=== PATIENT | female | born 1950 | race Caucasian/White ===

== ENCOUNTER 2020-08-20 08:50 | Outpatient (REF) | payer MEDICARE, OTHER, SELFPAY ==
[2020-08-20 10:33] LABS: Anion Gap 14 (12-20); Blood Urea Nitrogen 18 mg/dL (9-16); Calcium 9.2 mg/dL (8.4-10.2); Carbon Dioxide 31 mmol/L (22-29); Chloride 100 mmol/L (96-108); Estimated Glomerular Filt Rate > 60; Potassium 3.6 mmol/l (3.3-5.1); Sodium 141 mmol/L (135-145)
[2020-08-20 10:51] LABS: Glucose Urine UA NEG (NEG); Leukocyte Esterase Urine TRACE (NEG); Nitrite Urine NEG (NEG); PH 7.5 (5.0-8.0); Urine Blood NEG (NEG); Urine Ketones NEG (NEG); Urine Protein NEG (NEG-TRACE)
[2020-08-20 10:59] LABS: Appearance Urine CLEAR; Color Urine YELLOW
[2020-08-20 11:14] LABS: Bacteria Urine TRACE /LPF; RBC Urine 0-2 /HPF (0); Squamous Epithelial Cell Urine 1+ /LPF
== END 2020-08-20 08:51 | disposition home or self-care (01) ==
LOC: HO.LAB 08:50
PROVIDERS: PCP Internal Medicine; Visit Provider Internal Medicine Hypertension Specialist
DX: N20.0 Calculus of kidney (principal); I10 Essential (primary) hypertension; E87.6 Hypokalemia
CPT/HCPCS: 80051; 81001; 81003; 82310; 82565; 84520

== ENCOUNTER 2020-10-21 09:17 | Outpatient (REF) | payer MEDICARE, OTHER, SELFPAY | END 2020-10-21 09:18 | disposition home or self-care (01) | LOC: HO.LAB 09:17 | PROVIDERS: Visit Provider Internal Medicine | DX: Z20.822 Contact with and (suspected) exposure to COVID-19 (principal) | CPT/HCPCS: 36415; C9803; U0003; U0005 ==

== ENCOUNTER 2020-12-30 07:38 | Outpatient (REF) | payer MEDICARE, OTHER, SELFPAY ==
--- NOTE | ~2020-12-30 | US_ITS ---
EXAMINATION: US RETROPERITONEAL LIMITED (RENAL ONLY) CLINICAL INFORMATION: Stones. COMPARISON: Renal ultrasound 01/07/2020 and 01/07/2019. CT abdomen and pelvis 02/05/2012. TECHNIQUE: Real-time imaging of the kidneys. FINDINGS: RIGHT KIDNEY: 10.1 x 4.1 x 5.2 cm (SAG x AP x TRV). The kidney is normal in size, contour, and echogenicity. Renal cortical thickness is normal. No calculi or focal parenchymal lesions. No hydronephrosis. LEFT KIDNEY: 10.1 x 4.7 x 5.1 cm (SAG x AP x TRV). The kidney is normal in size, contour, and echogenicity. Renal cortical thickness is normal. No focal parenchymal lesions or hydronephrosis. There is an echogenic stone lower pole measuring 0.29 x 0.23 x 0.20 cm. US/US renal BI IMPRESSION: Small nonobstructive echogenic stone lower pole left kidney measuring 0.29 x 0.23 x 0.20 cm. The right kidney is unremarkable.
[2020-12-30 10:15] LABS: Anion Gap 12 (12-20); Blood Urea Nitrogen 24 mg/dL (9-16); Calcium 9.1 mg/dL (8.4-10.2); Carbon Dioxide 30 mmol/L (22-29); Chloride 103 mmol/L (96-108); Estimated Glomerular Filt Rate > 60; Potassium 3.7 mmol/L (3.3-5.1); Sodium 141 mmol/L (135-145)
== END 2020-12-30 07:39 | disposition home or self-care (01) ==
LOC: HO.US 07:38
PROVIDERS: Absent Provider Internal Medicine Hypertension Specialist; PCP Internal Medicine; Visit Provider Urology
DX: N20.0 Calculus of kidney (principal); I10 Essential (primary) hypertension; E87.6 Hypokalemia
CPT/HCPCS: 36415; 76775; 80051; 82310; 82565; 84520

== ENCOUNTER → 2021-01-14 09:02 | Outpatient (BNVA) | payer MEDICARE, OTHER, SELFPAY | PROVIDERS: PCP Internal Medicine; Visit Provider Urology | CPT/HCPCS: Q3014 ==

== ENCOUNTER 2021-03-23 10:06 | Outpatient (REF) | payer MEDICARE, OTHER, SELFPAY ==
--- NOTE | ~2021-03-23 | MM_ITS ---
EXAMINATION: BONE DENSITOMETRY CLINICAL INDICATION: Asymptomatic menopausal state. COMPARISON: None (current study represents initial baseline exam). TECHNIQUE: Using a [employer] DXA System (software version: 13.1) manufactured by [employer], dual-energy x-ray absorptiometry was performed of the lumbar spine and left hip. The images are of good technical quality. Summary results are attached. FINDINGS: AP SPINE L1-L4: BMD 0.895 g/cm2, Z-score -1.2, T-score -2.4, osteopenia. LEFT FEMUR, NECK: BMD 0.723 g/cm2, Z-score -0.9, T-score -2.3, osteopenia. LEFT FEMUR, TOTAL: BMD 0.813 g/cm2, Z-score -0.4, T-score -1.5, osteopenia. IDENTIFIED RISK FACTORS: Osteoporosis, renal, height loss. Early menopause, secondary osteoporosis, thiazide, hysterectomy, bilateral oophorectomy. HISTORY OF FRACTURE: Foot. MEDICATIONS: Calcium supplements or multivitamin, vitamin D. MM/XR DEXA axial skeleton IMPRESSION: 1. DIAGNOSIS: Osteopenia based on the lowest T-score value of -2.4 in the lumbar spine applying World Health Organization criteria. 2. 10-YEAR FRACTURE RISK PREDICTION, FRAX: Major osteoporotic fracture (clinical spine, forearm, hip or shoulder) 12.8%. Hip fracture 2.9%. 3. Treatment Recommendations: NOF guidelines recommend consideration for treatment in postmenopausal women and men age 50 and older presenting with the following: -A hip or vertebral (clinical or morphometric) fracture. -T-score less than or equal to -2.5 at the femoral neck or spine after appropriate evaluation to exclude secondary causes. -Low bone mass at the hip or spine and a 10-year fracture probability by FRAX of greater than or equal to 3% for hip fracture or greater than or equal to 20% for major osteoporotic fracture based on the [place] adapted WHO algorithm. 4. Other Recommendations: All treatment decisions require clinical judgment and consideration of individual patient factors, including patient preferences, comorbidities, previous drug use, risk factors not captured in the FRAX model (e.g. frailty, falls, vitamin D deficiency, increased bone turnover, interval significant decline in bone density) and possible under or overestimation of fracture risk by FRAX. Additional medical evaluation for secondary cause of low bone mineral density may be appropriate. FUTURE SCAN RECOMMENDATION: People with diagnosed cases of osteoporosis or at high risk for fracture should have regular bone mineral density tests. For patients eligible for Medicare, routine testing is allowed once every 2 years. The testing frequency can be increased to one year for patients who have rapidly progressing disease, those who are receiving or discontinuing medical therapy to restore bone mass, or have additional risk factors.
== END 2021-03-23 10:07 | disposition home or self-care (01) ==
LOC: HO.MAMMO 10:06
PROVIDERS: PCP Internal Medicine; Visit Provider Nurse Practitioner Family
DX: Z13.820 Encounter for screening for osteoporosis (principal); M85.80 Other specified disorders of bone density and structure, unspecified site; Z78.0 Asymptomatic menopausal state; Z79.899 Other long term (current) drug therapy; Z90.722 Acquired absence of ovaries, bilateral; Z98.890 Other specified postprocedural states
CPT/HCPCS: 77080

== ENCOUNTER 2021-05-17 08:58 | Outpatient (REF) | payer MEDICARE, OTHER, SELFPAY ==
[2021-05-17 09:50] LABS: MANUAL DIFF FLAG NO
[2021-05-17 09:52] LABS: Basophils Percent Auto 0.7 % (0-2); Eosinophils Absolute Auto 0.1 X10*3/uL (0.0-0.4); Eosinophils Percent Auto 2.3 % (0-4); Hemoglobin 12.8 g/dl (12.0-16.0); Imm Gran Abs Auto 0.05 X10*3/uL (0.00-0.03); Imm Gran Pct Auto 0.9 % (0.0-0.4); Lymphocytes Absolute Auto 1.8 X10*3/uL (1.2-4.9); Lymphocytes Percent Auto 30.9 % (20-40); Mean Corpuscular HGB Conc 32.8 g/dl (31.0-35.0); Mean Corpuscular Hemoglobin 30.8 pg (27.0-33.0); Mean Corpuscular Volume 93.8 fL (80-98); Mean Platelet Volume 9.1 fL (9.4-12.3); Monocytes Absolute Auto 0.5 X10*3/uL (0.1-1.2); Monocytes Percent Auto 8.3 % (2-11); Neutrophils Absolute Auto 3.2 X10*3/uL (2.0-8.3); Neutrophils Percent Auto 56.9 % (45-73); Platelet Count 253 X10*3/uL (160-400); Red Blood Count 4.16 X10*6/uL (4.20-5.50); Red Cell Distribution Width 13.2 % (11.0-16.0); White Blood Count 5.7 X10*3/uL (4.8-10.8)
[2021-05-17 10:27] LABS: Alanine Aminotransferase 24 U/L (0-31); Albumin Level 4.4 g/dL (3.5-5.0); Alkaline Phosphatase 73 U/L (39-117); Anion Gap 12 (12-20); Aspartate Amino Transferase 26 U/L (5-31); Bilirubin Total 0.7 mg/dL (0.0-1.0); Blood Urea Nitrogen 19 mg/dL (9-16); Calcium 9.2 mg/dL (8.4-10.2); Carbon Dioxide 28 mmol/L (22-29); Chloride 101 mmol/L (96-108); Cholesterol 200 mg/dL; Estimated Glomerular Filt Rate > 60; Glucose Fasting 103 mg/dL (60-99); HDL Cholesterol 55 mg/dL; LDL Cholesterol Calculated 131 mg/dl; Potassium 3.4 mmol/L (3.3-5.1); Sodium 138 mmol/L (135-145); Total Protein 6.9 g/dL (6.5-8.0); Triglycerides 73 mg/dL
[2021-05-17 10:51] LABS: TSH reflex Free T4 2.09 uIU/mL (0.32-4.0); Vitamin D 25-OH Total 22.8 ng/mL (>30)
== END 2021-05-17 08:59 | disposition home or self-care (01) ==
LOC: HO.LAB 08:58
PROVIDERS: Absent Provider Internal Medicine; PCP Internal Medicine; Visit Provider Nurse Practitioner Family
DX: Z13.220 Encounter for screening for lipoid disorders (principal); Z13.1 Encounter for screening for diabetes mellitus; R53.83 Other fatigue
CPT/HCPCS: 36415; 80053; 80061; 82306; 84443; 85025

== ENCOUNTER 2021-12-26 08:15 | Outpatient (REF) | payer MEDICARE, OTHER, SELFPAY ==
--- NOTE | ~2021-12-26 | US_ITS ---
EXAMINATION: US RETROPERITONEAL LIMITED (RENAL ONLY) CLINICAL INFORMATION: Calculus of kidney. COMPARISON: US retroperitoneal limited (renal only) 12/30/2020 and 01/07/2020. CT abdomen and pelvis 02/05/2012. TECHNIQUE: Real-time imaging of the kidneys. FINDINGS: RIGHT KIDNEY: 10.4 x 3.9 x 4.3 cm (SAG x AP x TRV). The kidney is normal in size, contour, and echogenicity. Renal cortical thickness is normal. No calculi or focal parenchymal lesions. No hydronephrosis. LEFT KIDNEY: 10.4 x 4.2 x 4.5 cm (SAG x AP x TRV). The kidney is normal in size, contour, and echogenicity. Renal cortical thickness is normal. There is a 3 mm echogenic density with twinkle artifact in the lower pole questionable for a stone. No focal parenchymal lesions or hydronephrosis. US/US renal BI IMPRESSION: Question small left renal stone. Normal right kidney.
== END 2021-12-26 08:16 | disposition home or self-care (01) ==
LOC: HO.US 08:15
PROVIDERS: PCP Internal Medicine; Visit Provider Urology
DX: N20.0 Calculus of kidney (principal)
CPT/HCPCS: 76775

== ENCOUNTER 2022-01-02 09:33 | Outpatient (REF) | payer MEDICARE, OTHER, SELFPAY ==
[2022-01-02 10:41] LABS: Alanine Aminotransferase 26 U/L (0-31); Albumin Level 4.3 g/dL (3.5-5.0); Alkaline Phosphatase 74 U/L (39-117); Anion Gap 12 (12-20); Aspartate Amino Transferase 26 U/L (5-31); Bilirubin Total 0.6 mg/dL (0.0-1.0); Blood Urea Nitrogen 17 mg/dL (9-16); Calcium 9.8 mg/dL (8.4-10.2); Carbon Dioxide 30 mmol/L (22-29); Chloride 102 mmol/L (96-108); Estimated Glomerular Filt Rate > 60; Glucose Random 114 mg/dL (60-115); Potassium 3.4 mmol/L (3.3-5.1); Sodium 141 mmol/L (135-145)
== END 2022-01-02 09:34 | disposition home or self-care (01) ==
LOC: HO.LAB 09:33
PROVIDERS: PCP Internal Medicine; Visit Provider Internal Medicine Hypertension Specialist
DX: N20.0 Calculus of kidney (principal)
CPT/HCPCS: 36415; 80053

== ENCOUNTER → 2022-01-17 14:11 | Outpatient (BNVA) | payer MEDICARE, OTHER, SELFPAY | PROVIDERS: PCP Internal Medicine | DX: N20.0 Calculus of kidney (principal) | CPT/HCPCS: 99212 ==

== ENCOUNTER 2022-07-07 10:29 | Outpatient (REF) | payer MEDICARE, OTHER, SELFPAY ==
[2022-07-07 10:53] LABS: MANUAL DIFF FLAG NO
[2022-07-07 11:43] LABS: Basophils Percent Auto 0.7 % (0-2); Eosinophils Absolute Auto 0.1 X10*3/uL (0.0-0.4); Eosinophils Percent Auto 1.1 % (0-4); Hematocrit 41.3 % (37.0-47.0); Hemoglobin 13.6 g/dl (12.0-16.0); Imm Gran Abs Auto 0.02 X10*3/uL (0.00-0.03); Imm Gran Pct Auto 0.3 % (0.0-0.4); Lymphocytes Absolute Auto 1.7 X10*3/uL (1.2-4.9); Lymphocytes Percent Auto 27.9 % (20-40); Mean Corpuscular HGB Conc 32.9 g/dl (31.0-35.0); Mean Corpuscular Hemoglobin 30.6 pg (27.0-33.0); Mean Platelet Volume 9.4 fL (9.4-12.3); Monocytes Absolute Auto 0.4 X10*3/uL (0.1-1.2); Monocytes Percent Auto 7.2 % (2-11); Neutrophils Absolute Auto 3.9 x10*3/uL (2.0-8.3); Neutrophils Percent Auto 62.8 % (45-73); Platelet Count 294 X10*3/uL (160-400); Red Blood Count 4.44 X10*6/uL (4.20-5.50); Red Cell Distribution Width 13.3 % (11.0-16.0); White Blood Count 6.1 X10*3/uL (4.8-10.8)
[2022-07-07 12:38] LABS: Thyroid Stimulating Hormone 3.21 uIU/mL (0.32-4.0)
[2022-07-07 12:44] LABS: Alanine Aminotransferase 22 U/L (0-31); Albumin Level 4.4 g/dL (3.5-5.0); Alkaline Phosphatase 75 U/L (39-117); Anion Gap 16 (12-20); Aspartate Amino Transferase 25 U/L (5-31); Bilirubin Total 0.4 mg/dL (0.0-1.0); Blood Urea Nitrogen 21 mg/dL (9-16); Calcium 9.8 mg/dL (8.4-10.2); Carbon Dioxide 28 mmol/L (22-29); Chloride 101 mmol/L (96-108); Cholesterol 215 mg/dL; Estimated Glomerular Filt Rate > 60; Glucose Fasting 106 mg/dL (60-99); HDL Cholesterol 58 mg/dL; LDL Cholesterol Calculated 143 mg/dl; Potassium 3.6 mmol/L (3.3-5.1); Sodium 141 mmol/L (135-145); Total Protein 7.1 g/dL (6.5-8.0); Triglycerides 70 mg/dL
== END 2022-07-07 10:30 | disposition home or self-care (01) ==
LOC: HO.LAB 10:29
PROVIDERS: PCP Internal Medicine; Visit Provider Internal Medicine
DX: Z13.0 Encounter for screening for diseases of the blood and blood-forming organs and certain disorders involving the immune mechanism (principal); E78.5 Hyperlipidemia, unspecified; E03.9 Hypothyroidism, unspecified; I10 Essential (primary) hypertension
CPT/HCPCS: 36415; 80053; 80061; 84443; 85025

== ENCOUNTER 2022-10-07 10:04 | Outpatient (REF) | payer MEDICARE, OTHER, SELFPAY ==
[2022-10-07 11:52] LABS: Cholesterol 124 mg/dL; HDL Cholesterol 53 mg/dL; LDL Cholesterol Calculated 63 mg/dl; Triglycerides 44 mg/dL
== END 2022-10-07 10:05 | disposition home or self-care (01) ==
LOC: HO.LAB 10:04
PROVIDERS: PCP Internal Medicine; Visit Provider Internal Medicine
DX: E78.5 Hyperlipidemia, unspecified (principal)
CPT/HCPCS: 36415; 80061

== ENCOUNTER 2023-01-06 09:37 | Outpatient (REF) | payer MEDICARE, OTHER, SELFPAY ==
[2023-01-06 11:12] LABS: Cholesterol 145 mg/dL; HDL Cholesterol 49 mg/dL; LDL Cholesterol Calculated 85 mg/dl; Triglycerides 58 mg/dL
== END 2023-01-06 09:38 | disposition home or self-care (01) ==
LOC: HO.LAB 09:37
PROVIDERS: PCP Internal Medicine; Visit Provider Internal Medicine
DX: E78.5 Hyperlipidemia, unspecified (principal)
CPT/HCPCS: 36415; 80061

== ENCOUNTER 2023-01-09 09:20 | Outpatient (REF) | payer MEDICARE, OTHER, SELFPAY ==
--- NOTE | ~2023-01-09 | US_ITS ---
EXAMINATION: US RETROPERITONEAL LIMITED (RENAL ONLY) CLINICAL INFORMATION: Renal ultrasound 12/26/2021 and 12/30/2020. COMPARISON: None available. TECHNIQUE: Real-time imaging of the kidneys. FINDINGS: RIGHT KIDNEY: 10.5 x 4.1 x 4.8 cm (SAG x AP x TRV). The kidney is normal in size, contour, and echogenicity. Renal cortical thickness is normal. No focal parenchymal lesions or hydronephrosis. 2 mm nonobstructing stone. LEFT KIDNEY: 10.3 x 5.2 x 5.5 cm (SAG x AP x TRV). The kidney is normal in size, contour, and echogenicity. Renal cortical thickness is normal. No focal parenchymal lesions or hydronephrosis. 3 mm lower pole stone. US/US renal BI IMPRESSION: Bilateral nonobstructing nephrolithiasis. No hydronephrosis.
[2023-01-09 12:22] LABS: Anion Gap 14 (12-20); Blood Urea Nitrogen 15 mg/dL (9-16); Calcium 9.2 mg/dL (8.4-10.2); Carbon Dioxide 27 mmol/L (22-29); Chloride 106 mmol/L (96-108); Estimated Glomerular Filt Rate > 60; Potassium 3.4 mmol/L (3.3-5.1); Sodium 144 mmol/L (135-145)
[2023-01-09 12:31] LABS: Creatinine Urine 28.77 mg/dL; Total Protein Urine Random < 7 mg/dL (<12)
== END 2023-01-09 09:21 | disposition home or self-care (01) ==
LOC: HO.US 09:20
PROVIDERS: Absent Provider Internal Medicine Hypertension Specialist; PCP Internal Medicine; Visit Provider Nurse Practitioner Family
DX: N20.0 Calculus of kidney (principal)
CPT/HCPCS: 36415; 76775; 80051; 82310; 82565; 84156; 84520

== ENCOUNTER 2023-01-16 09:13 | Outpatient (REF) | payer MEDICARE, OTHER, SELFPAY | END 2023-01-16 09:14 | disposition home or self-care (01) | LOC: HO.LNP 09:13 | PROVIDERS: PCP Internal Medicine; Visit Provider Nurse Practitioner Family | DX: N20.0 Calculus of kidney (principal); N39.0 Urinary tract infection, site not specified; Z79.899 Other long term (current) drug therapy | CPT/HCPCS: 87086; 99212 ==

== ENCOUNTER → 2023-03-21 10:43 | Outpatient (REF) | payer MEDICARE, OTHER, SELFPAY | LOC: HO.CARD 10:43 | PROVIDERS: PCP Internal Medicine; Visit Provider Internal Medicine | DX: R00.2 Palpitations (principal); D64.9 Anemia, unspecified; E03.9 Hypothyroidism, unspecified | CPT/HCPCS: 36415; 84443; 85025; 93005 ==

== ENCOUNTER 2023-04-14 10:03 | Outpatient (REF) | payer MEDICARE, OTHER, SELFPAY ==
[2023-04-14 10:45] LABS: Anion Gap 17 (12-20); Blood Urea Nitrogen 15 mg/dL (9-16); Calcium 9.4 mg/dL (8.4-10.2); Carbon Dioxide 24 mmol/L (22-29); Chloride 103 mmol/L (96-108); Cholesterol 134 mg/dL; Estimated Glomerular Filt Rate > 60; Glucose Fasting 105 mg/dL (60-99); HDL Cholesterol 48 mg/dL; LDL Cholesterol Calculated 75 mg/dl; Potassium 2.9 mmol/L (3.3-5.1); Sodium 141 mmol/L (135-145); Triglycerides 59 mg/dL
== END 2023-04-14 10:04 | disposition home or self-care (01) ==
LOC: HO.LAB 10:03
PROVIDERS: Absent Provider Internal Medicine; PCP Internal Medicine; Visit Provider Nurse Practitioner Family
DX: Z13.1 Encounter for screening for diabetes mellitus (principal); E78.5 Hyperlipidemia, unspecified
CPT/HCPCS: 36415; 80048; 80061

== ENCOUNTER → 2023-04-16 07:36 | Outpatient (REF) | payer MEDICARE, OTHER, SELFPAY ==
--- NOTE | 2023-04-16 07:39 | CA_ITS ---
Transthoracic Echocardiogram Patient (Last, First, Middle): Aruna Leonard J Gender: Female Date of : 1950 Age: 72 Procedure Date: 04/16/2023 Procedure Type: Transthoracic Echocardiogram Location: OP Height: 160.02 cm Weight: 80.29 kg BSA: 1.84 m2 Heart Rate: 67 bpm BP: 142 / 80 mmHg Manager Of Global: SB Referring MD: Abad yBrd MD Symptoms: R00.2 - Palpitations Study Quality: Adequate ECG Rhythm: Sinus Conclusions: - The left ventricular systolic function is normal. The visually estimated ejection fraction is between 55-60%. - Aortic valve sclerosis but no significant stenosis. - There is mild mitral annular calcification. Findings Left Ventricle Normal left ventricular cavity size. The left ventricular systolic function is normal. The visually estimated ejection fraction is between 55-60%. There is no evidence of regional wall motion abnormalities. Evidence suggests grade I (mild) diastolic dysfunction. There is mild septal and mild basal asymmetric hypertrophy. LV peak systolic GLS -17.8%- borderline low. Right Ventricle Normal right ventricular cavity size and systolic function. Atria Both atria are normal in size. Aortic Valve There is mild calcification of the aortic valve. There is no aortic valve regurgitation. Likely trileaflet valve. No significant aortic stenosis. Mitral Valve There is mild mitral annular calcification. There is trace mitral valve regurgitation. There is no mitral valve stenosis. Pulmonic Valve The pulmonic valve is likely normal. Tricuspid Valve Normal tricuspid valve structure. There is trace tricuspid valve regurgitation. There is no evidence of pulmonary hypertension. Great Vessels The asc aorta is normal in size. Venous The inferior vena cava is normal in size and collapses greater than 50% with inspiration. Pericardium/Pleural There is no evidence of pericardial effusion. Prior Study Comparison No prior study available for comparison. Measurements 2D Linear Measurements IVSd: 0.77 0.6-0.9/0.6-1.0 cm LVIDd: 4.48 3.9-5.3/4.2-5.9 cm LVIDd Index: 2.43 2.4-3.2/2.2-3.1 cm/m2 LVIDs: 2.52 2.0-3.6 cm LVPWd: 0.91 0.7-1.1 cm LA Diam: 4.30 2.7-3.8/3.0-4.0 cm LAIDs Index: 2.34 1.5-2.3 cm/m2 LV Mass: 148.87 67-162/88-224 g LV Mass Index: 80.91 43-95/49-115 g/m2 LVOT Diam: 2.00 3.0+(-)1.3 cm 2D Systolic Function EF 4C: 66.70 >55% EF 2C: 71.80 >55% Mitral Valve MV Pk E: 0.57 MV PK A: 1.00 MV Decel Time: 245.00 E/A: 0.60 E'Lateral: 6.42 E'Medial: 4.03 E/E' Med: 14.20 E/E' Lat: 8.90 PHT: 72.00 MVA PHT: 3.06 Decel [place]: 2.35 Aortic Valve AoV Pk Jeffery: 1.67 AoV Mn Jeffery: 1.14 AoV VTI: 0.37 AoV Pk Grad: 11.00 Aov Mn Grad: 6.00 RAIMUNDO Cont.VTI: 1.78 LVOT LVOT Pk Jeffery: 0.98 LVOT Mn Jeffery: 0.67 LVOT VTI: 0.21 LVOT Pk Grad: 4.00 LVOT Mn Grad: 2.00 LVOT Diam: 2.00 LVOT Area: 3.14 Diastolic Function MV Pk E: 0.57 MV Pk A: 1.00 E/A: 0.60 E'Medial: 4.03 E/E' Med: 14.20 E' Laterial: 6.42 E/E' Lat: 8.90 Right Ventricle TAPSE (mm): 20.00 TVS' Jeffery: 11.20 Tricuspid Valve RA Press: 3.00 Great Vessels Aorta Sinus of Valsalva: 2.90 2.0-3.5 cm Ao Asc: 3.30 2.1-3.4 cm Pulmonary Valve PV Pk Jeffery: 0.89 Peak PV Grad: 3.00 Updated in Other Vendor System with Status of Final Galileo Buckley MD electronically signed on 04/16/2023 10:26:53 AM with status of Final
== END ==
LOC: HO.CARD 07:36
PROVIDERS: PCP Internal Medicine; Visit Provider Internal Medicine
DX: R00.2 Palpitations (principal)
CPT/HCPCS: 93306; 93356

== ENCOUNTER → 2023-04-16 07:39 | Outpatient (BNV) | payer MEDICARE, OTHER, SELFPAY | PROVIDERS: PCP Internal Medicine; Visit Provider Internal Medicine | DX: I34.81 Nonrheumatic mitral (valve) annulus calcification (principal) | CPT/HCPCS: 93306 ==

== ENCOUNTER 2023-04-20 09:47 | Outpatient (AMB) | payer MEDICARE, OTHER, SELFPAY ==
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
[2023-04-20 09:55] VITALS: BP 110/62; PULSE 79; O2SAT 97; BMI 30.6
== END 2023-04-20 10:16 | disposition home or self-care (01) ==
PROVIDERS: PCP Internal Medicine; Visit Provider Internal Medicine
DX: I10 Essential (primary) hypertension (principal)
CPT/HCPCS: 99213

== ENCOUNTER 2023-04-28 09:40 | Outpatient (REF) | payer MEDICARE, OTHER, SELFPAY ==
[2023-04-28 11:55] LABS: Anion Gap 12 (12-20); Blood Urea Nitrogen 16 mg/dL (9-16); Calcium 9.9 mg/dL (8.4-10.2); Carbon Dioxide 30 mmol/L (22-29); Chloride 104 mmol/L (96-108); Estimated Glomerular Filt Rate > 60; Glucose Random 112 mg/dL (60-115); Potassium 3.5 mmol/L (3.3-5.1); Sodium 142 mmol/L (135-145)
== END 2023-04-28 09:41 | disposition home or self-care (01) ==
LOC: HO.LAB 09:40
PROVIDERS: PCP Internal Medicine; Visit Provider Nurse Practitioner Family
DX: E87.6 Hypokalemia (principal)
CPT/HCPCS: 36415; 80048

== ENCOUNTER 2023-05-17 08:02 | Outpatient (AMB) | payer MEDICARE, OTHER, SELFPAY ==
[2023-05-17 08:22] VITALS: BP 120/74; PULSE 71
--- NOTE | 2023-05-17 08:22 | MHC.OFFVIS ---
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 Required: No Allergies citalopram [From CELEXA] Allergy (Severe, Verified 04/20/23 09:54) LOCKJAW, DIFFICULTY SWALLOWING lisinopril [LISINOPRIL] Allergy (Severe, Verified 04/20/23 09:54) COUGH scopolamine [SCOPOLAMINE] Allergy (Severe, Verified 04/20/23 09:54) AGITATION sulfamethoxazole [From BACTRIM] Allergy (Intermediate, Verified 04/20/23 09:54) HIVES sertraline [From Zoloft] Allergy (Mild, Verified 04/20/23 09:54) yawning hydroxyzine [Vistaril] Allergy (Unknown, Verified 04/20/23 09:54) agitation metronidazole [Flagyl] Allergy (Unknown, Verified 04/20/23 09:54) arm paralysis Sulfa (Sulfonamide Antibiotics) Allergy (Unknown, Verified 04/20/23 09:54) rash Medication List - Last Reconciled 05/17/23 by Ja Alcazar MD aspirin (Adult Low Dose Aspirin) 81 mg PO DAILY atorvastatin 20 mg PO DAILY chlorthalidone 25 mg PO DAILY ergocalciferol (vitamin D2) 1,250 mcg PO QWEEK estradiol 0.01%(0.1mg/gram) vaginal ibuprofen 800 mg PO Q8H PRN nitrofurantoin macrocrystal 100 mg PO BID PRN potassium chloride ER 20 mEq PO BID pyridoxine (vitamin B6) 100 mg PO DAILY 30 days verapamil ER 240 mg PO DAILY HPI HPI Comments History of Present Illness Details Thank you for referring rAuna in cardiology consultation today for symptoms of palpitations related to PVCs. 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 Patient since December was having symptoms of palpitations. They required frequent and bothersome. When she had very frequent palpitation she would get exertional shortness of breath as well as fatigue. However is after that in March she was diagnosed with hypokalemia. Potassium levels 2.9. It was at that time decided to switch her potassium supplement from potassium site rate to potassium chloride. Since then the potassium is improved to 3.5 and her PVC burden has improved. She is lot less symptomatic. She does not have any symptoms of recent exertional chest pain or worsening shortness of breath. Denies orthopnea, PND. No lightheadedness, syncope. No prolonged palpitations. She has developed some acid reflux symptoms related to increased potassium supplementation her diet as well as the potassium pills. She had echocardiogram recently showed normal LV systolic function with fibrocalcific aortic as well as mitral and calcification changes noted without any significant other valvular abnormalities. [facility] Medical History Fatigue Hypertension Mild depression Obesity Post-menopausal Screening for diabetes mellitus Screening for hyperlipidemia Surgical History History of colonoscopy History of hysterectomy History of surgery Family History Father Aneurysm Diabetes Mother Heart disease Maternal Grandmother Colon cancer Brother No problems noted. Sister No problems noted. Son Substance use disorder Son No problems noted. Daughter No problems noted. Daughter Mental health disorder Social History Housing: House Alcohol intake: current Alcohol intake frequency: holidays/special occasions only Patient Tobacco Use Status: Former Tobacco user Tobacco use type: Cigarette Cigarettes Per Day: 2 Years Smoked: 0 e-Cigarette/Vaping Use: Never Used Second Hand Smoke Exposure: No service: No Current occupational status: retired Current occupational exposures/hazards: No Cognitive needs: No Hearing needs: No Vision needs: Yes Review of Systems Const Denies chills, Denies daytime sleepiness, Denies fatigue, Denies fever(s), Denies frequent falls, Denies poor appetite, Denies snoring, Denies stops breathing during sleep, Denies weakness, Denies weight gain and Denies weight loss Eyes Denies loss of vision ENT Denies dizziness and Denies hearing loss Card Denies chest pain, Denies claudication, Denies leg edema, Denies lightheadedness, Denies palpitations, Denies dyspnea, Denies dyspnea on exertion and Denies orthopnea Resp Denies cough, Denies excessive phlegm production, Denies dyspnea, Denies dyspnea on exertion, Denies snoring and Denies wheezing GI Denies abdominal pain, Denies hematochezia, Denies change in bowel habits, Denies nausea and Denies vomiting Denies urinary frequency and Denies dysuria Musc Denies arthralgias, Denies muscle weakness, Denies numbness and Denies other (frequent falls) Skin/Breast Denies nail changes and Denies rash Neuro Denies Abnormal speech present, Denies dizziness, Denies frequent falls, Denies loss of vision, Denies memory loss, Denies numbness and Denies weakness Psych Denies depression and Denies memory loss Endo Denies fatigue and Denies palpitations Jamey/Lymph Reports easy bruising and Reports other (anemia) Aller/Immun Denies wheezing Physical Exam Vital Signs: Last Vital Signs Pulse 71 05/17/23 08:22 BP 120/74 05/17/23 08:22 BMI result Body Mass Index 30.0 Const General: cooperative, comfortable, no acute distress, alert, awake, Physically active and well groomed Nutritional Appearance: obese Orientation/consciousness: patient oriented x3 Limitations: no limitations HEENT Head: Yes normocephalic and Yes atraumatic Neck Neck: Yes trachea midline, Yes supple and Yes no JVD Resp Effort & Inspection: normal respiratory effort Auscultation: clear to auscultation bilaterally Cardio Jugular venous distension: no JVD Palpation: normal PMI Rate: regular rate Rhythm: regular rhythm Heart sounds: S1 normal heart sound present, S2 normal heart sound present, no click, no gallops and Murmur heart sound present systolic early Bruits: no carotid bruits GI Auscultation: normal bowel sounds Skin General skin exam: no rashes or lesions noted Neuro General: patient oriented x3 and no focal motor deficits Speech: No Abnormal speech present Extrem General: Yes no clubbing, cyanosis or edema Assessment & Plan Assessment & Plan (1) PVC (premature ventricular contraction): Code(s): I49.3 - Ventricular premature depolarization Plan: Recent onset symptoms of palpitation which are most likely related to her low potassium levels. Symptoms improved with replacement potassium. Her given her age and prior cerebrovascular events, obstructive coronary artery disease needs to be ruled out. Will suggest a regular treadmill stress test to further assess for myocardial ischemia that may change treatment. Will also suggest Holter monitor to assess the frequency of PVCs. For PVCs remain difficult control can consider switching her verapamil to beta-teofilo therapy which can also help with migraine headaches. Also advised to participate more aggressive potassium replacement with potassium rich foods. These were discussed. Follow-up basic metabolic profile in 4 weeks time. For potassium remains difficult control consider Nephrology evaluation for other potential diagnoses and/or consider switching chlorthalidone therapy. Hypertension is currently well optimized. 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 Target goal LDL less than 70 mg/dL. Encouraged to continue vitals and physical activity as tolerated. Follow up in the clinic in 6 weeks time, sooner p.r.n.. Thank you for allowing me to partake in her care Orders: Orders CA stress test Today I49.3 - Ventricular premature depolarization ECG 3 day holter monitor Today I49.3 - Ventricular premature depolarization Basic Metabolic Panel 4 Weeks I49.3 - Ventricular premature depolarization Medications: Changed From nitrofurantoin macrocrystal For UTI 100 mg PO BID 7 days 14 caps 0RF R32 - Unspecified urinary incontinence To nitrofurantoin macrocrystal For UTI 100 mg PO BID PRN R32 - Unspecified urinary incontinence Coding Level of Care Code New Pt Level 4 (29020) Diagnoses PVC (premature ventricular contraction) I49.3
== END 2023-05-17 09:00 | disposition home or self-care (01) ==
PROVIDERS: PCP Internal Medicine; Referring Provider Internal Medicine; Visit Provider Internal Medicine Cardiovascular Disease
DX: I49.3 Ventricular premature depolarization (principal)
CPT/HCPCS: 99204

== ENCOUNTER → 2023-05-17 08:02 | Outpatient (BNVA) | payer MEDICARE, OTHER, SELFPAY | PROVIDERS: PCP Internal Medicine; Referring Provider Internal Medicine; Visit Provider Internal Medicine Cardiovascular Disease | DX: I49.3 Ventricular premature depolarization (principal); Z79.82 Long term (current) use of aspirin | CPT/HCPCS: 99202 ==

== ENCOUNTER → 2023-05-29 09:19 | Outpatient (REF) | payer MEDICARE, OTHER, SELFPAY ==
--- NOTE | 2023-05-29 09:21 | CA_ITS ---
Acquisition Time: 2023-05-29 10:18:27 Total Exercise Time: 00:05:01 Test Indications: VENTRICULAR PREMATURE DEPOLARIZA Medications: Protocol: ARELY Max HR: 137 BPM 93% of Pred: 147 BPM Max BP: 194/096 mmHG Max Work Load: 7.0 METS Exercise stress test exercise 5 min 1 sec of Arely protocol 92% MPHR, with 3/10 chest tightness and moderate SOB, with frequent PVCs and ventricular bigeminy and cuplets, with resting HTN, normotensive response to exercise, without EKG changes. Chest pain to 0.5/[address] Alcazar aware and okay'd to go home.. Test reviewed with Dr. Marie. BP post nitro 138/74. Referred By: Ja Alcazar Overread By: MANUEL MARIE
== END ==
LOC: HO.CARD 09:19
PROVIDERS: PCP Internal Medicine; Visit Provider Internal Medicine Cardiovascular Disease
DX: I49.3 Ventricular premature depolarization (principal)
CPT/HCPCS: 93017

== ENCOUNTER → 2023-05-29 09:21 | Outpatient (BNV) | payer MEDICARE, OTHER, SELFPAY | PROVIDERS: PCP Internal Medicine; Visit Provider Internal Medicine | DX: R07.89 Other chest pain (principal); R06.02 Shortness of breath | CPT/HCPCS: 93016; 93018 ==

== ENCOUNTER → 2023-06-04 09:59 | Outpatient (REF) | payer MEDICARE, OTHER, SELFPAY ==
--- NOTE | 2023-06-04 10:01 | HM_ITS ---
Conclusion: 1. Patient was monitored for total period of 2 days and 23 hours 2. Baseline was normal sinus with average heart of 72 beats per minute 3. No significant pauses noted 4. Frequent isolated PVCs noted with total burden of 1.9% 5. Patient reported 17 events correlating with isolated PVCs MTDD
== END ==
LOC: HO.CARD 09:59
PROVIDERS: PCP Internal Medicine; Visit Provider Internal Medicine Cardiovascular Disease
DX: I49.3 Ventricular premature depolarization (principal)
CPT/HCPCS: 93242

== ENCOUNTER → 2023-06-04 10:01 | Outpatient (BNV) | payer MEDICARE, OTHER, SELFPAY | PROVIDERS: PCP Internal Medicine; Visit Provider Internal Medicine Cardiovascular Disease | DX: I49.3 Ventricular premature depolarization (principal) | CPT/HCPCS: 93244 ==

== ENCOUNTER 2023-06-18 08:59 | Outpatient (REF) | payer MEDICARE, OTHER, SELFPAY ==
[2023-06-18 10:21] LABS: Anion Gap 14 (12-20); Blood Urea Nitrogen 18 mg/dL (9-16); Calcium 9.4 mg/dL (8.4-10.2); Carbon Dioxide 28 mmol/L (22-29); Chloride 104 mmol/L (96-108); Estimated Glomerular Filt Rate > 60; Glucose Random 110 mg/dL (60-115); Potassium 3.5 mmol/L (3.3-5.1); Sodium 142 mmol/L (135-145)
== END 2023-06-18 09:00 | disposition home or self-care (01) ==
LOC: HO.LAB 08:59
PROVIDERS: PCP Internal Medicine; Visit Provider Internal Medicine Cardiovascular Disease
DX: I49.3 Ventricular premature depolarization (principal)
CPT/HCPCS: 36415; 80048

== ENCOUNTER → 2023-06-28 09:10 | Outpatient (REF) | payer MEDICARE, OTHER, SELFPAY ==
--- NOTE | ~2023-06-28 | NM_ITS ---
Lexiscan Myocardial perfusion study Indication: Chest pain, abnormal EKG Technique: The patient was brought in for a Lexiscan perfusion study on 06/28/2023 and was injected 0.4 mg of Lexiscan intravenously. Within a minute of this injection 25 mCi of sestamibi was given intravenously. Images were obtained using the SPECT gamma camera interlaced with the gating device. Images were obtained in supine position. Resting perfusion study was performed on 06/29/2023. Patient was administered 25 mCi of sestamibi intravenously at rest. Images were then obtained in supine position. Images were processed with the software and compared side to side in short axis, horizontal long axis and vertical long axis views. Total DLP 102mGy-cm. Findings: Raw acquisition reviewed. The stress perfusion study showed mildly reduced tracer uptake in the distal part of anterior wall. This is still seen in CT attenuation correction. The gated study shows normal LV systolic function with calculated LVEF of 74%. LV cavity is normal in size. The gated study shows normal wall thickening and contraction of segments. Resting study shows no significant perfusion abnormality. Gating at rest reveals normal wall motion with ejection fraction at 67%. The findings are consistent with mild reversible distal anterior defect. NM/NM cardiolite stress test Impression: 1. Myocardial perfusion imaging study shows mild reversible distal anterior defect but with normal contractility. Could be artifactual. Less likely to represent mild ischemia. 2. Gated LVEF is 74% during stress and 67% during rest. 3. Transient ischemic dilatation not present. EKG component of the test reported separately.
--- NOTE | 2023-06-28 09:13 | CA_ITS ---
Acquisition Time: 2023-06-28 09:34:49 Total Exercise Time: 00:02:00 Test Indications: CP Medications: ASA VERAPAMIL ATORVASTATIN CHLORTHALIDONE Protocol: LEXISCAN Max HR: 092 BPM 62% of Pred: 147 BPM Max BP: 150/078 mmHG Max Work Load: 1.0 METS Pharmacological stress test with lexiscan injection while sitting and kicking her legs, without anginal sympotoms, without arrhythmais, with normotensive resposne to injection, with nondiagnoistic EKGs. Nuclear images pending. Test reviewed with Dr. Cole. Referred By: Ivonne Gibson Overread By: Ivonne Gibson
== END ==
LOC: HO.CARD 09:10
PROVIDERS: Visit Provider Nurse Practitioner
DX: R00.2 Palpitations (principal); I49.3 Ventricular premature depolarization
CPT/HCPCS: 78452; 93017; A9500; J0280; J2785

== ENCOUNTER → 2023-06-28 09:13 | Outpatient (BNV) | payer MEDICARE, OTHER, SELFPAY | PROVIDERS: Visit Provider Nurse Practitioner | DX: R07.9 Chest pain, unspecified (principal); R94.31 Abnormal electrocardiogram [ECG] [EKG] | CPT/HCPCS: 78452; 93016; 93018 ==

== ENCOUNTER 2023-07-02 08:22 | Outpatient (AMB) | payer MEDICARE, OTHER, SELFPAY ==
--- NOTE | 2023-07-02 08:31 | A.OFFVIS_ITS ---
Intake Vital Signs 07/02/23 08:32 Height 5 ft 4 in Weight 180 lb 5.41 oz BMI 31.0 BP 130/74 Blood Pressure Location Lt brachial Position Sitting Pulse 64 Pulse Source Pulse Oximeter Intake Visit Reasons: follow up after testing Intake Note: f/u after testing pt having some palpitations and some s/b Allergies citalopram [From CELEXA] Allergy (Severe, Verified 07/02/23 08:35) LOCKJAW, DIFFICULTY SWALLOWING lisinopril [LISINOPRIL] Allergy (Severe, Verified 07/02/23 08:35) COUGH scopolamine [SCOPOLAMINE] Allergy (Severe, Verified 07/02/23 08:35) AGITATION sulfamethoxazole [From BACTRIM] Allergy (Intermediate, Verified 07/02/23 08:35) HIVES sertraline [From Zoloft] Allergy (Mild, Verified 07/02/23 08:35) yawning hydroxyzine [Vistaril] Allergy (Unknown, Verified 07/02/23 08:35) agitation metronidazole [Flagyl] Allergy (Unknown, Verified 07/02/23 08:35) arm paralysis Sulfa (Sulfonamide Antibiotics) Allergy (Unknown, Verified 07/02/23 08:35) rash Medication List - Last Reconciled 07/02/23 by VANESSA PrietoC aspirin (Adult Low Dose Aspirin) 81 mg PO DAILY atorvastatin 20 mg PO DAILY chlorthalidone 25 mg PO DAILY ergocalciferol (vitamin D2) 1,250 mcg PO QWEEK estradiol 0.01%(0.1mg/gram) vaginal ibuprofen 800 mg PO Q8H PRN metoprolol succinate ER 25 mg PO DAILY nitrofurantoin macrocrystal 100 mg PO BID PRN potassium chloride ER 20 mEq PO BID pyridoxine (vitamin B6) 100 mg PO DAILY 30 days verapamil ER 240 mg PO DAILY HPI follow up after testing HPI Details Aruna is a 73-year-old female with past medical history of mild obesity, hypertension, PVCs who recently had a Holter monitor and stress test to evaluate symptoms of palpitations and shortness of breath. She now presents for follow-up. Today she reports that her PVCs have improved some since the addition of metoprolol. She is still not satisfied with how she is feeling. She has episodes where she will have frequent PVCs and then they seem to settle down. She has been increasing her potassium food intake. She continues to take her potassium supplement. She has been on chlorthalidone for a long period of time for her hypertension. She also continues on verapamil. No dizziness, presyncope, syncope, falls. No chest discomfort at rest or with activity except. Following her exercise stress test she was noticing a vague pressure type sensation in her chest. She states she has had that on a rare occasion but does not get it consistently. No concerning shortness of breath though she did get short of breath at the time of the stress test. No PND, orthopnea or edema. She tolerates normal ADLs without difficulty. Taking meds as directed. [facility] Medical History Obesity Post-menopausal Screening for hyperlipidemia Screening for diabetes mellitus Fatigue Mild depression Hypertension Surgical History History of colonoscopy History of surgery History of hysterectomy Family History Father Aneurysm Diabetes Mother Heart disease Maternal Grandmother Colon cancer Brother No problems noted. Sister No problems noted. Son Substance use disorder Son No problems noted. Daughter No problems noted. Daughter Mental health disorder Social History Housing: House Alcohol intake: current Alcohol intake frequency: holidays/special occasions only Patient Tobacco Use Status: Former Tobacco user Tobacco use type: Cigarette Cigarettes Per Day: 2 Years Smoked: 0 e-Cigarette/Vaping Use: Never Used Second Hand Smoke Exposure: No service: No Current occupational status: retired Current occupational exposures/hazards: No Cognitive needs: No Hearing needs: No Vision needs: Yes Review of Systems Const All systems reviewed & are unremarkable except as noted in HPI and below ENT Denies dizziness Card Details: palpitations Denies chest pain, Denies chest pain at rest, Denies chest pain with activity, Denies rapid heart rate, Denies pedal edema, Denies edema, Denies leg edema, Denies lightheadedness, Denies palpitations, Denies dyspnea, Denies dyspnea on exertion and Denies orthopnea Resp Denies cough, Denies dyspnea and Denies dyspnea on exertion GI Denies hematochezia and Denies change in stool character Musc Denies abnormal gait, Denies limited range of motion, Denies muscle cramps, Denies muscle weakness, Denies numbness, Denies radiating pain into limb, Denies stiffness and Denies tingling Neuro Denies abnormal gait, Denies dizziness, Denies numbness and Denies tingling Endo Denies palpitations Physical Exam Vital Signs: Last Vital Signs Pulse 64 07/02/23 08:32 BP 130/74 07/02/23 08:32 BMI result Body Mass Index 31.0 Const General: cooperative, healthy appearing, comfortable and no acute distress Orientation/consciousness: patient oriented x3 Neck Neck: Yes normal visual inspection Resp Effort & Inspection: normal respiratory effort Auscultation: clear to auscultation bilaterally, no crackles, no rales, no rhonchi and no wheezes Cardio Jugular venous distension: no JVD Rate: regular rate Rhythm: regular rhythm Heart sounds: S1 normal heart sound present, S2 normal heart sound present, no murmurs and no rubs Neuro General: patient oriented x3 Extrem General: Yes normal to inspection Psych Appearance: grossly normal Mental Status: mental status grossly normal Speech and movement: Normal speech and movement present Assessment & Plan Assessment & Plan (1) PVC (premature ventricular contraction): Code(s): I49.3 - Ventricular premature depolarization Plan: History of PVCs. More recently having increasing amounts. In March she was noted to have hypokalemia with potassium 2.9. Her potassium supplement was increased and clinically her PVCs decreased. She was instructed to increase her food intake with high potassium foods which she has done. Her last potassium level done on 06/18/2023 was 3.5. Echocardiogram done 04/16/2023 showed EF 55- 60%, AV valve sclerosis, no stenosis. Holter monitor done on 06/04/2023 for 3 days shows sinus rhythm with average heart rate 72, frequent PVCs, 1.9% of the time, symptoms correlated with PVCs. Exercise stress test done 05/29/2023 with exercise 5 minutes and report of shortness of breath during exercise, once in recovery she felt a pressure type sensation in her chest, frequent PVCs noted during exercise and recovery, no EKG changes of ischemia. Following these tests she was started on metoprolol XL 25 mg daily. She then underwent a pharmacological stress test on 06/28/2023. Final report for that test is not available at the time of my visit. Today she reports that she has had some improvement in her PVCs since starting metoprolol however is not pleased yet with how she is feeling. She still notices frequent palpitations. At this time her resting heart rate is in the 60s. Unable to further titrate the metoprolol. She is still on verapamil. Will need to clarify med management with Dr. Alcazar, her primary service tech. Plan to call her with stress test results once available. Reviewed caffeine reduction, good hydration, activity as tolerated. Continue to increase potassium foods. She is on chlorthalidone for hypertension. Will review this with Dr. Alcazar. In the setting of hypokalemia she may benefit from alternate therapy for her hypertension. Cardiology office visit in 3 months, sooner if needed (2) Hypokalemia: Code(s): E87.6 - Hypokalemia (3) Intermittent palpitations: Code(s): R00.2 - Palpitations (4) Chest discomfort: Code(s): R07.89 - Other chest pain Plan: Episode of chest discomfort, pressure following the exercise for her exercise stress test. Pharmacological nuclear stress test completed as above, results still pending Coding Level of Care Code Est Pt Level 3 (28837) Diagnoses PVC (premature ventricular contraction) I49.3 Hypokalemia E87.6 Intermittent palpitations R00.2 Chest discomfort R07.89 Time Spent (min) 24
[2023-07-02 08:32] VITALS: BP 130/74; PULSE 64; BMI 31.0
== END 2023-07-02 09:09 | disposition home or self-care (01) ==
PROVIDERS: PCP Internal Medicine; Visit Provider Nurse Practitioner Family
DX: I49.3 Ventricular premature depolarization (principal); E87.6 Hypokalemia; R00.2 Palpitations; R07.89 Other chest pain
CPT/HCPCS: 99213

== ENCOUNTER → 2023-07-02 08:22 | Outpatient (BNVA) | payer MEDICARE, OTHER, SELFPAY | PROVIDERS: PCP Internal Medicine; Visit Provider Nurse Practitioner Family | DX: I49.3 Ventricular premature depolarization (principal); R00.2 Palpitations; R07.89 Other chest pain; E87.6 Hypokalemia; Z79.899 Other long term (current) drug therapy | CPT/HCPCS: 99212 ==

== ENCOUNTER 2023-07-31 10:03 | Outpatient (AMB) | payer MEDICARE, OTHER, SELFPAY ==
[2023-07-31 10:10] VITALS: BP 136/72; PULSE 76; O2SAT 98; BMI 30.3
--- NOTE | 2023-07-31 10:10 | MHC.PC.OV ---
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 Crimping Required: No Advanced Manager: Not Required per policy Accompanied by: Self / Same As Patient Allergies citalopram [From CELEXA] Allergy (Severe, Verified 07/31/23 10:10) LOCKJAW, DIFFICULTY SWALLOWING lisinopril [LISINOPRIL] Allergy (Severe, Verified 07/31/23 10:10) COUGH scopolamine [SCOPOLAMINE] Allergy (Severe, Verified 07/31/23 10:10) AGITATION sulfamethoxazole [From BACTRIM] Allergy (Intermediate, Verified 07/31/23 10:10) HIVES sertraline [From Zoloft] Allergy (Mild, Verified 07/31/23 10:10) yawning hydroxyzine [Vistaril] Allergy (Unknown, Verified 07/31/23 10:10) agitation metronidazole [Flagyl] Allergy (Unknown, Verified 07/31/23 10:10) arm paralysis Sulfa (Sulfonamide Antibiotics) Allergy (Unknown, Verified 07/31/23 10:10) rash Medication List - Last Reconciled 08/01/23 by Abad Byrd MD aspirin (Adult Low Dose Aspirin) 81 mg PO DAILY atorvastatin 20 mg PO DAILY chlorthalidone 25 mg PO DAILY ergocalciferol (vitamin D2) 1,250 mcg PO QWEEK estradiol 0.01%(0.1mg/gram) vaginal ibuprofen 800 mg PO Q8H PRN metoprolol succinate ER 50 mg PO DAILY 90 days nitrofurantoin macrocrystal 100 mg PO BID PRN potassium chloride ER 20 mEq PO BID pyridoxine (vitamin B6) 100 mg PO DAILY 30 days verapamil ER 240 mg PO DAILY Tobacco use date assessed: 04/20/23 Fall risk assessment: No Falls in past year Last assessed Fall Risk: 07/31/23 Dental Screening Dental Screen Date: 07/31/23 Did you have a dental visit in the last 12 months?: Yes Did you have a dental problem in the last 6 months where you did not have access to dental care?: No Was dental information given to patient?: Patient has dentist HPI 3 month f/u HPI Details HTN hyperlip and anxiety; stable and doing well PFSH Medical History Obesity Post-menopausal Screening for hyperlipidemia Screening for diabetes mellitus Fatigue Mild depression Hypertension Surgical History History of colonoscopy History of surgery History of hysterectomy Family History Father Aneurysm Diabetes Mother Heart disease Maternal Grandmother Colon cancer Brother No problems noted. Sister No problems noted. Son Substance use disorder Son No problems noted. Daughter No problems noted. Daughter Mental health disorder Social History Housing: House Alcohol intake: current Alcohol intake frequency: holidays/special occasions only Patient Tobacco Use Status: Former Tobacco user Tobacco use type: Cigarette Cigarettes Per Day: 2 Years Smoked: 0 e-Cigarette/Vaping Use: Never Used Second Hand Smoke Exposure: No service: No Current occupational status: retired Current occupational exposures/hazards: No Cognitive needs: No Hearing needs: No Vision needs: Yes Questionnaire PHQ-9 Over the last 2 weeks, how often have you been bothered by any of the following problems? 1. Little interest or pleasure in doing things: not at all 2. Feeling down, depressed, or hopeless: not at all 3. Trouble falling or staying asleep, or sleeping too much: not at all 4. Feeling tired or having little energy: not at all 5. Poor appetite or overeating: not at all 6. Feeling bad about yourself - or that you are a failure or have let yourself or your family down: not at all 7. Trouble concentrating on things, such as reading the newspaper or watching television: not at all 8. Moving or speaking so slowly that other people could have noticed. Or the opposite - being so fidgety or restless that you have been moving around a lot more than usual: not at all 9. Thoughts that you would be better off or of hurting yourself in some way: not at all Total score: 0 Depression Screening Interpretation: Negative Depression Screening Done: Yes 79528 - PHQ-9 Billing: Yes Source: Developed by Drs. Chuck Juares, Viv Youssef, Kody Blunt and colleagues, with an educational preston from [employer] Thrive Questionnaire Date Thrive assessed: 10/03/22 AUDIT C Alcohol Use Questionnaire (AUDIT-C) 1. How often do you have a drink containing alcohol?: 2-4 times a month 2. How many drinks containing alcohol do you have on a typical day when you are drinking?: 3 or 4 3. How often do you have six or more drinks on one occasion?: Never Total Score: 3 Score Reviewed/Action Taken: Yes JARROD-7 AMB Questionnaire JARROD-7 Date JARROD - 7 assessed: 03/13/23 Source: Developed by Drs. Chuck Juares, Viv Youssef, Kody Blunt and colleagues, with an educational preston from [employer] Review of Systems Const Denies chills, Denies headache(s) and Denies weight loss ENT Denies headache(s) Card Denies chest pain, Denies syncope, Denies irregular heart rhythm and Denies dyspnea Resp Denies chest congestion, Denies cough and Denies dyspnea GI Denies abdominal pain, Denies change in stool character, Denies nausea and Denies vomiting Musc Denies deformity and Denies joint swelling Neuro Denies syncope and Denies headache(s) Physical exam (Primary Care) Vital Signs: Last Vital Signs Pulse 76 07/31/23 10:10 BP 136/72 07/31/23 10:10 Pulse Ox 98 07/31/23 10:10 Oxygen Delivery Method Room Air 07/31/23 10:10 BMI result Body Mass Index 30.3 Tobacco/Smoking Status: Tobacco use Status Tobacco use date assessed 04/20/23 07/31/23 10:11 Patient Tobacco Use Status Former Tobacco user 07/31/23 10:11 Tobacco use type Cigarette 07/31/23 10:11 e-Cigarette/Vaping Use Never Used 07/31/23 10:11 PHQ-9: PHQ-9 Score PHQ-9: Total score 0 07/31/23 10:11 Depression Screening Interpretation: Negative Thrive Assessment: Date of Thrive Assessment Date Thrive assessed 10/03/22 07/31/23 10:11 Const General: cooperative, comfortable, no acute distress and alert Neck Neck: Yes no lymphadenopathy Thyroid: Thyroid normal Resp Effort & Inspection: normal respiratory effort Auscultation: clear to auscultation bilaterally Percussion: percussion normal Cardio Jugular venous distension: no JVD Palpation: normal PMI Rate: regular rate Rhythm: regular rhythm Heart sounds: S1 normal heart sound present and S2 normal heart sound present GI Inspection: Yes normal to inspection Palpation (GI): No hepatosplenomegaly present Skin General skin exam: no rashes or lesions noted Extrem General: Yes no clubbing, cyanosis or edema Assessment and Plan Assessment & Plan (1) Hyperlipidemia: Code(s): E78.5 - Hyperlipidemia, unspecified Plan: stable; same rx (2) Anxiety and depression: Code(s): F41.9 - Anxiety disorder, unspecified; F32.A - Depression, unspecified Plan: stable; same rx (3) Hypertension: Code(s): I10 - Essential (primary) hypertension Qualifiers: Hypertension type: unspecified Qualified Code(s): I10 - Essential (primary) hypertension Plan: stable; do labs Orders: Orders Lipid Panel Today E78.5 - Hyperlipidemia, unspecified Coding Level of Care Code Est Pt Level 4 (89587) Diagnoses Hyperlipidemia E78.5 Anxiety and depression F41.9; F32.A Hypertension, unspecified type I10 Hypertension type: unspecified
== END 2023-07-31 10:27 | disposition home or self-care (01) ==
PROVIDERS: PCP Internal Medicine; Visit Provider Internal Medicine
DX: E78.5 Hyperlipidemia, unspecified (principal); F41.9 Anxiety disorder, unspecified; F32.A Depression, unspecified; I10 Essential (primary) hypertension
CPT/HCPCS: 99214

== ENCOUNTER 2023-10-09 09:37 | Outpatient (REF) | payer MEDICARE, OTHER, SELFPAY ==
[2023-10-09 12:34] LABS: Anion Gap 11 (12-20); Blood Urea Nitrogen 19 mg/dL (9-16); Calcium 9.4 mg/dL (8.4-10.2); Carbon Dioxide 32 mmol/L (22-29); Chloride 104 mmol/L (96-108); Estimated Glomerular Filt Rate > 60; Glucose Random 106 mg/dL (60-115); Magnesium 1.9 mg/dL (1.6-2.6); Potassium 3.4 mmol/L (3.3-5.1); Sodium 144 mmol/L (135-145)
== END 2023-10-09 09:38 | disposition home or self-care (01) ==
LOC: HO.LAB 09:37
PROVIDERS: PCP Internal Medicine; Visit Provider Internal Medicine Cardiovascular Disease
DX: I49.3 Ventricular premature depolarization (principal); R07.89 Other chest pain; I10 Essential (primary) hypertension; Z79.899 Other long term (current) drug therapy
CPT/HCPCS: 36415; 80048; 83735; 99212

== ENCOUNTER 2023-10-09 09:37 | Outpatient (AMB) | payer MEDICARE, OTHER, SELFPAY ==
[2023-10-09 10:10] VITALS: BP 110/62; PULSE 60; BMI 30.6
--- NOTE | 2023-10-09 10:10 | A.OFFVIS_ITS ---
Intake Vital Signs 10/09/23 10:10 Height 5 ft 4 in Weight 178 lb 9.191 oz BMI 30.6 BP 110/62 Blood Pressure Location Lt brachial Position Sitting Pulse 60 Intake Visit Reasons: 3 mth f/up per DC Intake Note: 3 month follow-up per Payal feeling ok c/o leg weakness and hands cramping Stunner Animal Required: No Allergies citalopram [From CELEXA] Allergy (Severe, Verified 07/31/23 10:10) LOCKJAW, DIFFICULTY SWALLOWING lisinopril [LISINOPRIL] Allergy (Severe, Verified 07/31/23 10:10) COUGH scopolamine [SCOPOLAMINE] Allergy (Severe, Verified 07/31/23 10:10) AGITATION sulfamethoxazole [From BACTRIM] Allergy (Intermediate, Verified 07/31/23 10:10) HIVES sertraline [From Zoloft] Allergy (Mild, Verified 07/31/23 10:10) yawning hydroxyzine [Vistaril] Allergy (Unknown, Verified 07/31/23 10:10) agitation metronidazole [Flagyl] Allergy (Unknown, Verified 07/31/23 10:10) arm paralysis Sulfa (Sulfonamide Antibiotics) Allergy (Unknown, Verified 07/31/23 10:10) rash Medication List - Last Reconciled 10/09/23 by Ja Alcazar MD aspirin (Adult Low Dose Aspirin) 81 mg PO DAILY atorvastatin 20 mg PO DAILY chlorthalidone 25 mg PO DAILY ergocalciferol (vitamin D2) 1,250 mcg PO QWEEK estradiol 0.01%(0.1mg/gram) vaginal metoprolol succinate ER 50 mg PO DAILY 90 days multivitamin (Multiple Vitamins tablet) 1 tab PO DAILY nitrofurantoin macrocrystal 100 mg PO BID PRN potassium chloride ER 20 mEq PO BID pyridoxine (vitamin B6) 100 mg PO DAILY 30 days verapamil ER 240 mg PO DAILY HPI HPI Comments History of Present Illness Details Aruna comes for follow-up. Her symptoms of PVCs have improved significantly since being on metoprolol therapy adjusted to the therapy. She however had 1 episode while she was walking after a meal up hill got chest discomfort which resolved quickly. She does not get similar chest discomfort with a day-to-day activities. She complains of increased cramping in her legs as well as hands and thinks that she might have low potassium level again. She is taking all her medications. Blood pressure is well controlled. Denies any heart failure symptoms [facility] Medical History Obesity Post-menopausal Screening for hyperlipidemia Screening for diabetes mellitus Fatigue Mild depression Hypertension Surgical History History of colonoscopy History of surgery History of hysterectomy Family History Father Aneurysm Diabetes Mother Heart disease Maternal Grandmother Colon cancer Brother No problems noted. Sister No problems noted. Son Substance use disorder Son No problems noted. Daughter No problems noted. Daughter Mental health disorder Social History Housing: House Alcohol intake: current Alcohol intake frequency: holidays/special occasions only Patient Tobacco Use Status: Former Tobacco user Tobacco use type: Cigarette Cigarettes Per Day: 2 Years Smoked: 0 e-Cigarette/Vaping Use: Never Used Second Hand Smoke Exposure: No service: No Current occupational status: retired Current occupational exposures/hazards: No Cognitive needs: No Hearing needs: No Vision needs: Yes Review of Systems Const Denies chills, Denies daytime sleepiness, Denies fatigue, Denies fever(s), Denies frequent falls, Denies poor appetite, Denies snoring, Denies stops breathing during sleep, Denies weakness, Denies weight gain and Denies weight loss Eyes Denies loss of vision ENT Denies dizziness and Denies hearing loss Card Denies chest pain, Denies claudication, Denies leg edema, Denies lightheadedness, Denies palpitations, Denies dyspnea, Denies dyspnea on exertion and Denies orthopnea Resp Denies cough, Denies excessive phlegm production, Denies dyspnea, Denies dyspnea on exertion, Denies snoring and Denies wheezing GI Denies abdominal pain, Denies hematochezia, Denies change in bowel habits, Denies nausea and Denies vomiting Denies urinary frequency and Denies dysuria Musc Denies arthralgias, Denies muscle weakness, Denies numbness and Denies other (frequent falls) Skin/Breast Denies nail changes and Denies rash Neuro Denies Abnormal speech present, Denies dizziness, Denies frequent falls, Denies loss of vision, Denies memory loss, Denies numbness and Denies weakness Psych Denies depression and Denies memory loss Endo Denies fatigue and Denies palpitations Jamey/Lymph Reports easy bruising and Reports other (anemia) Aller/Immun Denies wheezing Physical Exam Vital Signs: Last Vital Signs Pulse 60 10/09/23 10:10 BP 110/62 10/09/23 10:10 BMI result Body Mass Index 30.6 Const General: cooperative, healthy appearing, comfortable and no acute distress Orientation/consciousness: patient oriented x3 Neck Neck: Yes normal visual inspection Resp Effort & Inspection: normal respiratory effort Auscultation: clear to auscultation bilaterally, no crackles, no rales, no rhonchi and no wheezes Cardio Jugular venous distension: no JVD Rate: regular rate Rhythm: regular rhythm Heart sounds: S1 normal heart sound present, S2 normal heart sound present, no murmurs and no rubs Neuro General: patient oriented x3 Speech: No Abnormal speech present Extrem General: Yes normal to inspection Psych Appearance: grossly normal Mental Status: mental status grossly normal Speech and movement: Normal speech and movement present Assessment & Plan Assessment & Plan (1) PVC (premature ventricular contraction): Code(s): I49.3 - Ventricular premature depolarization Plan: Patient highly symptomatic PVCs which is not doing well currently on metoprolol therapy. Continue the metoprolol therapy. Advised to call me with worsening symptoms. There is no apparent significant structural heart issues at this point in time. Avoidance of stimulants was discussed. Stress mitigation strategies were discussed. (2) Chest discomfort: Code(s): R07.89 - Other chest pain Plan: Patient had 1 episode of chest discomfort unusual setting after meal walking up hill. She is advised to call me if she continues to have worsening symptoms with exertion may require further testing with coronary CTA. Continue risk factor modification. Blood pressure is well optimized. Continue statin therapy with target goal LDL less than 70 mg/dL. (3) Hypertension: Code(s): I10 - Essential (primary) hypertension Qualifiers: Hypertension type: unspecified Qualified Code(s): I10 - Essential (primary) hypertension Plan: Hypertension which is currently well optimized continue current therapy unless she has persistent hypokalemia and/or hypomagnesemia at which point in time her chlorthalidone might need to be switched over to another agent such as spironolactone. This was discussed with her. Will follow-up lab work today. Follow up in the clinic in 1 year's time, sooner p.r.n.. Thank you for allowing me to partake in the care Orders: Orders Magnesium Today I49.3 - Ventricular premature depolarization Basic Metabolic Panel Today I49.3 - Ventricular premature depolarization Coding Level of Care Code Est Pt Level 4 (54563) Diagnoses PVC (premature ventricular contraction) I49.3 Chest discomfort R07.89 Hypertension, unspecified type I10 Hypertension type: unspecified
== END 2023-10-09 10:35 | disposition home or self-care (01) ==
PROVIDERS: PCP Internal Medicine; Visit Provider Internal Medicine Cardiovascular Disease
DX: I49.3 Ventricular premature depolarization (principal); R07.89 Other chest pain; I10 Essential (primary) hypertension
CPT/HCPCS: 99214

== ENCOUNTER 2023-10-27 09:26 | Outpatient (REF) | payer MEDICARE, OTHER, SELFPAY ==
[2023-10-27 11:10] LABS: Cholesterol 140 mg/dL (<200); HDL Cholesterol 55 mg/dL (>40); LDL Cholesterol Calculated 73 mg/dL (<100); Triglycerides 61 mg/dL (<150)
== END 2023-10-27 09:27 | disposition home or self-care (01) ==
LOC: HO.LAB 09:26
PROVIDERS: PCP Internal Medicine; Visit Provider Internal Medicine
DX: E78.5 Hyperlipidemia, unspecified (principal)
CPT/HCPCS: 36415; 80061

== ENCOUNTER 2023-11-05 10:52 | Outpatient (AMB) | payer MEDICARE, OTHER, SELFPAY ==
[2023-11-05 11:00] VITALS: BP 130/68; PULSE 60; O2SAT 97; BMI 30.9
--- NOTE | 2023-11-05 11:00 | MHC.PC.OV ---
Vital Signs 11/05/23 11:00 Height 5 ft 4 in Weight 180 lb BMI 30.9 BP 130/68 Blood Pressure Location Lt brachial Position Sitting Pulse 60 Pulse Source Pulse Oximeter Pulse Oximetry (%) 97 Oxygen Delivery Method Room Air Intake Visit Reasons: Follow up [place] Required: No Telephonic Nurse Case Manager: Not Required per policy Accompanied by: Self / Same As Patient Allergies citalopram [From CELEXA] Allergy (Severe, Verified 11/05/23 11:00) LOCKJAW, DIFFICULTY SWALLOWING lisinopril [LISINOPRIL] Allergy (Severe, Verified 11/05/23 11:00) COUGH scopolamine [SCOPOLAMINE] Allergy (Severe, Verified 11/05/23 11:00) AGITATION sulfamethoxazole [From BACTRIM] Allergy (Intermediate, Verified 11/05/23 11:00) HIVES sertraline [From Zoloft] Allergy (Mild, Verified 11/05/23 11:00) yawning hydroxyzine [Vistaril] Allergy (Unknown, Verified 11/05/23 11:00) agitation metronidazole [Flagyl] Allergy (Unknown, Verified 11/05/23 11:00) arm paralysis Sulfa (Sulfonamide Antibiotics) Allergy (Unknown, Verified 11/05/23 11:00) rash Medication List - Last Reconciled 11/05/23 by Abad Byrd MD aspirin (Adult Low Dose Aspirin) 81 mg PO DAILY atorvastatin 20 mg PO DAILY chlorthalidone 25 mg PO DAILY ergocalciferol (vitamin D2) 1,250 mcg PO QWEEK estradiol 0.01%(0.1mg/gram) vaginal metoprolol succinate ER 50 mg PO DAILY 90 days multivitamin (Multiple Vitamins tablet) 1 tab PO DAILY nitrofurantoin macrocrystal 100 mg PO BID PRN potassium chloride ER 20 mEq PO BID pyridoxine (vitamin B6) 100 mg PO DAILY 30 days verapamil ER 240 mg PO DAILY Tobacco use date assessed: 11/05/23 Fall risk assessment: No Falls in past year Last assessed Fall Risk: 11/05/23 Dental Screening Dental Screen Date: 11/05/23 Did you have a dental visit in the last 12 months?: Yes Did you have a dental problem in the last 6 months where you did not have access to dental care?: No Was dental information given to patient?: Patient has dentist HPI Follow up HPI Details HTN on Rx; doig well; compliant PFSH Medical History Obesity Post-menopausal Screening for hyperlipidemia Screening for diabetes mellitus Fatigue Mild depression Hypertension Surgical History History of colonoscopy History of surgery History of hysterectomy Family History Father Aneurysm Diabetes Mother Heart disease Maternal Grandmother Colon cancer Brother No problems noted. Sister No problems noted. Son Substance use disorder Son No problems noted. Daughter No problems noted. Daughter Mental health disorder Social History Housing: House Alcohol intake: current Alcohol intake frequency: holidays/special occasions only Patient Tobacco Use Status: Former Tobacco user Tobacco use type: Cigarette Cigarettes Per Day: 2 Years Smoked: 0 e-Cigarette/Vaping Use: Never Used Second Hand Smoke Exposure: No service: No Current occupational status: retired Current occupational exposures/hazards: No Cognitive needs: No Hearing needs: No Vision needs: Yes Questionnaire PHQ-9 Over the last 2 weeks, how often have you been bothered by any of the following problems? 1. Little interest or pleasure in doing things: not at all 2. Feeling down, depressed, or hopeless: not at all 3. Trouble falling or staying asleep, or sleeping too much: not at all 4. Feeling tired or having little energy: not at all 5. Poor appetite or overeating: not at all 6. Feeling bad about yourself - or that you are a failure or have let yourself or your family down: not at all 7. Trouble concentrating on things, such as reading the newspaper or watching television: not at all 8. Moving or speaking so slowly that other people could have noticed. Or the opposite - being so fidgety or restless that you have been moving around a lot more than usual: not at all 9. Thoughts that you would be better off or of hurting yourself in some way: not at all Total score: 0 Depression Screening Interpretation: Negative Depression Screening Done: Yes 93437 - PHQ-9 Billing: Yes Source: Developed by Drs. Chuck LViv Martin Kurt Kroenke and colleagues, with an educational preston from [employer]. Thrive Questionnaire Date Thrive assessed: 11/05/23 I am a: Patient What is your living situation today?: I have a steady place to live Within the past 12 months, did the food you bought not last and you didn't have the money to get more?: Never true Within the past 12 months, did you worry whether your food would run out before you got money to buy more?: Never true Do you have trouble paying for medicines?: No Do you have trouble getting transportation to medical appointments?: No Do you have trouble paying your heating and electricity bill?: No Do you have trouble taking care of your child, family member or friend?: No Do you have trouble with day-to-day activities such as bathing, preparing meals, shopping, managing finances, etc.?: No Are you currently unemployed and looking for a job?: No Are you interested in more education?: No Please select the resources that you would like help with: None THRIVE Score: 0 AUDIT C Alcohol Use Questionnaire (AUDIT-C) 1. How often do you have a drink containing alcohol?: 2-4 times a month 2. How many drinks containing alcohol do you have on a typical day when you are drinking?: 3 or 4 3. How often do you have six or more drinks on one occasion?: Never Total Score: 3 Score Reviewed/Action Taken: Yes JARROD-7 AMB Questionnaire JARROD-7 Date JARROD - 7 assessed: 11/05/23 Feeling nervous, anxious, or on edge: 0 = Not at all Not being able to stop or control worryin = Not at all Worrying too much about different things: 0 = Not at all Trouble relaxin = Not at all Being so restless that it is hard to sit still: 0 = Not at all Becoming easily annoyed or irritable: 0 = Not at all Feeling afraid as if something awful might happen: 0 = Not at all Total JARROD-7 score (0-4 normal; 5-9 mild; 10-14 moderate; 15-21 severe): 0 Source: Developed by Viv Aviles Kurt Kroenke and colleagues, with an educational preston from [employer]. JARROD-7 Assessment Billing JARROD-7 Assessment Tool: JARROD-7 Assessment 14432 Review of Systems Const Denies chills, Denies headache(s) and Denies weight loss ENT Denies headache(s) Card Denies chest pain, Denies syncope, Denies irregular heart rhythm and Denies dyspnea Resp Denies chest congestion, Denies cough and Denies dyspnea GI Denies abdominal pain, Denies change in stool character, Denies nausea and Denies vomiting Musc Denies deformity and Denies joint swelling Neuro Denies syncope and Denies headache(s) Physical exam (Primary Care) Vital Signs: Last Vital Signs Pulse 60 11/05/23 11:00 BP 130/68 11/05/23 11:00 Pulse Ox 97 11/05/23 11:00 Oxygen Delivery Method Room Air 11/05/23 11:00 BMI result Body Mass Index 30.9 Tobacco/Smoking Status: Tobacco use Status Tobacco use date assessed 11/05/23 11/05/23 11:02 Patient Tobacco Use Status Former Tobacco user 11/05/23 11:02 Tobacco use type Cigarette 11/05/23 11:02 e-Cigarette/Vaping Use Never Used 11/05/23 11:02 PHQ-9: PHQ-9 Score PHQ-9: Total score 0 11/05/23 11:12 Depression Screening Interpretation: Negative Thrive Assessment: Date of Thrive Assessment Date Thrive assessed 11/05/23 11/05/23 11:02 Const General: cooperative, comfortable, no acute distress and alert Neck Neck: Yes no lymphadenopathy Thyroid: Thyroid normal Resp Effort & Inspection: normal respiratory effort Auscultation: clear to auscultation bilaterally Percussion: percussion normal Cardio Jugular venous distension: no JVD Palpation: normal PMI Rate: regular rate Rhythm: regular rhythm Heart sounds: S1 normal heart sound present and S2 normal heart sound present GI Inspection: Yes normal to inspection Palpation (GI): No hepatosplenomegaly present Skin General skin exam: no rashes or lesions noted Extrem General: Yes no clubbing, cyanosis or edema Assessment and Plan Assessment & Plan (1) Hypertension: Code(s): I10 - Essential (primary) hypertension Qualifiers: Hypertension type: unspecified Qualified Code(s): I10 - Essential (primary) hypertension Plan: stable; same rx Orders: Orders Lipid Panel Today E78.5 - Hyperlipidemia, unspecified Medications: Refilled pyridoxine (vitamin B6) 100 mg PO DAILY 90 tabs 3RF 30 days N20.0 - Calculus of kidney Coding Level of Care Code Est Pt Level 3 (84628) Diagnoses Hypertension, unspecified type I10 Hypertension type: unspecified Additional Codes JARROD-7 Assessment Billing - JARROD-7 Assessment Tool: JARROD-7 Assessment [id number] ([id number])
== END 2023-11-05 11:30 | disposition home or self-care (01) ==
PROVIDERS: PCP Internal Medicine; Visit Provider Internal Medicine
DX: I10 Essential (primary) hypertension (principal)
CPT/HCPCS: 99213

== ENCOUNTER 2023-11-16 10:43 | Outpatient (REF) | payer MEDICARE, OTHER, SELFPAY ==
--- NOTE | ~2023-11-16 | MM_ITS ---
EXAMINATION: BONE DENSITOMETRY CLINICAL INDICATION: Age-related osteoporosis without current pathological fracture. COMPARISON: Baseline BD dated 03/23/2021. TECHNIQUE: Using a Sp[employer]Go DXA System (software version: 13.1) manufactured by [employer], dual-energy x-ray absorptiometry was performed of the lumbar spine and left hip. The images are of good technical quality. Summary results are attached. FINDINGS: LEFT FEMUR, NECK: Current: BMD 0.758 g/cm2, Z-score -0.5, T-score -2.0, osteopenia. Baseline: BMD 0.723 g/cm2. LEFT FEMUR, TOTAL: Current: BMD 0.771 g/cm2, Z-score -0.6, T-score -1.9, osteopenia, 5.2% decrease from baseline (<5% change is not significant). Baseline: BMD 0.813 g/cm2. AP SPINE L1-L4: Current: BMD 0.883 g/cm2, Z-score -1.3, T-score -2.5, osteoporosis, 1.3% decrease from baseline (<5% change is not significant). Baseline: BMD 0.895 g/cm2. IDENTIFIED RISK FACTORS: Early menopause, secondary osteoporosis, hysterectomy, bilateral oophorectomy, height loss, osteoporosis, kidney disease, thiazide. HISTORY OF FRACTURE: None listed. MEDICATIONS: Calcium supplements or multivitamin, vitamin D. MM/XR DEXA axial skeleton IMPRESSION: 1. DIAGNOSIS: Osteoporosis based on the lowest T-score value of -2.5 in the lumbar spine applying World Health Organization criteria. 2. 10-YEAR FRACTURE RISK PREDICTION, FRAX: According to the guidelines, FRAX calculation should only be performed on patients in the osteopenia bone density category. Therefore, FRAX was not performed on this patient. 3. Treatment Recommendations: NOF guidelines recommend consideration for treatment in postmenopausal women and men age 50 and older presenting with the following: -A hip or vertebral (clinical or morphometric) fracture. -T-score less than or equal to -2.5 at the femoral neck or spine after appropriate evaluation to exclude secondary causes. -Low bone mass at the hip or spine and a 10-year fracture probability by FRAX of greater than or equal to 3% for hip fracture or greater than or equal to 20% for major osteoporotic fracture based on the [place] adapted WHO algorithm. 4. Other Recommendations: All treatment decisions require clinical judgment and consideration of individual patient factors, including patient preferences, comorbidities, previous drug use, risk factors not captured in the FRAX model (e.g. frailty, falls, vitamin D deficiency, increased bone turnover, interval significant decline in bone density) and possible under or overestimation of fracture risk by FRAX. Additional medical evaluation for secondary cause of low bone mineral density may be appropriate. FUTURE SCAN RECOMMENDATION: People with diagnosed cases of osteoporosis or at high risk for fracture should have regular bone mineral density tests. For patients eligible for Medicare, routine testing is allowed once every 2 years. The testing frequency can be increased to one year for patients who have rapidly progressing disease, those who are receiving or discontinuing medical therapy to restore bone mass, or have additional risk factors.
== END 2023-11-16 10:44 | disposition home or self-care (01) ==
LOC: HO.MAMMO 10:43
PROVIDERS: PCP Internal Medicine; Visit Provider Internal Medicine
DX: Z13.820 Encounter for screening for osteoporosis (principal); M81.0 Age-related osteoporosis without current pathological fracture; Z78.0 Asymptomatic menopausal state
CPT/HCPCS: 77080

== ENCOUNTER 2024-01-07 08:59 | Outpatient (REF) | payer MEDICARE, OTHER, SELFPAY ==
--- NOTE | ~2024-01-07 | US_ITS ---
EXAMINATION: US RETROPERITONEAL LIMITED (RENAL ONLY) CLINICAL INFORMATION: Calculus of kidney. COMPARISON: Renal ultrasound 01/09/2023 and 12/26/2021. CT abdomen and pelvis 02/05/2012. TECHNIQUE: Real-time imaging of the kidneys. FINDINGS: RIGHT KIDNEY: 10.4 x 4.0 x 5.3 cm (SAG x AP x TRV). The kidney is normal in size, contour, and echogenicity. Renal cortical thickness is normal. No calculi or focal parenchymal lesions. No hydronephrosis. There is scattered echogenic foci which do not meet formal ultrasound criteria for calculi. LEFT KIDNEY: 10.4 x 5.0 x 5.1 cm (SAG x AP x TRV). The kidney is normal in size, contour, and echogenicity. Renal cortical thickness is normal. No calculi or focal parenchymal lesions. No hydronephrosis. There is scattered echogenic foci which do not meet formal ultrasound criteria for calculi. US/US renal BI IMPRESSION: Unremarkable examination.
[2024-01-07 10:02] LABS: Anion Gap 9 (12-20); Blood Urea Nitrogen 20 mg/dL (9-16); Calcium 9.6 mg/dL (8.4-10.2); Carbon Dioxide 32 mmol/L (22-29); Chloride 105 mmol/L (96-108); Cholesterol 139 mg/dL (<200); Estimated Glomerular Filt Rate > 60; Glucose Random 114 mg/dL (60-115); HDL Cholesterol 49 mg/dL (>40); LDL Cholesterol Calculated 71 mg/dL (<100); Potassium 3.2 mmol/L (3.3-5.1); Sodium 143 mmol/L (135-145); Triglycerides 95 mg/dL (<150)
== END 2024-01-07 09:00 | disposition home or self-care (01) ==
LOC: HO.US 08:59
PROVIDERS: Absent Provider Internal Medicine Hypertension Specialist; PCP Internal Medicine; Visit Provider Nurse Practitioner Family
DX: N20.0 Calculus of kidney (principal); E78.5 Hyperlipidemia, unspecified
CPT/HCPCS: 36415; 76775; 80048; 80061

== ENCOUNTER → 2024-01-18 09:06 | Outpatient (BNVA) | payer MEDICARE, OTHER, SELFPAY | PROVIDERS: Visit Provider Nurse Practitioner Family | DX: N20.0 Calculus of kidney (principal) | CPT/HCPCS: 81003; 99212 ==

== ENCOUNTER 2024-01-21 11:17 | Outpatient (AMB) | payer MEDICARE, OTHER, SELFPAY ==
[2024-01-21 11:20] VITALS: BP 130/70; PULSE 67; O2SAT 96; BMI 30.9
--- NOTE | 2024-01-21 11:20 | HO.NEPHOV_ITS ---
Vital Signs 01/21/24 11:20 Height 5 ft 4 in Weight 180 lb BMI 30.9 BP 130/70 Blood Pressure Location Lt brachial Position Sitting Pulse 67 Pulse Source Pulse Oximeter Pulse Oximetry (%) 96 Oxygen Delivery Method Room Air Intake Visit Reasons: May follow up/ Confirmed Graphics Editor Required: No Accompanied by: Self / Same As Patient Allergies citalopram [From CELEXA] Allergy (Severe, Verified 01/21/24 11:22) LOCKJAW, DIFFICULTY SWALLOWING lisinopril [LISINOPRIL] Allergy (Severe, Verified 01/21/24 11:22) COUGH scopolamine [SCOPOLAMINE] Allergy (Severe, Verified 01/21/24 11:22) AGITATION sulfamethoxazole [From BACTRIM] Allergy (Intermediate, Verified 01/21/24 11:22) HIVES sertraline [From Zoloft] Allergy (Mild, Verified 01/21/24 11:22) yawning hydroxyzine [Vistaril] Allergy (Unknown, Verified 01/21/24 11:22) agitation metronidazole [Flagyl] Allergy (Unknown, Verified 01/21/24 11:22) arm paralysis Sulfa (Sulfonamide Antibiotics) Allergy (Unknown, Verified 01/21/24 11:22) rash HPI Comments Details: 73 yr old woman with a history of nephrolithiasis and hypertension. She tells me that the recent ultrasound did not reveal any stones. In the past he was on Topamax which was thought to be the culprit for multiple stones. She is off the Topamax at this time. Overall she has been doing reasonably well. No specific complaints. She has persistent hypokalemia. She is on potassium supplementation twice a day but she is finding it difficult to take the evening dose due to heartburn. She is on chlorthalidone 25 mg a day. She was on hydrochlorothiazide for the control of hypertension which was later switched to chlorthalidone. She is also on metoprolol and verapamil for the control blood pressure and for occasional PVC she has had. No history of CHF. [facility] Medical History Obesity Post-menopausal Screening for hyperlipidemia Screening for diabetes mellitus Fatigue Mild depression Hypertension Surgical History History of colonoscopy History of surgery History of hysterectomy Family History Father Aneurysm Diabetes Mother Heart disease Maternal Grandmother Colon cancer Brother No problems noted. Sister No problems noted. Son Substance use disorder Son No problems noted. Daughter No problems noted. Daughter Mental health disorder Social History Housing: House Alcohol intake: current Alcohol intake frequency: holidays/special occasions only Patient Tobacco Use Status: Former Tobacco user Tobacco use type: Cigarette Cigarettes Per Day: 2 Years Smoked: 0 e-Cigarette/Vaping Use: Never Used Second Hand Smoke Exposure: No service: No Current occupational status: retired Current occupational exposures/hazards: No Cognitive needs: No Hearing needs: No Vision needs: Yes Physical Exam Vital Signs: Last Vital Signs Pulse 67 01/21/24 11:20 BP 130/70 01/21/24 11:20 Pulse Ox 96 01/21/24 11:20 Oxygen Delivery Method Room Air 01/21/24 11:20 BMI result Body Mass Index 30.9 Const General: comfortable Nutritional Appearance: well nourished Orientation/consciousness: patient oriented x3 HEENT Head: No normal to inspection Mouth: moist mucous membranes Neck Neck: Yes supple and Yes no JVD Resp Auscultation: clear to auscultation bilaterally, no rales and rub present Cardio Jugular venous distension: no JVD Palpation: no palpable S3 and no palpable S4 Heart sounds: no rubs GI Palpation (GI): Soft to palpation and nontender Percussion: No Fluid wave present General: Yes no CVA tenderness Back/Spine/Pelvis Back: no CVA tenderness Skin General skin exam: no rashes or lesions noted Neuro General: patient oriented x3 Extrem General: Yes no pedal edema and No clubbing Results Reviewed Nephrology Results: Sodium 143 mmol/L (135-145) 01/07/24 Potassium 3.2 mmol/L (3.3-5.1) L 01/07/24 Chloride 105 mmol/L (96-108) 01/07/24 Carbon Dioxide 32 mmol/L (22-29) H 01/07/24 BUN 20 mg/dL (9-16) H 01/07/24 Creatinine 0.80 mg/dL (0.5-1.4) 01/07/24 Calcium 9.6 mg/dL (8.4-10.2) 01/07/24 Renal US 01/07/24 Assessment & Plan Assessment & Plan (1) Hypertension: Code(s): I10 - Essential (primary) hypertension Category: Medical Qualifiers: Hypertension type: unspecified Qualified Code(s): I10 - Essential (primary) hypertension (2) Hypokalemia: Code(s): E87.6 - Hypokalemia Category: Medical (3) Nephrolithiasis: Code(s): N20.0 - Calculus of kidney Category: Medical Plan 73-year-old woman with a history of nephrolithiasis and hypertension. Blood present she has no issues with her renal stones. Most recent imaging did not reveal any stones. Encouraged her to stay on low-sodium diet Increase fluid intake to maintain urine output of 2 L. Hypertension Blood pressure is well controlled. Persistent hypokalemia with metabolic alkalosis. This may be due to the use of diuretics. However the differential would include hyperaldosteronism. I will discontinue chlorthalidone and the potassium supplementation. Encouraged her to keep monitoring blood pressure at home for the next few weeks. I will recheck the serum potassium in 2 weeks. If she has hypokalemia with alkalosis after stopping the diuretic than she needs further workup. Orders: Orders Basic Metabolic Panel 2 Weeks I10 - Essential (primary) hypertension Coding Level of Care Code Est Pt Level 4 (35521) Diagnoses Hypertension, unspecified type I10 Hypertension type: unspecified Hypokalemia E87.6 Nephrolithiasis N20.0
== END 2024-01-21 11:49 | disposition home or self-care (01) ==
PROVIDERS: PCP Internal Medicine; Visit Provider Internal Medicine Hypertension Specialist
DX: I10 Essential (primary) hypertension (principal); E87.6 Hypokalemia; N20.0 Calculus of kidney
CPT/HCPCS: 99214

== ENCOUNTER → 2024-01-21 11:17 | Outpatient (BNVA) | payer MEDICARE, OTHER, SELFPAY | PROVIDERS: PCP Internal Medicine; Visit Provider Internal Medicine Hypertension Specialist | DX: I10 Essential (primary) hypertension (principal); E87.6 Hypokalemia; N20.0 Calculus of kidney | CPT/HCPCS: 99212 ==

== ENCOUNTER 2024-02-02 09:54 | Outpatient (REF) | payer MEDICARE, OTHER, SELFPAY ==
[2024-02-02 10:02] LABS: MANUAL DIFF FLAG NO
[2024-02-02 10:24] LABS: Basophils Percent Auto 0.6 % (0-2); Eosinophils Absolute Auto 0.1 X10*3/uL (0.0-0.4); Eosinophils Percent Auto 1.8 % (0-4); Hematocrit 40.7 % (37.0-47.0); Hemoglobin 13.4 g/dl (12.0-16.0); Imm Gran Abs Auto 0.03 X10*3/uL (0.00-0.03); Imm Gran Pct Auto 0.4 % (0.0-0.4); Lymphocytes Absolute Auto 1.9 X10*3/uL (1.2-4.9); Lymphocytes Percent Auto 28.3 % (20-40); Mean Corpuscular HGB Conc 32.9 g/dl (31.0-35.0); Mean Corpuscular Hemoglobin 32.1 pg (27.0-33.0); Mean Corpuscular Volume 97.6 fL (80.0-98.0); Mean Platelet Volume 9.3 fL (9.4-12.3); Monocytes Absolute Auto 0.5 X10*3/uL (0.1-1.2); Monocytes Percent Auto 6.6 % (2-11); Neutrophils Absolute Auto 4.3 x10*3/uL (2.0-8.3); Neutrophils Percent Auto 62.3 % (45-73); Platelet Count 247 X10*3/uL (160-400); Red Blood Count 4.17 X10*6/uL (4.20-5.50); Red Cell Distribution Width 13.3 % (11.0-16.0); White Blood Count 6.8 X10*3/uL (4.8-10.8)
[2024-02-02 11:11] LABS: Alanine Aminotransferase 26 U/L (0-31); Albumin Level 4.2 g/dL (3.5-5.0); Alkaline Phosphatase 91 U/L (39-117); Anion Gap 17 (12-20); Aspartate Amino Transferase 25 U/L (5-31); Bilirubin Total 0.5 mg/dL (0.0-1.0); Blood Urea Nitrogen 15 mg/dL (9-16); Calcium 9.4 mg/dL (8.4-10.2); Carbon Dioxide 25 mmol/L (22-29); Chloride 107 mmol/L (96-108); Cholesterol 123 mg/dL (<200); Estimated Glomerular Filt Rate > 60; Glucose Fasting 100 mg/dL (60-99); Glucose Random 100 mg/dL (60-115); HDL Cholesterol 48 mg/dL (>40); LDL Cholesterol Calculated 65 mg/dL (<100); Potassium 4.1 mmol/L (3.3-5.1); Sodium 145 mmol/L (135-145); Total Protein 7.3 g/dL (6.5-8.0); Triglycerides 54 mg/dL (<150)
[2024-02-02 11:31] LABS: Thyroid Stimulating Hormone 2.43 uIU/mL (0.32-4.0)
== END 2024-02-02 09:55 | disposition home or self-care (01) ==
LOC: HO.LAB 09:54
PROVIDERS: Absent Provider Psychiatry & Neurology Neurology; PCP Internal Medicine; Visit Provider Internal Medicine
DX: Z13.9 Encounter for screening, unspecified (principal); Z13.29 Encounter for screening for other suspected endocrine disorder; Z13.220 Encounter for screening for lipoid disorders; Z13.0 Encounter for screening for diseases of the blood and blood-forming organs and certain disorders involving the immune mechanism; I10 Essential (primary) hypertension
CPT/HCPCS: 36415; 80048; 80053; 80061; 84443; 85025

== ENCOUNTER 2024-02-08 10:29 | Outpatient (AMB) | payer MEDICARE, OTHER, SELFPAY ==
[2024-02-08 10:31] VITALS: BP 150/90; PULSE 78; O2SAT 98; BMI 30.9
--- NOTE | 2024-02-08 10:31 | A.OFFPC_ITS ---
Vital Signs 02/08/24 10:31 Height 5 ft 4 in Weight 180 lb BMI 30.9 BP 150/90 H Blood Pressure Location Lt brachial Position Sitting Pulse 78 Pulse Source Pulse Oximeter Pulse Oximetry (%) 98 Oxygen Delivery Method Room Air Intake Visit Reasons: 3mo F/U Splitter Operator Required: No Assistant Federal Public Defender: Not Required per policy Accompanied by: Self / Same As Patient Allergies citalopram [From CELEXA] Allergy (Severe, Verified 02/08/24 10:32) LOCKJAW, DIFFICULTY SWALLOWING lisinopril [LISINOPRIL] Allergy (Severe, Verified 02/08/24 10:32) COUGH scopolamine [SCOPOLAMINE] Allergy (Severe, Verified 02/08/24 10:32) AGITATION sulfamethoxazole [From BACTRIM] Allergy (Intermediate, Verified 02/08/24 10:32) HIVES sertraline [From Zoloft] Allergy (Mild, Verified 02/08/24 10:32) yawning hydroxyzine [Vistaril] Allergy (Unknown, Verified 02/08/24 10:32) agitation metronidazole [Flagyl] Allergy (Unknown, Verified 02/08/24 10:32) arm paralysis Sulfa (Sulfonamide Antibiotics) Allergy (Unknown, Verified 02/08/24 10:32) rash Tobacco use date assessed: 11/05/23 Fall risk assessment: No Falls in past year Last assessed Fall Risk: 02/08/24 Dental Screening Dental Screen Date: 11/05/23 HPI 3mo F/U HPI Details HTN; seeing nephrol for jose HTN; they stopped her rx but bp has increased; has appt next week [facility] Medical History Obesity Post-menopausal Screening for hyperlipidemia Screening for diabetes mellitus Fatigue Mild depression Hypertension Surgical History History of colonoscopy History of surgery History of hysterectomy Family History Father Aneurysm Diabetes Mother Heart disease Maternal Grandmother Colon cancer Brother No problems noted. Sister No problems noted. Son Substance use disorder Son No problems noted. Daughter No problems noted. Daughter Mental health disorder Social History (Reviewed 01/21/24 @ 11:22 by Lashae Marcos Housing: House Alcohol intake: current Alcohol intake frequency: holidays/special occasions only Patient Tobacco Use Status: Former Tobacco user Tobacco use type: Cigarette Cigarettes Per Day: 2 Years Smoked: 0 e-Cigarette/Vaping Use: Never Used Second Hand Smoke Exposure: No service: No Current occupational status: retired Current occupational exposures/hazards: No Cognitive needs: No Hearing needs: No Vision needs: Yes Questionnaire Thrive Questionnaire Date Thrive assessed: 11/05/23 JARROD-7 AMB Questionnaire JARROD-7 Date JARROD - 7 assessed: 11/05/23 Source: Developed by Drs. Chuck Juares, Viv Youssef, Kody Blunt and colleagues, with an educational preston from [employer]. Review of Systems Const Denies chills, Denies headache(s) and Denies weight loss ENT Denies headache(s) Card Denies chest pain, Denies syncope, Denies irregular heart rhythm and Denies dyspnea Resp Denies chest congestion, Denies cough and Denies dyspnea GI Denies abdominal pain, Denies change in stool character, Denies nausea and Denies vomiting Musc Denies deformity and Denies joint swelling Neuro Denies syncope and Denies headache(s) Physical exam (Primary Care) Vital Signs: Last Vital Signs Pulse 78 02/08/24 10:31 BP 150/90 H 02/08/24 10:31 Pulse Ox 98 02/08/24 10:31 Oxygen Delivery Method Room Air 02/08/24 10:31 BMI result Body Mass Index 30.9 Tobacco/Smoking Status: Tobacco use Status Tobacco use date assessed 11/05/23 02/08/24 10:32 Patient Tobacco Use Status Former Tobacco user 02/08/24 10:32 Tobacco use type Cigarette 02/08/24 10:32 e-Cigarette/Vaping Use Never Used 02/08/24 10:32 Thrive Assessment: Date of Thrive Assessment Date Thrive assessed 11/05/23 02/08/24 10:32 Const General: cooperative, comfortable, no acute distress and alert Neck Neck: Yes no lymphadenopathy Thyroid: Thyroid normal Resp Effort & Inspection: normal respiratory effort Auscultation: clear to auscultation bilaterally Percussion: percussion normal Cardio Jugular venous distension: no JVD Palpation: normal PMI Rate: regular rate Rhythm: regular rhythm Heart sounds: S1 normal heart sound present and S2 normal heart sound present GI Inspection: Yes normal to inspection Palpation (GI): No hepatosplenomegaly present Skin General skin exam: no rashes or lesions noted Extrem General: Yes no clubbing, cyanosis or edema Assessment and Plan Assessment & Plan (1) Hypertension: Code(s): I10 - Essential (primary) hypertension Qualifiers: Hypertension type: unspecified Qualified Code(s): I10 - Essential (primary) hypertension Plan: per nephrology Medications: New clotrimazole-betamethasone 1-0.05 % 1 appl topical BID 2 weeks 45 grams 2RF Coding Level of Care Code Est Pt Level 3 (37624) Diagnoses Hypertension, unspecified type I10 Hypertension type: unspecified
== END 2024-02-08 10:53 | disposition home or self-care (01) ==
PROVIDERS: PCP Internal Medicine; Visit Provider Internal Medicine
DX: I10 Essential (primary) hypertension (principal)
CPT/HCPCS: 99213

== ENCOUNTER 2024-02-12 11:11 | Outpatient (AMB) | payer MEDICARE, OTHER, SELFPAY ==
[2024-02-12 11:20] VITALS: BP 142/76; PULSE 69; O2SAT 96; BMI 31.2
--- NOTE | 2024-02-12 11:20 | HO.NEPHOV ---
Vital Signs 02/12/24 11:20 02/12/24 11:33 Height 5 ft 4 in Weight 182 lb BMI 31.2 BP 142/76 H 140/60 H Blood Pressure Location Lt brachial Lt brachial Position Sitting Sitting Pulse 69 Pulse Source Pulse Oximeter Pulse Oximetry (%) 96 Oxygen Delivery Method Room Air Intake Visit Reasons: Hypertension/ 3 weeks fu/ Confirmed Bingo Clerk Required: No Accompanied by: Self / Same As Patient Allergies citalopram [From CELEXA] Allergy (Severe, Verified 02/12/24 11:22) LOCKJAW, DIFFICULTY SWALLOWING lisinopril [LISINOPRIL] Allergy (Severe, Verified 02/12/24 11:22) COUGH scopolamine [SCOPOLAMINE] Allergy (Severe, Verified 02/12/24 11:22) AGITATION sulfamethoxazole [From BACTRIM] Allergy (Intermediate, Verified 02/12/24 11:22) HIVES sertraline [From Zoloft] Allergy (Mild, Verified 02/12/24 11:22) yawning hydroxyzine [Vistaril] Allergy (Unknown, Verified 02/12/24 11:22) agitation metronidazole [Flagyl] Allergy (Unknown, Verified 02/12/24 11:22) arm paralysis Sulfa (Sulfonamide Antibiotics) Allergy (Unknown, Verified 02/12/24 11:22) rash HPI Comments Details: 73 yr old woman with a history of nephrolithiasis and hypertension. She tells me that the recent ultrasound did not reveal any stones. In the past he was on Topamax which was thought to be the culprit for multiple stones. She is off the Topamax at this time. Overall she has been doing reasonably well. No specific complaints. She has persistent hypokalemia. She is on potassium supplementation twice a day but she is finding it difficult to take the evening dose due to heartburn. She is on chlorthalidone 25 mg a day. She was on hydrochlorothiazide for the control of hypertension which was later switched to chlorthalidone. She is also on metoprolol and verapamil for the control blood pressure and for occasional PVC she has had. No history of CHF. 02/12/24 Off Chlorthalidone and KCL Doing well Home BP readings are acceptable There were few Systolic readings in the 140s and 150 Recent reading was 116/70 [facility] Medical History Obesity Post-menopausal Screening for hyperlipidemia Screening for diabetes mellitus Fatigue Mild depression Hypertension Surgical History History of colonoscopy History of surgery History of hysterectomy Family History Father Aneurysm Diabetes Mother Heart disease Maternal Grandmother Colon cancer Brother No problems noted. Sister No problems noted. Son Substance use disorder Son No problems noted. Daughter No problems noted. Daughter Mental health disorder Social History Housing: House Alcohol intake: current Alcohol intake frequency: holidays/special occasions only Patient Tobacco Use Status: Former Tobacco user Tobacco use type: Cigarette Cigarettes Per Day: 2 Years Smoked: 0 e-Cigarette/Vaping Use: Never Used Second Hand Smoke Exposure: No service: No Current occupational status: retired Current occupational exposures/hazards: No Cognitive needs: No Hearing needs: No Vision needs: Yes Physical Exam Vital Signs: Last Vital Signs Pulse 69 02/12/24 11:20 Pulse Ox 96 02/12/24 11:20 Oxygen Delivery Method Room Air 02/12/24 11:20 BMI result Body Mass Index 31.2 Results Reviewed Nephrology Results: Hgb 13.4 g/dl (12.0-16.0) 02/02/24 WBC 6.8 X10*3/uL (4.8-10.8) 02/02/24 Plt Count 247 X10*3/uL (160-400) 02/02/24 Sodium 145 mmol/L (135-145) 02/02/24 Potassium 4.1 mmol/L (3.3-5.1) 02/02/24 Chloride 107 mmol/L (96-108) 02/02/24 Carbon Dioxide 25 mmol/L (22-29) 02/02/24 BUN 15 mg/dL (9-16) 02/02/24 Creatinine 0.87 mg/dL (0.5-1.4) 02/02/24 Calcium 9.4 mg/dL (8.4-10.2) 02/02/24 Renal US 01/07/24 Assessment & Plan Assessment & Plan (1) Hypertension: Code(s): I10 - Essential (primary) hypertension Category: Medical Qualifiers: Hypertension type: unspecified Qualified Code(s): I10 - Essential (primary) hypertension (2) Hypokalemia: Code(s): E87.6 - Hypokalemia Category: Medical (3) Nephrolithiasis: Code(s): N20.0 - Calculus of kidney Category: Medical Plan 73-year-old woman with a history of nephrolithiasis and hypertension. Hypertension Blood pressure is well controlled. Keep Verapamil/Metoprolol at current dose HR is 66/mt h/o hypokalemia with metabolic alkalosis. This was due to the use of diuretics. However the differential would include hyperaldosteronism. After discontinuing chlorthalidone and the potassium supplementation, K is normal Alkalosis has resolved Encouraged her to keep monitoring blood pressure at home for the next few weeks. I will recheck the serum potassium again in 2 weeks. If she develops hypokalemia with alkalosis without diuretics than she needs further workup. No issues with her renal stones at present. Most recent imaging did not reveal any stones. Encouraged her to stay on low-sodium diet Increase fluid intake to maintain urine output of 2 L. Orders: Orders Basic Metabolic Panel 2 Weeks E87.6 - Hypokalemia Coding Level of Care Code Est Pt Level 4 (24569) Diagnoses Hypertension, unspecified type I10 Hypertension type: unspecified Hypokalemia E87.6 Nephrolithiasis N20.0
[2024-02-12 11:33] VITALS: BP 140/60
== END 2024-02-12 11:37 | disposition home or self-care (01) ==
PROVIDERS: PCP Internal Medicine; Visit Provider Internal Medicine Hypertension Specialist
DX: I10 Essential (primary) hypertension (principal); E87.6 Hypokalemia; N20.0 Calculus of kidney
CPT/HCPCS: 99214

== ENCOUNTER → 2024-02-12 11:11 | Outpatient (BNVA) | payer MEDICARE, OTHER, SELFPAY | PROVIDERS: PCP Internal Medicine; Visit Provider Internal Medicine Hypertension Specialist | DX: I10 Essential (primary) hypertension (principal); N20.0 Calculus of kidney; E87.6 Hypokalemia | CPT/HCPCS: 99212 ==

== ENCOUNTER 2024-03-03 08:24 | Outpatient (REF) | payer MEDICARE, OTHER, SELFPAY ==
[2024-03-03 09:06] LABS: Anion Gap 11 (12-20); Blood Urea Nitrogen 19 mg/dL (9-16); Calcium 9.7 mg/dL (8.4-10.2); Carbon Dioxide 28 mmol/L (22-29); Chloride 108 mmol/L (96-108); Estimated Glomerular Filt Rate > 60; Glucose Random 101 mg/dL (60-115); Potassium 4.3 mmol/L (3.3-5.1); Sodium 143 mmol/L (135-145)
== END 2024-03-03 08:25 | disposition home or self-care (01) ==
LOC: HO.LAB 08:24
PROVIDERS: PCP Internal Medicine; Visit Provider Internal Medicine Hypertension Specialist
DX: E87.6 Hypokalemia (principal)
CPT/HCPCS: 36415; 80048

== ENCOUNTER 2024-03-11 10:03 | Outpatient (AMB) | payer MEDICARE, OTHER, SELFPAY ==
[2024-03-11 10:05] VITALS: BP 152/80; PULSE 62; O2SAT 95; BMI 30.9
--- NOTE | 2024-03-11 10:05 | HO.NEPHOV_ITS ---
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 Accompanied by: Self / Same As Patient Allergies citalopram [From CELEXA] Allergy (Severe, Verified 03/11/24 10:06) LOCKJAW, DIFFICULTY SWALLOWING lisinopril [LISINOPRIL] Allergy (Severe, Verified 03/11/24 10:06) COUGH scopolamine [SCOPOLAMINE] Allergy (Severe, Verified 03/11/24 10:06) AGITATION sulfamethoxazole [From BACTRIM] Allergy (Intermediate, Verified 03/11/24 10:06) HIVES sertraline [From Zoloft] Allergy (Mild, Verified 03/11/24 10:06) yawning hydroxyzine [Vistaril] Allergy (Unknown, Verified 03/11/24 10:06) agitation metronidazole [Flagyl] Allergy (Unknown, Verified 03/11/24 10:06) arm paralysis Sulfa (Sulfonamide Antibiotics) Allergy (Unknown, Verified 03/11/24 10:06) rash Medication List - Last Reconciled 03/11/24 by Ryan Reid MD aspirin (Adult Low Dose Aspirin) 81 mg PO DAILY atorvastatin 20 mg PO DAILY clotrimazole-betamethasone 1-0.05 % 1 appl topical BID 2 weeks ergocalciferol (vitamin D2) 1,250 mcg PO QWEEK estradiol 0.01%(0.1mg/gram) 2x weekly gabapentin 100 mg PO BEDTIME PRN metoprolol succinate ER 50 mg PO DAILY 90 days nitrofurantoin macrocrystal 100 mg PO BID PRN pyridoxine (vitamin B6) 100 mg PO DAILY verapamil ER 240 mg PO DAILY vitamins A,C,W-htam-mdygip 2,148 mcg-113 mg-45 mg-17.4mg (PreserVision AREDS) 1 tab PO BID HPI Comments Details: 73 yr old woman with a history of nephrolithiasis and hypertension. She tells me that the recent ultrasound did not reveal any stones. In the past he was on Topamax which was thought to be the culprit for multiple stones. She is off the Topamax at this time. Overall she has been doing reasonably well. No specific complaints. She has persistent hypokalemia. She is on potassium supplementation twice a day but she is finding it difficult to take the evening dose due to heartburn. She is on chlorthalidone 25 mg a day. She was on hydrochlorothiazide for the control of hypertension which was later switched to chlorthalidone. She is also on metoprolol and verapamil for the control blood pressure and for occasional PVC she has had. No history of CHF. 02/12/24 Off Chlorthalidone and KCL Doing well Home BP readings are acceptable There were few Systolic readings in the 140s and 150 Recent reading was 116/70 03/11/2024. Home blood pressure readings are excellent. No new issues today. [facility] Medical History Obesity Post-menopausal Screening for hyperlipidemia Screening for diabetes mellitus Fatigue Mild depression Hypertension Surgical History History of colonoscopy History of surgery History of hysterectomy Family History Father Aneurysm Diabetes Mother Heart disease Maternal Grandmother Colon cancer Brother No problems noted. Sister No problems noted. Son Substance use disorder Son No problems noted. Daughter No problems noted. Daughter Mental health disorder Social History Housing: House Alcohol intake: current Alcohol intake frequency: holidays/special occasions only Patient Tobacco Use Status: Former Tobacco user Tobacco use type: Cigarette Cigarettes Per Day: 2 Years Smoked: 0 e-Cigarette/Vaping Use: Never Used Second Hand Smoke Exposure: No service: No Current occupational status: retired Current occupational exposures/hazards: No Cognitive needs: No Hearing needs: No Vision needs: Yes Physical Exam Vital Signs: Last Vital Signs Pulse 62 03/11/24 10:05 BP 152/80 H 03/11/24 10:05 Pulse Ox 95 03/11/24 10:05 Oxygen Delivery Method Room Air 03/11/24 10:05 BMI result Body Mass Index 30.9 Const General: comfortable; No acute distress Orientation/consciousness: patient oriented x3 Eyes General: appearance normal, both eyes and all related structures Visual Diane: normal visual diane by confrontation Neck Neck: Yes supple and Yes no JVD Resp Effort & Inspection: normal respiratory effort and respiratory effort not decreased Auscultation: rhonchi Cardio Palpation: no palpable S3 and no palpable S4 Heart sounds: no rubs GI Inspection: Yes normal to inspection Palpation (GI): Soft to palpation Percussion: Yes normal to percussion Auscultation: normal bowel sounds General: Yes no CVA tenderness Back/Spine/Pelvis Back: no CVA tenderness Skin General skin exam: no petechiae and no purpura Neuro General: patient oriented x3 and no focal motor deficits Extrem General: No clubbing and No edema Results Reviewed Nephrology Results: Hgb 13.4 g/dl (12.0-16.0) 02/02/24 WBC 6.8 X10*3/uL (4.8-10.8) 02/02/24 Plt Count 247 X10*3/uL (160-400) 02/02/24 Sodium 143 mmol/L (135-145) 03/03/24 Potassium 4.3 mmol/L (3.3-5.1) 03/03/24 Chloride 108 mmol/L (96-108) 03/03/24 Carbon Dioxide 28 mmol/L (22-29) 03/03/24 BUN 19 mg/dL (9-16) H 03/03/24 Creatinine 0.85 mg/dL (0.5-1.4) 03/03/24 Calcium 9.7 mg/dL (8.4-10.2) 03/03/24 Renal US 01/07/24 Assessment & Plan Assessment & Plan (1) Hypertension: Code(s): I10 - Essential (primary) hypertension Category: Medical Qualifiers: Hypertension type: unspecified Qualified Code(s): I10 - Essential (prim jose) hypertension (2) Hypokalemia: Code(s): E87.6 - Hypokalemia Category: Medical (3) Nephrolithiasis: Code(s): N20.0 - Calculus of kidney Category: Medical Plan 73-year-old woman with a history of nephrolithiasis and hypertension. Hypertension Blood pressure is well controlled. Keep Verapamil/Metoprolol at current dose HR is 66/mt h/o hypokalemia with metabolic alkalosis. This was due to the use of diuretics. However the differential would include hyperaldosteronism. After discontinuing chlorthalidone and the potassium supplementation, K is normal Alkalosis has resolved Encouraged her to keep monitoring blood pressure at home I will recheck the serum potassium prior to next visit along with serum aldosterone and plasma renin activity. No further workup is needed. No issues with her renal stones at present. Most recent imaging did not reveal any stones. Encouraged her to stay on low-sodium diet Increase fluid intake to maintain urine output of 2 L. Orders: Orders Basic Metabolic Panel 4 Months E87.6 - Hypokalemia, I10 - Essential (primary) hypertension Aldosterone 4 Months E87.6 - Hypokalemia, I10 - Essential (primary) hypertension Renin 4 Months E87.6 - Hypokalemia, I10 - Essential (primary) hypertension Coding Level of Care Code Est Pt Level 4 (54992) Diagnoses Hypertension, unspecified type I10 Hypertension type: unspecified Hypokalemia E87.6 Nephrolithiasis N20.0
== END 2024-03-11 10:28 | disposition home or self-care (01) ==
PROVIDERS: PCP Internal Medicine; Visit Provider Internal Medicine Hypertension Specialist
DX: I10 Essential (primary) hypertension (principal); E87.6 Hypokalemia; N20.0 Calculus of kidney
CPT/HCPCS: 99214

== ENCOUNTER → 2024-03-11 10:03 | Outpatient (BNVA) | payer MEDICARE, OTHER, SELFPAY | PROVIDERS: PCP Internal Medicine; Visit Provider Internal Medicine Hypertension Specialist | DX: N20.0 Calculus of kidney (principal); I10 Essential (primary) hypertension; E87.6 Hypokalemia | CPT/HCPCS: 99212 ==

== ENCOUNTER 2024-05-22 11:07 | Outpatient (AMB) | payer MEDICARE, OTHER, SELFPAY ==
[2024-05-22 11:09] VITALS: BP 152/82; PULSE 63; O2SAT 94; BMI 31.2
--- NOTE | 2024-05-22 11:09 | A.OFFPC_ITS ---
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 Accompanied by: Self / Same As Patient Allergies citalopram [From CELEXA] Allergy (Severe, Verified 05/22/24 11:11) LOCKJAW, DIFFICULTY SWALLOWING lisinopril [LISINOPRIL] Allergy (Severe, Verified 05/22/24 11:11) COUGH scopolamine [SCOPOLAMINE] Allergy (Severe, Verified 05/22/24 11:11) AGITATION sulfamethoxazole [From BACTRIM] Allergy (Intermediate, Verified 05/22/24 11:11) HIVES sertraline [From Zoloft] Allergy (Mild, Verified 05/22/24 11:11) yawning hydroxyzine [Vistaril] Allergy (Unknown, Verified 05/22/24 11:11) agitation metronidazole [Flagyl] Allergy (Unknown, Verified 05/22/24 11:11) arm paralysis Sulfa (Sulfonamide Antibiotics) Allergy (Unknown, Verified 05/22/24 11:11) rash Medication List - Last Reconciled 05/22/24 by Abad Byrd MD aspirin (Adult Low Dose Aspirin) 81 mg PO DAILY atorvastatin 20 mg PO DAILY clotrimazole-betamethasone 1-0.05 % 1 appl topical BID 2 weeks ergocalciferol (vitamin D2) 1,250 mcg PO QWEEK estradiol 0.01%(0.1mg/gram) 2x weekly gabapentin 100 mg PO BEDTIME PRN metoprolol succinate ER 50 mg PO DAILY 90 days nitrofurantoin macrocrystal 100 mg PO BID PRN pyridoxine (vitamin B6) 100 mg PO DAILY verapamil ER 240 mg PO DAILY vitamins A,C,H-mfet-ustsqo 2,148 mcg-113 mg-45 mg-17.4mg (PreserVision AREDS) 1 tab PO BID Tobacco use date assessed: 11/05/23 Fall risk assessment: No Falls in past year Last assessed Fall Risk: 05/22/24 Dental Screening Dental Screen Date: 11/05/23 HPI 3mth f/u HPI Details hypertension on rx; compliant; BP 130 at home PFSH Medical History Obesity Post-menopausal Screening for hyperlipidemia Screening for diabetes mellitus Fatigue Mild depression Hypertension Surgical History History of colonoscopy History of surgery History of hysterectomy Family History Father Aneurysm Diabetes Mother Heart disease Maternal Grandmother Colon cancer Brother No problems noted. Sister No problems noted. Son Substance use disorder Son No problems noted. Daughter No problems noted. Daughter Mental health disorder Social History Housing: House Alcohol intake: current Alcohol intake frequency: holidays/special occasions only Patient Tobacco Use Status: Former Tobacco user Tobacco use type: Cigarette Cigarettes Per Day: 2 Years Smoked: 0 e-Cigarette/Vaping Use: Never Used Second Hand Smoke Exposure: No service: No Current occupational status: retired Current occupational exposures/hazards: No Cognitive needs: No Hearing needs: No Vision needs: Yes Questionnaire PHQ-9 Over the last 2 weeks, how often have you been bothered by any of the following problems? 1. Little interest or pleasure in doing things: not at all 2. Feeling down, depressed, or hopeless: not at all 3. Trouble falling or staying asleep, or sleeping too much: not at all 4. Feeling tired or having little energy: not at all 5. Poor appetite or overeating: not at all 6. Feeling bad about yourself - or that you are a failure or have let yourself or your family down: not at all 7. Trouble concentrating on things, such as reading the newspaper or watching television: not at all 8. Moving or speaking so slowly that other people could have noticed. Or the opposite - being so fidgety or restless that you have been moving around a lot more than usual: not at all 9. Thoughts that you would be better off or of hurting yourself in some way: not at all Total score: 0 Depression Screening Interpretation: Negative Depression Screening Done: Yes 34726 - PHQ-9 Billing: Yes Source: Developed by Drs. Chuck LViv Martin Kurt Kroenke and colleagues, with an educational preston from [employer]. Thrive Questionnaire Date Thrive assessed: 11/05/23 AUDIT C Alcohol Use Questionnaire (AUDIT-C) 1. How often do you have a drink containing alcohol?: 2-4 times a month 2. How many drinks containing alcohol do you have on a typical day when you are drinking?: 3 or 4 3. How often do you have six or more drinks on one occasion?: Never Total Score: 3 Score Reviewed/Action Taken: Yes JARROD-7 AMB Questionnaire JARROD-7 Date JARROD - 7 assessed: 11/05/23 Source: Developed by Viv Aviles Kurt Kroenke and colleagues, with an educational preston from [employer]. Review of Systems Const Denies chills, Denies headache(s) and Denies weight loss ENT Denies headache(s) Card Denies chest pain, Denies syncope, Denies irregular heart rhythm and Denies dyspnea Resp Denies chest congestion, Denies cough and Denies dyspnea GI Denies abdominal pain, Denies change in stool character, Denies nausea and Denies vomiting Musc Denies deformity and Denies joint swelling Neuro Denies syncope and Denies headache(s) Physical exam (Primary Care) Vital Signs: Last Vital Signs Pulse 63 05/22/24 11:09 BP 152/82 H 05/22/24 11:09 Pulse Ox 94 05/22/24 11:09 Oxygen Delivery Method Room Air 05/22/24 11:09 BMI result Body Mass Index 31.2 Tobacco/Smoking Status: Tobacco use Status Tobacco use date assessed 11/05/23 05/22/24 11:14 Patient Tobacco Use Status Former Tobacco user 05/22/24 11:14 Tobacco use type Cigarette 05/22/24 11:14 e-Cigarette/Vaping Use Never Used 05/22/24 11:14 PHQ-9: PHQ-9 Score PHQ-9: Total score 0 05/22/24 11:14 Depression Screening Interpretation: Negative Thrive Assessment: Date of Thrive Assessment Date Thrive assessed 11/05/23 05/22/24 11:14 Const General: cooperative, comfortable, no acute distress and alert Neck Neck: Yes no lymphadenopathy Thyroid: Thyroid normal Resp Effort & Inspection: normal respiratory effort Auscultation: clear to auscultation bilaterally Percussion: percussion normal Cardio Jugular venous distension: no JVD Palpation: normal PMI Rate: regular rate Rhythm: regular rhythm Heart sounds: S1 normal heart sound present and S2 normal heart sound present GI Inspection: Yes normal to inspection Palpation (GI): No hepatosplenomegaly present Skin General skin exam: no rashes or lesions noted Extrem General: Yes no clubbing, cyanosis or edema Assessment and Plan Assessment & Plan (1) Hypertension: Code(s): I10 - Essential (primary) hypertension Qualifiers: Hypertension type: unspecified Qualified Code(s): I10 - Essential (primary) hypertension Plan: stable; same rx Orders: Orders Lipid Panel Today Z13.220 - Encounter for screening for lipoid disorders Complete Blood Count Auto Diff Today Z13.0 - Encounter for screening for diseases of the blood and blood-forming organs and certain disorders involving the immune mechanism Comprehensive [place]. Panel Fast Today Z13.9 - Encounter for screening, unspecified Coding Level of Care Code Est Pt Level 3 (66594) Diagnoses Hypertension, unspecified type I10 Hypertension type: unspecified
== END 2024-05-22 11:54 | disposition home or self-care (01) ==
PROVIDERS: PCP Internal Medicine; Visit Provider Internal Medicine
DX: I10 Essential (primary) hypertension (principal)
CPT/HCPCS: 99213

== ENCOUNTER 2024-06-28 09:12 | Outpatient (REF) | payer MEDICARE, OTHER, SELFPAY ==
[2024-06-28 09:26] LABS: MANUAL DIFF FLAG NO
[2024-06-28 10:16] LABS: Basophils Percent Auto 0.7 % (0-2); Eosinophils Absolute Auto 0.1 X10*3/uL (0.0-0.4); Eosinophils Percent Auto 2.3 % (0-4); Hematocrit 39.2 % (37.0-47.0); Hemoglobin 13.2 g/dl (12.0-16.0); Imm Gran Abs Auto 0.02 X10*3/uL (0.00-0.03); Imm Gran Pct Auto 0.4 % (0.0-0.4); Lymphocytes Absolute Auto 1.6 X10*3/uL (1.2-4.9); Lymphocytes Percent Auto 29.3 % (20-40); Mean Corpuscular HGB Conc 33.7 g/dl (31.0-35.0); Mean Corpuscular Hemoglobin 31.7 pg (27.0-33.0); Mean Platelet Volume 9.7 fL (9.4-12.3); Monocytes Absolute Auto 0.4 X10*3/uL (0.1-1.2); Monocytes Percent Auto 7.3 % (2-11); Neutrophils Absolute Auto 3.4 x10*3/uL (2.0-8.3); Platelet Count 246 X10*3/uL (160-400); Red Blood Count 4.17 X10*6/uL (4.20-5.50); Red Cell Distribution Width 13.3 % (11.0-16.0); White Blood Count 5.6 X10*3/uL (4.8-10.8)
[2024-06-28 10:47] LABS: Alanine Aminotransferase 28 U/L (0-31); Albumin Level 4.2 g/dL (3.5-5.0); Alkaline Phosphatase 101 U/L (39-117); Anion Gap 11 (12-20); Aspartate Amino Transferase 28 U/L (5-31); Bilirubin Total 0.5 mg/dL (0.0-1.0); Blood Urea Nitrogen 16 mg/dL (9-16); Calcium 9.7 mg/dL (8.4-10.2); Carbon Dioxide 26 mmol/L (22-29); Chloride 109 mmol/L (96-108); Cholesterol 136 mg/dL (<200); Estimated Glomerular Filt Rate > 60; Glucose Fasting 109 mg/dL (60-99); Glucose Random 108 mg/dL (60-115); HDL Cholesterol 45 mg/dL (>40); LDL Cholesterol Calculated 75 mg/dL (<100); Potassium 3.8 mmol/L (3.3-5.1); Sodium 142 mmol/L (135-145); Total Protein 6.8 g/dL (6.5-8.0); Triglycerides 82 mg/dL (<150)
== END 2024-06-28 09:13 | disposition home or self-care (01) ==
LOC: HO.LAB 09:12
PROVIDERS: PCP Internal Medicine; Referring Provider Internal Medicine; Visit Provider Internal Medicine Hypertension Specialist
DX: E87.6 Hypokalemia (principal); I10 Essential (primary) hypertension; Z13.0 Encounter for screening for diseases of the blood and blood-forming organs and certain disorders involving the immune mechanism; Z13.9 Encounter for screening, unspecified; Z13.220 Encounter for screening for lipoid disorders
CPT/HCPCS: 36415; 80048; 80053; 80061; 82088; 84244; 85025

== ENCOUNTER 2024-07-10 10:08 | Outpatient (AMB) | payer MEDICARE, OTHER, SELFPAY ==
[2024-07-10 10:33] VITALS: BP 202/90; PULSE 65; O2SAT 96; BMI 31.6
--- NOTE | 2024-07-10 10:33 | HO.NEPHOV_ITS ---
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 Accompanied by: Self / Same As Patient Allergies citalopram [From CELEXA] Allergy (Severe, Verified 07/10/24 10:35) LOCKJAW, DIFFICULTY SWALLOWING lisinopril [LISINOPRIL] Allergy (Severe, Verified 07/10/24 10:35) COUGH scopolamine [SCOPOLAMINE] Allergy (Severe, Verified 07/10/24 10:35) AGITATION sulfamethoxazole [From BACTRIM] Allergy (Intermediate, Verified 07/10/24 10:35) HIVES sertraline [From Zoloft] Allergy (Mild, Verified 07/10/24 10:35) yawning hydroxyzine [Vistaril] Allergy (Unknown, Verified 07/10/24 10:35) agitation metronidazole [Flagyl] Allergy (Unknown, Verified 07/10/24 10:35) arm paralysis Sulfa (Sulfonamide Antibiotics) Allergy (Unknown, Verified 07/10/24 10:35) rash Medication List - Last Reconciled 07/10/24 by Ryan Reid MD aspirin (Adult Low Dose Aspirin) 81 mg PO DAILY atorvastatin 20 mg PO DAILY clotrimazole-betamethasone 1-0.05 % 1 appl topical BID 2 weeks ergocalciferol (vitamin D2) 1,250 mcg PO QWEEK estradiol 0.01%(0.1mg/gram) 2x weekly gabapentin 100 mg PO BEDTIME PRN metoprolol succinate ER 50 mg PO DAILY 90 days nitrofurantoin macrocrystal 100 mg PO BID PRN pyridoxine (vitamin B6) 100 mg PO DAILY verapamil ER 240 mg PO DAILY vitamins A,C,S-xdua-thmeug 2,148 mcg-113 mg-45 mg-17.4mg (PreserVision AREDS) 1 tab PO BID HPI Comments Details: 73 yr old woman with a history of nephrolithiasis and hypertension. She tells me that the recent ultrasound did not reveal any stones. In the past he was on Topamax which was thought to be the culprit for multiple stones. She is off the Topamax at this time. Overall she has been doing reasonably well. No specific complaints. She has persistent hypokalemia. She is on potassium supplementation twice a day but she is finding it difficult to take the evening dose due to heartburn. She is on chlorthalidone 25 mg a day. She was on hydrochlorothiazide for the control of hypertension which was later switched to chlorthalidone. She is also on metoprolol and verapamil for the control blood pressure and for occasional PVC she has had. No history of CHF. 02/12/24 Off Chlorthalidone and KCL Doing well Home BP readings are acceptable There were few Systolic readings in the 140s and 150 Recent reading was 116/70 03/11/2024. Home blood pressure readings are excellent. No new issues today. 07/10/2024. SHE HAS BEEN DOING WELL UNTIL RECENTLY. RECENTLY BLOOD PRESSURE HAS BEEN ELEVATED. [facility] Medical History Obesity Post-menopausal Screening for hyperlipidemia Screening for diabetes mellitus Fatigue Mild depression Hypertension Surgical History History of colonoscopy History of surgery History of hysterectomy Family History Father Aneurysm Diabetes Mother Heart disease Maternal Grandmother Colon cancer Brother No problems noted. Sister No problems noted. Son Substance use disorder Son No problems noted. Daughter No problems noted. Daughter Mental health disorder Social History Housing: House Alcohol intake: current Alcohol intake frequency: holidays/special occasions only Patient Tobacco Use Status: Former Tobacco user Tobacco use type: Cigarette Cigarettes Per Day: 2 Years Smoked: 0 e-Cigarette/Vaping Use: Never Used Second Hand Smoke Exposure: No service: No Current occupational status: retired Current occupational exposures/hazards: No Cognitive needs: No Hearing needs: No Vision needs: Yes Physical Exam Vital Signs: Last Vital Signs Pulse 65 07/10/24 10:33 BP 202/90 H 07/10/24 10:33 Pulse Ox 96 07/10/24 10:33 Oxygen Delivery Method Room Air 07/10/24 10:33 BMI result Body Mass Index 31.6 Const General: comfortable; No acute distress Orientation/consciousness: patient oriented x3 Eyes General: appearance normal, both eyes and all related structures Visual Diane: normal visual diane by confrontation Neck Neck: Yes supple and Yes no JVD Resp Effort & Inspection: normal respiratory effort and respiratory effort not decreased Auscultation: rhonchi Cardio Palpation: no palpable S3 and no palpable S4 Heart sounds: no rubs GI Inspection: Yes normal to inspection Palpation (GI): Soft to palpation Percussion: Yes normal to percussion Auscultation: normal bowel sounds General: Yes no CVA tenderness Back/Spine/Pelvis Back: no CVA tenderness Skin General skin exam: no petechiae and no purpura Neuro General: patient oriented x3 and no focal motor deficits Extrem General: No clubbing and No edema Results Reviewed Nephrology Results: Hgb 13.2 g/dl (12.0-16.0) 06/28/24 WBC 5.6 X10*3/uL (4.8-10.8) 06/28/24 Plt Count 246 X10*3/uL (160-400) 06/28/24 Sodium 142 mmol/L (135-145) 06/28/24 Potassium 3.8 mmol/L (3.3-5.1) 06/28/24 Chloride 109 mmol/L (96-108) H 06/28/24 Carbon Dioxide 26 mmol/L (22-29) 06/28/24 BUN 16 mg/dL (9-16) 06/28/24 Creatinine 0.82 mg/dL (0.5-1.4) 06/28/24 Calcium 9.7 mg/dL (8.4-10.2) 06/28/24 Assessment & Plan Assessment & Plan (1) Hypertension: Code(s): I10 - Essential (primary) hypertension Category: Medical Qualifiers: Hypertension type: unspecified Qualified Code(s): I10 - Essential (primary) hypertension (2) Hypokalemia: Code(s): E87.6 - Hypokalemia Category: Medical (3) Nephrolithiasis: Code(s): N20.0 - Calculus of kidney Category: Medical Plan 73-year-old woman with a history of nephrolithiasis and hypertension. Hypertension Blood pressure is well controlled. Keep Verapamil/Metoprolol at current dose HR is 66/mt h/o hypokalemia with metabolic alkalosis. This was due to the use of diuretics. However the differential would include hyperaldosteronism. After discontinuing chlorthalidone and the potassium supplementation, K is normal Alkalosis has resolved No issues with her renal stones at present. Most recent imaging did not reveal any stones. Encouraged her to stay on low-sodium diet Increase fluid intake to maintain urine output of 2 L. 07/10/2024. Blood pressure is suboptimal. Previously renal ultrasonogram was unremarkable. No reason to suspect renal artery stenosis. Recent blood work did not reveal any spontaneous hypokalemia or alkalosis to suspect primary hyperaldosteronism. I will start her on spironolactone 25 mg 1 a day. She was start with half a tablet a day for 4 days and then increase the dose. If blood pressure is still suboptimal we can either increase spironolactone to 25 mg b.i.d. or switch to Aldactazide 25/25 one a day. Monitor blood pressure at home she was turned off the next 2 weeks. . Medications: New spironolactone 25 mg PO DAILY 30 tabs 1RF Coding Level of Care Code Est Pt Level 4 (74195) Diagnoses Hypertension, unspecified type I10 Hypertension type: unspecified Hypokalemia E87.6 Nephrolithiasis N20.0
== END 2024-07-10 11:00 | disposition home or self-care (01) ==
PROVIDERS: PCP Internal Medicine; Visit Provider Internal Medicine Hypertension Specialist
DX: I10 Essential (primary) hypertension (principal); E87.6 Hypokalemia; N20.0 Calculus of kidney
CPT/HCPCS: 99214

== ENCOUNTER → 2024-07-10 10:08 | Outpatient (BNVA) | payer MEDICARE, OTHER, SELFPAY | PROVIDERS: PCP Internal Medicine; Visit Provider Internal Medicine Hypertension Specialist | DX: I10 Essential (primary) hypertension (principal); E87.6 Hypokalemia; N20.0 Calculus of kidney | CPT/HCPCS: 99212 ==

== ENCOUNTER 2024-07-23 10:09 | Outpatient (AMB) | payer MEDICARE, OTHER, SELFPAY ==
--- NOTE | 2024-07-23 10:17 | HO.NEPHOV_ITS ---
Vital Signs 07/23/24 10:19 07/23/24 10:39 Height 5 ft 4 in Weight 184 lb 6 oz BMI 31.6 BP 146/70 H 132/66 Blood Pressure Location Lt brachial Position Sitting Pulse 71 Pulse Source Pulse Oximeter Pulse Oximetry (%) 95 Oxygen Delivery Method Room Air Intake Visit Reasons: Hypertension Pigs Feet Finisher Required: No Accompanied by: Self / Same As Patient Allergies citalopram [From CELEXA] Allergy (Severe, Verified 07/23/24 10:19) LOCKJAW, DIFFICULTY SWALLOWING lisinopril [LISINOPRIL] Allergy (Severe, Verified 07/23/24 10:19) COUGH scopolamine [SCOPOLAMINE] Allergy (Severe, Verified 07/23/24 10:19) AGITATION sulfamethoxazole [From BACTRIM] Allergy (Intermediate, Verified 07/23/24 10:19) HIVES sertraline [From Zoloft] Allergy (Mild, Verified 07/23/24 10:19) yawning hydroxyzine [Vistaril] Allergy (Unknown, Verified 07/23/24 10:19) agitation metronidazole [Flagyl] Allergy (Unknown, Verified 07/23/24 10:19) arm paralysis Sulfa (Sulfonamide Antibiotics) Allergy (Unknown, Verified 07/23/24 10:19) rash HPI Comments Details: 73 yr old woman with a history of nephrolithiasis and hypertension. Most recent renal US December 2023 without evidence of stones In the past he was on Topamax which was thought to be the culprit for multiple stones. She is off the Topamax at this time. Overall she has been doing reasonably well. No specific complaints. She has persistent hypokalemia. She is on potassium supplementation twice a day but she is finding it difficult to take the evening dose due to heartburn. She is on chlorthalidone 25 mg a day. She was on hydrochlorothiazide for the control of hypertension which was later switched to chlorthalidone. She is also on metoprolol and verapamil for the control blood pressure and for occasional PVC she has had. No history of CHF. 02/12/24 Off Chlorthalidone and KCL Doing well Home BP readings are acceptable There were few Systolic readings in the 140s and 150 Recent reading was 116/70 03/11/2024. Home blood pressure readings are excellent. No new issues today. 07/10/2024. SHE HAS BEEN DOING WELL UNTIL RECENTLY. RECENTLY BLOOD PRESSURE HAS BEEN ELEVATED. 07/23/24 Patient reports blood pressures have improved though some remain elevated took half 25mg tab of spironolactone as directed x4days, then has been taking 25mg daily for about 1.5 weeks now SBPs ranged from 132 to 140s, had 1 reading in 170s today recheck is 132/66, last visit was 202/90 she confirms in addition to 25mg spironolactone daily, she is also taking metoprolol 50mg PO daily (has helped PVCs) and verapamil 240mg daily (states verapamil is longstanding medication, 10+ years, for visual migraine management). she states she is feeling well, no concerns/complaints today last labs were stable. Normal renal function, potassium level remains normal. [facility] Medical History Obesity Post-menopausal Screening for hyperlipidemia Screening for diabetes mellitus Fatigue Mild depression Hypertension Surgical History History of colonoscopy History of surgery History of hysterectomy Family History Father Aneurysm Diabetes Mother Heart disease Maternal Grandmother Colon cancer Brother No problems noted. Sister No problems noted. Son Substance use disorder Son No problems noted. Daughter No problems noted. Daughter Mental health disorder Social History Housing: House Alcohol intake: current Alcohol intake frequency: holidays/special occasions only Patient Tobacco Use Status: Former Tobacco user Tobacco use type: Cigarette Cigarettes Per Day: 2 Years Smoked: 0 e-Cigarette/Vaping Use: Never Used Second Hand Smoke Exposure: No service: No Current occupational status: retired Current occupational exposures/hazards: No Cognitive needs: No Hearing needs: No Vision needs: Yes Review of Systems Const Denies chills, Denies headache(s), Denies weight gain and Denies weight loss ENT Denies headache(s) Card Denies chest pain, Denies syncope, Denies irregular heart rhythm and Denies dyspnea Resp Denies chest congestion, Denies cough and Denies dyspnea GI Denies abdominal pain, Denies change in stool character, Denies nausea and Denies vomiting Musc Denies deformity and Denies joint swelling Skin/Breast Denies rash Neuro Denies syncope and Denies headache(s) Physical Exam Const General: comfortable; No acute distress Orientation/consciousness: patient oriented x3 Eyes General: appearance normal, both eyes and all related structures Visual Antonio: normal visual antonio by confrontation Neck Neck: Yes supple and Yes no JVD Resp Effort & Inspection: normal respiratory effort and respiratory effort not decreased Auscultation: clear to auscultation bilaterally Cardio Palpation: no palpable S3 and no palpable S4 Rate: regular rate Rhythm: regular rhythm Heart sounds: S1 normal heart sound present, S2 normal heart sound present and no rubs GI Inspection: Yes normal to inspection Palpation (GI): Soft to palpation and nontender Auscultation: normal bowel sounds General: Yes no CVA tenderness Back/Spine/Pelvis Back: no CVA tenderness Skin General skin exam: no petechiae and no purpura Neuro General: patient oriented x3 and no focal motor deficits Extrem General: No clubbing and No edema Results Reviewed Nephrology Results: Hgb 13.2 g/dl (12.0-16.0) 06/28/24 WBC 5.6 X10*3/uL (4.8-10.8) 06/28/24 Plt Count 246 X10*3/uL (160-400) 06/28/24 Sodium 142 mmol/L (135-145) 06/28/24 Potassium 3.8 mmol/L (3.3-5.1) 06/28/24 Chloride 109 mmol/L (96-108) H 06/28/24 Carbon Dioxide 26 mmol/L (22-29) 06/28/24 BUN 16 mg/dL (9-16) 06/28/24 Creatinine 0.82 mg/dL (0.5-1.4) 06/28/24 Calcium 9.7 mg/dL (8.4-10.2) 06/28/24 Assessment & Plan Assessment & Plan (1) Hypertension: Code(s): I10 - Essential (primary) hypertension Category: Medical Qualifiers: Hypertension type: unspecified Qualified Code(s): I10 - Essential (primary) hypertension (2) Hypokalemia: Code(s): E87.6 - Hypokalemia Category: Medical (3) Nephrolithiasis: Code(s): N20.0 - Calculus of kidney Category: Medical Plan 73-year-old woman with a history of nephrolithiasis and hypertension. blood pressure greatly improved today will continue current regimen of spironolactone 25mg daily, metoprolol 50mg daily and verapamil 240mg daily no issues with renal stones discussed she should continue to work on low salt diet, regular exercise and weight loss discussed importance of hydration, in particular to prevent renal stone formation disucssed avoiding nsaids and other nephrotoxic substances She will return in 2 months, blood work prior Orders: Orders Basic Metabolic Panel 2 Months N18.30 - Chronic kidney disease, stage 3 unspecified Medications: Refilled spironolactone 25 mg PO DAILY 30 tabs 1RF Coding Level of Care Code Est Pt Level 3 (11437) Diagnoses Hypertension, unspecified type I10 Hypertension type: unspecified Hypokalemia E87.6 Nephrolithiasis N20.0 Time Spent (min) 25
[2024-07-23 10:19] VITALS: BP 146/70; PULSE 71; O2SAT 95; BMI 31.6
[2024-07-23 10:39] VITALS: BP 132/66
== END 2024-07-23 10:39 | disposition home or self-care (01) ==
LOC: HO.HKA 10:10
PROVIDERS: PCP Internal Medicine; Visit Provider Nurse Practitioner Family
DX: I10 Essential (primary) hypertension (principal); E87.6 Hypokalemia; N20.0 Calculus of kidney
CPT/HCPCS: 99213

== ENCOUNTER → 2024-07-23 10:09 | Outpatient (BNVA) | payer MEDICARE, OTHER, SELFPAY | PROVIDERS: PCP Internal Medicine; Visit Provider Nurse Practitioner Family | DX: I10 Essential (primary) hypertension (principal); E87.6 Hypokalemia; N20.0 Calculus of kidney | CPT/HCPCS: 99212 ==

== ENCOUNTER 2024-08-19 10:04 | Outpatient (AMB) | payer MEDICARE, OTHER, SELFPAY ==
--- NOTE | 2024-08-19 10:22 | A.OFFPC_ITS ---
Vital Signs 08/19/24 10:23 Height 5 ft 4 in Weight 181 lb BMI 31.1 BP 148/90 H Blood Pressure Location Lt brachial Position Sitting Pulse 68 Pulse Source Pulse Oximeter Pulse Oximetry (%) 98 Oxygen Delivery Method Room Air Intake Visit Reasons: 3 month f/u Allergies citalopram [From CELEXA] Allergy (Severe, Verified 07/23/24 10:19) LOCKJAW, DIFFICULTY SWALLOWING lisinopril [LISINOPRIL] Allergy (Severe, Verified 07/23/24 10:19) COUGH scopolamine [SCOPOLAMINE] Allergy (Severe, Verified 07/23/24 10:19) AGITATION sulfamethoxazole [From BACTRIM] Allergy (Intermediate, Verified 07/23/24 10:19) HIVES sertraline [From Zoloft] Allergy (Mild, Verified 07/23/24 10:19) yawning hydroxyzine [Vistaril] Allergy (Unknown, Verified 07/23/24 10:19) agitation metronidazole [Flagyl] Allergy (Unknown, Verified 07/23/24 10:19) arm paralysis Sulfa (Sulfonamide Antibiotics) Allergy (Unknown, Verified 07/23/24 10:19) rash Medication List - Last Reconciled 08/20/24 by Abad Byrd MD aspirin (Adult Low Dose Aspirin) 81 mg PO DAILY atorvastatin 20 mg PO DAILY clotrimazole-betamethasone 1-0.05 % 1 appl topical BID 2 weeks ergocalciferol (vitamin D2) 1,250 mcg PO QWEEK estradiol 0.01%(0.1mg/gram) 2x weekly gabapentin 100 mg PO BEDTIME PRN metoprolol succinate ER 50 mg PO DAILY 90 days nitrofurantoin macrocrystal 100 mg PO BID PRN pyridoxine (vitamin B6) 100 mg PO DAILY spironolactone 25 mg PO DAILY verapamil ER 240 mg PO DAILY vitamins A,C,W-pvct-zmrttu 2,148 mcg-113 mg-45 mg-17.4mg (PreserVision AREDS) 1 tab PO BID Tobacco use date assessed: 11/05/23 Dental Screening Dental Screen Date: 11/05/23 HPI 3 month f/u HPI Details HTN on Rx; doing well and comppliant [facility] Medical History Obesity Post-menopausal Screening for hyperlipidemia Screening for diabetes mellitus Fatigue Mild depression Hypertension Surgical History History of colonoscopy History of surgery History of hysterectomy Family History Father Aneurysm Diabetes Mother Heart disease Maternal Grandmother Colon cancer Brother No problems noted. Sister No problems noted. Son Substance use disorder Son No problems noted. Daughter No problems noted. Daughter Mental health disorder Social History Housing: House Alcohol intake: current Alcohol intake frequency: holidays/special occasions only Patient Tobacco Use Status: Former Tobacco user Tobacco use type: Cigarette Cigarettes Per Day: 2 Years Smoked: 0 e-Cigarette/Vaping Use: Never Used Second Hand Smoke Exposure: No service: No Current occupational status: retired Current occupational exposures/hazards: No Cognitive needs: No Hearing needs: No Vision needs: Yes Questionnaire Thrive Questionnaire Date Thrive assessed: 11/05/23 JARROD-7 AMB Questionnaire JARROD-7 Date JARROD - 7 assessed: 11/05/23 Source: Developed by Drs. Chuck Juares, Viv Youssef, Kody Blunt and colleagues, with an educational preston from [employer]. Review of Systems Const Denies chills, Denies headache(s) and Denies weight loss ENT Denies headache(s) Card Denies chest pain, Denies syncope, Denies irregular heart rhythm and Denies dyspnea Resp Denies chest congestion, Denies cough and Denies dyspnea GI Denies abdominal pain, Denies change in stool character, Denies nausea and Denies vomiting Musc Denies deformity and Denies joint swelling Neuro Denies syncope and Denies headache(s) Physical exam (Primary Care) Vital Signs: Last Vital Signs Pulse 68 08/19/24 10:23 BP 148/90 H 08/19/24 10:23 Pulse Ox 98 08/19/24 10:23 Oxygen Delivery Method Room Air 08/19/24 10:23 BMI result Body Mass Index 31.1 Tobacco/Smoking Status: Tobacco use Status Tobacco use date assessed 11/05/23 08/19/24 10:24 Patient Tobacco Use Status Former Tobacco user 08/19/24 10:24 Tobacco use type Cigarette 08/19/24 10:24 e-Cigarette/Vaping Use Never Used 08/19/24 10:24 Thrive Assessment: Date of Thrive Assessment Date Thrive assessed 11/05/23 08/19/24 10:24 Const General: cooperative, comfortable, no acute distress and alert Neck Neck: Yes no lymphadenopathy Thyroid: Thyroid normal Resp Effort & Inspection: normal respiratory effort Auscultation: clear to auscultation bilaterally Percussion: percussion normal Cardio Jugular venous distension: no JVD Palpation: normal PMI Rate: regular rate Rhythm: regular rhythm Heart sounds: S1 normal heart sound present and S2 normal heart sound present GI Inspection: Yes normal to inspection Palpation (GI): No hepatosplenomegaly present Skin General skin exam: no rashes or lesions noted Extrem General: Yes no clubbing, cyanosis or edema Coding Level of Care Code Est Pt Level 3 (80042) Diagnoses Hypertension, unspecified type I10 Hypertension type: unspecified Assessment & Plan Assessment & Plan (1) Hypertension: Code(s): I10 - Essential (primary) hypertension Category: Medical Qualifiers: Hypertension type: unspecified Qualified Code(s): I10 - Essential (primary) hypertension Plan: stable; same rx Orders: Orders Lipid Panel Today Z13.220 - Encounter for screening for lipoid disorders Comprehensive [place]. Panel Fast Today Z13.9 - Encounter for screening, unspecified
[2024-08-19 10:23] VITALS: BP 148/90; PULSE 68; O2SAT 98; BMI 31.1
== END 2024-08-19 10:47 | disposition home or self-care (01) ==
PROVIDERS: PCP Internal Medicine; Visit Provider Internal Medicine
DX: I10 Essential (primary) hypertension (principal)

== ENCOUNTER → 2024-08-19 10:04 | Outpatient (BNVA) | payer MEDICARE, OTHER, SELFPAY | PROVIDERS: PCP Internal Medicine; Visit Provider Internal Medicine | DX: I10 Essential (primary) hypertension (principal) | CPT/HCPCS: 99212 ==

== ENCOUNTER 2024-09-12 14:50 | Outpatient (REF) | payer MEDICARE, OTHER, SELFPAY ==
[2024-09-12 16:36] LABS: Alanine Aminotransferase 34 U/L (0-31); Albumin Level 4.1 g/dL (3.5-5.0); Alkaline Phosphatase 91 U/L (39-117); Anion Gap 11 (12-20); Aspartate Amino Transferase 31 U/L (5-31); Bilirubin Total 0.3 mg/dL (0.0-1.0); Blood Urea Nitrogen 20 mg/dL (9-16); Calcium 8.9 mg/dL (8.4-10.2); Carbon Dioxide 27 mmol/L (22-29); Chloride 109 mmol/L (96-108); Cholesterol 118 mg/dL (<200); Estimated Glomerular Filt Rate 52; Glucose Fasting 85 mg/dL (60-99); HDL Cholesterol 45 mg/dL (>40); LDL Cholesterol Calculated 59 mg/dL (<100); Potassium 3.9 mmol/L (3.3-5.1); Sodium 143 mmol/L (135-145); Triglycerides 73 mg/dL (<150)
== END 2024-09-12 14:51 | disposition home or self-care (01) ==
LOC: HO.LAB 14:50
PROVIDERS: PCP Internal Medicine; Visit Provider Nurse Practitioner Family
DX: Z13.220 Encounter for screening for lipoid disorders (principal); Z13.9 Encounter for screening, unspecified
CPT/HCPCS: 36415; 80053; 80061

== ENCOUNTER 2024-09-22 13:42 | Outpatient (AMB) | payer MEDICARE, OTHER, SELFPAY ==
[2024-09-22 13:48] VITALS: BP 144/72; PULSE 73; O2SAT 95; BMI 31.2
--- NOTE | 2024-09-22 13:48 | HO.NEPHOV_ITS ---
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 Required: No Accompanied by: Self / Same As Patient Allergies citalopram [From CELEXA] Allergy (Severe, Verified 09/22/24 13:50) LOCKJAW, DIFFICULTY SWALLOWING lisinopril [LISINOPRIL] Allergy (Severe, Verified 09/22/24 13:50) COUGH scopolamine [SCOPOLAMINE] Allergy (Severe, Verified 09/22/24 13:50) AGITATION sulfamethoxazole [From BACTRIM] Allergy (Intermediate, Verified 09/22/24 13:50) HIVES sertraline [From Zoloft] Allergy (Mild, Verified 09/22/24 13:50) yawning hydroxyzine [Vistaril] Allergy (Unknown, Verified 09/22/24 13:50) agitation metronidazole [Flagyl] Allergy (Unknown, Verified 09/22/24 13:50) arm paralysis Sulfa (Sulfonamide Antibiotics) Allergy (Unknown, Verified 09/22/24 13:50) rash Medication List - Last Reconciled 09/22/24 by Ryan Reid MD aspirin (Adult Low Dose Aspirin) 81 mg PO DAILY atorvastatin 20 mg PO DAILY clotrimazole-betamethasone 1-0.05 % 1 appl topical BID 2 weeks ergocalciferol (vitamin D2) 1,250 mcg PO QWEEK estradiol 0.01%(0.1mg/gram) 2x weekly gabapentin 100 mg PO BEDTIME PRN metoprolol succinate ER 50 mg PO DAILY 90 days nitrofurantoin macrocrystal 100 mg PO BID PRN pyridoxine (vitamin B6) 100 mg PO DAILY spironolactone 25 mg PO DAILY verapamil ER 240 mg PO DAILY vitamins A,C,O-dzmx-tkmfaa 2,148 mcg-113 mg-45 mg-17.4mg (PreserVision AREDS) 1 tab PO BID HPI Comments Details: 73 yr old woman with a history of nephrolithiasis and hypertension. She tells me that the recent ultrasound did not reveal any stones. In the past he was on Topamax which was thought to be the culprit for multiple stones. She is off the Topamax at this time. Overall she has been doing reasonably well. No specific complaints. She has persistent hypokalemia. She is on potassium supplementation twice a day but she is finding it difficult to take the evening dose due to heartburn. She is on chlorthalidone 25 mg a day. She was on hydrochlorothiazide for the control of hypertension which was later switched to chlorthalidone. She is also on metoprolol and verapamil for the control blood pressure and for occasional PVC she has had. No history of CHF. 02/12/24 Off Chlorthalidone and KCL Doing well Home BP readings are acceptable There were few Systolic readings in the 140s and 150 Recent reading was 116/70 03/11/2024. Home blood pressure readings are excellent. No new issues today. 07/10/2024. SHE HAS BEEN DOING WELL UNTIL RECENTLY. RECENTLY BLOOD PRESSURE HAS BEEN ELEVAT ED. 09/22/23 Occasional cramps Home BP Ok PFSH Medical History Obesity Post-menopausal Screening for hyperlipidemia Screening for diabetes mellitus Fatigue Mild depression Hypertension Surgical History History of colonoscopy History of surgery History of hysterectomy Family History Father Aneurysm Diabetes Mother Heart disease Maternal Grandmother Colon cancer Brother No problems noted. Sister No problems noted. Son Substance use disorder Son No problems noted. Daughter No problems noted. Daughter Mental health disorder Social History Housing: House Alcohol intake: current Alcohol intake frequency: holidays/special occasions only Patient Tobacco Use Status: Former Tobacco user Tobacco use type: Cigarette Cigarettes Per Day: 2 Years Smoked: 0 e-Cigarette/Vaping Use: Never Used Second Hand Smoke Exposure: No service: No Current occupational status: retired Current occupational exposures/hazards: No Cognitive needs: No Hearing needs: No Vision needs: Yes Physical Exam Vital Signs: Last Vital Signs Pulse 73 09/22/24 13:48 BP 144/72 H 09/22/24 13:48 Pulse Ox 95 09/22/24 13:48 Oxygen Delivery Method Room Air 09/22/24 13:48 BMI result Body Mass Index 31.2 Results Reviewed Nephrology Results: Hgb 13.2 g/dl (12.0-16.0) 06/28/24 WBC 5.6 X10*3/uL (4.8-10.8) 06/28/24 Plt Count 246 X10*3/uL (160-400) 06/28/24 Sodium 143 mmol/L (135-145) 09/12/24 Potassium 3.9 mmol/L (3.3-5.1) 09/12/24 Chloride 109 mmol/L (96-108) H 09/12/24 Carbon Dioxide 27 mmol/L (22-29) 09/12/24 BUN 20 mg/dL (9-16) H 09/12/24 Creatinine 1.03 mg/dL (0.5-1.4) 09/12/24 Calcium 8.9 mg/dL (8.4-10.2) 09/12/24 Assessment & Plan Assessment & Plan (1) Hypertension: Code(s): I10 - Essential (primary) hypertension Category: Medical Qualifiers: Hypertension type: unspecified Qualified Code(s): I10 - Essential (primary) hypertension (2) Hypokalemia: Code(s): E87.6 - Hypokalemia Category: Medical (3) Nephrolithiasis: Code(s): N20.0 - Calculus of kidney Category: Medical Plan 73-year-old woman with a history of nephrolithiasis and hypertension. Hypertension Blood pressure is well controlled. Keep Verapamil/Metoprolol at current dose HR is 66/mt h/o hypokalemia with metabolic alkalosis. This was due to the use of diuretics. However the differential would include hyperaldosteronism. After discontinuing chlorthalidone and the potassium supplementation, K is normal Alkalosis has resolved No issues with her renal stones at present. Most recent imaging did not reveal any stones. Encouraged her to stay on low-sodium diet Increase fluid intake to maintain urine output of 2 L. Blood pressure is better controlled Previously renal ultrasonogram was unremarkable. No reason to suspect renal artery stenosis. Recent blood work did not reveal any spontaneous hypokalemia or alkalosis to suspect primary hyperaldosteronism. Keep spironolactone 25 mg 1 a day. . Coding Level of Care Code Est Pt Level 4 (64543) Diagnoses Hypertension, unspecified type I10 Hypertension type: unspecified Hypokalemia E87.6 Nephrolithiasis N20.0
== END 2024-09-22 14:05 | disposition home or self-care (01) ==
PROVIDERS: PCP Internal Medicine; Visit Provider Internal Medicine Hypertension Specialist
DX: I10 Essential (primary) hypertension (principal); E87.6 Hypokalemia; N20.0 Calculus of kidney
CPT/HCPCS: 99214

== ENCOUNTER → 2024-09-22 13:42 | Outpatient (BNVA) | payer MEDICARE, OTHER, SELFPAY | PROVIDERS: PCP Internal Medicine; Visit Provider Internal Medicine Hypertension Specialist | DX: N20.0 Calculus of kidney (principal); E87.6 Hypokalemia; I10 Essential (primary) hypertension | CPT/HCPCS: 99212 ==

== ENCOUNTER 2024-10-13 10:06 | Outpatient (AMB) | payer MEDICARE, OTHER, SELFPAY ==
[2024-10-13 10:33] VITALS: BP 148/68; PULSE 64; BMI 30.3
--- NOTE | 2024-10-13 10:33 | MHC.OFFVIS ---
Vital Signs 10/13/24 10:33 Height 5 ft 4 in Weight 176 lb 5.917 oz BMI 30.3 BP 148/68 H Blood Pressure Location Lt brachial Position Sitting Pulse 64 Pulse Source Monitor Intake Visit Reasons: 1 yr /w/ ekg Allergies citalopram [From CELEXA] Allergy (Severe, Verified 09/22/24 13:50) LOCKJAW, DIFFICULTY SWALLOWING lisinopril [LISINOPRIL] Allergy (Severe, Verified 09/22/24 13:50) COUGH scopolamine [SCOPOLAMINE] Allergy (Severe, Verified 09/22/24 13:50) AGITATION sulfamethoxazole [From BACTRIM] Allergy (Intermediate, Verified 09/22/24 13:50) HIVES sertraline [From Zoloft] Allergy (Mild, Verified 09/22/24 13:50) yawning hydroxyzine [Vistaril] Allergy (Unknown, Verified 09/22/24 13:50) agitation metronidazole [Flagyl] Allergy (Unknown, Verified 09/22/24 13:50) arm paralysis Sulfa (Sulfonamide Antibiotics) Allergy (Unknown, Verified 09/22/24 13:50) rash Medication List - Last Reconciled 10/13/24 by Ja Alcazar MD aspirin (Adult Low Dose Aspirin) 81 mg PO DAILY atorvastatin 20 mg PO DAILY ergocalciferol (vitamin D2) 1,250 mcg PO QWEEK metoprolol succinate ER 50 mg PO DAILY 90 days nitrofurantoin macrocrystal 100 mg PO BID PRN pyridoxine (vitamin B6) 100 mg PO DAILY spironolactone 25 mg PO DAILY verapamil ER 240 mg PO DAILY vitamins A,C,B-vaps-cjqzbe 2,148 mcg-113 mg-45 mg-17.4mg (PreserVision AREDS) 1 tab PO BID HPI Comments Details: Aruna comes for follow-up. She says she has been having difficulty managing his blood pressure. Has been following with Nephrology about the same. Hydrochlorothiazide was stopped due to hyperkalemia and since then she says a blood pressures been difficult control. She has been started on spironolactone with improvement in blood pressure but still blood pressure remains often in 140 and sometimes in the 150s. She denies any exertional chest pain. Denies any prolonged palpitations. She does complain of chest discomfort after she eats and can happen spontaneously. She then takes Tums and then starts burping the symptoms resolved. Denies any heart failure symptoms. No lightheadedness, syncope. Currently taking both verapamil metoprolol with symptoms of PVCs dissipated. No prolonged palpitation irregular heartbeat. No lightheadedness, syncope. [facility] Medical History Obesity Post-menopausal Screening for hyperlipidemia Screening for diabetes mellitus Fatigue Mild depression Hypertension Surgical History History of colonoscopy History of surgery History of hysterectomy Family History Father Aneurysm Diabetes Mother Heart disease Maternal Grandmother Colon cancer Brother No problems noted. Sister No problems noted. Son Substance use disorder Son No problems noted. Daughter No problems noted. Daughter Mental health disorder Social History Housing: House Alcohol intake: current Alcohol intake frequency: holidays/special occasions only Patient Tobacco Use Status: Former Tobacco user Tobacco use type: Cigarette Cigarettes Per Day: 2 Years Smoked: 0 e-Cigarette/Vaping Use: Never Used Second Hand Smoke Exposure: No service: No Current occupational status: retired Current occupational exposures/hazards: No Cognitive needs: No Hearing needs: No Vision needs: Yes Review of Systems Const Denies weakness ENT Denies dizziness Card Denies chest pain, Denies chest pain with activity, Denies syncope, Denies rapid heart rate, Denies pedal edema, Denies edema, Denies leg edema, Denies lightheadedness, Denies palpitations, Denies dyspnea, Denies dyspnea on exertion and Denies orthopnea Resp Denies cough, Denies dyspnea and Denies dyspnea on exertion GI Denies hematochezia and Denies change in stool character Musc Denies abnormal gait, Denies muscle cramps, Denies muscle weakness, Denies numbness, Denies radiating pain into limb and Denies tingling Neuro Denies Abnormal speech present, Denies abnormal gait, Denies dizziness, Denies syncope, Denies numbness, Denies tingling and Denies weakness Endo Denies palpitations Physical Exam Vital Signs: Last Vital Signs Pulse 64 10/13/24 10:33 BP 148/68 H 10/13/24 10:33 BMI result Body Mass Index 30.3 Const General: cooperative, healthy appearing, comfortable and no acute distress Orientation/consciousness: patient oriented x3 Neck Neck: Yes normal visual inspection Resp Effort & Inspection: normal respiratory effort Auscultation: clear to auscultation bilaterally, no crackles, no rales, no rhonchi and no wheezes Cardio Jugular venous distension: no JVD Rate: regular rate Rhythm: regular rhythm Heart sounds: S1 normal heart sound present, S2 normal heart sound present, no murmurs and no rubs Neuro General: patient oriented x3 Speech: No Abnormal speech present Extrem General: Yes normal to inspection Psych Appearance: grossly normal Mental Status: mental status grossly normal Speech and movement: Normal speech and movement present Office Procedures EKG Details: EKG shows normal sinus rhythm with normal EKG [id number]-[id number], Complete Assessment & Plan Assessment & Plan (1) PVC (premature ventricular contraction): Code(s): I49.3 - Ventricular premature depolarization Category: Medical Plan: Patient with symptomatic PVCs which has remained suppressed currently on current therapy with metoprolol and verapamil. Doing well from that perspective. Advised to avoid stimulants. Stress mitigation strategies were discussed. No alternative therapy recommended at this point time. (2) Hypertension: Code(s): I10 - Essential (primary) hypertension Category: Medical Qualifiers: Hypertension type: unspecified Qualified Code(s): I10 - Essential (primary) hypertension Plan: Hypertension which is not currently well optimized advised to increase spironolactone to 50 mg daily. Advise basic metabolic profile in 2 weeks time. Advised to monitor blood pressure at home maintain a log. Goal blood pressure less than 130/84. Low-salt diet was discussed. Stress mitigation strategies were discussed. If blood pressure remains difficult control may consider addition angiotensin receptor blockers as she had cough induced by lisinopril in the past. Continue participate in weight loss program. (3) Chest discomfort: Code(s): R07.89 - Other chest pain Category: Medical Plan: Recurrent chest discomfort after eating with associated burping is suggestive of more acid reflux disease. She is recommended she can try [id number] acid reflux therapy with Prilosec but also have taken the liberty to refer her to GI for further evaluation. Will follow up in the clinic in 1 year's time, sooner p.r.n.. Thank you for allowing me to partake in his care Orders: Orders Basic Metabolic Panel 2 Weeks I10 - Essential (primary) hypertension Referrals Gastroenterology Referral R10.13 - Epigastric pain Medications: New spironolactone 50 mg PO DAILY 30 tabs 5RF Discontinued spironolactone Discontinued Reason: Doctor's Order 25 mg PO DAILY 30 tabs 1RF Coding Level of Care Code Est Pt Level 4 (72054) Complex EM visit Add On G2211 Diagnoses PVC (premature ventricular contraction) I49.3 Hypertension, unspecified type I10 Hypertension type: unspecified Chest discomfort R07.89 CPT Codes EKG - CPT: 40721-[id number], Complete ([id number])
--- OUTSIDE RECORDS SUMMARY | 2024-10-13 14:40 | XMS_ITS | Clinical Summary ---
Author Organization [facility] Facility Address [address] [address] Care Team Providers Care Skip Loader Name Role Phone Abad Byrd MD Primary Care Provider [phone] Allergies Active Allergy Reactions Criticality Noted Date Comments Sohail Inhibitors 12/26/2018 Citalopram 12/26/2018 Hydroxyzine Other (see comments) 01/10/2021 Metronidazole Other (see comments) 12/26/2018 Scopolamine Anxiety,Other (see comments) High 06/16/2020 Sertraline 03/10/2020 Jaw tightness Sulfa Antibiotics Other (see comments) 01/10/2021 Other reaction(s): Other (see comments) Sulfamethoxazole-Trimeth oprim Rash Low 12/26/2018 Medications aspirin (ST EDDI) 81 MG EC tablet Take 81 mg by mouth daily Active chlorthalidone (HYGROTON) 25 MG tablet Take 1 tablet by mouth 1 (one) time each day 0 Active ergocalciferol (VITAMIN D-2) 1.25 MG (36959 UT) capsule Take 1 capsule by mouth every 30 (thirty) days Active estradiol (ESTRACE) 0.1 MG/GM vaginal cream INSERT 1 GRAM VAGINALLY TWICE PER WEEK 0 Active potassium citrate (UROCIT-K) 10 MEQ (1080 MG) CR tablet Take 3 tablets by mouth 1 (one) time each day 4 Active verapamil SR (CALAN-SR) 240 MG CR tablet Take 240 mg by mouth daily Active pyridoxine (VITAMIN B-6) 50 MG tablet Take 50 mg by mouth 1 (one) time each day Active atorvastatin (LIPITOR) 20 MG tablet Take 20 mg by mouth 1 (one) time each day Active gabapentin (NEURONTIN) 100 MG capsule Take 100 mg by mouth 1 (one) time each day in the morning Active gabapentin (NEURONTIN) 300 MG capsule Take 300 mg by mouth at bed time Active Active Problems Problem Noted Date Diagnosed Date Benign essential hypertension 01/04/2021 Hypokalemia 01/04/2021 Renal stone 01/04/2021 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 Cystocele, midline 01/01/2019 Family History Medical History Relation Comments Cancer Father grandfather leuk emia Diabetes Father Hypertension Mother Kidney disease Mother Relation Status Comments Father Mother Social History Tobacco Use Types Packs/Day Years Used Date Smoking Tobacco: Former Smokeless Tobacco: Never Alcohol Use Standard Drinks/Week Comments Yes 0 (1 standard drink = 0.6 oz pure alcohol) Alcoholic Drinks/day: Occasional social drink Comments Unknown Sex and Gender Information Value Date Recorded Sex Assigned at Not on file Legal Sex Female 5:06 PM EST Gender Identity Not on file Sexual Orientation Not on file Last Filed Vital Signs Vital Sign Reading Time Taken Comments Blood Pressure 120/60 01/18/2023 3:24 PM EDT Pulse 64 01/18/2023 3:24 PM EDT Temperature - - Respiratory Rate - - Oxygen Saturation 97% 01/18/2023 3:24 PM EDT Inhaled Oxygen Concentration - - Weight 81.6 kg (180 lb) 01/18/2023 3:24 PM EDT Height 160 cm (5' 3 ) 01/18/2023 3:24 PM EDT Body Mass Index 31.89 01/18/2023 3:24 PM EDT Plan of Treatment Health Maintenance Due Date Last Done Comments Breast Cancer Screening 1950 Pneumococcal Vaccine: 65+ Ye ars (1 of 2 - PCV) 1956 Colorectal Cancer Screening: Annual FOBT 1999 Colorectal Cancer Screening: Colonoscopy 1999 Colorectal Cancer Screening: Sigmoidoscopy 1999 Influenza Vaccine (#1) 2024 Hepatitis B Vaccine Aged Out No longe r eligible based on patient's age to complete this topic Insurance [facility] MEDICARE [facility] MEDICARE Care Teams Skip Loader Relationship Specialty Start Date End Date Abad Byrd MD [address] [place], [place] PCP - General 09/27/20
== END 2024-10-13 10:58 | disposition home or self-care (01) ==
PROVIDERS: PCP Internal Medicine; Visit Provider Internal Medicine Cardiovascular Disease
DX: I49.3 Ventricular premature depolarization (principal); I10 Essential (primary) hypertension; R07.89 Other chest pain
CPT/HCPCS: 93010; 99214; G2211

== ENCOUNTER → 2024-10-13 10:06 | Outpatient (BNVA) | payer MEDICARE, OTHER, SELFPAY | PROVIDERS: PCP Internal Medicine; Visit Provider Internal Medicine Cardiovascular Disease | DX: I49.3 Ventricular premature depolarization (principal); I10 Essential (primary) hypertension; R07.89 Other chest pain; R10.13 Epigastric pain; Z87.891 Personal history of nicotine dependence | CPT/HCPCS: 93005; 99212 ==

== ENCOUNTER 2024-10-29 08:05 | Outpatient (REF) | payer MEDICARE, OTHER, SELFPAY ==
--- OUTSIDE RECORDS SUMMARY | 2024-10-29 08:12 | XMS_ITS | Clinical Summary ---
Author Organization [facility] Facility Address [address] [address] Care Team Providers Care Pharmaceutical Officer Name Role Phone Abad Byrd MD Primary Care Provider [phone] Allergies Active Allergy Reactions Criticality Noted Date [...] 0 Active ergocalciferol (VITAMIN D-2) 1.25 MG (37228 UT) capsule Take 1 capsule by mouth [...] patient's age to complete this topic Insurance [facility] MEDICARE [facility] MEDICARE Care Teams Pharmaceutical Officer Relationship Specialty Start Date End Date Abad Byrd MD [address] [place], [place] PCP - General 09/27/20
[2024-10-29 10:04] LABS: Anion Gap 11 (12-20); Blood Urea Nitrogen 25 mg/dL (9-16); Calcium 9.4 mg/dL (8.4-10.2); Carbon Dioxide 24 mmol/L (22-29); Chloride 108 mmol/L (96-108); Estimated Glomerular Filt Rate 54; Glucose Random 94 mg/dL (60-115); Potassium 4.3 mmol/L (3.3-5.1); Sodium 139 mmol/L (135-145)
== END 2024-10-29 08:06 | disposition home or self-care (01) ==
LOC: HO.LAB 08:05
PROVIDERS: PCP Internal Medicine; Visit Provider Internal Medicine Cardiovascular Disease
DX: I10 Essential (primary) hypertension (principal)
CPT/HCPCS: 36415; 80048

== ENCOUNTER 2024-11-17 10:15 | Outpatient (AMB) | payer MEDICARE, OTHER, SELFPAY ==
--- NOTE | 2024-11-17 10:16 | A.OFFPC_ITS ---
Vital Signs 11/17/24 10:18 Height 5 ft 4 in Weight 180 lb 4 oz BMI 30.9 BP 160/90 H Blood Pressure Location Lt brachial Position Sitting Pulse 68 Pulse Source Pulse Oximeter Temp 97.5 F Temp Source Temporal Artery Scan Pulse Oximetry (%) 97 Oxygen Delivery Method Room Air Intake Visit Reasons: 3mth f/u Intake Note: Patient is here to follow up on HLD, HTN. 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: No Jointer Submarine Cable: Not Required per policy Accompanied by: Self / Same As Patient Allergies citalopram [From CELEXA] Allergy (Severe, Verified 11/17/24 10:18) LOCKJAW, DIFFICULTY SWALLOWING lisinopril [LISINOPRIL] Allergy (Severe, Verified 11/17/24 10:18) COUGH scopolamine [SCOPOLAMINE] Allergy (Severe, Verified 11/17/24 10:18) AGITATION sulfamethoxazole [From BACTRIM] Allergy (Intermediate, Verified 11/17/24 10:18) HIVES sertraline [From Zoloft] Allergy (Mild, Verified 11/17/24 10:18) yawning hydroxyzine [Vistaril] Allergy (Unknown, Verified 11/17/24 10:18) agitation metronidazole [Flagyl] Allergy (Unknown, Verified 11/17/24 10:18) arm paralysis Sulfa (Sulfonamide Antibiotics) Allergy (Unknown, Verified 11/17/24 10:18) rash Medication List - Last Reconciled 11/18/24 by Abad Byrd MD aspirin (Adult Low Dose Aspirin) 81 mg PO DAILY atorvastatin 20 mg PO DAILY ergocalciferol (vitamin D2) 1,250 mcg PO QWEEK metoprolol succinate ER 50 mg PO DAILY 90 days nitrofurantoin macrocrystal 100 mg PO BID PRN pyridoxine (vitamin B6) 100 mg PO DAILY spironolactone 50 mg PO DAILY valsartan 80 mg PO DAILY verapamil ER 240 mg PO DAILY vitamins A,C,B-trnl-ivkrrx 2,148 mcg-113 mg-45 mg-17.4mg (PreserVision AREDS) 1 tab PO BID Tobacco use date assessed: 11/17/24 Fall risk assessment: No Falls in past year Last assessed Fall Risk: 11/17/24 Dental Screening Dental Screen Date: 11/17/24 Did you have a dental visit in the last 12 months?: Yes Did you have a dental problem in the last 6 months where you did not have access to dental care?: No Was dental information given to patient?: Patient has dentist HPI 3mth f/u HPI Details hypertension and hyperlipidemia on rx; doing well PFSH Medical History Obesity Post-menopausal Screening for hyperlipidemia Screening for diabetes mellitus Fatigue Mild depression Hypertension Surgical History History of colonoscopy History of surgery History of hysterectomy Family History Father Aneurysm Diabetes Mother Heart disease Maternal Grandmother Colon cancer Brother No problems noted. Sister No problems noted. Son Substance use disorder Son No problems noted. Daughter No problems noted. Daughter Mental health disorder Social History Housing: House Alcohol intake: current Alcohol intake frequency: holidays/special occasions only Patient Tobacco Use Status: Former Tobacco user Tobacco use type: Cigarette Cigarettes Per Day: 2 Years Smoked: 0 e-Cigarette/Vaping Use: Never Used Second Hand Smoke Exposure: Yes service: No Current occupational status: retired Current occupational exposures/hazards: No Cognitive needs: No Hearing needs: No Vision needs: Yes (Glasses) Questionnaire PHQ-9 Over the last 2 weeks, how often have you been bothered by any of the following problems? 1. Little interest or pleasure in doing things: not at all 2. Feeling down, depressed, or hopeless: not at all 3. Trouble falling or staying asleep, or sleeping too much: not at all 4. Feeling tired or having little energy: not at all 5. Poor appetite or overeating: not at all 6. Feeling bad about yourself - or that you are a failure or have let yourself or your family down: not at all 7. Trouble concentrating on things, such as reading the newspaper or watching television: not at all 8. Moving or speaking so slowly that other people could have noticed. Or the opposite - being so fidgety or restless that you have been moving around a lot more than usual: not at all 9. Thoughts that you would be better off or of hurting yourself in some way: not at all Total score: 0 Depression Screening Interpretation: Negative Depression Screening Done: Yes Source: Developed by Drs. Chuck Juares, Viv Youssef, Kody Blunt and colleagues, with an educational preston from [employer]. Thrive Questionnaire Date Thrive assessed: 11/17/24 I am a: Patient What is your living situation today?: I have a steady place to live Within the past 12 months, did the food you bought not last and you didn't have the money to get more?: Never true Within the past 12 months, did you worry whether your food would run out before you got money to buy more?: Never true Do you have trouble paying for medicines?: No Do you have trouble getting transportation to medical appointments?: No Do you have trouble paying your heating and electricity bill?: No Do you have trouble taking care of your child, family member or friend?: No Do you have trouble with day-to-day activities such as bathing, preparing meals, shopping, managing finances, etc.?: No Are you currently unemployed and looking for a job?: No Are you interested in more education?: No Please select the resources that you would like help with: None Currently or been in a relationship where the following occur: No concerns reported THRIVE Score: 0 AUDIT C Alcohol Use Questionnaire (AUDIT-C) 1. How often do you have a drink containing alcohol?: 2-4 times a month 2. How many drinks containing alcohol do you have on a typical day when you are drinking?: 1 or 2 Total Score: 2 JARROD-7 AMB Questionnaire JARROD-7 Date JARROD - 7 assessed: 11/17/24 Feeling nervous, anxious, or on edge: 0 = Not at all Not being able to stop or control worryin = Not at all Worrying too much about different things: 0 = Not at all Trouble relaxin = Not at all Being so restless that it is hard to sit still: 0 = Not at all Becoming easily annoyed or irritable: 0 = Not at all Feeling afraid as if something awful might happen: 0 = Not at all Total JARROD-7 score (0-4 normal; 5-9 mild; 10-14 moderate; 15-21 severe): 0 Source: Developed by Drs. Chuck Juares, Viv Youssef, Kody Blunt and colleagues, with an educational preston from [employer]. Review of Systems Const Denies chills, Denies headache(s) and Denies weight loss ENT Denies headache(s) Card Denies chest pain, Denies syncope, Denies irregular heart rhythm and Denies dyspnea Resp Denies chest congestion, Denies cough and Denies dyspnea GI Denies abdominal pain, Denies change in stool character, Denies nausea and Denies vomiting Musc Denies deformity and Denies joint swelling Neuro Denies syncope and Denies headache(s) Physical exam (Primary Care) Vital Signs: Last Vital Signs Temp 97.5 F 11/17/24 10:18 Pulse 68 11/17/24 10:18 BP 160/90 H 11/17/24 10:18 Pulse Ox 97 11/17/24 10:18 Oxygen Delivery Method Room Air 11/17/24 10:18 BMI result Body Mass Index 30.9 Tobacco/Smoking Status: Tobacco use Status Tobacco use date assessed 11/17/24 11/17/24 10:23 Patient Tobacco Use Status Former Tobacco user 11/17/24 10:23 Tobacco use type Cigarette 11/17/24 10:23 e-Cigarette/Vaping Use Never Used 11/17/24 10:23 PHQ-9: PHQ-9 Score PHQ-9: Total score 0 11/17/24 10:23 Depression Screening Interpretation: Negative Thrive Assessment: Date of Thrive Assessment Date Thrive assessed 11/17/24 11/17/24 10:23 Currently or been in a relationship where the following occur: No concerns reported Const General: cooperative, comfortable, no acute distress and alert Neck Neck: Yes no lymphadenopathy Thyroid: Thyroid normal Resp Effort & Inspection: normal respiratory effort Auscultation: clear to auscultation bilaterally Percussion: percussion normal Cardio Jugular venous distension: no JVD Palpation: normal PMI Rate: regular rate Rhythm: regular rhythm Heart sounds: S1 normal heart sound present and S2 normal heart sound present GI Inspection: Yes normal to inspection Palpation (GI): No hepatosplenomegaly present Skin General skin exam: no rashes or lesions noted Extrem General: Yes no clubbing, cyanosis or edema Coding Level of Care Code Est Pt Level 3 (38506) Diagnoses Hypertension, unspecified type I10 Hypertension type: unspecified Hyperlipidemia E78.5 Assessment & Plan Assessment & Plan (1) Hypertension: Code(s): I10 - Essential (primary) hypertension Category: Medical Qualifiers: Hypertension type: unspecified Qualified Code(s): I10 - Essential (primary) hypertension Plan: stable; same rx (2) Hyperlipidemia: Code(s): E78.5 - Hyperlipidemia, unspecified Category: Medical Plan: stable; same rx
[2024-11-17 10:18] VITALS: BP 160/90; PULSE 68; TEMP 36.4; O2SAT 97; BMI 30.9
--- OUTSIDE RECORDS SUMMARY | 2024-11-17 11:49 | XMS_ITS | Clinical Summary ---
Author Organization [facility] Facility Address [address] [address] Care Team Providers Care Mining Technician Name Role Phone Abad Byrd MD Primary Care Provider [phone] Allergies Active Allergy Reactions Criticality Noted Date [...] 0 Active ergocalciferol (VITAMIN D-2) 1.25 MG (24969 UT) capsule Take 1 capsule by mouth [...] patient's age to complete this topic Insurance [facility] MEDICARE [facility] MEDICARE Care Teams Mining Technician Relationship Specialty Start Date End Date Abad Byrd MD [address] [place], [place] PCP - General 09/27/20
== END 2024-11-17 10:46 | disposition home or self-care (01) ==
PROVIDERS: PCP Internal Medicine; Visit Provider Internal Medicine
DX: I10 Essential (primary) hypertension (principal); E78.5 Hyperlipidemia, unspecified

== ENCOUNTER → 2024-11-17 10:15 | Outpatient (BNVA) | payer MEDICARE, OTHER, SELFPAY | PROVIDERS: PCP Internal Medicine; Visit Provider Internal Medicine | DX: I10 Essential (primary) hypertension (principal); E78.5 Hyperlipidemia, unspecified | CPT/HCPCS: 99212 ==

== ENCOUNTER 2024-12-01 07:37 | Outpatient (REF) | payer MEDICARE, OTHER, SELFPAY ==
[2024-12-01 09:43] LABS: Anion Gap 14 (12-20); Blood Urea Nitrogen 38 mg/dL (9-16); Calcium 9.4 mg/dL (8.4-10.2); Carbon Dioxide 24 mmol/L (22-29); Chloride 106 mmol/L (96-108); Estimated Glomerular Filt Rate 43; Glucose Random 101 mg/dL (60-115); Potassium 5.1 mmol/L (3.3-5.1); Sodium 139 mmol/L (135-145)
== END 2024-12-01 07:38 | disposition home or self-care (01) ==
LOC: HO.LAB 07:37
PROVIDERS: PCP Internal Medicine; Visit Provider Internal Medicine Cardiovascular Disease
DX: I10 Essential (primary) hypertension (principal)
CPT/HCPCS: 36415; 80048

== ENCOUNTER 2025-02-17 10:18 | Outpatient (AMB) | payer MEDICARE, OTHER, SELFPAY ==
--- NOTE | 2025-02-17 10:20 | A.OFFPC_ITS ---
Vital Signs 02/17/25 10:21 02/17/25 10:49 Height 5 ft 4 in Weight 182 lb 2 oz BMI 31.3 BP 120/72 158/80 H Blood Pressure Location Lt brachial Lt brachial Position Sitting Sitting Pulse 59 Pulse Source Pulse Oximeter Pulse Oximetry (%) 99 Oxygen Delivery Method Room Air Intake Visit Reasons: Transfer Care from Dr. Byrd 3mth f/u Accompanied by: Self / Same As Patient Allergies citalopram [From CELEXA] Allergy (Severe, Verified 02/17/25 10:31) LOCKJAW, DIFFICULTY SWALLOWING lisinopril [LISINOPRIL] Allergy (Severe, Verified 02/17/25 10:31) COUGH scopolamine [SCOPOLAMINE] Allergy (Severe, Verified 02/17/25 10:31) AGITATION sulfamethoxazole [From BACTRIM] Allergy (Intermediate, Verified 02/17/25 10:31) HIVES sertraline [From Zoloft] Allergy (Mild, Verified 02/17/25 10:31) yawning hydroxyzine [Vistaril] Allergy (Unknown, Verified 02/17/25 10:31) agitation metronidazole [Flagyl] Allergy (Unknown, Verified 02/17/25 10:31) arm paralysis Sulfa (Sulfonamide Antibiotics) Allergy (Unknown, Verified 02/17/25 10:31) rash Medication List - Last Reconciled 02/17/25 by Myesha Holbrook PA-C aspirin (Adult Low Dose Aspirin) 81 mg PO DAILY atorvastatin 20 mg PO DAILY ergocalciferol (vitamin D2) 1,250 mcg PO QWEEK metoprolol succinate ER 50 mg PO DAILY 90 days nitrofurantoin macrocrystal 100 mg PO BID PRN pyridoxine (vitamin B6) 100 mg PO DAILY spironolactone 50 mg PO DAILY valsartan 80 mg PO DAILY verapamil ER 240 mg PO DAILY vitamins A,C,O-qcuy-cbbkit 2,148 mcg-113 mg-45 mg-17.4mg (PreserVision AREDS) 1 tab PO BID Tobacco use date assessed: 02/17/25 Fall risk assessment: No Falls in past year Dental Screening Dental Screen Date: 02/17/25 Did you have a dental visit in the last 12 months?: Yes Did you have a dental problem in the last 6 months where you did not have access to dental care?: No Was dental information given to patient?: Patient has dentist HPI Transfer Care from Dr. Byrd 3mth f/u HPI Details 74-year-old female with past medical his tory of hypertension, migraine, anxiety, depression, osteoporosis and nephrolithiasis last seen by Dr. Byrd 11/2024 coming in for transfer care. Patient has no acute concerns today and is feeling generally well. She does endorse high stress and anxiety related to her daughter but feels she can manage her symptoms. She does mention she forgot to take her blood pressure medications this morning but does monitor her BP at home. [facility] Medical History Obesity Post-menopausal Screening for hyperlipidemia Screening for diabetes mellitus Fatigue Mild depression Hypertension Surgical History History of colonoscopy History of surgery History of hysterectomy Family History Father Aneurysm Diabetes Mother Heart disease Maternal Grandmother Colon cancer Brother No problems noted. Sister No problems noted. Son Substance use disorder Son No problems noted. Daughter No problems noted. Daughter Mental health disorder Social History Housing: House Alcohol intake: current Alcohol intake frequency: holidays/special occasions only Patient Tobacco Use Status: Former Tobacco user Tobacco use type: Cigarette Cigarettes Per Day: 2 Years Smoked: 0 e-Cigarette/Vaping Use: Never Used Second Hand Smoke Exposure: Yes service: No Current occupational status: retired Current occupational exposures/hazards: No Cognitive needs: No Hearing needs: No Vision needs: Yes (Glasses) Questionnaire PHQ-9 Over the last 2 weeks, how often have you been bothered by any of the following problems? 1. Little interest or pleasure in doing things: not at all 2. Feeling down, depressed, or hopeless: not at all 3. Trouble falling or staying asleep, or sleeping too much: not at all 4. Feeling tired or having little energy: not at all 5. Poor appetite or overeating: not at all 6. Feeling bad about yourself - or that you are a failure or have let yourself or your family down: not at all 7. Trouble concentrating on things, such as reading the newspaper or watching television: not at all 8. Moving or speaking so slowly that other people could have noticed. Or the opposite - being so fidgety or restless that you have been moving around a lot more than usual: not at all 9. Thoughts that you would be better off or of hurting yourself in some way: not at all Total score: 0 Depression Screening Interpretation: Negative Depression Screening Done: Yes Source: Developed by Drs. Chuck Juares, Viv Youssef, Kody Blunt and colleagues, with an educational preston from [employer]. Thrive Questionnaire Date Thrive assessed: 02/17/25 I am a: Patient What is your living situation today?: I have a steady place to live Within the past 12 months, did the food you bought not last and you didn't have the money to get more?: Never true Within the past 12 months, did you worry whether your food would run out before you got money to buy more?: Never true Do you have trouble paying for medicines?: No Do you have trouble getting transportation to medical appointments?: No Do you have trouble paying your heating and electricity bill?: No Do you have trouble taking care of your child, family member or friend?: No Do you have trouble with day-to-day activities such as bathing, preparing meals, shopping, managing finances, etc.?: No Are you currently unemployed and looking for a job?: No Are you interested in more education?: No Please select the resources that you would like help with: None Currently or been in a relationship where the following occur: No concerns reported THRIVE Score: 0 AUDIT C Alcohol Use Questionnaire (AUDIT-C) 1. How often do you have a drink containing alcohol?: 2-4 times a month 2. How many drinks containing alcohol do you have on a typical day when you are drinking?: 1 or 2 3. How often do you have six or more drinks on one occasion?: Never Total Score: 2 JARROD-7 AMB Questionnaire JARROD-7 Date JARROD - 7 assessed: 02/17/25 Feeling nervous, anxious, or on edge: 0 = Not at all Not being able to stop or control worryin = Not at all Worrying too much about different things: 0 = Not at all Trouble relaxin = Not at all Being so restless that it is hard to sit still: 0 = Not at all Becoming easily annoyed or irritable: 0 = Not at all Feeling afraid as if something awful might happen: 0 = Not at all Total JARROD-7 score (0-4 normal; 5-9 mild; 10-14 moderate; 15-21 severe): 0 Source: Developed by Drs. Chuck Juares, Viv Youssef, Kody Blunt and colleagues, with an educational preston from [employer]. Review of Systems Const Denies body aches, Denies chills, Denies fever(s), Denies headache(s) and Denies poor appetite Eyes Reports no additional complaints ENT Denies dysphagia, Denies dizziness, Denies headache(s) and Denies odynophagia Card Denies chest pain, Denies syncope, Denies edema, Denies irregular heart rhythm, Denies lightheadedness and Denies dyspnea Resp Denies cough and Denies dyspnea GI Denies abdominal pain, Denies constipation, Denies dysphagia, Denies diarrhea, Denies nausea, Denies odynophagia and Denies vomiting Reports no additional complaints Musc Reports no additional complaints and Denies abnormal gait Skin/Breast Reports system reviewed and no additional complaints, except as documented Neuro Denies abnormal gait, Denies dizziness, Denies syncope and Denies headache(s) Psych Reports no additional complaints Physical exam (Primary Care) Vital Signs: Last Vital Signs Pulse 59 02/17/25 10:21 BP 120/72 02/17/25 10:21 Pulse Ox 99 02/17/25 10:21 Oxygen Delivery Method Room Air 02/17/25 10:21 BMI result Body Mass Index 31.3 Tobacco/Smoking Status: Tobacco use Status Tobacco use date assessed 02/17/25 02/17/25 10:30 Patient Tobacco Use Status Former Tobacco user 02/17/25 10:30 Tobacco use type Cigarette 02/17/25 10:30 e-Cigarette/Vaping Use Never Used 02/17/25 10:30 PHQ-9: PHQ-9 Score PHQ-9: Total score 0 02/17/25 10:30 Depression Screening Interpretation: Negative Thrive Assessment: Date of Thrive Assessment Date Thrive assessed 02/17/25 02/17/25 10:30 Currently or been in a relationship where the following occur: No concerns reported Const General: cooperative, healthy appearing, comfortable and no acute distress Orientation/consciousness: patient oriented x3 HENMT Head: Yes normocephalic Ears: hearing grossly normal bilaterally General nose exam: Normal external nose present Eyes General: appearance normal, both eyes and all related structures Conjunctivae: conjunctivae normal Neck Neck: Yes full ROM and Yes no lymphadenopathy Resp Effort & Inspection: normal respiratory effort Auscultation: clear to auscultation bilaterally, no crackles, no rales, no rhonchi and no wheezes Cardio Rate: regular rate Rhythm: regular rhythm Skin General skin exam: no rashes or lesions noted Neuro General: patient oriented x3 Gait exam (Neuro): Normal gait present Extrem General: Yes normal to inspection, Yes full ROM and No edema Psych Affect: normal affect Attitude: cooperative Insight: Good insight present (Psych) Judgement: Good judgement present (Psych) Coding Level of Care Code Est Pt Level 4 (79106) Diagnoses Nephrolithiasis N20.0 Osteoporosis M81.0 Anxiety and depression F41.9; F32.A Obesity E66.9 Hypertension, unspecified type I10 Hypertension type: unspecified Migraine G43.909 Migraine type: unspecified Hyperlipidemia E78.5 Hypokalemia E87.6 Urinary incontinence R32 GERD (gastroesophageal reflux disease) K21.9 Assessment & Plan Assessment & Plan (1) Nephrolithiasis: Code(s): N20.0 - Calculus of kidney Category: Medical Plan: Follows with urology every 2 years with imaging. Stay well hydrated. (2) Osteoporosis: Code(s): M81.0 - Age-related osteoporosis without current pathological fracture Category: Medical Plan: Declining endocrinology referral. Not a good candidate for calcium supplementation due to kidney stones. Continue with dietary calcium and Vitamin D supplement. (3) Anxiety and depression: Code(s): F41.9 - Anxiety disorder, unspecified; F32.A - Depression, unspecified Category: Medical Plan: Anxiety and depression related to social/familial stress. Has had bad reactions to psych medications and feels well managed without medication or counseling at this time. (4) Obesity: Comment: see above Code(s): E66.9 - Obesity, unspecified Category: Medical Plan: Healthy diet and regular exercise is encouraged. (5) Hypertension: Code(s): I10 - Essential (primary) hypertension Category: Medical Qualifiers: Hypertension type: unspecified Qualified Code(s): I10 - Essential (primary) hypertension Plan: Continue on current blood pressure medication. Avoid salt intake and encourage healthy diet and regular exercise. On metoprolol, Verapamil, Valsartan and spironalactone. Blood pressure elevated today but did forget her medications this AM. She will continue to monitor her blood pressure at home and reach out if BP is oer 140/90. (6) Migraine: Code(s): G43.909 - Migraine, unspecified, not intractable, without status migrainosus Category: Medical Qualifiers: Migraine type: unspecified Plan: HAs history of visual migraines and uses ASA as needed. (7) Hyperlipidemia: Code(s): E78.5 - Hyperlipidemia, unspecified Category: Medical Plan: Avoid foods that are high in cholesterol such as red meat, fried foods, eggs and baked goods. Triglyceride goal of less than 150 and LDL goal of less than 100. Continue on Atorvastatin 20 (8) Hypokalemia: Code(s): E87.6 - Hypokalemia Category: Medical Plan: Has been resolving, continue to follow with nephrology. Continue on Spironalactone. (9) Urinary incontinence: Comment: w/ pessary placed Code(s): R32 - Unspecified urinary incontinence Category: Medical Plan: Continue to follow with urology. Has macrobid prn through urology. (10) GERD (gastroesophageal reflux disease): Code(s): K21.9 - Gastro-esophageal reflux disease without esophagitis Category: Medical Plan: Avoid trigger foods such as citrus, tomato products, soda, caffeine, spicy foods and other foods that may be irritating to your stomach. Avoid laying flat 3-4 hours after eating and elevate the head of the bed 30 degrees to prevent acid from moving into the esophagus. Continue on Omeprazole Plan This note was constructed using voice recognition software. While every effort has been made to ensure accuracy and inspector optical instrument, still areas may have been included sometimes these areas may affect the content or meeting of the given symptoms. Total time spent caring for the patient today was 30 minutes. This includes time spent before the visit reviewing the chart, time spent during the visit, and time spent after the visit and documentation. Patient was informed and verbally consented to the use of an ambient scribe for clinic note documentation during this visit. Orders: Orders Lipid Panel Today E78.00 - Pure hypercholesterolemia, unspecified, I10 - Essential (primary) hypertension Complete Blood Count Auto Diff Today I10 - Essential (primary) hypertension, Z00.00 - Encounter for general adult medical examination without abnormal findings Vitamin B12 and Folate Today I10 - Essential (primary) hypertension, Z13.21 - Encounter for screening for nutritional disorder Vitamin D 25-OH Total Today I10 - Essential (primary) hypertension, Z00.00 - Encounter for general adult medical examination without abnormal findings TSH reflex Free T4 Today I10 - Essential (primary) hypertension, Z00.00 - Encounter for general adult medical examination without abnormal findings Hemoglobin A1c Today I10 - Essential (primary) hypertension, Z13.1 - Encounter for screening for diabetes mellitus Free T4 (Free Thyroxine) Today I10 - Essential (primary) hypertension, Z00.00 - Encounter for general adult medical examination without abnormal findings Medications: New omeprazole 20 mg PO DAILY 90 caps 0RF I10 - Essential (primary) hypertension
[2025-02-17 10:21] VITALS: BP 120/72; PULSE 59; O2SAT 99; BMI 31.3
[2025-02-17 10:49] VITALS: BP 158/80
--- OUTSIDE RECORDS SUMMARY | 2025-02-17 11:53 | XMS_ITS | Clinical Summary ---
Author Organization [facility] Facility Address [address] [address] Care Team Providers Care Candle Molder Name Role Phone Abad Byrd MD Primary Care Provider [phone] Allergies Active Allergy Reactions Criticality Noted Date [...] 0 Active ergocalciferol (VITAMIN D-2) 1.25 MG (88681 UT) capsule Take 1 capsule by mouth [...] Comments Breast Cancer Screening 1950 Pneumococcal Vaccine: 50+ Ye ars (1 of 2 - PCV) 1969 Colorectal Cancer Screening: Annual FOBT 1999 Colorectal Cancer Screening: Colonoscopy 1999 Colorectal Cancer Screening: Sigmoidoscopy 1999 Influenza Vaccine (Season Ended) 2025 Hepatitis B Vaccine Aged Out No longe r eligible based on patient's age to complete this topic Insurance [facility] Medicare Care Teams Candle Molder Relationship Specialty Start Date End Date Abad Byrd MD [id number] [place], [place] PCP - General 09/27/20
== END 2025-02-17 10:56 | disposition home or self-care (01) ==
DX: N20.0 Calculus of kidney (principal); M81.0 Age-related osteoporosis without current pathological fracture; E66.9 Obesity, unspecified; Z68.31 Body mass index [BMI] 31.0-31.9, adult; F41.9 Anxiety disorder, unspecified; F32.A Depression, unspecified; I10 Essential (primary) hypertension; G43.909 Migraine, unspecified, not intractable, without status migrainosus; E78.5 Hyperlipidemia, unspecified; E87.6 Hypokalemia; R32 Unspecified urinary incontinence; K21.9 Gastro-esophageal reflux disease without esophagitis

== ENCOUNTER → 2025-02-17 10:18 | Outpatient (BNVA) | payer MEDICARE, OTHER, SELFPAY | PROVIDERS: PCP Internal Medicine | DX: N20.0 Calculus of kidney (principal); M81.0 Age-related osteoporosis without current pathological fracture; F41.9 Anxiety disorder, unspecified; F32.A Depression, unspecified; E66.9 Obesity, unspecified; I10 Essential (primary) hypertension; G43.909 Migraine, unspecified, not intractable, without status migrainosus; E78.5 Hyperlipidemia, unspecified; E87.6 Hypokalemia; R32 Unspecified urinary incontinence; K21.9 Gastro-esophageal reflux disease without esophagitis | CPT/HCPCS: 99212 ==

== ENCOUNTER 2025-04-13 10:31 | Outpatient (AMB) | payer MEDICARE, OTHER, SELFPAY ==
--- OUTSIDE RECORDS SUMMARY | 2020-12-30 17:13 | XMS_ITS | Encounter Summary ---
Author Organization [facility] Address [address] [place] [address] Phone Care Team Providers Care Senior Engineering Specialist Name Role Phone Abad Byrd MD Primary Care Provider [phone] Encounter Details Date Type Department Care Team (Late st Contact Info) Description 12/30/2020 5:13 PM EDT Hospital Encounter [facility] [address] [place] [address] Kahlil Tavarez PA [address] [place] [address] [email or web address] Social History Tobacco Use Types Packs/Day [...] Contact Info) Description 01/30/2025 Procedure Pass Chambers [address] [address] 07/03/2025 9:20 AM EDT Office Visit [facility] Midw[facility]ery [address] [place] [address] Gilberto Payne MD 22 [facility], [address] [place] [address] 08/28/2025 11:15 AM EST Appointment [address] [address] Myesha Holbrook PA [address] [place] [address] [address] documented as of this encounter Procedures Procedure [...] on filedocumented in this encounter Care Teams Senior Engineering Specialist Relationship Specialty Start Date End Date Abad Byrd MD [address] [place] [address] Dr Bailey [address] [place] [address], [place] [address] PCP - General 09/20/17 03/28/22 documented as of this encounter Additional Source Comments The information contained in this document represents components of the legal health record. It is not the complete legal health record.[facility]
--- NOTE | 2025-04-13 10:34 | HO.NEPHOV_ITS ---
Vital Signs 04/13/25 10:35 Height 5 ft 4 in Weight 187 lb BMI 32.1 BP 140/70 H Blood Pressure Location Rt brachial Position Sitting Pulse 66 Pulse Source Pulse Oximeter Pulse Oximetry (%) 96 Oxygen Delivery Method Room Air Intake Visit Reasons: 6 Months-Conf Jig And Fixture Maker Required: No Accompanied by: Self / Same As Patient Allergies citalopram (From CELEXA) Allergy (Severe, Verified 04/13/25 10:36) LOCKJAW, DIFFICULTY SWALLOWING lisinopril (LISINOPRIL) Allergy (Severe, Verified 04/13/25 10:36) COUGH scopolamine (SCOPOLAMINE) Allergy (Severe, Verified 04/13/25 10:36) AGITATION sulfamethoxazole (From BACTRIM) Allergy (Intermediate, Verified 04/13/25 10:36) HIVES sertraline (From Zoloft) Allergy (Mild, Verified 04/13/25 10:36) yawning hydroxyzine (Vistaril) Allergy (Unknown, Verified 04/13/25 10:36) agitation metronidazole (Flagyl) Allergy (Unknown, Verified 04/13/25 10:36) arm paralysis Sulfa (Sulfonamide Antibiotics) Allergy (Unknown, Verified 04/13/25 10:36) rash Medication List - Last Reconciled 04/13/25 by Ryan Reid MD aspirin (Adult Low Dose Aspirin) 81 mg PO DAILY atorvastatin 20 mg PO DAILY ergocalciferol (vitamin D2) 1,250 mcg PO QWEEK metoprolol succinate ER 50 mg PO DAILY 90 days nitrofurantoin macrocrystal 100 mg PO BID PRN omeprazole 20 mg PO DAILY pyridoxine (vitamin B6) 100 mg PO DAILY spironolactone 50 mg PO DAILY valsartan 80 mg PO DAILY verapamil ER 240 mg PO DAILY vitamins A,C,O-wmpg-dsnkjt 2,148 mcg-113 mg-45 mg-17.4mg (PreserVision AREDS) 1 tab PO BID HPI Comments Details: 74 yr old woman with a history of nephrolithiasis and hypertension. She tells me that the recent ultrasound did not reveal any stones. In the past he was on Topamax which was thought to be the culprit for multiple stones. She is off the Topamax at this time. Overall she has been doing reasonably well. No specific complaints. She has persistent hypokalemia. She is on potassium supplementation twice a day but she is finding it difficult to take the evening dose due to heartburn. She is on chlorthalidone 25 mg a day. She was on hydrochlorothiazide for the control of hypertension which was later switched to chlorthalidone. She is also on metoprolol and verapamil for the control blood pressure and for occasional PVC she has had. No history of CHF. 02/12/24 Off Chlorthalidone and KCL Doing well Home BP readings are acceptable There were few Systolic readings in the 140s and 150 Recent reading was 116/70 03/11/2024. Home blood pressure readings are excellent. No new issues today. 07/10/2024. SHE HAS BEEN DOING WELL UNTIL RECENTLY. RECENTLY BLOOD PRESSURE HAS BEEN ELEVATED. 09/22/23 ;Occasional cramps; Home BP Ok 04/13/25 c/o edema on and off Cramping is better Weight fluctuates and steadily incresed from 179 to 187 over 6 months [facility] Medical History Obesity Post-menopausal Screening for hyperlipidemia Screening for diabetes mellitus Fatigue Mild depression Hypertension Surgical History History of colonoscopy History of surgery History of hysterectomy Family History Father Aneurysm Diabetes Mother Heart disease Maternal Grandmother Colon cancer Brother No problems noted. Sister No problems noted. Son Substance use disorder Son No problems noted. Daughter No problems noted. Daughter Mental health disorder Social History Housing: House Alcohol intake: current Alcohol intake frequency: holidays/special occasions only Patient Tobacco Use Status: Former Tobacco user Tobacco use type: Cigarette Cigarettes Per Day: 2 Years Smoked: 0 e-Cigarette/Vaping Use: Never Used Second Hand Smoke Exposure: Yes service: No Current occupational status: retired Current occupational exposures/hazards: No Cognitive needs: No Hearing needs: No Vision needs: Yes (Glasses) Physical Exam Vital Signs: Last Vital Signs Pulse 66 04/13/25 10:35 BP 140/70 H 04/13/25 10:35 Pulse Ox 96 04/13/25 10:35 Oxygen Delivery Method Room Air 04/13/25 10:35 BMI result Body Mass Index 32.1 Const General: comfortable; No acute distress Orientation/consciousness: patient oriented x3 Eyes General: appearance normal, both eyes and all related structures Visual Diane: normal visual diane by confrontation Neck Neck: Yes supple and Yes no JVD Resp Effort & Inspection: normal respiratory effort and respiratory effort not decreased Auscultation: rhonchi Cardio Palpation: no palpable S3 and no palpable S4 Heart sounds: no rubs GI Inspection: Yes normal to inspection Palpation (GI): Soft to palpation Percussion: Yes normal to percussion Auscultation: normal bowel sounds General: Yes no CVA tenderness Back/Spine/Pelvis Back: no CVA tenderness Skin General skin exam: no petechiae and no purpura Neuro General: patient oriented x3 and no focal motor deficits Extrem General: No clubbing and No edema Results Reviewed Nephrology Results: Sodium, (135-145) 139 mmol/L 12/01/24 Potassium, (3.3-5.1) 5.1 mmol/L 12/01/24 Chloride, (96-108) 106 mmol/L 12/01/24 Carbon Dioxide, (22-29) 24 mmol/L 12/01/24 BUN, (9-16) 38 mg/dL H 12/01/24 Creatinine, (0.5-1.4) 1.23 mg/dL 12/01/24 Calcium, (8.4-10.2) 9.4 mg/dL 12/01/24 Renal US 01/07/24 Assessment & Plan Assessment & Plan (1) Hypertension: Code(s): I10 - Essential (primary) hypertension Category: Medical Qualifiers: Hypertension type: unspecified Qualified Code(s): I10 - Essential (primary) hypertension (2) Hypokalemia: Code(s): E87.6 - Hypokalemia Category: Medical (3) Nephrolithiasis: Code(s): N20.0 - Calculus of kidney Category: Medical Plan 74-year-old woman with a history of nephrolithiasis and hypertension. Hypertension Blood pressure is well controlled. Keep Verapamil/Metoprolol at current dose HR is 66/mt h/o hypokalemia with metabolic alkalosis. This was due to the use of diuretics. However the differential would include hyperaldosteronism. After discontinuing chlorthalidone and the potassium supplementation, K is normal Alkalosis has resolved No issues with her renal stones at present. Most recent imaging did not reveal any stones. Encouraged her to stay on low-sodium diet Increase fluid intake to maintain urine output of 2 L. Blood pressure is better controlled Previously renal ultrasonogram was unremarkable. No reason to suspect renal artery stenosis. Recent blood work did not reveal any spontaneous hypokalemia or alkalosis to suspect primary hyperaldosteronism. Keep spironolactone 25 mg 1 a day. Add Lasix 20 mg PO PRN Watch potassium . Coding Level of Care Code Est Pt Level 4 (56650) Diagnoses Hypertension, unspecified type I10 Hypertension type: unspecified Hypokalemia E87.6 Nephrolithiasis N20.0
[2025-04-13 10:35] VITALS: BP 140/70; PULSE 66; O2SAT 96; BMI 32.1
--- OUTSIDE RECORDS SUMMARY | 2025-04-13 11:42 | XMS_ITS | Patient Health Record ---
Author Organization [facility] Address [address] [place] [address] Care Team Providers Care Senior Mobile Developer Name Role Phone Abad Byrd MD Primary Care Provider Eric Hernandez Unavailable [phone] Allergies Allergen (clinical drug ingredient) Drug/Non Drug Allergy documented on EMR Reaction Allergy Type Onset Date Status scopolamine Scopolamine Unknown Drug Allergy Act sid hydroxyzine Vistaril Unknown Drug Allergy Activ e citalopram Celexa Unknown Drug Allergy Active sulfamethoxazole / trimethoprim Bactrim Unknown Drug Allergy Active Reason For Referral No Information Medications Medication SIG (Take, Route, Frequency, Duration) Notes Start Date End Date Status amLODIPine Besylate 5 MG 1 tablet Orally Once a day Active hydroCHLOROthiazide 12.5 MG 1 tablet Ora lly Once a day Active Atenolol 100 MG 1 tablet Orally Once a day Active Potassium Citrate ER 10 MEQ (1080 MG) 1 tablet with meals Orally Three times a day Active Vitamin D (Ergocalciferol) 60998 UNIT 1 capsule Orally once a month Active Problems Problem Type SNOMED Code ICD Code Onset Dates Problem Status W/U Status Risk Notes Problem [id number] Encounter for screening for malignant neoplasm of colon (Z12.11) Active confirmed Problem Encounter for screening for malignant neoplasm of rectum (Z12.12) Active confirmed Problem [id number] Preprocedural examination (Z01.818) Active confirmed Plan Of Treatment Future Test Test Name Order Date COLONOSCOPY 11/17/2016 Insurance Providers Payer Name Payer Address Payer Phone Subscriber Number Group Number Insured Name Patient Relationship to Insured Coverage Start Date Coverage End Date [employer] [address] [address] [place] [address] [id number] SHILOH MATHIAS Self - patient is the insured Medicare of [facility] [address] [place] [address] [id number] SHILOH MATHIAS Self - patient is the insured Medical (General) History Medical History History ICD Code Kidney stones removed via cystoscopy Hypertension Denies [place],DM,CVA,Lung disease,renal dise ase Gallstone Neg. colonoscopy [place] [address] Livingston Visual migraines Surgical History Surgery Date(Month/Year) [id number] Laproscopies for endometrosis Tonsillectomy and adenoidectomy
--- OUTSIDE RECORDS SUMMARY | 2025-04-13 11:42 | XMS_ITS | Clinical Summary ---
Author Organization [facility] Facility Address [address] [address] Care Team Providers Care Transfer Coordinator Name Role Phone Abad Byrd MD Primary Care Provider [phone] Allergies Active Allergy Reactions Criticality Noted Date [...] 0 Active ergocalciferol (VITAMIN D-2) 1.25 MG (89462 UT) capsule Take 1 capsule by mouth [...] Cancer Screening: Sigmoidoscopy 1999 Influenza Vaccine (#1) 2025 Hepatitis B Vaccine Aged Out No longe r eligible based on patient's age to complete this topic Insurance [facility] Medicare Care Teams Transfer Coordinator Relationship Specialty Start Date End Date Abad Byrd MD [address] [place], [place] PCP - General 09/27/20
== END 2025-04-13 10:53 | disposition home or self-care (01) ==
LOC: HO.HKA 10:32
PROVIDERS: PCP Internal Medicine; Visit Provider Internal Medicine Hypertension Specialist
DX: I10 Essential (primary) hypertension (principal); E87.6 Hypokalemia; N20.0 Calculus of kidney
CPT/HCPCS: 99214

== ENCOUNTER → 2025-04-13 10:31 | Outpatient (BNVA) | payer MEDICARE, OTHER, SELFPAY | PROVIDERS: PCP Internal Medicine; Visit Provider Internal Medicine Hypertension Specialist | DX: E87.6 Hypokalemia (principal); I10 Essential (primary) hypertension; N20.0 Calculus of kidney | CPT/HCPCS: 99212 ==

== ENCOUNTER 2025-06-01 07:31 | Outpatient (REF) | payer MEDICARE, OTHER, SELFPAY ==
--- OUTSIDE RECORDS SUMMARY | 2020-12-30 17:13 | XMS_ITS | Encounter Summary ---
Author Organization [facility] Address [address] [place] [address] Phone Care Team Providers Care Tone Artist Apprentice Name Role Phone Abad Byrd MD Primary Care Provider [phone] Encounter Details Date Type Department Care Team (Late st Contact Info) Description 12/30/2020 5:13 PM EDT Hospital Encounter [facility] [address] [place] [address] Kahlil Tavarez PA [address] [place] [address] [email or web address] Social History Tobacco Use Types Packs/Day [...] Encounters Date Type Department Care Team (Late Contact Info) Description 01/30/2025 Procedure Pass Chambers [address] [address] 07/03/2025 9:20 AM EDT Office Visit [facility] [address] [place] [address] Gilberto Payne MD 22 [facility], [address] [place] [address] 08/28/2025 11:15 AM EST Appointment [address] [address] Myesah Holbrook PA [address] [place] [address] [address] documented as of this encounter Procedures Procedure [...] on filedocumented in this encounter Care Teams Tone Artist Apprentice Relationship Specialty Start Date End Date Abad Byrd MD [address] [place] [address] Dr Bailey [address] [place] [address], [place] [address] PCP - General 09/20/17 03/28/22 documented as of this encounter Additional Source Comments The information contained in this document represents components of the legal health record. It is not the complete legal health record.[facility]
--- OUTSIDE RECORDS SUMMARY | 2025-06-01 07:34 | XMS_ITS | Encounter Summary ---
Author Organization [facility] Address [address] [place] [address] [address] [place] [address] Phone Care Team Providers Care Risk Management Professional Name Role Phone Abad Byrd MD Primary Care Provider [phone] Abad Byrd MD Primary Care Provider [phone] Myesha Holbrook Primary Care Provide r Encounter Details Date Type Department Care Team (Late Contact Info) Description 12/27/2020 Ancillary Orders Virtual Department [address] [place] [address] Abad Byrd MD [address] [place] [address] Breast screening Social History Tobacco Use Types Packs/Day Years Used Date Smoking Tobacco: Former Smokeless Tobacco: Never Alcohol Use Standard Drinks/Week Comments Yes 0 (1 standard drink = 0.6 oz pur e alcohol) Comments No Sex and Gender Information Value Date Recorded Sex Assigned at Not on file Legal Sex Female 10:02 PM EDT Gender Identity Not on file Sexual Orientation Not on file documented as of this encounter Plan of Treatment Upcoming Encounters Date Type Department Care Team (Late Contact Info) Description 01/30/2025 Procedure Pass [facility], [facility] [address] [place] [address] 07/03/2025 9:20 AM EDT Office Visit [facility] OBGYN & Midwifery [address] [place] [address] [place] [address] Gilberto Payne MD 22 [facility], [address] [place] [address] 08/28/2025 11:15 AM EST Appointment [facility], [facility] [address] [place] [address] Myesha Holbrook PA [address] [place] [address] Dr Bailey [address] [place] [address] documented as of this encounter Results * BI MAMMOGRAM SCREENING WITH TOMOSYNTHESIS WITH CAD (BILATERAL) (03/25/2021 8:43 AM EDT) Anatomical Region Laterality Modality Breast Left, Breast Right, Breast Bilateral Bila teral Mammography 03/25/2021 3:36 PM EDT Impressions 03/25/2021 3:52 PM EDT BILATERAL BREASTS: Benign, no evidence of malignancy. Normal interval follow-up is recommended in 12 months. Bi-RADS: BI-RADS CATEGORY: 2 - Benign finding. DENSITY: The breast tissue is heterogeneously dense, which could obscure a lesion on mammography. Narrative 03/25/2021 3:52 PM EDT STUDY: Bilateral screening mammography with tomosynthesis and CAD TECHNIQUE: Bilateral full-field digital screening mammography is obtained and read in conjunction with computer-aided detection. Tomosynthesis as well as 2-D C view imaging were obtained. COMPARISON: Comparison made to multiple prior, most recent March 24, 2020, and most remote November 20, 2014. BREAST COMPOSITION: The breast tissue is heterogeneously dense, which may obscure small masses. RIGHT BREAST: No significant masses, suspicious calcifications or other abnormalities are seen. LEFT BREAST: History of previous excisional biopsy. No significant masses, suspicious calcifications or other abnormalities are seen. Procedure Note Kaz Hoffman MD - 03/25/2021 STUDY: Bilateral screening mammography with tomosynthesis and CAD TECHNIQUE: Bilateral full-field digital screening mammography is obtainedand read in conjunction with computer-aided detection. Tomosynthesis aswell as 2-D C view imaging were obtained. COMPARISON: Comparison made to multiple prior, most recent March 24, 2020,and most remote November 20, 2014. BREAST COMPOSITION: The breast tissue is heterogeneously dense, which mayobscure small masses. RIGHT BREAST: No significant masses, suspicious calcifications or otherabnormalities are seen. LEFT BREAST: History of previous excisional biopsy. No significantmasses, suspicious calcifications or other abnormalities are seen. IMPRESSION: BILATERAL BREASTS: Benign, no evidence of malignancy. Normal intervalfollow-up is recommended in 12 months. Bi-RADS: BI-RADS CATEGORY: 2 - Benign finding. DENSITY: The breast tissue is heterogeneously dense, which could obscurea lesion on mammography. Abad Byrd MD IMG MG EXAMS Final Result documented in this encounter Visit Diagnoses Diagnosis Breast screening Breast screening, unspecified Breast screening Breast screening, unspecified documented in this encounter Care Teams Risk Management Professional Relationship Specialty Start Date End Date Abad Byrd MD [address] [place] [address] Dr Bailey [address] [place] [address] PCP - General 09/20/17 03/28/22 Abad Byrd MD [address] [place] [address] Dr Bailey [address] [place] [address] PCP - General Internal Medicine 03/29/22 12/30/24 Myesha Holbrook PA [address] [place] [address] Dr Bailey [address] [place] [address] PCP - General Physician Health Management Consultant 12/31/24 documented as of this encounter Additional Source Comments The information contained in this document represents components of the legal health record. It is not the complete legal health record.[facility]
--- OUTSIDE RECORDS SUMMARY | 2025-06-01 07:34 | XMS_ITS | Encounter Summary ---
Author Organization [facility] Address [address] [place] [address] Phone Care Team Providers Care Animal Shelter Clerk Name Role Phone Abad Byrd MD Primary Care Provider [phone] Myesha Holbrook Primary Care Provide r Encounter Details Date Type Department Care Team (Late st Contact Info) Description 01/17/[address] [address] Social History Tobacco Use Types Packs/Day Years [...] Care Team (Late st Contact Info) Description 01/30/[address] [address] 07/03/2025 9:20 AM EDT Office Visit [facility] OBGYN & Midwifery [address] [place] [address] Gilberto Payne MD 22 [facility], [address] [place] [address] 08/28/2025 11:15 AM EST Appointment [facility], Mammography- [address] [address] Myesha Holbrook PA [address] [place] [address] [place] [address] documented as of this encounter Visit Diagnoses Not on filedocumented in this encounter Care Teams Animal Shelter Clerk Relationship Specialty Start Date End Date Abad Byrd MD [address] [place] [address] [place] [address] PCP - General Internal Medicine 03/29/22 12/30/24 Myesha Holbrook PA [address] [place] [address] [place] [address] PCP - General Physician Scrubber System Attendant 12/31/24 documented as of this encounter Additional Source Comments The information contained in this document represents components of the legal health record. It is not the complete legal health record.[facility]
--- OUTSIDE RECORDS SUMMARY | 2025-06-01 07:34 | XMS_ITS | Encounter Summary ---
Author Organization [facility] Address [address] [place] [address] [place] [address] Phone Care Team Providers Care Skip Operator Name Role Phone Abad Byrd MD Primary Care Provider [phone] Abad Byrd MD Primary Care Provider [phone] Myesha Holbrook Primary Care Provide r Encounter Details Date Type Department Care Team (Late st Contact Info) Description 12/27/2020 Procedure Pass [address] [address] Social History Tobacco Use Types Packs/Day Years [...] (Late st Contact Info) Description 01/30/2025 Procedure Pass [address] [address] 07/03/2025 9:20 AM EDT Office Visit [facility] OBGYN & Midwifery [address] [place] [address] Gilberto Payne MD 22 [facility], [address] [place] [address] 08/28/2025 11:15 AM EST Appointment [facility], [facility]- [address] [address] Myesha Holbrook PA [address] [place] [address] [place] [address] documented as of this encounter Visit Diagnoses Not on filedocumented in this encounter Care Teams Skip Operator Relationship Specialty Start Date End Date Abad Byrd MD [address] [place] [address] [place] [address] PCP - General 09/20/17 03/28/22 Abad Byrd MD [address] [place] [address] [place] [address] PCP - General Internal Medicine 03/29/22 12/30/24 Myesha Holbrook PA [address] [place] [address] [place] [address] PCP - General Physician Email Developer 12/31/24 documented as of this encounter Additional Source Comments The information contained in this document represents components of the legal health record. It is not the complete legal health record.[facility]
--- OUTSIDE RECORDS SUMMARY | 2025-06-01 07:34 | XMS_ITS | Encounter Summary ---
Author Organization [facility] Address [address] [facility] [address] [place] [address] Phone Care Team Providers Care Senior Actuarial Analyst Name Role Phone Abad Byrd MD Primary Care Provider [phone] Myesha Holbrook Primary Care Provide r Encounter Details Date Type Department Care Team (Late st Contact Info) Description 01/04/2023 Procedure Pass [address] [address] Social History Tobacco Use Types Packs/Day Years [...] (Late Contact Info) Description 01/30/2025 Procedure Pass [address] [address] 07/03/2025 9:20 AM EDT Office Visit [facility] OBGYN & Midwifery [address] [place] [address] Gilberto Payne MD [address] [address] 08/28/2025 11:15 AM EST Appointment [facility] [address] [place] [address] Myesha Holbrook PA [address] [place] [address] [place] [address] documented as of this encounter Visit Diagnoses Not on filedocumented in this encounter Care Teams Senior Actuarial Analyst Relationship Specialty Start Date End Date Abad Byrd MD [address] [place] [address] [place] [address] PCP - General Internal Medicine 03/29/22 12/30/24 Myesha Holbrook PA [address] [place] [address] [place] [address] PCP - General Physician Testing Consultant 12/31/24 documented as of this encounter Additional Source Comments The information contained in this document represents components of the legal health record. It is not the complete legal health record.[facility]
--- OUTSIDE RECORDS SUMMARY | 2025-06-01 07:34 | XMS_ITS | Encounter Summary ---
Author Organization [facility] Address [address] [place] [address] Phone Care Team Providers Care Master Technician Name Role Phone Abad Byrd MD Primary Care Provider [phone] Myesha Holbrook Primary Care Provide r Encounter Details Date Type Department Care Team (Late st Contact Info) Description 01/17/2024 Transcribe Orders Virtual Department [address] [place] [address] Abad Byrd MD [address] [place] [address] [place] [address] Breast screening (Primary Dx) Social History Tobacco Use Types Packs/Day Years [...] (Late Contact Info) Description 01/30/2025 Procedure Pass [facility] [address] [place] [address] 07/03/2025 9:20 AM EDT Office Visit [facility] OBGYN & Midwifery [address] [place] [address] Gilberto Payne MD 22 [facility], [address] [place] [address] 08/28/2025 11:15 AM EST Appointment [address] [address] Myesha Holbrook PA [address] [place] [address] [address] documented as of this encounter Results * BI MAMMOGRAM SCREENING WITH TOMOSYNTHESIS WITH CAD (BILATERAL) (04/25/2024 10:11 AM EDT) Anatomical Region Laterality Modality Breast Left, Breast Right, Breast Bilateral Bila teral Mammography 04/28/2024 9:56 AM EDT Impressions 04/28/2024 9:57 AM EDT No mammographic evidence of malignancy in either breast. Annual screening mammography is recommended. BI-RADS 1 NEGATIVE The patient will be notified of the results and recommendations. Narrative 04/28/2024 9:57 AM EDT BI MAMMOGRAM SCREENING WITH TOMOSYNTHESIS WITH CAD (BILATERAL) Additional patient information: Screening. COMPARISON: Comparison is made with relevant prior imaging. Breast composition: There are scattered areas of fibroglandular density. FINDINGS: No abnormal masses, suspicious calcifications, or other significant findings are identified mammographically in either breast. Procedure Note Gracie Turcios MD - 04/28/2024 BI MAMMOGRAM SCREENING WITH TOMOSYNTHESIS WITH CAD (BILATERAL) Additional patient information: Screening. COMPARISON: Comparison is made with relevant prior imaging. Breast composition: There are scattered areas of fibroglandular density. FINDINGS: No abnormal masses, suspicious calcifications, or other significantfindings are identified mammographically in either breast. IMPRESSION: No mammographic evidence of malignancy in either breast. Annual screening mammography is recommended. BI-RADS 1 NEGATIVE The patient will be notified of the results and recommendations. Abad Byrd MD IMG MG EXAMS Final Result documented in this encounter Visit Diagnoses Diagnosis Breast screening- Primary Breast screening, unspecified Breast screening Breast screening, unspecified documented in this encounter Care Teams Master Technician Relationship Specialty Start Date End Date Abad Bydr MD [address] [place] [address] [place] [address] PCP - General Internal Medicine 03/29/22 12/30/24 Myesha Holbrook PA [address] [place] [address] [place] [address] PCP - General Physician Family Sociologist 12/31/24 documented as of this encounter Additional Source Comments The information contained in this document represents components of the legal health record. It is not the complete legal health record.[facility]
--- OUTSIDE RECORDS SUMMARY | 2025-06-01 07:34 | XMS_ITS | Patient Health Record ---
Author Organization [facility] Address [address] [place] [address] Care Team Providers Care Rn Obgyn Name Role Phone Abad Byrd MD Primary Care Provider Eric Hernandez Unavailable [phone] Allergies Allergen (clinical drug ingredient) Drug/Non Drug [...] times a day Active Vitamin D (Ergocalciferol) 90400 UNIT 1 capsule Orally once a month Active Problems Problem Type SNOMED Code ICD Code Onset Dates Problem Status W/U Status Risk Notes Problem 322966817 Encounter for screening for malignant neoplasm of colon (Z12.11) Active confirmed Problem Screening for malignant neoplasm of rectum (310565434) Encounter for screening for malignant neoplasm of rectum (Z12.12) Active confirmed Problem 74697033 Preprocedural examination (Z01.818) Active confirmed Plan Of Treatment Future Test Test Name Order Date COLONOSCOPY 11/17/2016 Insurance Providers Payer Name Payer Address Payer Phone Subscriber Number Group Number Insured Name Patient Relationship to Insured Coverage Start Date Coverage End Date [employer] [place] [address] [address] [place] [address] [id number] SHILOH MATHIAS Self - patient is the insured Medicare of [facility] [address] [place] [address] [id number] SHILOH MATHIAS Self - patient is the insured Medical (General) History Medical History History ICD Code Kidney stones removed via cystoscopy Hypertension Denies [place],DM,CVA,Lung disease,renal dise ase Gallstone Neg. colon[place] [address] Livingston Visual migraines Surgical History Surgery Date(Month/Year) TAY 1993 Laproscopies for endometrosis Tonsillectomy and adenoidectomy
--- OUTSIDE RECORDS SUMMARY | 2025-06-01 07:35 | XMS_ITS | Encounter Summary ---
Author Organization [facility] Address [address] [place] [address] Phone Care Team Providers Care Supervisor Wet End Name Role Phone Abad Byrd MD Primary Care Provider [phone] Myesha Holbrook Primary Care Provide r Encounter Details Date Type Department Care Team (Late Contact Info) Description 04/13/2023 Ancillary Orders [facility], [address] [address] Abad Byrd MD [address] [place] [address] [place] [address] Abnormal finding on mammography Social History Tobacco Use Types Packs/Day Years [...] st Contact Info) Description 01/30/2025 Procedure Pass [facility], [facility]- [address] [address] 07/03/2025 9:20 AM EDT Office Visit [facility] OBGYN & Midwifery [address] [place] [address] Gilberto Payne MD 22 [facility], [address] [place] [address] 08/28/2025 11:15 AM EST Appointment [facility], [address] [address] Myesha Holbrook PA [address] [place] [address] [place] [address] documented as of this encounter Visit Diagnoses Diagnosis Abnormal finding on mammography documented in this encounter Care Teams Supervisor Wet End Relationship Specialty Start Date End Date Abad Byrd MD [address] [place] [address] [place] [address] PCP - General Internal Medicine 03/29/22 12/30/24 Myesha Holbrook PA [address] [place] [address] [place] [address] PCP - General Physician Silk Screener 12/31/24 documented as of this encounter Additional Source Comments The information contained in this document represents components of the legal health record. It is not the complete legal health record.[facility]
--- OUTSIDE RECORDS SUMMARY | 2025-06-01 07:35 | XMS_ITS | Clinical Summary ---
Author Organization [facility] Facility Address [address] [address] Care Team Providers Care Senior Analyst Developer Name Role Phone Abad Byrd MD Primary Care Provider [phone] Allergies Active Allergy Reactions Criticality Noted Date [...] 0 Active ergocalciferol (VITAMIN D-2) 1.25 MG (15708 UT) capsule Take 1 capsule by mouth [...] patient's age to complete this topic [facility] Medicare Care Teams Senior Analyst Developer Relationship Specialty Start Date End Date Abad Byrd MD [address] [place], [place] PCP - General 09/27/20
--- OUTSIDE RECORDS SUMMARY | 2025-06-01 07:35 | XMS_ITS | Encounter Summary ---
Author Organization [facility] Address [address] [place] [address] [place] [address] Phone Care Team Providers Care Pile Driver Operator Helper Name Role Phone Abad Byrd MD Primary Care Provider [phone] Abad Byrd MD Primary Care Provider [phone] Myesha Holbrook Primary Care Provide r Encounter Details Date Type Department Care Team (Late st Contact Info) Description 10/09/2019 Ancillary Orders Virtual Department [address] [place] [address] Abad Byrd MD [address] [place] [address] Breast screening Social History Tobacco Use Types [...] st Contact Info) Description 01/30/2025 Procedure Pass [facility], [facility]- [facility] [address] [place] [address] 07/03/2025 9:20 AM EDT Office Visit [facility] OBGYN & Midwifery [address] [place] [address] [place] [address] Gilberto Payne MD 22 [facility], [address] [place] [address] 08/28/2025 11:15 AM EST Appointment [facility], Mammography- [facility] [address] [place] [address] Myesha Holbrook PA [address] [place] [address] Dr Bailey [address] [place] [address] documented as of this encounter Results * BI MAMMOGRAM SCREENING WITH TOMOSYNTHESIS WITH CAD (BILATERAL) (03/24/2020 2:29 PM EDT) Anatomical Region Laterality Modality Breast Left, Breast Right, Breast Bilateral Bila teral Mammography 03/24/2020 3:01 PM EDT Impressions 03/24/2020 3:05 PM EDT No findings suspicious for malignancy. In the absence of a worrisome palpable abnormality, annual screening mammography is recommended. BI-RADS CATEGORY: 2 - Benign finding. DENSITY: There are scattered fibroglandular densities. POS [id number] Narrative 03/24/2020 3:05 PM EDT COMPARISON: 11/14/2013 through 12/26/2018. Bilateral 3-D tomosynthesis with 2-D reconstructions in the CC and MLO projection of each breast was obtained. Computer-aided detection system also utilized. No new mass, asymmetry, architectural distortion or suspicious calcifications have become apparent on either side. Chronic small circumscribed mass medial left breast and bilateral axillary nodes unchanged for years. Procedure Note Samreen Jackson MD - 03/24/2020 COMPARISON: 11/14/2013 through 12/26/2018. Bilateral 3-D tomosynthesis with 2-D reconstructions in the CC and MLOprojection of each breast was obtained. Computer-aided detection systemalso utilized. No new mass, asymmetry, architectural distortion or suspiciouscalcifications have become apparent on either side. Chronic small circumscribed mass medial left breast and bilateralaxillary nodes unchanged for years. IMPRESSION: No findings suspicious for malignancy. In the absence of a worrisomepalpable abnormality, annual screening mammography is recommended. BI-RADS CATEGORY: 2 - Benign finding. DENSITY: There are scattered fibroglandular densities. POS [id number] Abad Byrd MD IMG MG EXAMS Final Result documented in this encounter Visit Diagnoses Diagnosis Breast screening Breast screening, unspecified Breast screening Breast screening, unspecified documented in this encounter Care Teams Pile Driver Operator Helper Relationship Specialty Start Date End Date Abad Byrd MD [address] [place] [address] [place] [address] PCP - General 09/20/17 03/28/22 Abad Byrd MD [address] [place] [address] [place] [address] PCP - General Internal Medicine 03/29/22 12/30/24 Myesha Holbrook PA [address] [place] [address] [place] [address] PCP - General Physician Diaphragm Builder 12/31/24 documented as of this encounter Additional Source Comments The information contained in this document represents components of the legal health record. It is not the complete legal health record.[facility]
--- OUTSIDE RECORDS SUMMARY | 2025-06-01 07:35 | XMS_ITS | Encounter Summary ---
Author Organization [facility] Address [address] [place] [address] [place] [address] Phone Care Team Providers Care Securities Settlement Processor Name Role Phone Abad Byrd MD Primary Care Provider Abad Byrd MD Primary Care Provider [phone] Myesha Holbrook Primary Care Provide r Encounter Details Date Type Department Care Team (Late st Contact Info) Description 12/30/2021 Procedure Pass [address] [address] Social History Tobacco Use Types Packs/Day Years [...] st Contact Info) Description 01/30/2025 Procedure Pass [address] [address] 07/03/2025 9:20 AM EDT Office Visit [facility] OBGYN & Midwifery [address] [place] [address] Gilberto Payne MD 22 [facility], [address] [place] [address] 08/28/2025 11:15 AM EST Appointment [facility], [facility]- [address] [address] Myesha Holbrook PA [address] [place] [address] [place] [address] documented as of this encounter Visit Diagnoses Not on filedocumented in this encounter Care Teams Securities Settlement Processor Relationship Specialty Start Date End Date Abad Byrd MD [address] [place] [address] [place] [address] PCP - General 09/20/17 03/28/22 Abad Byrd MD [address] [place] [address] [place] [address] PCP - General Internal Medicine 03/29/22 12/30/24 Myesha Holbrook PA [address] [place] [address] [place] [address] PCP - General Physician Touch Up Edger 12/31/24 documented as of this encounter Additional Source Comments The information contained in this document represents components of the legal health record. It is not the complete legal health record.[facility]
--- OUTSIDE RECORDS SUMMARY | 2025-06-01 07:35 | XMS_ITS | Encounter Summary ---
Author Organization [facility] Address [address] [place] [address] Phone Care Team Providers Care Mainspring Winder And Oiler Name Role Phone Abad Byrd MD Primary Care Provider [phone] Abad Byrd MD Primary Care Provider [phone] Myesha Holbrook Primary Care Provide r Encounter Details Date Type Department Care Team (Late st Contact Info) Description 10/23/2017 Ancillary Orders Virtual Department [address] [place] [address] Abad Byrd MD [address] [place] [address] [address] Breast screening Social History Tobacco Use Types Packs/Day Years Used Date Smoking Tobacco: Never Assessed Comments Unknown Sex and Gender Information Value Date Recorded Sex Assigned at Not on file Legal Sex Female 10:02 PM EDT Gender Identity Not on file Sexual Orientation Not on file documented as of this encounter Plan of Treatment Upcoming Encounters Date Type Department Care Team (Late st Contact Info) Description 01/30/2025 Procedure Pass [facility], Mammography- [facility] [address] [place] [address] 07/03/2025 9:20 AM EDT Office Visit [facility] OBGYN & Midwifery [address] [place] [address] [place] [address] Gilberto Payne MD 22 [facility], [address] [place] [address] 08/28/2025 11:15 AM EST Appointment [facility], Mammography- [facility] [address] [place] [address] Myesha Holbrook PA [address] [place] [address] [place] [address] documented as of this encounter Results * BI MAMMOGRAM SCREENING WITH TOMOSYNTHESIS WITH CAD (BILATERAL) (12/25/2017 1:20 PM EDT) Anatomical Region Laterality Modality Breast Left, Breast Right, Breast Bilateral Bila teral Mammography 12/25/2017 1:28 PM EDT Impressions 12/25/2017 1:31 PM EDT Stable appearance relative to prior imaging. No findings suggestive of malignancy are seen. BI-RADS CATEGORY: 2 - Benign finding. DENSITY: There are scattered fibroglandular densities. POS - [id number] Narrative 12/25/2017 1:31 PM EDT Full-field digital mammography is obtained with computer-aided detection. Comparison with prior imaging from 11/29/2016 is made with older imaging dating back as far as 11/06/2011 also reviewed. There is scattered fibroglandular density evident in the breasts. In addition to 2-D C view imaging, tomosynthesis images are obtained in two projections of each breast. There are retroareolar punctate calcifications on the right which are unchanged.. No dominant soft tissue mass of concern, suspicious cluster of calcifications, significant interval skin changes, or architectural distortion is identified. Procedure Note Luther Pham MD - 12/25/2017 Full-field digital mammography is obtained with computer-aided detection.Comparison with prior imaging from 11/29/2016 is made with older imagingdating back as far as 11/06/2011 also reviewed. There is scattered fibroglandular density evident in the breasts. Inaddition to 2-D C view imaging, tomosynthesis images are obtained in twoprojections of each breast. There are retroareolar punctate calcifications on the right which areunchanged.. No dominant soft tissue mass of concern, suspicious clusterof calcifications, significant interval skin changes, or architecturaldistortion is identified. IMPRESSION: Stable appearance relative to prior imaging. No findings suggestive ofmalignancy are seen. BI-RADS CATEGORY: 2 - Benign finding. DENSITY: There are scattered fibroglandular densities. POS - [id number] Abad Byrd MD IMG MG EXAMS Final Result documented in this encounter Visit Diagnoses Diagnosis Breast screening Breast screening, unspecified Breast screening Breast screening, unspecified documented in this encounter Care Teams Mainspring Winder And Oiler Relationship Specialty Start Date End Date Abad Byrd MD [address] [place] [address] [place] [address] PCP - General 09/20/17 03/28/22 Abad Byrd MD [address] [place] [address] [place] [address] PCP - General Internal Medicine 03/29/22 12/30/24 Myesha Holbrook PA [address] [place] [address] [place] [address] PCP - General Physician Silo Filler 12/31/24 documented as of this encounter Additional Source Comments The information contained in this document represents components of the legal health record. It is not the complete legal health record.[facility]
--- OUTSIDE RECORDS SUMMARY | 2025-06-01 07:35 | XMS_ITS | Encounter Summary ---
Author Organization [facility] Address [address] [place] [address] Phone Care Team Providers Care Director Of Patient Financial Services Name Role Phone Abad Byrd MD Primary Care Provider [phone] Abad Byrd MD Primary Care Provider [phone] Myesha Holbrook Primary Care Provide r Encounter Details Date Type Department Care Team (Late st Contact Info) Description 10/09/2018 Ancillary Orders Virtual Department [address] [place] [address] Abad Byrd MD [address] [place] [address] [address] Breast screening Social History Tobacco Use Types Packs/Day Years Used Date Smoking Tobacco: Never Assessed Comments No Sex and Gender Information Value Date Recorded Sex Assigned at Not on file Legal Sex Female 10:02 PM EDT Gender Identity Not on file Sexual Orientation Not on file documented as of this encounter Plan of Treatment Upcoming Encounters Date Type Department Care Team (Late st Contact Info) Description 01/30/2025 Procedure Pass [facility], Mammography- [facility] [address] [place] [address] 07/03/2025 9:20 AM EDT Office Visit [facility] OBGYN & Midwifery [address] [place] [address] [place] [address] Gilberto Payne MD 22 [facility], [address] [place] [address] 08/28/2025 11:15 AM EST Appointment [facility], Mammography- [facility] [address] [place] [address] Myesha Holbrook PA [address] [place] [address] [place] [address] documented as of this encounter Results * BI MAMMOGRAM SCREENING WITH TOMOSYNTHESIS WITH CAD (BILATERAL) (12/26/2018 9:06 AM EDT) Anatomical Region Laterality Modality Breast Left, Breast Right, Breast Bilateral Bila teral Mammography 12/26/2018 9:03 AM EDT Impressions 12/26/2018 9:18 AM EDT No mammographic change indicative of malignancy. Routine screening is recommended. BI-RADS CATEGORY: 2 - Benign finding. DENSITY: There are scattered fibroglandular densities. POS -[id number] Narrative 12/26/2018 9:18 AM EDT Bilateral full-field digital screening mammography is obtained and read in conjunction with computer-aided detection. Tomosynthesis as well as 2-D C view imaging of both breasts in two planes also obtained. Comparison outside study of 12/25/2017, the only available. No dominant mass, architectural distortion, worrisome asymmetry, or suspicious calcification is identified. No skin or nipple finding of concern is appreciated. Some very small nodular areas noted bilaterally, better seen on tomosynthesis and probably unchanged compared to prior 2-D views. Procedure Note Brianne Sheridan MD - 12/26/2018 Bilateral full-field digital screening mammography is obtained and read inconjunction with computer-aided detection. Tomosynthesis as well as 2-D Cview imaging of both breasts in two planes also obtained. Comparisonoutside study of 12/25/2017, the only available. No dominant mass, architectural distortion, worrisome asymmetry, orsuspicious calcification is identified. No skin or nipple finding ofconcern is appreciated. Some very small nodular areas noted bilaterally,better seen on tomosynthesis and probably unchanged compared to prior 2-Dviews. IMPRESSION: No mammographic change indicative of malignancy. Routine screening isrecommended. BI-RADS CATEGORY: 2 - Benign finding. DENSITY: There are scattered fibroglandular densities. POS -[id number] Abad Byrd MD IMG MG EXAMS Final Result documented in this encounter Visit Diagnoses Diagnosis Breast screening Breast screening, unspecified Breast screening Breast screening, unspecified documented in this encounter Care Teams Director Of Patient Financial Services Relationship Specialty Start Date End Date Abad Byrd MD [address] [place] [address] [place] [address] PCP - General 09/20/17 03/28/22 Abad Byrd MD [address] [place] [address] [place] [address] PCP - General Internal Medicine 03/29/22 12/30/24 Myesha Holbrook PA [address] [place] [address] [place] [address] PCP - General Physician Manager Digital 12/31/24 documented as of this encounter Additional Source Comments The information contained in this document represents components of the legal health record. It is not the complete legal health record.[facility]
[2025-06-01 07:50] LABS: MANUAL DIFF FLAG NO
[2025-06-01 08:32] LABS: Hematocrit 37.7 % (37.0-47.0); Hemoglobin 12.5 g/dl (12.0-16.0); Imm Gran Abs Auto 0.04 X10*3/uL (0.00-0.03); Imm Gran Pct Auto 0.7 % (0.0-0.4); Lymphocytes Absolute Auto 1.3 X10*3/uL (1.2-4.9); Mean Corpuscular HGB Conc 33.2 g/dl (31.0-35.0); Mean Corpuscular Hemoglobin 32.6 pg (27.0-33.0); Mean Corpuscular Volume 98.4 fL (80.0-98.0); NRBC Abs Auto 0.000 X10*3/uL (0.0-0.012); NRBC Pct Auto 0.0 /100WBC (0.0-0.2); Platelet Count 235 X10*3/uL (160-400); Red Blood Count 3.83 X10*6/uL (4.20-5.50); White Blood Count 6.0 X10*3/uL (4.8-10.8)
[2025-06-01 08:41] LABS: Hemoglobin A1C 121.6629 umol/L; Total Hemoglobin (HGBA1C) 3254.7341 umol/L
[2025-06-01 08:57] LABS: Cholesterol 135 mg/dL (<200); HDL Cholesterol 46 mg/dL (>40); Triglycerides 82 mg/dL (<150)
[2025-06-01 09:17] LABS: Free T4 (Free Thyroxine) 0.92 ng/dL (0.71-1.85)
[2025-06-01 09:21] LABS: Folate 7.5 ng/mL (> or = 4.0); Vitamin B12 345 pg/mL (200-900)
== END 2025-06-01 07:32 | disposition home or self-care (01) ==
LOC: HO.LAB 07:31
DX: Z00.00 Encounter for general adult medical examination without abnormal findings (principal); Z13.21 Encounter for screening for nutritional disorder; Z13.1 Encounter for screening for diabetes mellitus; E78.00 Pure hypercholesterolemia, unspecified; I10 Essential (primary) hypertension
CPT/HCPCS: 36415; 80061; 82306; 82607; 82746; 83036; 84439; 84443; 85025

== ENCOUNTER 2025-06-09 08:12 | Outpatient (AMB) | payer MEDICARE, OTHER, SELFPAY ==
--- OUTSIDE RECORDS SUMMARY | 2020-12-30 17:13 | XMS_ITS | Encounter Summary ---
Author Organization [facility] Address [address] [place] [address] Phone Care Team Providers Care Trial Management Associate Name Role Phone Abad Byrd MD Primary Care Provider [phone] Encounter Details Date Type Department Care Team (Late st Contact Info) Description 12/30/2020 5:13 PM EDT Hospital Encounter [facility] [address] [place] [address] Kahlil Tavarez PA [address] [place] [address] [email or web address] Social History Tobacco Use Types Packs/Day [...] Contact Info) Description 01/30/2025 Procedure Pass Chambers [address] [address] 07/02/2025 11:00 AM EDT Office Visit [facility] Sports Medicine [address] [place] [address] Ernie Juarez PA-C [address] [place] [address] Orthopedics & Sports Medicine, [place] [address] 07/03/2025 9:20 AM EDT Office Visit [facility]ery [address] [place] [address] Gilberto Payne MD 22 [facility], [address] [place] [address] 08/28/2025 11:15 AM EST Appointment [address] [address] Myesha Holbrook PA [address] [place] [address] [address] documented as of this encounter Procedures Procedure [...] on filedocumented in this encounter Care Teams Trial Management Associate Relationship Specialty Start Date End Date Abad Byrd MD [address] [place] [address] [place] [address] PCP - General 09/20/17 03/28/22 documented as of this encounter Additional Source Comments The information contained in this document represents components of the legal health record. It is not the complete legal health record.[facility]
--- OUTSIDE RECORDS SUMMARY | 2025-06-03 10:45 | XMS_ITS | Encounter Summary ---
Author Organization [facility] Address [address] [place] [address] [place] [address] Phone Care Team Providers Care Barn And Property Manager Name Role Phone Myesha Holbrook Primary Care Provide r Encounter Details Date Type Department Care Team (Late st Contact Info) Description 06/03/2025 10:45 AM EDT Hospital Encounter [facility] Ur[facility] Care [address] [place] [address] Ermelinda Null CNP [address] [place] [address] Social History Tobacco Use Types Packs/Day Years [...] st Contact Info) Description 01/30/2025 Procedure Pass [address] [address] 07/02/2025 11:00 AM EDT Office Visit [facility] Orthopedics & Sports Medicine [address] [place] [address] Ernie Juarez PA-C [address] [place] [address] [facility] [place] [address] 07/03/2025 9:20 AM EDT Office Visit [facility] OBGYN & Midwifery [address] [place] [address] Gilberto Payne MD 22 [facility], [address] [place] [address] 08/28/2025 11:15 AM EST Appointment [address] [address] Myesha Holbrook PA [address] [place] [address] [address] documented as of this encounter Procedures Procedure [...] clinician's provided indication for this examination in Epic: Trauma; unable to raise shoulder, limb neurovascularly [...] clinician's provided indication for this examination in [facility]:Trauma; unable to raise shoulder, limb neurovascularly [...] fracture. No other acutecardiopulmonary abnormality. Ermelinda Null MOVIE EDITOR IMG XR CHEST Final Resul t documented in this encounter Visit Diagnoses Not on filedocumented in this encounter Care Teams Barn And Property Manager Relationship Specialty Start Date End Date Myesha Holbrook PA [address] [place] [address] Dr Bailey [address] [place] [address] PCP - General Physician Splitter Machine 12/31/24 documented as of this encounter Additional Source Comments The information contained in this document represents components of the legal health record. It is not the complete legal health record.[facility]
--- OUTSIDE RECORDS SUMMARY | 2025-06-03 10:50 | XMS_ITS | Encounter Summary ---
Author Organization [facility] Address [address] [place] [address] [place] [phone] Phone Care Team Providers Care Switchbox Assembler Name Role Phone Myesha Holbrook Primary Care Provide r Encounter Details Date Type Department Care Team (Late st Contact Info) Description 06/03/2025 10:50 AM EDT Hospital Encounter [facility] [address] [place] [address] Ermelinda Null CNP [address] [place] [phone] Social History Tobacco Use Types Packs/Day Years [...] st Contact Info) Description 01/30/2025 Procedure Pass [address] [address] 07/02/2025 11:00 AM EDT Office Visit [facility] Orthopedics & Sports Medicine [address] [place] [address] Ernie Juarez PA-C [address] [place] [address] [facility] [place] [address] 07/03/2025 9:20 AM EDT Office Visit [facility] OBGYN & Midwifery [address] [place] [address] Gilberto Payne MD 22 [facility], [address] [place] [address] 08/28/2025 11:15 AM EST Appointment [address] [address] Myesha Holbrook PA [address] [place] [address] [address] documented as of this encounter Procedures Procedure Name Priority Date/Time Associated Diagnosis Comments XR SHOULDER 2 VIEWS (RIGHT) Urgent/patient waiting 06/03/2025 10:50 AM EDT Fall from steps, initial encounter documented in this encounter Results * XR SHOULDER 2 VIEWS (RIGHT) (06/03/2025 10:50 AM EDT) MGB IMG NEUROLOGIST COMMENT Comminuted right humeral surgical neck fracture with comminuted greater tuberosity fragment and lipohemarthros is. [facility] Anatomical Region Laterality Modality Shoulder Right Computed Radiogr aphy 06/03/2025 11:0 2 AM EDT Impressions 06/03/2025 11:07 AM EDT Comminuted right humeral surgical neck fracture with comminuted greater tuberosity fragment and lipohemarthrosis. A clinically significant result was initiated on 06/03/2025 11:06 AM, Message ID [id number]. Narrative 06/03/2025 11:07 AM EDT XR SHOULDER 2 OR MORE VIEWS (RIGHT) Referring clinician's provided indication for this examination in [facility]: S/P Fall; unable to raise shoulder, limb neurovascularly intact COMPARISON: None FINDINGS: Comminuted right humeral surgical neck fracture involving the greater tuberosity. Humeral head is subluxed inferiorly with lipohemarthrosis in the glenohumeral joint. Acromioclavicular joint is intact. Procedure Note Yovany Osman MD, MPH - 06/03/2025 XR SHOULDER 2 OR MORE VIEWS (RIGHT) Referring clinician's provided indication for this examination in [facility]:S/P Fall; unable to raise shoulder, limb neurovascularly intact COMPARISON: None FINDINGS: Comminuted right humeral surgical neck fracture involving the greatertuberosity. Humeral head is subluxed inferiorly with lipohemarthrosis inthe glenohumeral joint. Acromioclavicular joint is intact. IMPRESSION: Comminuted right humeral surgical neck fracture with comminuted greatertuberosity fragment and lipohemarthrosis. A clinically significant result was initiated on 06/03/2025 11:06 AM,Message ID [id number]. Ermelinda Null BOTTOM CRANE OPERATOR IMG XR UPPER EXTREMITY Taisha l Result documented in this encounter Visit Diagnoses Not on filedocumented in this encounter Care Teams Switchbox Assembler Relationship Specialty Start Date End Date Myesha Holbrook PA [address] [place] [address] [place] [address] PCP - General Physician Channel Process Plant Operator 12/31/24 documented as of this encounter Additional Source Comments The information contained in this document represents components of the legal health record. It is not the complete legal health record.[facility]
--- OUTSIDE RECORDS SUMMARY | 2025-06-03 12:19 | XMS_ITS | Encounter Summary ---
Author Organization [facility] Address [address] [place] [address] Phone Care Team Providers Care Case Liner Name Role Phone Myesha Holbrook Primary Care Provide r Encounter Details Date Type Department Care Team (Latest Contact Info) Description 06/03/2025 12:19 PM EDT - 06/03/2025 11:59 PM EDT Hospital Encounter [address] [address] Christo Guaman PA-C [address] [place] [address] Orthopedics & Sports Medicine, [place] [address] [email or web address] Discharge Disposition: Home or Self Care Social History Tobacco Use Types Packs/Day Years [...] on file documented as of this encounter Medications at Time of Discharge antiox #8/om3/dha/epa/l ut/zeax (PRESERVISION AREDS 2, OMEGA-3, ORAL) Take by mouth. atorvastatin (LIPITOR) 20 MG tablet Take 20 mg by mouth daily. 07/12/2022 clotrimazole-bet amethasone (LOTRISONE) cream 12/26/2024 ergocalciferol (DRISDOL) 50,000 unit capsule Take 50,000 Units by mouth once a week. estradioL (ESTRACE) 0.01 % (0.1 mg/gram) vaginal creamIndications :Vaginal atrophy PLACE 1 GRAM VAGINALLY TWICE A WEEK 42.5 g 3 03/25/2025 furosemide (LASIX) 20 MG tablet TAKE 1 TABLET BY MOUTH EVERY DAY FOR EDEMA 05/13/2025 metoprolol succinate (TOPROL-XL) 50 MG 24 hr tablet Take 1 tablet by mouth every morning. 07/12/2023 omeprazole (PRILOSEC) 20 MG capsule Take 1 capsule by mouth every morning. 05/11/2025 oxyCODONE 5 MG immediate release tabletIndication s:Other closed displaced fracture of proximal end of right humerus, initial encounter,Right shoulder pain Take 1-2 tablets by mouth every 4-6 hours as needed for pain. Patient may request partial fill. 30 tablet 06/03/2025 spironolactone (ALDACTONE) 50 MG tablet Take 50 mg by mouth daily. 12/30/2024 valsartan (DIOVAN) 80 MG tablet Take 1 tablet by mouth every morning. 11/18/2024 verapamil (CALAN-SR) 240 MG CR tablet Take 240 mg by mouth nightly at bedtime. VITAMIN B-6 100 MG tablet Take 100 mg by mouth daily. 01/17/2021 documented as of this encounter Plan of Treatment Upcoming Encounters Date Type Department Care Team (Late st Contact Info) Description 01/30/2025 Procedure Pass [facility], [address] [address] 07/02/2025 11:00 AM EDT Office Visit [facility] Orthopedics & Sports Medicine [address] [place] [address] Ernie Juarez PA-C [address] [place] [address] [facility] [place] [address] [email or web address] 07/03/2025 9:20 AM EDT Office Visit [facility] [address] [place] [address] Gilberto Payne MD 22 [facility], [address] [place] [address] [email or web address] 08/28/2025 11:15 AM EST Appointment [facility], [address] [address] Myesha Holbrook PA [address] [place] [address] [place] [address] documented as of this encounter Procedures Procedure Name Priority Date/Time Associated Diagnosis Comments XR SHOULDER 1 VIEW (RIGHT) Routine 06/03/2025 12:28 PM EDT Right shoulder pain documented in this encounter Results * XR SHOULDER 1 VIEW (RIGHT) (06/03/2025 12:28 PM EDT) Narrative SYSTEMGENERATED, DOCUMENTATION - 06/03/2025 12:28 PM EDT This image report has been auto-finalized and has not been read by a Radiologist. Interpretation has been included in the provider encounter note for this date of service. Christo Guaman PA-C IMG XR UPPER EXTREMITY Final Result documented in this encounter Visit Diagnoses Diagnosis Right shoulder pain Pain in joint, shoulder region documented in this encounter Care Teams Case Liner Relationship Specialty Start Date End Date Myesha Holbrook PA [address] [place] [address] [place] [address] PCP - General Physician Lining Finisher 12/31/24 documented as of this encounter Additional Source Comments The information contained in this document represents components of the legal health record. It is not the complete legal health record.[facility]
[2025-06-09 08:24] VITALS: BP 132/62; PULSE 62; TEMP 36.2; O2SAT 96; BMI 32.3
--- NOTE | 2025-06-09 08:24 | MHC.PC.OV ---
Vital Signs 06/09/25 08:24 Height 5 ft 4 in Weight 188 lb BMI 32.3 BP 132/62 Blood Pressure Location Lt brachial Position Sitting Pulse 62 Pulse Source Pulse Oximeter Temp 97.1 F Temp Source Temporal Artery Scan Pulse Oximetry (%) 96 Oxygen Delivery Method Room Air Intake Visit Reasons: 3 mo follow up Intake Note: Patient is here to follow up on HLD, HTN, GERD. Supervisor Core Shop Required: No Seamer Panty Hose: Present Accompanied by: Daughter Allergies citalopram (From CELEXA) Allergy (Severe, Verified 06/09/25 08:33) LOCKJAW, DIFFICULTY SWALLOWING lisinopril (LISINOPRIL) Allergy (Severe, Verified 06/09/25 08:33) COUGH scopolamine (SCOPOLAMINE) Allergy (Severe, Verified 06/09/25 08:33) AGITATION sulfamethoxazole (From BACTRIM) Allergy (Intermediate, Verified 06/09/25 08:33) HIVES sertraline (From Zoloft) Allergy (Mild, Verified 06/09/25 08:33) yawning hydroxyzine (Vistaril) Allergy (Unknown, Verified 06/09/25 08:33) agitation metronidazole (Flagyl) Allergy (Unknown, Verified 06/09/25 08:33) arm paralysis Sulfa (Sulfonamide Antibiotics) Allergy (Unknown, Verified 06/09/25 08:33) rash oxycodone Adverse Reaction (Intermediate, Verified 06/09/25 08:33) Nausea Medication List - Last Reconciled 06/09/25 by Myesha Holbrook PA-C aspirin (Adult Low Dose Aspirin) 81 mg PO DAILY atorvastatin 20 mg PO DAILY ergocalciferol (vitamin D2) 1,250 mcg PO QWEEK furosemide 20 mg PO DAILY metoprolol succinate ER 50 mg PO DAILY 90 days nitrofurantoin macrocrystal 100 mg PO BID PRN omeprazole 20 mg PO DAILY pyridoxine (vitamin B6) 100 mg PO DAILY spironolactone 50 mg PO DAILY tramadol 50 mg PO Q6H PRN valsartan 80 mg PO DAILY verapamil ER 240 mg PO DAILY vitamins A,C,G-fmje-ueulmk 2,148 mcg-113 mg-45 mg-17.4mg (PreserVision AREDS) 1 tab PO BID Tobacco use date assessed: 06/09/25 Fall risk assessment: 1 Fall in past year Last assessed Fall Risk: 06/09/25 Dental Screening Dental Screen Date: 02/17/25 HPI 3 mo follow up HPI Details 75-year-old female with past medical history hypertension, migraine, anxiety, depression, osteoporosis and nephrolithiasis last seen 02/2025 coming in for follow up. In review of the notes, patient was seen by Nephrology 03/2025 Lasix was added to medication regimen. Presenting with a humeral head fracture and associated fall risk. The patient experienced a fall last Sunday while interacting with a call worker person, resulting in a humeral head fracture. The fall occurred as the patient was stepping down from her house onto a cement area, leading to a significant impact on the shoulder and head. Initial x-rays at urgent care suggested the need for immediate surgery, but further evaluation at an orthopedic center indicated the fracture might heal without surgical intervention. The fracture involved the humeral head being jammed into the shoulder socket, described as resembling an ice cream cone shape. The patient is currently managing the fracture with a sling and is advised to let the arm hang to facilitate healing. The patient reports difficulty with the prescribed sling due to scoliosis and kyphosis, and experiences pain and swelling in the arm. The patient has experienced multiple falls recently, raising concerns about fall risk, although no balance issues or numbness in the legs were reported. The patient has a history of hypertension, which is currently well-controlled with blood pressure readings stabilizing over the past three months. Recent blood work showed normal red and white blood cell counts, no diabetes with an A1c of 5.6, and excellent cholesterol levels. The patient reports a rash under the breast due to sweating, managed with hydrocortisone cream and powder. The patient has experienced multiple falls recently, raising concerns about fall risk, although no balance issues or numbness in the legs were reported. [facility] Medical History Obesity Post-menopausal Screening for hyperlipidemia Screening for diabetes mellitus Fatigue Mild depression Hypertension Surgical History History of colonoscopy History of surgery History of hysterectomy Family History Father Aneurysm Diabetes Mother Heart disease Maternal Grandmother Colon cancer Brother No problems noted. Sister No problems noted. Son Substance use disorder Son No problems noted. Daughter No problems noted. Daughter Mental health disorder Social History Housing: House Alcohol intake: current Alcohol intake frequency: holidays/special occasions only Patient Tobacco Use Status: Former Tobacco user Tobacco use type: Cigarette Cigarettes Per Day: 2 Years Smoked: 0 e-Cigarette/Vaping Use: Never Used Second Hand Smoke Exposure: Yes service: No Current occupational status: retired Current occupational exposures/hazards: No Cognitive needs: No Hearing needs: No Vision needs: Yes (Glasses) Questionnaire Thrive Questionnaire Date Thrive assessed: 02/17/25 I am a: Patient What is your living situation today?: I have a steady place to live Within the past 12 months, did the food you bought not last and you didn't have the money to get more?: Never true Within the past 12 months, did you worry whether your food would run out before you got money to buy more?: Never true Do you have trouble paying for medicines?: No Do you have trouble getting transportation to medical appointments?: No Do you have trouble paying your heating and electricity bill?: No Do you have trouble taking care of your child, family member or friend?: No Do you have trouble with day-to-day activities such as bathing, preparing meals, shopping, managing finances, etc.?: No Are you currently unemployed and looking for a job?: No Are you interested in more education?: No Please select the resources that you would like help with: None Currently or been in a relationship where the following occur: No concerns reported THRIVE Score: 0 JARROD-7 AMB Questionnaire JARROD-7 Date JARROD - 7 assessed: 02/17/25 Source: Developed by Drs. Chuck Juares, Viv Youssef, Kody Blunt and colleagues, with an educational preston from [employer]. Review of Systems Const Denies body aches, Denies chills, Denies fever(s), Denies headache(s) and Denies poor appetite Eyes Reports no additional complaints ENT Denies dizziness and Denies headache(s) Card Denies chest pain, Denies syncope, Denies edema, Denies irregular heart rhythm, Denies lightheadedness and Denies dyspnea Resp Denies cough and Denies dyspnea GI Denies abdominal pain, Denies constipation, Denies diarrhea, Denies nausea and Denies vomiting Reports no additional complaints Musc Reports no additional complaints and Denies abnormal gait Skin/Breast Reports system reviewed and no additional complaints, except as documented Neuro Denies abnormal gait, Denies dizziness, Denies syncope and Denies headache(s) Psych Reports no additional complaints Physical exam (Primary Care) Vital Signs: Last Vital Signs Temp 97.1 F 06/09/25 08:24 Pulse 62 06/09/25 08:24 BP 132/62 06/09/25 08:24 Pulse Ox 96 06/09/25 08:24 Oxygen Delivery Method Room Air 06/09/25 08:24 BMI result Body Mass Index 32.3 Tobacco/Smoking Status: Tobacco use Status Tobacco use date assessed 06/09/25 06/09/25 08:29 Patient Tobacco Use Status Former Tobacco user 06/09/25 08:29 Tobacco use type Cigarette 06/09/25 08:29 e-Cigarette/Vaping Use Never Used 06/09/25 08:29 Thrive Assessment: Date of Thrive Assessment Date Thrive assessed 02/17/25 06/09/25 08:29 Currently or been in a relationship where the following occur: No concerns reported Const General: cooperative, healthy appearing, comfortable and no acute distress Orientation/consciousness: patient oriented x3 HENMT Head: Yes normocephalic Ears: hearing grossly normal bilaterally General nose exam: Normal external nose present Eyes General: appearance normal, both eyes and all related structures Conjunctivae: conjunctivae normal Neck Neck: Yes full ROM and Yes no lymphadenopathy Chest Other: Fungal rash under bilateral breasts Resp Effort & Inspection: normal respiratory effort Auscultation: clear to auscultation bilaterally, no crackles, no rales, no rhonchi and no wheezes Cardio Rate: regular rate Rhythm: regular rhythm Skin General skin exam: no rashes or lesions noted Neuro General: patient oriented x3 Gait exam (Neuro): Normal gait present Extrem Other: Swelling and bruising of the right shoulder and elbow General: Yes normal to inspection, Yes full ROM and No edema Psych Affect: normal affect Attitude: cooperative Insight: Good insight present (Psych) Judgement: Good judgement present (Psych) Coding Level of Care Code Est Pt Level 4 (13931) Diagnoses Shoulder fracture S42.90XA Hypertension, unspecified type I10 Hypertension type: unspecified Hyperlipidemia E78.5 Obesity E66.9 GERD (gastroesophageal reflux disease) K21.9 Frequent falls R29.6 Fungal rash of torso B36.9 Assessment & Plan Assessment & Plan (1) Shoulder fracture: Comment: 06/03/2025 initial fall 07/02/2025 PSSP next appt Code(s): S42.90XA - Fracture of unspecified shoulder girdle, part unspecified, initial encounter for closed fracture Category: Medical Plan: Patient has a shoulder fracture as a result of a fall. She did not have any lightheadedness, dizziness, numbness or tingling in the feet or balance issues prior to the fall. She will continue to follow with [facility] with the next appointment 07/02/2025 and continue to keep the shoulder in his sling until that time. Consideration for surgery will be made if fracture has not fully healed. She will continue with tramadol as needed as prescribed by her orthopedics. (2) Hypertension: Code(s): I10 - Essential (primary) hypertension Category: Medical Qualifiers: Hypertension type: unspecified Qualified Code(s): I10 - Essential (primary) hypertension Plan: Continue on current blood pressure medication. Avoid salt intake and encourage healthy diet and regular exercise. (3) Hyperlipidemia: Code(s): E78.5 - Hyperlipidemia, unspecified Category: Medical Plan: Avoid foods that are high in cholesterol such as red meat, fried foods, eggs and baked goods. Triglyceride goal of less than 150 and LDL goal of less than 130. Cholesterol at goal on last labs. (4) Obesity: Comment: see above Code(s): E66.9 - Obesity, unspecified Category: Medical Plan: Healthy diet and regular exercise is encouraged. (5) GERD (gastroesophageal reflux disease): Code(s): K21.9 - Gastro-esophageal reflux disease without esophagitis Category: Medical Plan: Avoid trigger foods such as citrus, tomato products, soda, caffeine, spicy foods and other foods that may be irritating to your stomach. Avoid laying flat 3-4 hours after eating and elevate the head of the bed 30 degrees to prevent acid from moving into the esophagus. (6) Frequent falls: Code(s): R29.6 - Repeated falls Category: Medical Plan: Patient experiencing 3 falls in the last month 2 of which were missed steps and the 3rd fall with feeling numbness in the right leg. She has not had any recurrence of numbness or tingling in the legs and denies any lightheadedness, dizziness or chest pains with the falls. She will continue to monitor her symptoms and I recommended the use of a walking aid such as a cane in the meantime. Denies any issues with balance and limited exam today due to pain of the right shoulder. Consider additional imaging and workup if falls persist. (7) Fungal rash of torso: Code(s): B36.9 - Superficial mycosis, unspecified Category: Medical Plan: The patient is instructed to use hydrocortisone cream twice daily for one week to manage the rash under the breast. If the rash persists, the use of powder as a preventative measure is recommended. Plan This note was constructed using voice recognition software. While every effort has been made to ensure accuracy and strategic marketing associate, still areas may have been included sometimes these areas may affect the content or meeting of the given symptoms. Total time spent caring for the patient today was 20 minutes. This includes time spent before the visit reviewing the chart, time spent during the visit, and time spent after the visit and documentation. Patient was informed and verbally consented to the use of an ambient scribe for clinic note documentation during this visit. Medications: New nystatin 1 appl topical DAILY 30 grams 0RF
--- OUTSIDE RECORDS SUMMARY | 2025-06-09 09:06 | XMS_ITS | Encounter Summary ---
Author Organization [facility] Address [address] [place] [phone] Phone Care Team Providers Care Sql Server Bi Developer Name Role Phone Myesha Holbrook Primary Care Provide r Reason for Visit * Reason Onset Date Comments Change in medication 06/05/2025 Encounter Details Date Type Department Care Team (Late st Contact Info) Description [facility]/05[facility]20[facility] [address] [place] [address] India Ceballos, RN [address] [place] [address] [email or web address] Change in medication Social History Tobacco Use Types Packs/Day Years [...] on file documented as of this encounter Progress Notes * India Ceballos, RN - 06/05/2025 10:40 AM EDT Images from the original note were not included. Pt seen 06/03/2025 by CAMPBELL Villafuerte for right proximal humerus fracture. Pt was prescribed oxycodone for pain. Pt reports that the oxycodone helps the pain, but it is making her extremely nauseous. Pt requesting a prescription for tramadol instead as she has tolerated it in the past. Also requesting a prescription for zofran. documented in this encounter Plan of Treatment Upcoming Encounters Date Type Department Care Team (Late st Contact Info) Description 01/30/2025 Procedure Pass [address] [address] 07/02/2025 11:00 AM EDT Office Visit [facility] Orthopedics & Sports Medicine [address] [place] [address] Ernie Juarez PA-C [address] [place] [address] Orthopedics & Sports Medicine, [facility] [place] [address] 07/03/2025 9:20 AM EDT Office Visit [facility] OBGYN & Midwifery [address] [place] [address] Gilberto Payne MD 22 [facility], [address] [place] [address] 08/28/2025 11:15 AM EST Appointment [address] [address] Myesha Holbrook PA [address] [place] [address] [address] documented as of this encounter Visit Diagnoses Diagnosis Other closed displaced fracture of proximal end of right humerus, initial encounter- Primary Nausea Nausea alone documented in this encounter Care Teams Sql Server Bi Developer Relationship Specialty Start Date End Date Myesha Holbrook PA [address] [place] [address] [place] [address] PCP - General Physician Synthetic Chemist 12/31/24 documented as of this encounter Additional Source Comments The information contained in this document represents components of the legal health record. It is not the complete legal health record.[facility]
--- OUTSIDE RECORDS SUMMARY | 2025-06-09 09:06 | XMS_ITS | Encounter Summary ---
Author Organization [facility] Address [address] [place] [address] Phone Care Team Providers Care Application Integrator Name Role Phone Abad Byrd MD Primary Care Provider [phone] Myesha Holbrook Primary Care Provide r Encounter Details Date Type Department Care Team (Late st Contact Info) Description 01/17/2024 Transcribe Orders Virtual Department [address] [place] [address] Abad Byrd MD [address] [place] [address] [place] [address] Breast screening (Primary Dx) Social History Tobacco [...] (Late Contact Info) Description 01/30/2025 Procedure Pass [address] [address] 07/02/2025 11:00 AM EDT Office Visit [facility] Medical [facility] Orthopedics & Sports Medicine [address] [place] [address] Ernie Juarez PA-C [address] [place] [address] Orthopedics & Sports Medicine, [facility] [place] [address] 07/03/2025 9:20 AM EDT Office Visit [facility] OBGYN & Midwifery [address] [place] [address] [place] [address] Gilberto Payne MD 22 [facility], [address] [place] [address] 08/28/2025 11:15 AM EST Appointment [address] [address] Myesha Holbrook PA [address] [place] [address] [address] documented as of this encounter Results * [...] unspecified documented in this encounter Care Teams Application Integrator Relationship Specialty Start Date End Date Abad Byrd MD [address] [place] [address] [place] [address] PCP - General Internal Medicine 03/29/22 12/30/24 Myesha Holbrook PA [address] [place] [address] [place] [address] PCP - General Physician Mobile Home Mechanic 12/31/24 documented as of this encounter Additional Source Comments The information contained in this document represents components of the legal health record. It is not the complete legal health record.[facility]
--- OUTSIDE RECORDS SUMMARY | 2025-06-09 09:07 | XMS_ITS | Encounter Summary ---
Author Organization [facility] Address [address] [place] [address] Phone Care Team Providers Care Shot Tube Machine Tender Name Role Phone Abad Byrd MD Primary Care Provider [phone] Myesha Holbrook Primary Care Provide r Encounter Details Date Type Department Care Team (Late Contact Info) Description 04/13/2023 Ancillary Orders [facility], [address] [address] Abad Byrd MD [address] [place] [address] [place] [address] Abnormal finding on mammography Social History Tobacco [...] st Contact Info) Description 01/30/2025 Procedure Pass [address] [address] 07/02/2025 11:00 AM EDT Office Visit [facility] Medical [facility] Orthopedics & Sports Medicine [address] [place] [address] Ernie Juarez PA-C [address] [place] [address] Orthopedics & Sports Medicine, [facility] [place] [address] 07/03/2025 9:20 AM EDT Office Visit [facility] OBGYN & Midwifery [address] [place] [address] [place] [address] Gilberto Payne MD 22 [facility], [address] [address] 08/28/2025 11:15 AM EST Appointment [address] [address] Myesha Holbrook PA [address] [place] [address] [place] [address] documented as of this encounter Visit Diagnoses Diagnosis Abnormal finding on mammography documented in this encounter Care Teams Shot Tube Machine Tender Relationship Specialty Start Date End Date Abad Byrd MD [address] [place] [address] [place] [address] PCP - General Internal Medicine 03/29/22 12/30/24 Myesha Holbrook PA [address] [place] [address] [place] [address] PCP - General Physician Manager Of Disaster Recovery 12/31/24 documented as of this encounter Additional Source Comments The information contained in this document represents components of the legal health record. It is not the complete legal health record.[facility]
--- OUTSIDE RECORDS SUMMARY | 2025-06-09 09:07 | XMS_ITS | Encounter Summary ---
Author Organization [facility] Address [address] [place] [address] Phone Care Team Providers Care Supervisor Hot Dip Plating Name Role Phone Abad Byrd MD Primary Care Provider [phone] Abad Byrd MD Primary Care Provider [phone] Myesha Holbrook Primary Care Provide r Encounter Details Date Type Department Care Team (Late Contact Info) Description 12/27/2020 Ancillary Orders Virtual Department [address] [place] [address] Abad Byrd MD [address] [place] [address] [place] [address] Breast screening Social History Tobacco Use Types [...] (Late Contact Info) Description 01/30/2025 Procedure Pass [facility], [facility]- [address] [address] 07/02/2025 11:00 AM EDT Office Visit [facility] Orthopedics & Sports Medicine [address] [place] [address] Ernie Juarez PA-C [address] [place] [address] Orth[facility] [place] [address] 07/03/2025 9:20 AM EDT Office Visit [facility] OBGYN & Midwifery [address] [place] [address] Gilberto Payne MD 22 [facility], [address] [place] [address] 08/28/2025 11:15 AM EST Appointment [facility], [facility]- [facility] [address] [place] [address] Myesha Holbrook PA [address] [place] [address] [address] documented as of this encounter Results * [...] unspecified documented in this encounter Care Teams Supervisor Hot Dip Plating Relationship Specialty Start Date End Date Abad Byrd MD [address] [place] [address] [place] [address] PCP - General 09/20/17 03/28/22 Abad Byrd MD [address] [place] [address] [place] [address] PCP - General Internal Medicine 03/29/22 12/30/24 Myesha Holbrook PA [address] [place] [address] [place] [address] PCP - General Physician Dinkey Motor Operator 12/31/24 documented as of this encounter Additional Source Comments The information contained in this document represents components of the legal health record. It is not the complete legal health record.[facility]
--- OUTSIDE RECORDS SUMMARY | 2025-06-09 09:07 | XMS_ITS | Encounter Summary ---
Author Organization [facility] Address [address] [place] [address] Phone Care Team Providers Care Assembler Utility Buildings Name Role Phone Abad Byrd MD Primary Care Provider [phone] Abad Byrd MD Primary Care Provider [phone] Myesha Holbrook Primary Care Provide r Encounter Details Date Type Department Care Team (Late Contact Info) Description 10/09/2019 Ancillary Orders Virtual Department [address] [place] [address] Abad Byrd MD [address] [place] [address] [place] [address] Breast screening Social History Tobacco Use Types [...] st Contact Info) Description 01/30/2025 Procedure Pass [facility], [facility]- [address] [address] 07/02/2025 11:00 AM EDT Office Visit [facility] Medical [facility] Orthopedics & Sports Medicine [address] [place] [address] Ernie Juarez PA-C [address] [place] [address] Orthopedics & Sports Medicine, [facility] [place] [address] 07/03/2025 9:20 AM EDT Office Visit [facility] OBGYN & Midwifery [address] [place] [address] Gilberto Payne MD 22 [facility], [address] [place] [address] 08/28/2025 11:15 AM EST Appointment [facility], [facility]- [facility] [address] [place] [address] Myesha Holbrook PA [address] [place] [address] [address] documented as of this encounter Results * [...] DENSITY: There are scattered fibroglandular densities. POS [id number] Narrative 03/24/2020 3:05 PM EDT COMPARISON: 11/14/2013 [...] DENSITY: There are scattered fibroglandular densities. POS [id number] Abad Byrd MD IMG MG EXAMS Final Result documented in this encounter Visit Diagnoses Diagnosis Breast screening Breast screening, unspecified Breast screening Breast screening, unspecified documented in this encounter Care Teams Assembler Utility Buildings Relationship Specialty Start Date End Date Abad Byrd MD [address] [place] [address] [place] [address] PCP - General 09/20/17 03/28/22 Abad Byrd MD [address] [place] [address] Dr Bailey [address] [place] [address] PCP - General Internal Medicine 03/29/22 12/30/24 Myesha Holbrook PA [address] [place] [address] [place] [address] PCP - General Physician Engineer Technician 12/31/24 documented as of this encounter Additional Source Comments The information contained in this document represents components of the legal health record. It is not the complete legal health record.[facility]
--- OUTSIDE RECORDS SUMMARY | 2025-06-09 09:07 | XMS_ITS | Encounter Summary ---
Author Organization [facility] Address [address] [place] [address] Phone Care Team Providers Care Manager Integrity Name Role Phone Abad Byrd MD Primary Care Provider [phone] Abad Byrd MD Primary Care Provider [phone] Myesha Holbrook Primary Care Provide r Encounter Details Date Type Department Care Team (Late st Contact Info) Description 12/27/2020 Procedure Pass [address] [address] Social History Tobacco Use Types Packs/Day Years [...] st Contact Info) Description 01/30/2025 Procedure Pass [address] [address] 07/02/2025 11:00 AM EDT Office Visit [facility] Medical [facility] Orthopedics & Sports Medicine [address] [place] [address] Ernie Juarez PA-C [address] [place] [address] Orthopedics & Sports Medicine, [facility] [place] [address] 07/03/2025 9:20 AM EDT Office Visit [facility] OBGYN & Midwifery [address] [place] [address] Gilberto Payne MD 22 [facility], [address] [place] [address] 08/28/2025 11:15 AM EST Appointment [facility], Mammography- [facility] 30 [place] [address] Myesha Holbrook PA [address] [place] [address] [place] [address] documented as of this encounter Visit Diagnoses Not on filedocumented in this encounter Care Teams Manager Integrity Relationship Specialty Start Date End Date Abad Byrd MD [address] [place] [address] [place] [address] PCP - General 09/20/17 03/28/22 Abad Byrd MD [address] [place] [address] [place] [address] PCP - General Internal Medicine 03/29/22 12/30/24 Myesha Holbrook PA [address] [place] [address] [place] [address] PCP - General Physician Signal Tower Director 12/31/24 documented as of this encounter Additional Source Comments The information contained in this document represents components of the legal health record. It is not the complete legal health record.[facility]
--- OUTSIDE RECORDS SUMMARY | 2025-06-09 09:07 | XMS_ITS | Encounter Summary ---
Author Organization [facility] Address [address] [place] [address] Phone Care Team Providers Care Oil Furnace Installer Name Role Phone Abad Byrd MD Primary Care Provider [phone] Myesha Holbrook Primary Care Provide r Encounter Details Date Type Department Care Team (Late st Contact Info) Description 01/17/2024 Procedure Pass [address] [address] Social History Tobacco Use Types Packs/Day Years [...] (Late st Contact Info) Description 01/30/[address] [address] 07/02/2025 11:00 AM EDT Office Visit [facility] Orthopedics & Sports Medicine [address] [place] [address] Ernie Juarez PA-C [address] [place] [address] Orthopedics & Sports Medicine, [facility] [place] [address] 07/03/2025 9:20 AM EDT Office Visit [facility] OBGYN & Midwifery [address] [place] [address] Gilberto Payne MD 22 [facility], [address] [place] [address] 08/28/2025 11:15 AM EST Appointment [facility], [address] [address] Myesha Holbrook PA [address] [place] [address] [place] [address] documented as of this encounter Visit Diagnoses Not on filedocumented in this encounter Care Teams Oil Furnace Installer Relationship Specialty Start Date End Date Abad Byrd MD [address] [place] [address] [place] [address] PCP - General Internal Medicine 03/29/22 12/30/24 Myesha Holbrook PA [address] [place] [address] [place] [address] PCP - General Physician Vp Software Support 12/31/24 documented as of this encounter Additional Source Comments The information contained in this document represents components of the legal health record. It is not the complete legal health record.[facility]
--- OUTSIDE RECORDS SUMMARY | 2025-06-09 09:07 | XMS_ITS | Encounter Summary ---
Author Organization [facility] Address [address] [place] [address] Phone Care Team Providers Care Manager Transportation Name Role Phone Abad Byrd MD Primary Care Provider [phone] Abad Byrd MD Primary Care Provider [phone] Myesha Holbrook Primary Care Provide r Encounter Details Date Type Department Care Team (Late st Contact Info) Description 10/09/2018 Ancillary Orders Virtual Department [address] [place] [address] Abad Byrd MD [address] [place] [address] [place] [address] Breast screening Social History Tobacco Use Types [...] st Contact Info) Description 01/30/2025 Procedure Pass [facility], Mammography- [facility] 30 [place] [address] 07/02/2025 11:00 AM EDT Office Visit [facility] Orthopedics & Sports Medicine [address] [place] [address] Ernie Juarez PA-C [address] [place] [address] Orthopedics & Sports [place] [address] 07/03/2025 9:20 AM EDT Office Visit [facility] OBGYN & Midwifery [address] [place] [address] Gilberto Payne MD 22 [facility], [address] [place] [address] 08/28/2025 11:15 AM EST Appointment [facility], Mammography- [facility] [address] [place] [address] Myesha Holbrook PA [address] [place] [address] [address] documented as of this encounter Results * [...] unspecified documented in this encounter Care Teams Manager Transportation Relationship Specialty Start Date End Date Abad Byrd MD [address] [place] [address] Dr Bailey [address] [place] [address] PCP - General 09/20/17 03/28/22 Abad Byrd MD [address] [place] [address] Dr Bailey [address] [place] [address] PCP - General Internal Medicine 03/29/22 12/30/24 Myesha Holbrook PA [address] [place] [address] Dr Bailey [address] [place] [address] PCP - General Physician Mortuary Beautician 12/31/24 documented as of this encounter Additional Source Comments The information contained in this document represents components of the legal health record. It is not the complete legal health record.[facility]
--- OUTSIDE RECORDS SUMMARY | 2025-06-09 09:07 | XMS_ITS | Encounter Summary ---
Author Organization [facility] Address [address] [place] [address] Phone Care Team Providers Care Special Assets Officer Name Role Phone Abad Byrd MD Primary Care Provider [phone] Abad Byrd MD Primary Care Provider [phone] Myesha Holbrook Primary Care Provide r Encounter Details Date Type Department Care Team (Late st Contact Info) Description 10/23/2017 Ancillary Orders Virtual Department [address] [place] [address] Abad Byrd MD [address] [place] [address] [place] [address] Breast screening Social History Tobacco Use Types [...] st Contact Info) Description 01/30/2025 Procedure Pass [facility], Mammography- [facility] [address] [place] [address] 07/02/2025 11:00 AM EDT Office Visit [facility] Orthopedics & Sports Medicine [address] [place] [address] Ernie Juarez PA-C [address] [place] [address] Orthoped[facility] & [facility] [place] [address] 07/03/2025 9:20 AM EDT Office Visit [facility] OBGYN & Midwifery [address] [place] [address] Gilberto Payne MD 22 [facility], [address] [place] [address] 08/28/2025 11:15 AM EST Appointment [facility], Mammography- [facility] [address] [place] [address] Myesha Holbrook PA [address] [place] [address] [address] documented as of this encounter Results * [...] There are scattered fibroglandular densities. POS - [id number] Narrative 12/25/2017 1:31 PM EDT Full-field digital [...] There are scattered fibroglandular densities. POS - [id number] Abad Byrd MD IMG MG EXAMS Final Result documented in this encounter Visit Diagnoses Diagnosis Breast screening Breast screening, unspecified Breast screening Breast screening, unspecified documented in this encounter Care Teams Special Assets Officer Relationship Specialty Start Date End Date Abad Byrd MD [address] [place] [address] [place] [address] PCP - General 09/20/17 03/28/22 Abad Byrd MD [address] [place] [address] [place] [address] PCP - General Internal Medicine 03/29/22 12/30/24 Myesha Holbrook PA [address] [place] [address] [place] [address] PCP - General Physician Sleep Manager 12/31/24 documented as of this encounter Additional Source Comments The information contained in this document represents components of the legal health record. It is not the complete legal health record.[facility]
--- OUTSIDE RECORDS SUMMARY | 2025-06-09 09:07 | XMS_ITS | Encounter Summary ---
Author Organization [facility] Address [address] [place] [address] Phone Care Team Providers Care Asset Protection Lead Name Role Phone Abad Byrd MD Primary Care Provider [phone] Myesha Holbrook Primary Care Provide r Encounter Details Date Type Department Care Team (Late st Contact Info) Description 01/04/2023 Procedure Pass [address] [address] Social History Tobacco Use Types Packs/Day Years [...] Team (Late Contact Info) Description 01/30/[address] [address] 07/02/2025 11:00 AM EDT Office Visit [facility] Orthopedics & Sports Medicine [address] [place] [address] Ernie Juarez PA-C [address] [place] [address] Orthopedics & Sports Medicine[place] [address] 07/03/2025 9:20 AM EDT Office Visit [facility] OBGYN & Midwifery [address] [place] [address] Gilberto Payne MD 22 [facility], [address] [place] [address] 08/28/2025 11:15 AM EST Appointment [facility], Mammography- [address] [address] Myesha Holbrook PA [address] [place] [address] [place] [address] documented as of this encounter Visit Diagnoses Not on filedocumented in this encounter Care Teams Asset Protection Lead Relationship Specialty Start Date End Date Abad Byrd MD [address] [place] [address] [place] [address] PCP - General Internal Medicine 03/29/22 12/30/24 Myesha Holbrook PA [address] [place] [address] [place] [address] PCP - General Physician Rumper 12/31/24 documented as of this encounter Additional Source Comments The information contained in this document represents components of the legal health record. It is not the complete legal health record.[facility]
--- OUTSIDE RECORDS SUMMARY | 2025-06-09 09:07 | XMS_ITS | Clinical Summary ---
Author Organization [facility] Address [address] [place] [address] Phone Care Team Providers Care Hand Coper Name Role Phone Myesha Holbrook Primary Care Provide r Allergies Active Allergy Reactions Criticality Noted Date Comments Sohail Inhibitors 12/26/2018 Citalopram 12/26/2018 Hydroxyzine 01/10/2021 Other reaction(s): Other (see comments) Metronidazole 12/26/2018 Other reaction(s): Other (see comments) Scopolamine Anxiety High 06/16/2020 Other reaction(s): Other (see comments) Scopolamine Base Feeling Irritable High 06/16/2020 Sulfa (Sulfonamide Antibiotics) 01/10/2021 Other reaction(s): Other (see comments) Sulfamethoxazole-Trimeth oprim Rash Low 12/26/2018 Sertraline 03/10/2020 Jaw tightness Medications verapamil (CALAN-SR) 240 MG CR tablet Take 240 mg by mouth nightly at bedtime. Active ergocalciferol (DRISDOL) 50,000 unit capsule Take 50,000 Units by mouth once a week. Active VITAMIN B-6 100 MG tablet Take 100 mg by mouth daily. 1 Active atorvastatin (LIPITOR) 20 MG tablet Take 20 mg by mouth daily. 2 Active metoprolol succinate (TOPROL-XL) 50 MG 24 hr tablet Take 1 tablet by mouth every morning. 3 Active valsartan (DIOVAN) 80 MG tablet Take 1 tablet by mouth every morning. 5 Active clotrimazole-betam ethasone (LOTRISONE) cream 5 Active spironolactone (ALDACTONE) 50 MG tablet Take 50 mg by mouth daily. 5 Active estradioL (ESTRACE) 0.01 % (0.1 mg/gram) vaginal creamIndications:V aginal atrophy PLACE 1 GRAM VAGINALLY TWICE A WEEK 42.5 g 3 5 Active furosemide (LASIX) 20 MG tablet TAKE 1 TABLET BY MOUTH EVERY DAY FOR EDEMA 5 Active omeprazole (PRILOSEC) 20 MG capsule Take 1 capsule by mouth every morning. 5 Active antiox #8/om3/dha/epa/lut /zeax (PRESERVISION AREDS 2, OMEGA-3, ORAL) Take by mouth. Active oxyCODONE 5 MG immediate release tabletIndications: Other closed displaced fracture of proximal end of right humerus, initial encounter,Right shoulder pain Take 1-2 tablets by mouth every 4-6 hours as needed for pain. Patient may request partial fill. 30 tablet 5 Active traMADoL (ULTRAM) 50 mg tabletIndications: Other closed displaced fracture of proximal end of right humerus, initial encounter Take 1 tablet (50 mg total) by mouth every 6 (six) hours as needed for pain (specific location in comments). 30 tablet 5 Active ondansetron (ZOFRAN-ODT) 4 MG disintegrating tabletIndications: Nausea Take 1 tablet (4 mg total) by mouth every 8 (eight) hours as needed for nausea. 15 tablet 5 Active Active Problems Problem Noted Date Diagnosed Date Migraine with aura 06/03/2025 Benign essential hypertension 01/04/2021 Renal stone 01/04/2021 Vaginal atrophy 07/22/2019 Cystocele, midline 01/01/2019 Encounters Date Type Department Care Team Description 06/05/2025 Telephone [facility] Orthopedics & Sports Medicine [address] [place] [address] India Ceballos RN Change in medication 06/03/2025 12:19 PM EDT - 06/03/2025 11:59 PM EDT Hospital Encounter [facility] [address] [place] [address] Christo Guaman PA-C Discharge Disposition: Home or Self Care 06/03/2025 12:00 PM EDT Office Visit [facility] [place] [facility] at [address] [address] Christo Guaman PA-C Other closed displaced fracture of proximal end of right humerus, initial encounter (Primary Dx); Right shoulder pain 06/03/2025 10:50 AM EDT Hospital Encounter [facility] [address] [place] [address] Ermelinda Null CNP 06/03/2025 10:45 AM EDT Hospital Encounter [facility] [address] [place] [address] Ermelinda Null CNP 06/03/2025 10:00 AM EDT Office Visit [facility] Care at [address] [address] Ermelinda Null, NUTRITION THERAPIST Fall from steps, initial encounter (Primary Dx); Closed fracture of proximal end of right humerus, unspecified fracture morphology, initial encounter 04/02/2025 10:20 AM EDT Office Visit [facility] [address] [place] [address] Gilberto Payne MD Cystocele, midline (Primary Dx); Vaginal atrophy 03/25/2025 Refill [facility] [address] [place] [address] Gilberto Payne MD Medication Refill from Last 3 Months Immunizations Immunization Administration Dates Next Due COVID-19 (Pre-07/09) Moderna Vaccine, mRNA, PF 0 11/18/2020 Family History Medical History Relation Comments Migraines Child Breast cancer Cousin Maternal Cousin Cardiovascular disease Mother Gout Mother Hypertension Mother Kidney disease Mother Stroke Mother Leukemia Paternal Grandfather Relation Status Comments Child Alive Cousin Mother Paternal Grandfather Social History Tobacco Use Types Packs/Day Years Used Date Smoking Tobacco: Former Smokeless Tobacco: Never Tobacco Cessation:Counseling Given: Not Answered Alcohol Use Standard Drinks/Week Comments Yes 0 [...] Sign Reading Time Taken Comments Blood Pressure 124/68 06/03/2025 10:11 AM EDT Pulse 62 06/03/2025 10:11 AM EDT Temperature 36.6 C (97.8 F) 06/03/2025 10:11 AM EDT Respiratory Rate 17 06/03/2025 10:1 1 AM EDT Oxygen Saturation 98% 06/03/2025 10: 11 AM EDT Inhaled Oxygen Concentration - - Weight 81.6 kg (179 lb 12.8 oz) 12/31/2024 9:57 AM EDT Height 160 cm (5' 3 ) 12/31/2024 9:57 AM EDT Body Mass Index 31.85 12/31/2024 9:57 AM EDT Plan of Treatment Upcoming Encounters Date Type Department Care Team (Late st Contact Info) Description 01/30/2025 Procedure [facility] [address] [place] [address] 07/02/2025 11:00 AM EDT Office Visit [facility] Orthopedics & Sports Medicine [address] [place] [address] Ernie Juarez PA-C [address] [place] [address] [facility] [place] [address] 07/03/2025 9:20 AM EDT Office Visit [facility] [address] [place] [address] Gilberto Payne MD [address] [place] [address], [address] [place] [address] 08/28/2025 11:15 AM EST Appointment [facility], [address] [address] Myesha Holbrook PA [address] [place] [address] Dr Bailey [address] [place] [address] Health Maintenance Due Date Last Done Comments Adult Td,Tdap Booster 1950 CREATININE LEVEL 1950 LIPID PANEL 1950 POTASSIUM LEVEL 1950 DEPRESSION SCREENING 1962 SMOKING Hx and SMOKELESS TOBACCO SCREENING 1963 HEPATITIS C SCREENING 1968 COLOGUARD 1995 COLONOSCOPY 1995 COLORECTAL CANCER SCREENING 1995 FIT TEST 1995 FOBT 1995 SIGMOIDOSCOPY 1995 VIRTUAL COLONOSCOPY 1995 PNEUMOCOCCAL VACCINES (50+ years) (1 of 1 - PCV) 2000 ZOSTER VACCINES (1 of 2) 2000 OSTEOPOROSIS SCREENING INITI AL (ONE-TIME) 2015 PAP SMEAR 04/14/2019 INFLUENZA VACCINE (#1) 2025 RSV VACCINE (1 - 1-dose 75+ series) 2025 COVID-19 VACCINE (3 - 2024-2 6 season) 2025 12/16/2020, 11/18/2020 BLOOD PRESSURE 12/01/2025 06/03/2025 HEPATITIS A VACCINES Aged Out No long er eligible based on patient's age to complete this topic HIB VACCINES Aged Out No longer eligi ble based on patient's age to complete this topic MENINGOCOCCAL VACCINES (ACWY) Aged Out No longer eligible based on patient's age to complete this topic MENINGOCOCCAL VACCINES (B) Aged Out N o longer eligible based on patient's age to complete this topic Medical Devices Not on file Procedures Procedure Name Priority Date/Time Associated Diagnosis Comments XR SHOULDER 1 VIEW (RIGHT) Routine 06/03/2025 12:28 PM EDT Right shoulder pain XR SHOULDER 2 VIEWS (RIGHT) Urgent/patient waiting 06/03/2025 10:50 AM EDT Fall from steps, initial encounter XR CHEST PA AND LATERAL 2 VIEWS Urgent/patient waiting 06/03/2025 10:50 AM EDT Fall from steps, initial encounter from Last 3 Months Results * XR SHOULDER 1 VIEW (RIGHT) (06/03/2025 12:28 PM EDT) Narrative SYSTEMGENERATED, DOCUMENTATION - 06/03/2025 12:28 PM EDT This image report has been auto-finalized and has not been read by a Radiologist. Interpretation has been included in the provider encounter note for this date of service. us Christo Guaman PA-C IMG XR UPPER EXTREMITY Final Result * XR SHOULDER 2 VIEWS (RIGHT) (06/03/2025 10:50 AM EDT) MGB IMG HEAD NURSE COMMENT Comminuted right humeral surgical neck fracture with comminuted greater tuberosity fragment and lipohemarthros is. [facility] Anatomical Region Laterality Modality Shoulder Right Computed Radiogr aphy 06/03/2025 11:0 2 AM EDT Impressions 06/03/2025 11:07 AM EDT Comminuted right humeral surgical neck fracture with comminuted greater tuberosity fragment and lipohemarthrosis. A clinically significant result was initiated on 06/03/2025 11:06 AM, Message ID [id number]. Narrative 06/03/2025 11:07 AM EDT XR SHOULDER 2 OR MORE VIEWS (RIGHT) Referring clinician's provided indication for this examination in Epic: S/P Fall; unable to raise shoulder, limb neurovascularly intact COMPARISON: None FINDINGS: Comminuted right humeral surgical neck fracture involving the greater tuberosity. Humeral head is subluxed inferiorly with lipohemarthrosis in the glenohumeral joint. Acromioclavicular joint is intact. Procedure Note Yovany Osman MD, MPH - 06/03/2025 XR SHOULDER 2 OR MORE VIEWS (RIGHT) Referring clinician's provided indication for this examination in [facility]:S/P Fall; unable to raise shoulder, limb neurovascularly intact COMPARISON: None FINDINGS: Comminuted right humeral surgical neck fracture involving the greatertuberosity. Humeral head is subluxed inferiorly with lipohemarthrosis inthe glenohumeral joint. Acromioclavicular joint is intact. IMPRESSION: Comminuted right humeral surgical neck fracture with comminuted greatertuberosity fragment and lipohemarthrosis. A clinically significant result was initiated on 06/03/2025 11:06 AM,Message ID [id number]. us Ermelinda Null NUTRITION THERAPIST IMG XR UPPER EXTREMITY Taisha l Result * XR CHEST PA AND LATERAL 2 VIEWS (06/03/2025 10:50 AM EDT) Anatomical Region Laterality Modality Chest Computed Radiogr aphy 06/03/2025 11:0 7 AM EDT Impressions 06/03/2025 11:09 AM EDT Comminuted right humeral head and neck fracture. No other acute cardiopulmonary abnormality. Narrative 06/03/2025 11:09 AM EDT XR CHEST PA AND LATERAL 2 VIEWS Referring clinician's provided indication for this examination in [facility]: Trauma; unable to raise shoulder, limb [...] clinician's provided indication for this examination in Epic:Trauma; unable to raise shoulder, limb neurovascularly intact [...] fracture. No other acutecardiopulmonary abnormality. Ermelinda Null NUTRITION THERAPIST IMG XR CHEST Final Resul t from Last 3 Months Insurance MEDICARE PART A & B [employer] [facility] [place] [facility] SUPPLEMENT MEDICARE PART A & B [employer] MEDICARE SUPPLEMENT MEDICARE PART A & B Member Subscriber Plan / Payer ( fective 2018-Present) Name:Aruna Leonard Member ID:[id number] Relation to Subscriber:Self Name:Aruna Leonard Subscriber ID:[id number] Payer ID:[id number] Group ID:Not on file Type:Medicare Address: [facility] [address] [place] [phone] [employer] MEDICARE SUPPLEMENT MEDICARE PART A & B [facility] EXTENSION MEDICARE SUPPLEMENT MEDICARE PART A & B [facility] [employer] MEDICARE SUPPLEMENT MEDICARE PART A & B [facility] MEDICARE SUPPLEMENT MEDICARE PART A & B Member Subscriber Plan / Payer ( fective 2018-) Name:Aruna Leonard Member ID:[id number] Relation to Subscriber:Self Name:Aruna Leonard Subscriber ID:[id number] Payer ID:[id number] Group ID:Not on file Type:Medicare Address: [facility] [address] [place] [phone] [place] [address] EXTENSION MEDICARE SUPPLEMENT MEDICARE PART A & B [facility] [employer]ION MEDICARE SUPPLEMENT MEDICARE PART A & B [facility] [employer] MEDICARE SUPPLEMENT Care Teams Hand Coper Relationship Specialty Start Date End Date Myesha Holbrook PA [address] [place] [address] [place] [address] PCP - General Physician Shift Manager 12/31/24 Additional Source Comments The information contained in this document represents components of the legal health record. It is not the complete legal health record.[facility] [place] [facility]
--- OUTSIDE RECORDS SUMMARY | 2025-06-09 09:07 | XMS_ITS | Patient Health Record ---
Author Organization [facility] Address [address] [place] [address] Care Team Providers Care Mathematics Improvement Teacher Name Role Phone Abad Byrd MD Primary Care Provider Eric Hernandez Unavailable [phone] Allergies Allergen (clinical drug ingredient) Drug/Non Drug [...] times a day Active Vitamin D (Ergocalciferol) 75561 UNIT 1 capsule Orally once a month Active Problems Problem Type SNOMED Code ICD Code Onset Dates Problem Status W/U Status Risk Notes Problem 352082599 Encounter for screening for malignant neoplasm of colon (Z12.11) Active confirmed Problem Screening for malignant neoplasm of rectum (511563155) Encounter for screening for malignant neoplasm of rectum (Z12.12) Active confirmed Problem 10020988 Preprocedural examination (Z01.818) Active confirmed Plan Of Treatment Future Test Test Name Order Date COLONOSCOPY 11/17/2016 Insurance Providers Payer Name Payer Address Payer Phone Subscriber Number Group Number Insured Name Patient Relationship to Insured Coverage Start Date Coverage End Date [employer] [place] [address] [address] [place] [address] [id number] SHILOH MATHIAS Self - patient is the insured Medicare of [facility] [address] [place] [address] [id number] SHILOH MATHIAS Self - patient is the insured Medical (General) History Medical History History ICD Code Kidney stones removed via cystoscopy Hypertension Denies [place],DM,CVA,Lung disease,renal dise ase Gallstone Neg. colon[place] [address] Livingston Visual migraines Surgical History Surgery Date(Month/Year) TAY 1993 Laproscopies for endometrosis Tonsillectomy and adenoidectomy
--- OUTSIDE RECORDS SUMMARY | 2025-06-09 09:07 | XMS_ITS | Encounter Summary ---
Author Organization [facility] Address [address] [place] [address] Phone Care Team Providers Care Director Of Research And Development Name Role Phone Abad Byrd MD Primary Care Provider [phone] Abad Byrd MD Primary Care Provider [phone] Myesha Holbrook Primary Care Provide r Encounter Details Date Type Department Care Team (Late st Contact Info) Description 12/30/2021 Procedure Pass [address] [address] Social History Tobacco Use Types Packs/Day Years [...] st Contact Info) Description 01/30/2025 Procedure Pass [address] [address] 07/02/2025 11:00 AM EDT Office Visit [facility] Orthopedics & Sports Medicine [address] [place] [address] Ernie Juarez PA-C [address] [place] [address] Orthopedics & Sports Medicine, [facility] [place] [address] 07/03/2025 9:20 AM EDT Office Visit [facility] OBGYN & Midwifery [address] [place] [address] Gilberto Payne MD [address] [facility], [address] [place] [address] 08/28/2025 11:15 AM EST Appointment [facility] [address] [place] [address] Myesha Holbrook PA [address] [place] [address] [place] [address] documented as of this encounter Visit Diagnoses Not on filedocumented in this encounter Care Teams Director Of Research And Development Relationship Specialty Start Date End Date Abad Byrd MD [address] [place] [address] [place] [address] PCP - General 09/20/17 03/28/22 Abad Byrd MD [address] [place] [address] [place] [address] PCP - General Internal Medicine 03/29/22 12/30/24 Myesha Holbrook PA [address] [place] [address] [place] [address] PCP - General Physician Special Delivery Clerk 12/31/24 documented as of this encounter Additional Source Comments The information contained in this document represents components of the legal health record. It is not the complete legal health record.[facility]
--- OUTSIDE RECORDS SUMMARY | 2025-06-09 09:07 | XMS_ITS | Clinical Summary ---
Author Organization [facility] Address [address] [address] Care Team Providers Care Steam Station Supervisor Name Role Phone Abad Byrd MD Primary Care Provider [phone] Allergies Active Allergy Reactions Criticality Noted Date [...] 0 Active ergocalciferol (VITAMIN D-2) 1.25 MG (81088 UT) capsule Take 1 capsule by mouth [...] patient's age to complete this topic Insurance [facility] Medicare Care Teams Steam Station Supervisor Relationship Specialty Start Date End Date Abad Byrd MD [address] [place], [place] PCP - General 09/27/20
== END 2025-06-09 09:24 | disposition home or self-care (01) ==
LOC: HO.HMCH 08:13
PROVIDERS: PCP Internal Medicine
DX: S42.91XA Fracture of right shoulder girdle, part unspecified, initial encounter for closed fracture (principal); I10 Essential (primary) hypertension; E66.9 Obesity, unspecified; Z68.32 Body mass index [BMI] 32.0-32.9, adult; E78.5 Hyperlipidemia, unspecified; K21.9 Gastro-esophageal reflux disease without esophagitis; R29.6 Repeated falls; B36.9 Superficial mycosis, unspecified

== ENCOUNTER → 2025-06-09 08:12 | Outpatient (BNVA) | payer MEDICARE, OTHER, SELFPAY | PROVIDERS: PCP Internal Medicine | DX: S42.91XA Fracture of right shoulder girdle, part unspecified, initial encounter for closed fracture (principal); I10 Essential (primary) hypertension; F41.9 Anxiety disorder, unspecified; G43.909 Migraine, unspecified, not intractable, without status migrainosus; E78.5 Hyperlipidemia, unspecified; E66.9 Obesity, unspecified; K21.9 Gastro-esophageal reflux disease without esophagitis; R29.6 Repeated falls; B36.9 Superficial mycosis, unspecified; W19.XXXA Unspecified fall, initial encounter; Y93.9 Activity, unspecified; Y92.9 Unspecified place or not applicable; Y99.9 Unspecified external cause status | CPT/HCPCS: 99212 ==

== ENCOUNTER 2025-08-03 15:06 | Outpatient (AMB) | payer MEDICARE, OTHER, SELFPAY ==
--- NOTE | 2025-08-03 15:34 | MHC.PC.OV ---
Vital Signs 08/03/25 15:45 BP 140/80 H Blood Pressure Location Lt brachial Position Sitting Pulse 66 Pulse Source Pulse Oximeter Temp 98.3 F Temp Source Temporal Artery Scan Pulse Oximetry (%) 98 Oxygen Delivery Method Room Air Intake Visit Reasons: rt knee swelling Intake Note: Patient is here to follow up on HLD, HTN, GERD. Car Builder Required: No Corporate Travel Manager: Present Accompanied by: Self / Same As Patient Allergies citalopram (From CELEXA) Allergy (Severe, Verified 08/03/25 15:49) LOCKJAW, DIFFICULTY SWALLOWING lisinopril (LISINOPRIL) Allergy (Severe, Verified 08/03/25 15:49) COUGH scopolamine (SCOPOLAMINE) Allergy (Severe, Verified 08/03/25 15:49) AGITATION sulfamethoxazole (From BACTRIM) Allergy (Intermediate, Verified 08/03/25 15:49) HIVES sertraline (From Zoloft) Allergy (Mild, Verified 08/03/25 15:49) yawning hydroxyzine (Vistaril) Allergy (Unknown, Verified 08/03/25 15:49) agitation metronidazole (Flagyl) Allergy (Unknown, Verified 08/03/25 15:49) arm paralysis Sulfa (Sulfonamide Antibiotics) Allergy (Unknown, Verified 08/03/25 15:49) rash oxycodone Adverse Reaction (Intermediate, Verified 08/03/25 15:49) Nausea Medication List - Last Reconciled 08/03/25 by Myesha Holbrook PA-C aspirin (Adult Low Dose Aspirin) 81 mg PO DAILY atorvastatin 20 mg PO DAILY ergocalciferol (vitamin D2) 1,250 mcg PO QWEEK furosemide 20 mg PO DAILY metoprolol succinate ER 50 mg PO DAILY 90 days nitrofurantoin macrocrystal 100 mg PO BID PRN nystatin 1 appl topical DAILY omeprazole 20 mg PO DAILY pyridoxine (vitamin B6) 100 mg PO DAILY spironolactone 50 mg PO DAILY tramadol 50 mg PO Q6H PRN valsartan 80 mg PO DAILY verapamil ER 240 mg PO DAILY vitamins A,C,U-qkdl-hopuha 2,148 mcg-113 mg-45 mg-17.4mg (PreserVision AREDS) 1 tab PO BID Tobacco use date assessed: 06/09/25 Fall risk assessment: 1 Fall in past year Last assessed Fall Risk: 06/09/25 Dental Screening Dental Screen Date: 02/17/25 Did you have a dental visit in the last 12 months?: No Did you have a dental problem in the last 6 months where you did not have access to dental care?: No Was dental information given to patient?: No HPI rt knee swelling HPI Details 75-year-old female with past medical history hypertension, migraine, anxiety, depression, osteoporosis and nephrolithiasis last seen 05/2025 coming in for acute problem. Presents with acute onset of left knee pain and swelling, which began on Sunday and has progressively worsened. She associates the onset of symptoms with prolonged sitting on a plastic chair for four days at her daughter's hospital bedside. The pain is located on the side of the knee. She reports a spongy sensation in the leg when walking but denies any pins and needles sensation. Before this visit, the patient was seen at an urgent care facility where a blood clot was suspected, but they were unable to perform an ultrasound and recommended she go to the emergency room. She did not go to the ER at that time due to concerns about a long wait. [facility] Medical History Obesity Post-menopausal Screening for hyperlipidemia Screening for diabetes mellitus Fatigue Mild depression Hypertension Surgical History History of colonoscopy History of surgery History of hysterectomy Family History Father Aneurysm Diabetes Mother Heart disease Maternal Grandmother Colon cancer Brother No problems noted. Sister No problems noted. Son Substance use disorder Son No problems noted. Daughter No problems noted. Daughter Mental health disorder Social History Housing: House Alcohol intake: current Alcohol intake frequency: holidays/special occasions only Patient Tobacco Use Status: Former Tobacco user Tobacco use type: Cigarette Cigarettes Per Day: 2 Years Smoked: 0 Packs per year/per ci.00 e-Cigarette/Vaping Use: Never Used Second Hand Smoke Exposure: Yes service: No Current occupational status: retired Current occupational exposures/hazards: No Cognitive needs: No Hearing needs: No Vision needs: Yes (Glasses) Questionnaire PHQ-9 Over the last 2 weeks, how often have you been bothered by any of the following problems? 1. Little interest or pleasure in doing things: not at all 2. Feeling down, depressed, or hopeless: not at all 3. Trouble falling or staying asleep, or sleeping too much: not at all 4. Feeling tired or having little energy: not at all 5. Poor appetite or overeating: not at all 6. Feeling bad about yourself - or that you are a failure or have let yourself or your family down: not at all 7. Trouble concentrating on things, such as reading the newspaper or watching television: not at all 8. Moving or speaking so slowly that other people could have noticed. Or the opposite - being so fidgety or restless that you have been moving around a lot more than usual: not at all 9. Thoughts that you would be better off or of hurting yourself in some way: not at all Total score: 0 Depression Screening Interpretation: Negative Depression Screening Done: Yes Source: Developed by Drs. Chuck Juares, Viv Youssef, Kody Blunt and colleagues, with an educational preston from [email or web address]. Thrive Questionnaire Date Thrive assessed: 02/17/25 I am a: Patient What is your living situation today?: I have a steady place to live Within the past 12 months, did the food you bought not last and you didn't have the money to get more?: Never true Within the past 12 months, did you worry whether your food would run out before you got money to buy more?: Never true Do you have trouble paying for medicines?: No Do you have trouble getting transportation to medical appointments?: No Do you have trouble paying your heating and electricity bill?: No Do you have trouble taking care of your child, family member or friend?: No Do you have trouble with day-to-day activities such as bathing, preparing meals, shopping, managing finances, etc.?: No Are you currently unemployed and looking for a job?: No Are you interested in more education?: No Please select the resources that you would like help with: None Currently or been in a relationship where the following occur: No concerns reported THRIVE Score: 0 AUDIT C Alcohol Use Questionnaire (AUDIT-C) 1. How often do you have a drink containing alcohol?: 2-4 times a month 2. How many drinks containing alcohol do you have on a typical day when you are drinking?: 1 or 2 3. How often do you have six or more drinks on one occasion?: Never Total Score: 2 JARROD-7 AMB Questionnaire JARROD-7 Date JARROD - 7 assessed: 02/17/25 Feeling nervous, anxious, or on edge: 0 = Not at all Not being able to stop or control worryin = Not at all Worrying too much about different things: 0 = Not at all Trouble relaxin = Not at all Being so restless that it is hard to sit still: 0 = Not at all Becoming easily annoyed or irritable: 0 = Not at all Feeling afraid as if something awful might happen: 0 = Not at all Total JARROD-7 score (0-4 normal; 5-9 mild; 10-14 moderate; 15-21 severe): 0 Source: Developed by Drs. Chuck Juares, Viv Youssef, Kody Blunt and colleagues, with an educational preston from [email or web address]. Review of Systems Const Denies body aches, Denies chills, Denies fever(s), Denies headache(s) and Denies poor appetite Eyes Reports no additional complaints ENT Denies dizziness and Denies headache(s) Card Denies chest pain and Denies dyspnea Resp Denies dyspnea Musc Reports as per HPI and Denies abnormal gait Skin/Breast Reports system reviewed and no additional complaints, except as documented Neuro Denies abnormal gait, Denies dizziness and Denies headache(s) Psych Reports no additional complaints Physical exam (Primary Care) Vital Signs: Last Vital Signs Temp 98.3 F 08/03/25 15:45 Pulse 66 08/03/25 15:45 BP 140/80 H 08/03/25 15:45 Pulse Ox 98 08/03/25 15:45 Oxygen Delivery Method Room Air 08/03/25 15:45 Tobacco/Smoking Status: Tobacco use Status Tobacco use date assessed 06/09/25 08/03/25 15:37 Patient Tobacco Use Status Former Tobacco user 08/03/25 15:37 Tobacco use type Cigarette 08/03/25 15:37 e-Cigarette/Vaping Use Never Used 08/03/25 15:37 PHQ-9: PHQ-9 Score PHQ-9: Total score 0 08/03/25 15:39 Depression Screening Interpretation: Negative Thrive Assessment: Date of Thrive Assessment Date Thrive assessed 02/17/25 08/03/25 15:37 Currently or been in a relationship where the following occur: No concerns reported Const General: cooperative, healthy appearing, comfortable and no acute distress Orientation/consciousness: patient oriented x3 HENMT Head: Yes normocephalic Ears: hearing grossly normal bilaterally General nose exam: Normal external nose present Eyes General: appearance normal, both eyes and all related structures Conjunctivae: conjunctivae normal Neck Neck: Yes full ROM and Yes no lymphadenopathy Resp Effort & Inspection: normal respiratory effort Auscultation: clear to auscultation bilaterally, no crackles, no rales, no rhonchi and no wheezes Cardio Rate: regular rate Rhythm: regular rhythm Skin General skin exam: no rashes or lesions noted Neuro General: patient oriented x3 Gait exam (Neuro): Normal gait present Extrem Other: swelling and tenderness to the medial aspect of the right knee. Redness, warmth, swelling of bilateral calves. Intact strength sensation and pulses in bilateral lower extremities General: Yes normal to inspection, Yes full ROM and No edema Psych Affect: normal affect Attitude: cooperative Insight: Good insight present (Psych) Judgement: Good judgement present (Psych) Coding Level of Care Code Est Pt Level 4 (46107) Diagnoses Right leg swelling M79.89 Assessment & Plan Assessment & Plan (1) Right leg swelling: Code(s): M79.89 - Other specified soft tissue disorders Category: Medical Plan: The patient presents with acute left knee pain and swelling, with clinical suspicion for a deep vein thrombosis (DVT) given the recent prolonged immobility. The differential diagnosis also includes fluid collection from arthritis or other inflammatory conditions. Due to the potential for a DVT, urgent evaluation is necessary. An ultrasound of the leg to rule out DVT and an x-ray to check for fluid collection were planned. However, the outpatient ultrasound department is closed for the day. Given the clinical concern, the patient has been advised to go to the Emergency Room for an immediate ultrasound. I will call the ER to inform them of the patient's impending arrival for a rule-out DVT evaluation. The patient was instructed to seek immediate ER care for any shortness of breath, or worsening calf pain, swelling, redness, or warmth. Plan This note was constructed using voice recognition software. While every effort has been made to ensure accuracy and social media executive, still areas may have been included sometimes these areas may affect the content or meeting of the given symptoms. Total time spent caring for the patient today was 20 minutes. This includes time spent before the visit reviewing the chart, time spent during the visit, and time spent after the visit and documentation. Patient was informed and verbally consented to the use of an ambient scribe for clinic note documentation during this visit. Orders: Orders XR knee RT 2V Today M79.89 - Other specified soft tissue disorders venous duplex LE RT Today M79.89 - Other specified soft tissue disorders
[2025-08-03 15:45] VITALS: BP 140/80; PULSE 66; TEMP 36.8; O2SAT 98
== END 2025-08-03 16:12 | disposition home or self-care (01) ==
LOC: HO.HMCH 15:06
PROVIDERS: PCP Internal Medicine
DX: M79.89 Other specified soft tissue disorders (principal)

== ENCOUNTER 2025-08-03 16:24 | Emergency (ER) | payer MEDICARE, OTHER, SELFPAY ==
--- NOTE | ~2025-08-03 | XR_ITS ---
EXAMINATION: XR KNEE, RIGHT CLINICAL INFORMATION: knee pain. fracture? COMPARISON: None available. TECHNIQUE: Four views of the right knee. FINDINGS: There is loss of medial and patellofemoral compartment joint space. No bony erosive changes. No acute fracture or dislocation. No lytic process. The soft tissues are normal. XR/XR knee RT 4V IMPRESSION: Mild degenerative changes right knee. No visible acute fracture or dislocation. Electronically signed by: Suresh Zuniga MD 08/04/2025 08:17 AM KE[facility]
--- NOTE | ~2025-08-03 | US_ITS ---
CLINICAL HISTORY: Right leg swelling. DVT? Venous duplex ultrasound right lower extremity Comparison: None provided Findings: The visualized deep veins are fully compressible with normal Doppler color flow and spectral tracings. Superficial vein thrombosis of the proximal to mid calf. No popliteal cyst. IMPRESSION: Negative for right lower extremity deep vein thrombosis. There is Superficial vein thrombosis of the calf. This document has been electronically signed by: Mara Carter MD on 08/03/2025 19:08:23
[2025-08-03 17:02] VITALS: BP 149/77; PULSE 75; RESP 16; TEMP 36.1; O2SAT 96; BMI 33.5
--- NOTE | 2025-08-03 17:09 | ED_ITS ---
HPI - General Adult General Chief complaint: Extremity Problem Stated complaint: Blood Clot Time Seen by Provider: 08/03/25 21:50 Source: patient Mode of arrival: ambulatory Limitations: no limitations History of Present Illness ED Provider: Dr. Shayna Severino HPI narrative: 75-year-old female with history hypertension presenting with right lower extremity pain and swelling ongoing for the last several days after she had spent about 4 days at the bedside of her daughter while in the hospital. She states that she has sat in a chair for 4 days straight and did not get up much. Three days ago, her pain started to develop particularly in the medial aspect of the right knee. She went to an urgent care today and was told to come to the emergency department for evaluation. Called her primary care doctor who again urged her to come to the hospital for an ultrasound DVT study. Patient has had no fever, redness of the skin or weakness in her foot. Occasionally will have tingling sensation in the right foot but otherwise feels well. No chest pain or difficulty breathing. She does not take anticoagulation. Related Data Home Medications ?Medication ?Instructions ?Recorded ?Confirmed aspirin 81 mg tablet,delayed 81 mg PO DAILY 11/15/20 1 10/03/24 release (Adult Low Dose Aspirin) nitrofurantoin macrocrystal 100 mg 100 mg PO BID PRN 0 01/21/24 08/03/25 capsule vitamins A,C,R-fzxa-zmljll 2,148 1 tab PO BID 01/21/24 08/03/25 mcg-113 mg-45 mg-17.4 mg tablet (PreserVision AREDS) pyridoxine (vitamin B6) 100 mg 100 mg PO DAILY 4 08/03/25 tablet tramadol 50 mg tablet 50 mg PO Q6H PRN 06/09/25 Previous Rx's ?Medication ?Instructions ?Recorded metoprolol succinate 50 mg 50 mg PO DAILY 90 days #90 tabs 07/02/24 tablet,extended release 24 hr verapamil 240 mg tablet,extended 240 mg PO DAILY #90 t abs 07/13/24 release atorvastatin 20 mg tablet 20 mg PO DAILY #90 tabs 08/18 03/10 ergocalciferol (vitamin D2) 1,250 1,250 mcg PO QWEEK # 14 caps 12/05/24 mcg (50,000 unit) capsule spironolactone 50 mg tablet 50 mg PO DAILY #90 tabs valsartan 80 mg tablet 80 mg PO DAILY #90 tabs 06/11 omeprazole 20 mg capsule,delayed 20 mg PO DAILY #90 ca ps 05/11/25 release furosemide 20 mg tablet 20 mg PO DAILY for edema #90 tabs 05/13/25 nystatin 100,000 unit/gram topical 1 appl topical ELLA Y #30 grams 06/09/25 powder Allergies Allergy/AdvReac Type Severity Reaction Status Date / Time citalopram (From CELEXA) Allergy Severe LOCKJAW, Verified 08/03/25 17:05 DIFFICULTY SWALLOWING lisinopril (LISINOPRIL) Allergy Severe COUGH Verified 08/03/25 17:05 scopolamine (SCOPOLAMINE) Allergy Severe AGITATION Verified 08/03/25 17:05 sulfamethoxazole (From Allergy Intermediate HIVES Verified 08/03/25 17:05 BACTRIM) sertraline (From Zoloft) Allergy Mild yawning Verified 08/03/25 17:05 hydroxyzine (Vistaril) Allergy Unknown agitation Verified 08/03/25 17:05 metronidazole (Flagyl) Allergy Unknown arm Verified 08/03/25 17:05 paralysis Sulfa (Sulfonamide Allergy Unknown rash Verified 08/03/25 17:05 Antibiotics) oxycodone AdvReac Intermediate Nausea Verified 08/03/25 17:05 Review of Systems 2 Review of Systems: as per HPI, full review of systems performed and negative but for the above mentioned pertinent positives and negatives. [facility] Past Medical History Medical History Obesity Post-menopausal Screening for hyperlipidemia Screening for diabetes mellitus Fatigue Mild depression Hypertension Surgical History History of colonoscopy History of surgery History of hysterectomy Family History Family History Father Aneurysm Diabetes Mother Heart disease Maternal Grandmother Colon cancer Brother No problems noted. Sister No problems noted. Son Substance use disorder Son No problems noted. Daughter No problems noted. Daughter Mental health disorder Social History Social History Housing: House Alcohol intake: current Alcohol intake frequency: holidays/special occasions only Patient Tobacco Use Status: Former Tobacco user Tobacco use type: Cigarette Cigarettes Per Day: 2 Years Smoked: 0 e-Cigarette/Vaping Use: Never Used Second Hand Smoke Exposure: Yes Advance Directives: No Advance Directives Information Provided: No service: No Current occupational status: retired Current occupational exposures/hazards: No Cognitive needs: No Hearing needs: No Vision needs: Yes (Glasses) Physical Exam ED Exam Exam: GENERAL: Nontoxic-appearing, conversant, no acute distress. SKIN: Normal skin color for ethnicity, warm, dry, no rashes noted. HEENT: Normocephalic, atraumatic, no stridor, posterior oropharynx nonerythematous, EOMI. NECK: Soft, supple, full ROM, midline structures nontender, no step-offs, no deformities, no lymphadenopathy. CHEST: Heart regular rate and rhythm, no murmurs, symmetric chest rise and fall. PULMONARY: Clear to auscultation bilaterally, no labored breathing, no wheezes/rhales/ rhonchi. ABDOMINAL: Soft, nondistended, nontender, positive bowel sounds in all quadrants. : Deferred. MUSCULOSKELETAL: Normal tone, full range of motion, no deformities, nonpitting edema in the right lower extremity minimal compared to left, full active range of motion of the right knee, neurovascularly intact distally. NEURO: Alert and oriented to person, CN II through XII intact, no focal neurologic deficits. PSYCHIATRIC: Flat affect, fluid speech, appropriate demeanor. Vital Signs: Vital Signs - 24 hr 08/03/25 17:02 08/03/25 20:12 08/03/25 22:17 Temperature 97 F 98.3 F 97.6 F Pulse Rate 75 77 67 Respiratory Rate 16 16 16 Blood Pressure 149/77 H 149/63 H 147/65 H Pulse Oximetry 96 98 96 Oxygen Delivery Method Room Air Room Air Room Air 08/03/25 22:21 Temperature 97.6 F Pulse Rate 67 Respiratory Rate 16 Blood Pressure 147/65 H Pulse Oximetry 96 Oxygen Delivery Method Room Air BMI result Body Mass Index 33.5 Course Course Course Narrative: RME: 75-year-old female presents to ED for right posterior knee calf pain swelling. Patient is sent to rule out blood clot. Patient states having pain without any trauma. Labs images ordered Medical Decision Making Medical Decision Making [facility] Narrative: 75-year-old female with a history of hypertension presenting with right lower extremity edema and pain. Differential diagnosis includes DVT, Jeffers's cyst, knee sprain, superficial thrombophlebitis, cellulitis, less likely heart failure given the unilateral symptoms, among others. Ultrasound shows evidence of superficial thrombophlebitis. No DVT. Discussed with the patient importance of keeping active, not resting her leg much and using warm compresses for pain. Discussed anticoagulation and I encouraged her to follow up with her primary care doctor. There is no indication at this time for oral anticoagulation including aspirin. Using shared decision making, plan for discharge home to follow-up with primary care and/or specialist. Patient understands and agrees with plan for discharge. Discharged home in stable condition. Differential Diagnosis Differential Diagnoses: The differential diagnosis associated with the presentation includes (As above) Admission/Observation Consideration of admission/observation: Escalation of care including admission/observation considered Lab Data [facility] Lab Attestation statement: I reviewed the patient's lab results. 08/03/25 17:12 08/03/25 17:12 Labs: Lab Results 08/03/25 Range/Units 17:12 WBC 7.5 (4.8-10.8) X10*3/uL RBC 3.88 L (4.20-5.50) X10*6/uL Hgb 12.5 (12.0-16.0) g/dl Hct 38.5 (37.0-47.0) % MCV 99.2 H (80.0-98.0) fL MCH 32.2 (27.0-33.0) pg MCHC 32.5 (31.0-35.0) g/dl RDW 12.9 (11.0-16.0) % Plt Count 282 (160-400) X10*3/uL MPV 8.7 L (9.4-12.3) fL Immature Gran % (Auto) 0.4 (0.0-0.4) % Neut % (Auto) 65.3 (45-73) % Lymph % (Auto) 25.5 (20-40) % Gonzales % (Auto) 6.2 (2-11) % Eos % (Auto) 2.1 (0-4) % Baso % (Auto) 0.5 (0-2) % Lymph # (Auto) 1.9 (1.2-4.9) X10*3/uL Gonzales # (Auto) 0.5 (0.1-1.2) X10*3/uL Eos # (Auto) 0.2 (0.0-0.4) X10*3/uL Baso # (Auto) 0.0 (0.0-0.2) X10*3/uL Abs Immat Gran (auto) 0.03 (0.00-0.03) X10*3/uL Absolute Neuts (auto) 4.9 (2.0-8.3) x10*3/uL Absolute Nucleated RBC 0.000 (0.0-0.012) X10*3/uL Nucleated RBC % (auto) 0.0 (0.0-0.2) /100WBC PT 12.7 (11.2-13.5) SEC INR 1.0 (0.9-1.1) APTT 25.9 L (26.7-34.1) SEC Sodium 141 (135-145) mmol/L Potassium 3.8 D (3.3-5.1) mmol/L Chloride 108 (96-108) mmol/L Carbon Dioxide 23 (22-29) mmol/L Anion Gap 14 (12-20) BUN 18 H (9-16) mg/dL Creatinine 0.99 (0.5-1.4) mg/dL Estim Creat Clear Calc 49.0 Estimated GFR 55 Random Glucose 91 (60-115) mg/dL Calcium 9.8 (8.4-10.2) mg/dL Total Bilirubin 0.3 (0.0-1.0) mg/dL AST 28 (5-31) U/L ALT 25 (0-31) U/L Alkaline Phosphatase 101 (39-117) U/L Total Protein 7.4 (6.5-8.0) g/dL Albumin 4.5 (3.5-5.0) g/dL Independent Interpretation I performed an independent interpretation of an: Plain X-Ray Interpretation: No bony abnormality, significant arthritic changes of the right knee. Radiology Impression Discussion of test interpretation with radiology: I have reviewed the radiologist's reading. Radiologist Impression: Venous duplex ultrasound right lower extremity Comparison: None provided Findings: The visualized deep veins are fully compressible with normal Doppler color flow and spectral tracings. Superficial vein thrombosis of the proximal to mid calf. No popliteal cyst. IMPRESSION: Negative for right lower extremity deep vein thrombosis. There is Superficial vein thrombosis of the calf. Independent Historian Clinical information obtained from an independent historian. History obtained from or confirmed by: Other (son) External Record Review External record reviewed: Inpatient record Prescription Management I considered prescription management with: Pain Medication Chronic Conditions Patient?s care impacted by: Hypertension Discharge Plan Discharge Clinical Impression: Superficial thrombophlebitis of right leg, Acute pain of right lower extremity Patient Disposition: Home, Self-Care Instructions: Superficial Thrombophlebitis (ED) Additional Instructions: Keep a close eye on your symptoms over the next several days. If you develop worsening pain or swelling, worsening tingling or weakness in your foot or fever greater than 100?, you should return to the emergency department immediately. Otherwise, follow up with your primary care doctor as soon as possible. It is not necessary to take anticoagulation (aspirin) unless your doctor directs you to do so. Call 911 with any medical emergency. In the meantime, use warm compresses over the area that is painful in your leg. After a couple of days, switch to ice. It may help to wear compression stockings to help with the swelling. You can get these at any medical supply store or pharmacy. Prescriptions: No Action metoprolol succinate 50 mg tablet extended release 24 hr 50 mg PO DAILY 90 Days Qty: 90 3RF verapamil 240 mg tablet extended release 240 mg PO DAILY Qty: 90 8RF atorvastatin 20 mg tablet 20 mg PO DAILY Qty: 90 4RF ergocalciferol (vitamin D2) 1,250 mcg (50,000 unit) capsule 1,250 mcg PO QWEEK Qty: 14 10RF spironolactone 50 mg tablet 50 mg PO DAILY Qty: 90 3RF valsartan 80 mg tablet 80 mg PO DAILY Qty: 90 3RF omeprazole 20 mg capsule,delayed release(DR/EC) 20 mg PO DAILY Qty: 90 0RF furosemide 20 mg tablet 20 mg PO DAILY Qty: 90 1RF aspirin [Adult Low Dose Aspirin] 81 mg tablet,delayed release (DR/EC) 81 mg PO DAILY tramadol 50 mg tablet 50 mg PO Q6H PRN nystatin 100,000 unit/gram powder 1 appl topical DAILY Qty: 30 0RF PreserVision AREDS 2,148 mcg-113 mg-45 mg-17.4mg tablet 1 tab PO BID Rx Instructions: administer with AM and PM meals nitrofurantoin macrocrystal 100 mg capsule 100 mg PO BID PRN pyridoxine (vitamin B6) 100 mg tablet 100 mg PO DAILY Rx Instructions: Every other day Interventions: ED Discharge Assessment Last Done: 08/03/25 22:21 Discharge Date/Time: 08/03/25 22:21 Print Language: Maltese
[2025-08-03 17:16] LABS: MANUAL DIFF FLAG NO
[2025-08-03 17:18] LABS: Hematocrit 38.5 % (37.0-47.0); Hemoglobin 12.5 g/dl (12.0-16.0); Imm Gran Abs Auto 0.03 X10*3/uL (0.00-0.03); Imm Gran Pct Auto 0.4 % (0.0-0.4); Lymphocytes Absolute Auto 1.9 X10*3/uL (1.2-4.9); Mean Corpuscular HGB Conc 32.5 g/dl (31.0-35.0); Mean Corpuscular Hemoglobin 32.2 pg (27.0-33.0); Mean Corpuscular Volume 99.2 fL (80.0-98.0); NRBC Abs Auto 0.000 X10*3/uL (0.0-0.012); NRBC Pct Auto 0.0 /100WBC (0.0-0.2); Platelet Count 282 X10*3/uL (160-400); Red Blood Count 3.88 X10*6/uL (4.20-5.50); White Blood Count 7.5 X10*3/uL (4.8-10.8)
[2025-08-03 17:30] LABS: Alanine Aminotransferase 25 U/L (0-31); Albumin Level 4.5 g/dL (3.5-5.0); Alkaline Phosphatase 101 U/L (39-117); Anion Gap 14 (12-20); Aspartate Amino Transferase 28 U/L (5-31); Blood Urea Nitrogen 18 mg/dL (9-16); Calcium 9.8 mg/dL (8.4-10.2); Carbon Dioxide 23 mmol/L (22-29); Chloride 108 mmol/L (96-108); Creatinine Clr Calc Pharmacy 49.0; Estimated Glomerular Filt Rate 55; Potassium 3.8 mmol/L (3.3-5.1); Sodium 141 mmol/L (135-145); Total Protein 7.4 g/dL (6.5-8.0)
[2025-08-03 17:34] LABS: INTERNATIONAL NORM RATIO 1.0 (0.9-1.1); Prothrombin Time 12.7 SEC (11.2-13.5)
[2025-08-03 17:37] LABS: Partial Thromboplastin Time 25.9 SEC (26.7-34.1)
[2025-08-03 20:12] VITALS: BP 149/63; PULSE 77; RESP 16; TEMP 36.8; O2SAT 98
[2025-08-03 22:17] VITALS: BP 147/65; PULSE 67; RESP 16; TEMP 36.4; O2SAT 96
[2025-08-03 22:21] VITALS: BP 147/65; PULSE 67; RESP 16; TEMP 36.4; O2SAT 96
== END 2025-08-03 22:21 | disposition home or self-care (01) ==
PROVIDERS: Physician Assistant; Emergency Provider Emergency Medicine
DX: I80.01 Phlebitis and thrombophlebitis of superficial vessels of right lower extremity (principal); M79.604 Pain in right leg; R60.0 Localized edema; Z79.899 Other long term (current) drug therapy
CPT/HCPCS: 36415; 73564; 80053; 85025; 85610; 85730; 93971; 99212; 99283; 99284

== ENCOUNTER → 2025-08-03 17:05 | Outpatient (BNV) | payer MEDICARE, OTHER, SELFPAY | PROVIDERS: Visit Provider Nuclear Medicine | DX: M17.11 Unilateral primary osteoarthritis, right knee (principal) | CPT/HCPCS: 73564; 93971 ==

== ENCOUNTER 2025-09-08 08:24 | Outpatient (AMB) | payer MEDICARE, OTHER, SELFPAY ==
--- OUTSIDE RECORDS SUMMARY | 2020-12-30 16:13 | XMS_ITS | Encounter Summary ---
Author Organization [facility] Address [address] [place] [address] Phone Care Team Providers Care Jig Grinder Name Role Phone Abad Byrd MD Primary Care Provider Encounter Details Date Type Department Care Team (Late st Contact Info) Description 12/30/2020 5:13 PM EDT Hospital Encounter [facility] [address] [place] [address] Kahlil Tavarez PA [address] [place] [phone] [email or web address] Social History Tobacco Use Types Packs/Day Years Used Date Smoking Tobacco: Former Smokeless Tobacco: Never Alcohol Use Standard Drinks/Week Comments Yes 0 (1 standard drink = 0.6 oz pur e alcohol) Education Answer Date Recorded Are you interested in more education? Not on irving e 01/12/2023 Are you concerned about learning? Not on file 01/12/2023 No 01/12/2023 No 01/12/2023 Digital Access Answer Date Recorded No 02/10/2023 No 02/10/2023 Reliable internet access at home? Not on file 02/10/2023 Device with a working camera? Not on file Comments No Sex and Gender Information Value Date Recorded Sex Assigned at Not on file Legal Sex Female 10:02 PM EDT Gender Identity Not on file Sexual Orientation Not on file documented as of this encounter Plan of Treatment Upcoming Encounters Date Type Department Care Team (Late st Contact Info) Description 09/15/2025 10:00 AM EST Office Visit [facility] [address] [place] [address] Odilia Palacios PA-C 4 [facility], [place] [address] Fabi Santos, PT [address] [place] [address] 09/18/2025 10:15 AM EST Office Visit [facility] Physical Therapy [address] [address] Odilia Palacios PA-C 4 [facility], [place] [address] Fabi Santos, PT [address] [place] [address] 09/22/2025 10:20 AM EST Office Visit [facility] [address] [place] [address] Odilia Palacios PA-C [address] [place], [place] [address]s [place] [address] 10/06/2025 10:40 AM EST Office Visit [facility] Obstetrics and Gynecology Clinic [address] [place] [address] Gilberto Payne MD [address] [place] [address], [address] [address] documented as of this encounter Procedures Procedure Name Priority Date/Time Associated Diagnosis Comments XR FOOT 3 OR MORE VIEWS (LEFT) Urgent/patient waiting 12/30/2020 5:18 PM EDT Contusion of left foot, initial encounter documented in this encounter Results * XR FOOT 3 OR MORE VIEWS (LEFT) (12/30/2020 5:18 PM EDT) Anatomical Region Laterality Modality Foot Left Computed Radiogr aphy 12/30/2020 5:30 PM EDT Impressions 12/30/2020 5:34 PM EDT There is a small avulsion fracture fragment at the dorsal aspect of the distal navicular. Overlying soft tissue swelling. No additional fractures within the fifth. Plantar calcaneal spur. Critical results were communicated and documented using the Alert Notification of Critical Radiology Results (ANCR) system. Narrative 12/30/2020 5:34 PM EDT TECHNIQUE: XR FOOT 3 OR MORE VIEWS (LEFT) COMPARISON: None Procedure Note Jonathan Llanes MD, PhD - 12/30/2020 TECHNIQUE: XR FOOT 3 OR MORE VIEWS (LEFT) COMPARISON: None IMPRESSION: There is a small avulsion fracture fragment at the dorsal aspect of thedistal navicular. Overlying soft tissue swelling. No additional fractureswithin the fifth. Plantar calcaneal spur. Critical results were communicated and documented using the AlertNotification of Critical Radiology Results (ANCR) system. Kahlil HIGHTOWER IMG XR LOWER EXTREMITY Taisha l Result documented in this encounter Visit Diagnoses Not on filedocumented in this encounter Care Teams Jig Grinder Relationship Specialty Start Date End Date Abad Byrd MD [address] [place] [address] [place] [address] PCP - General 09/20/17 03/28/22 documented as of this encounter Additional Source Comments The information contained in this document represents components of the legal health record. It is not the complete legal health record.[facility]
--- OUTSIDE RECORDS SUMMARY | 2025-06-03 09:45 | XMS_ITS | Encounter Summary ---
Author Organization [facility] Address [address] [place] [address] [place] [address] Phone Care Team Providers Care Photoengraving Finisher Name Role Phone Myesha Holbrook Primary Care Provide r Encounter Details Date Type Department Care Team (Late st Contact Info) Description 06/03/2025 10:45 AM EDT Hospital Encounter [facility] [address] [place] [address] Ermelinda Null CNP [address] [place] [address] [email or web address] Social History Tobacco Use Types Packs/Day Years [...] Description 09/15/2025 10:00 AM EST Office Visit [facility] Clinic [address] [place] [address] Odilia Palacios PA-C 4 [facility] Orthopedics Sports [facility], [place] [address] Fabi Santos, PT [address] [place] [address] 09/18/2025 10:15 AM EST Office Visit [facility] Physical Therapy [address] [address] Odilia Palacios PA-C 4 [facility] Orthopedics Sports [facility], [place] [address] Fabi Santos, PT [address] [place] [address] 09/22/2025 10:20 AM EST Office Visit [facility] [address] [place] [address] Odilia Palacios PA-C [address] [place] [address] Orthopedics Sports [facility], [place] [address] 10/06/2025 10:40 AM EST Office Visit [facility] Obstetrics and Gynecology Clinic [address] [place] [address] [place] [address] Gilberto Payne MD [address] [place] [address], [address] [place] [address] documented as of this encounter Procedures Procedure Name Priority Date/Time Associated Diagnosis Comments XR CHEST PA AND LATERAL 2 VIEWS Urgent/patient waiting 06/03/2025 10:50 AM EDT Fall from steps, initial encounter documented in this encounter Results * XR CHEST PA AND LATERAL 2 VIEWS (06/03/2025 10:50 AM EDT) Anatomical Region Laterality Modality Chest Computed Radiogr aphy 06/03/2025 11:0 7 AM EDT Impressions 06/03/2025 11:09 AM EDT Comminuted right humeral head and neck fracture. No other acute cardiopulmonary abnormality. Narrative 06/03/2025 11:09 AM EDT XR CHEST PA AND LATERAL 2 VIEWS Referring clinician's provided indication for this examination in [facility]: Trauma; unable to raise shoulder, limb neurovascularly intact COMPARISON: None FINDINGS: Devices/Tubes/Lines: None. Lungs: Normal. The lungs are clear. No focal consolidation or pulmonary edema. Pleura: There is focal eventration of the right diaphragm. No pleural effusion or pneumothorax identified. Heart/Mediastinum: Cardiac silhouette is within normal limits for size. Bones/Soft Tissues: Degenerative changes of the spine are present with kyphosis. Acute comminuted right humeral head and neck fracture, without dislocation. Procedure Note Eveline Mcgregor MD, PhD - 06/03/2025 XR CHEST PA AND LATERAL 2 VIEWS Referring clinician's provided indication for this examination in [facility]:Trauma; unable to raise shoulder, limb neurovascularly intact COMPARISON: None FINDINGS: Devices/Tubes/Lines: None. Lungs: Normal. The lungs are clear. No focal consolidation or pulmonaryedema. Pleura: There is focal eventration of the right diaphragm. No pleuraleffusion or pneumothorax identified. Heart/Mediastinum: Cardiac silhouette is within normal limits for size. Bones/Soft Tissues: Degenerative changes of the spine are present withkyphosis. Acute comminuted right humeral head and neck fracture, withoutdislocation. IMPRESSION: Comminuted right humeral head and neck fracture. No other acutecardiopulmonary abnormality. Ermelinda Null HOTEL CONTROLLER IMG XR CHEST Final Resul t documented in this encounter Visit Diagnoses Not on filedocumented in this encounter Care Teams Photoengraving Finisher Relationship Specialty Start Date End Date Myesha Holbrook PA [address] [place] [address] [place] [address] PCP - General Physician Datapower Developer 12/31/24 documented as of this encounter Additional Source Comments The information contained in this document represents components of the legal health record. It is not the complete legal health record.[facility]
--- OUTSIDE RECORDS SUMMARY | 2025-06-03 09:50 | XMS_ITS | Encounter Summary ---
Author Organization [facility] Address [address] [place] [address] [place] [address] Phone Care Team Providers Care Pressroom Supervisor Name Role Phone Myesha Holbrook Primary Care Provide r Encounter Details Date Type Department Care Team (Late st Contact Info) Description 06/03/2025 10:50 AM EDT Hospital Encounter [facility] [address] [place] [address] Ermelinda Null CNP [address] [place] [address] [email or web address] Social History Tobacco Use Types Packs/Day Years [...] Description 09/15/2025 10:00 AM EST Office Visit [facility] Physical Therapy Clinic [address] [place] [address] Odilia Palacios PA-C 4 [facility] Orthopedics [facility] [place] [address] Fabi Santos, PT [address] [place] [address] 09/18/2025 10:15 AM EST Office Visit [facility] Physical Therapy [address] [address] Odilia Palacios PA-C 4 [facility] Orthopedics [facility] [place] [address] Fabi Santos, PT [address] [place] [address] 09/22/2025 10:20 AM EST Office Visit [facility] Orthopedics and Sports Medicine Clinic [address] [place] [address] Odilia Palacios PA-C [address] [place] [address] Orthopedics [facility] [place] [address] 10/06/2025 10:40 AM EST Office Visit [facility] Obstetrics and Gynecology Clinic [address] [place] [address] Gilberto Payne MD [address] [place] [address], [address] [place] [address] documented as of this encounter Procedures Procedure Name Priority Date/Time Associated Diagnosis Comments XR SHOULDER 2 VIEWS (RIGHT) Urgent/patient waiting 06/03/2025 10:50 AM EDT Fall from steps, initial encounter documented in this encounter Results * XR SHOULDER 2 VIEWS (RIGHT) (06/03/2025 10:50 AM EDT) MGB IMG MAINTENANCE TECH COMMENT Comminuted right humeral surgical neck fracture with comminuted greater tuberosity fragment and lipohemarthros is. [facility] Anatomical Region Laterality Modality Shoulder Right Computed Radiogr aphy 06/03/2025 11:0 2 AM EDT Impressions 06/03/2025 11:07 AM EDT Comminuted right humeral surgical neck fracture with comminuted greater tuberosity fragment and lipohemarthrosis. A clinically significant result was initiated on 06/03/2025 11:06 AM, Message ID [id number]. Narrative 06/03/2025 11:07 AM EDT XR SHOULDER 2 OR MORE VIEWS (RIGHT) Referring clinician's provided indication for this examination in [facility]: S/P Fall; unable to raise shoulder, limb neurovascularly intact COMPARISON: None FINDINGS: Comminuted right humeral surgical neck fracture involving the greater tuberosity. Humeral head is subluxed inferiorly with lipohemarthrosis in the glenohumeral joint. Acromioclavicular joint is intact. Procedure Note Yovany Osman MD, MPH - 06/03/2025 XR SHOULDER 2 OR MORE VIEWS (RIGHT) Referring clinician's provided indication for this examination in [facility]:S/P Fall; unable to raise shoulder, limb neurovascularly intact COMPARISON: None FINDINGS: Comminuted right humeral surgical neck fracture involving the greatertuberosity. Humeral head is subluxed inferiorly with lipohemarthrosis inthe glenohumeral joint. Acromioclavicular joint is intact. IMPRESSION: Comminuted right humeral surgical neck fracture with comminuted greatertuberosity fragment and lipohemarthrosis. A clinically significant result was initiated on 06/03/2025 11:06 AM,Message ID [id number]. Ermelinda Gandhi Tennille LEAD INJECTION MOLD TECHNICIAN IMG XR UPPER EXTREMITY Taisha l Result documented in this encounter Visit Diagnoses Not on filedocumented in this encounter Care Teams Pressroom Supervisor Relationship Specialty Start Date End Date Myesha Holbrook PA [address] [place] [address] Dr [address] [place] [address] PCP - General Physician Roofing Laborer 12/31/24 documented as of this encounter Additional Source Comments The information contained in this document represents components of the legal health record. It is not the complete legal health record.[facility]
--- OUTSIDE RECORDS SUMMARY | 2025-09-07 09:00 | XMS_ITS | Encounter Summary ---
Author Organization [facility] Address [address] [place] [address] Phone Care Team Providers Care Education And Training Coordinator Name Role Phone Myesha Holbrook Primary Care Provide r Reason for Visit * Physical Therapy (Routine) - Authorized Specialty Diagnoses / Procedures Referred By Rachel gibbs Referred To Contact Physical Therapy Diagnoses Other closed displaced fracture of proximal end of right humerus with routine healing, subsequent encounter Odilia Palacios PA-C 4 [facility] [place] [address] Phone: tel: fax: [email or web address] [address] [place] [address] Phone: tel: Referral ID Status Reason Start Date Expiration Date V isits Requested Visits Authorized [id number] Authorized 07/08/2025 07/08/2026 99 99 Encounter Details Date Type Department Care Team (Late st Contact Info) Description 09/07/2025 9:00 AM EST Office Visit [facility] [address] [place] [address] Odilia Palacios PA-C 4 [facility] Orthopedics Sports Medicine, [place] [address] Fabi Santos, PT [address] [place] [address] Acute pain of right shoulder (Primary Dx); Other closed displaced fracture of proximal end of right humerus with routine healing, subsequent encounter Social History Tobacco Use Types Packs/Day Years [...] as of this encounter Progress Notes * Fabi Santos, PT - 09/07/2025 9:00 AM EST Subject Line: Treatment Note Physical Therapy Treatment Note Patient Name: Aruna Leonard Date of : 1950 Referring MD: Odilia Palacios PA-C [address] [place] [address] Orth[facility]ics [facility] Sports Medicine, [place] [address] Evaluation Date: SOC Date: 07/08/25 Treatment Diagnosis: ICD-10-CM 1. Acute pain of right shoulder M25.511 2. Other closed displaced fracture of proximal end of right humerus with routine healing, subsequent encounter S42.291D Precautions/ Safety: Per ortho 07/02: NWB R UE, no lifting, AAROM and AROM to tolerance -- weight less than 3lbs per ortho 08/11 This patient has attended 12 visits since the onset Physical Therapy. SUBJECTIVE: Pt reports she is doing okay, continues to have pain along the humerus. Notes she has clicking and sometime with certain movements shooting/sharp pain. Ortho 08/11/25: Imaging studies: Xray right shoulder taken to assess fracture. Humeral head located in glenoid, Greater tuberosity fracture healing, humeral head maintaining acceptable alignment. Message from ortho following appointment: Continue to work on shoulder ROM, can add gentle strength such as isometrics, bands, less than 3lbs. She is progressing typically. MRI not indicated as patient does not want surgery, nor is she a candidate based on age. Most likely has rotator cuff injury. Treatment Interventions: See encounter report for minutes associated with each intervention. Therapeutic Exercise x 35 min: Pulleys x3 min to tolerance -- continues to demonstrate improving tolerance Towel flexion up wall 2x10 RTB rows 2x10 RTB ext 2x10 Seated bicep curl 2# on R 2x10 with elbow supported on arm rest Standing reach to first shelf in cabinet x10 on R, added 1# 2x10 on R Standing rhythmic stab on R CW/CCW x1 min ea at wall Elevated head of table, 2# on glider flexion x10 on R and scaption slides x10 on R MHP to R shoulder x10 min - no charge Home Exercise Program: Access Code: [email or web address] URL: [email or web address] Date: 07/08/2025 Prepared by: Fabi Exercises - Seated Bilateral Shoulder Flexion Towel Slide at Table Top - 2 x daily - 7 x weekly - 2-3 sets - 10 reps - Seated Scapular Retraction - 2 x daily - 7 x weekly - 2-3 sets - 10 reps - Supine Shoulder Flexion Extension AAROM with Dowel - 7 x weekly - 2 sets - 10 reps -- or Reps 5, Sets 4 (to tolerance) - Pulleys 1-2x/day, 10-20 reps - Towel flexion at wall -- in shower (not printed) - Isometric Shoulder Flexion at Wall - 3 x weekly - 1-2 sets - 10 reps - 3-5 sec hold - Isometric Shoulder Extension at Wall - 3 x weekly - 1-2 sets - 10 reps - 3-5 sec hold - Isometric Shoulder Abduction at Wall - 3 x weekly - 1-2 sets - 10 reps - 3-5 sec hold - Standing Shoulder Row with Anchored Resistance - 3 x weekly - 2 sets - 10 reps - Shoulder extension with resistance - Neutral - 3 x weekly - 2 sets - 10 reps ASSESSMENT: Pt provided with updated HEP printout, demonstrated and verbalized understanding. Pt reports feeling a little sore at end of session. Will re- assess next week to see where patient stands and re-assess POC at that point. PLAN: ROM restorationism is initial focus, per ortho no lifting and NWB Fabi Santos, PT [id number] documented in this encounter Plan of Treatment Upcoming Encounters Date Type Department Care Team (Late st Contact Info) Description 09/15/2025 10:00 AM EST Office Visit [facility] [address] [place] [address] Odilia Palacios PA-C 4 [facility] Orthopedics Sports [facility], [place] [address] [email or web address] Fabi Santos, PT [address] [place] [address] 09/18/2025 10:15 AM EST Office Visit [facility] [address] [place] [address] Odilia Palacios PA-C [address] [place] [address] Orthopedics Sports [facility], [place] [address] Fabi Santos, PT [address] [place] [address] 09/22/2025 10:20 AM EST Office Visit [facility] [address] [place] [address] Odilia Palacios PA-C [address] [place] [address] Orthopedics Sports [facility], [place] [address] 10/06/2025 10:40 AM EST Office Visit [facility]s [facility] Gyne[facility] Clinic [address] [place] [address] [place] [address] Gilberto Payne MD [address] [place] [address], [address] [place] [address] [email or web address] documented as of this encounter Visit Diagnoses Diagnosis Acute pain of right shoulder- Primary Other closed displaced fracture of proximal end of right humerus with routine healing, subsequent encounter Other closed displaced fracture of proximal end of right humerus with routine healing, subsequent encounter- Primary documented in this encounter Care Teams Education And Training Coordinator Relationship Specialty Start Date End Date Myesha Holbrook PA [address] [place] [address] Dr Bailey [address] [place] [address] PCP - General Physician Fish Net Stringer 12/31/24 documented as of this encounter Additional Source Comments The information contained in this document represents components of the legal health record. It is not the complete legal health record.[facility]
--- NOTE | 2025-09-08 08:31 | MHC.PC.OV ---
Vital Signs 09/08/25 08:33 Height 5 ft 2 in Weight 183 lb BMI 33.5 BP 138/72 Blood Pressure Location Lt brachial Position Sitting Respiration 18 Pulse 65 Pulse Source Pulse Oximeter Temp 97.7 F Temp Source Temporal Artery Scan Pulse Oximetry (%) 95 Oxygen Delivery Method Room Air Intake Visit Reasons: 3mth f/u Intake Note: Patient is here to follow up on GERD, HLD, HTN. Camera Assembler Required: No Solar Mechanical Engineer: Not Required per policy Accompanied by: Daughter Allergies citalopram (From CELEXA) Allergy (Severe, Verified 09/08/25 08:49) LOCKJAW, DIFFICULTY SWALLOWING lisinopril (LISINOPRIL) Allergy (Severe, Verified 09/08/25 08:49) COUGH scopolamine (SCOPOLAMINE) Allergy (Severe, Verified 09/08/25 08:49) AGITATION sulfamethoxazole (From BACTRIM) Allergy (Intermediate, Verified 09/08/25 08:49) HIVES sertraline (From Zoloft) Allergy (Mild, Verified 09/08/25 08:49) yawning hydroxyzine (Vistaril) Allergy (Unknown, Verified 09/08/25 08:49) agitation metronidazole (Flagyl) Allergy (Unknown, Verified 09/08/25 08:49) arm paralysis Sulfa (Sulfonamide Antibiotics) Allergy (Unknown, Verified 09/08/25 08:49) rash oxycodone Adverse Reaction (Intermediate, Verified 09/08/25 08:49) Nausea Medication List - Last Reconciled 09/08/25 by Myesha Holbrook PA-C atorvastatin 20 mg PO DAILY ergocalciferol (vitamin D2) 1,250 mcg PO QWEEK estradiol 0.01%(0.1mg/gram) 1 g vaginal 2XW furosemide 20 mg PO DAILY PRN metoprolol succinate ER 50 mg PO DAILY nitrofurantoin macrocrystal 100 mg PO BID PRN nystatin 1 appl topical DAILY omeprazole 20 mg PO DAILY pyridoxine (vitamin B6) 100 mg PO DAILY spironolactone 50 mg PO DAILY tramadol 50 mg PO Q6H PRN valsartan 80 mg PO DAILY verapamil ER 240 mg PO DAILY vitamins A,C,F-orll-emxvkw 2,148 mcg-113 mg-45 mg-17.4mg (PreserVision AREDS) 1 tab PO BID Tobacco use date assessed: 09/08/25 Fall risk assessment: No Falls in past year Last assessed Fall Risk: 09/08/25 Dental Screening Dental Screen Date: 02/17/25 HPI 3mth f/u HPI Details 75-year-old female with past medical history of hypertension, migraine, anxiety, depression, osteoporosis and nephrolithiasis last seen 07/2025 coming in for follow up. Presenting with postnasal drip and rhinorrhea. The patient has been experiencing postnasal drip and a runny nose for weeks, which causes her to gag in the mornings. Initially, the discharge was thick, green, and yellow, accompanied by facial pressure, but it has since become clear and the pressure has resolved. She has not used any medication for these symptoms. The patient recently had a biopsy on a skin lesion on her nose performed by [facility], and she is awaiting results. This lesion was previously treated with a chemo cream but continued to bleed. Shoulder pain has been improving and she is no longer working with PT and has follow up with ortho coming up. [facility] Medical History Obesity Post-menopausal Screening for hyperlipidemia Screening for diabetes mellitus Fatigue Mild depression Hypertension Surgical History History of colonoscopy History of surgery History of hysterectomy Family History Father Aneurysm Diabetes Mother Heart disease Maternal Grandmother Colon cancer Brother No problems noted. Sister No problems noted. Son Substance use disorder Son No problems noted. Daughter No problems noted. Daughter Mental health disorder Social History Housing: House Alcohol intake: current Alcohol intake frequency: holidays/special occasions only Patient Tobacco Use Status: Former Tobacco user Tobacco use type: Cigarette Cigarettes Per Day: 2 Years Smoked: 0 e-Cigarette/Vaping Use: Never Used Second Hand Smoke Exposure: Yes service: No Current occupational status: retired Current occupational exposures/hazards: No Cognitive needs: No Hearing needs: No Vision needs: Yes (Glasses) Questionnaire Thrive Questionnaire Date Thrive assessed: 02/17/25 I am a: Patient What is your living situation today?: I have a steady place to live Within the past 12 months, did the food you bought not last and you didn't have the money to get more?: Never true Within the past 12 months, did you worry whether your food would run out before you got money to buy more?: Never true Do you have trouble paying for medicines?: No Do you have trouble getting transportation to medical appointments?: No Do you have trouble paying your heating and electricity bill?: No Do you have trouble taking care of your child, family member or friend?: No Do you have trouble with day-to-day activities such as bathing, preparing meals, shopping, managing finances, etc.?: No Are you currently unemployed and looking for a job?: No Are you interested in more education?: No Currently or been in a relationship where the following occur: No concerns reported THRIVE Score: 0 JARROD-7 AMB Questionnaire JARROD-7 Date JARROD - 7 assessed: 02/17/25 Source: Developed by Drs. Chuck Juares, Viv Youssef, Kody Blunt and colleagues, with an educational preston from [email or web address]. Review of Systems Const Denies body aches, Denies chills, Denies fever(s), Denies headache(s) and Denies poor appetite Eyes Reports no additional complaints ENT Denies dizziness, Denies headache(s), Reports nasal congestion and Reports nasal discharge Card Denies chest pain, Denies edema, Denies lightheadedness and Denies dyspnea Resp Denies cough and Denies dyspnea GI Denies abdominal pain, Denies constipation, Denies dyspepsia, Denies heartburn, Denies diarrhea, Denies nausea and Denies vomiting Reports no additional complaints Musc Reports no additional complaints and Denies abnormal gait Skin/Breast Reports system reviewed and no additional complaints, except as documented Neuro Denies abnormal gait, Denies dizziness and Denies headache(s) Psych Reports no additional complaints Physical exam (Primary Care) Vital Signs: Last Vital Signs Temp 97.7 F 09/08/25 08:33 Pulse 65 09/08/25 08:33 Resp 18 09/08/25 08:33 BP 138/72 09/08/25 08:33 Pulse Ox 95 09/08/25 08:33 Oxygen Delivery Method Room Air 09/08/25 08:33 BMI result Body Mass Index 33.5 Tobacco/Smoking Status: Tobacco use Status Tobacco use date assessed 09/08/25 09/08/25 08:38 Patient Tobacco Use Status Former Tobacco user 09/08/25 08:33 Tobacco use type Cigarette 09/08/25 08:33 e-Cigarette/Vaping Use Never Used 09/08/25 08:33 Thrive Assessment: Date of Thrive Assessment Date Thrive assessed 02/17/25 09/08/25 08:33 Currently or been in a relationship where the following occur: No concerns reported Const General: cooperative, healthy appearing, comfortable and no acute distress Orientation/consciousness: patient oriented x3 HENMT Head: Yes normocephalic Ears: hearing grossly normal bilaterally General nose exam: Normal external nose present Eyes General: appearance normal, both eyes and all related structures Conjunctivae: conjunctivae normal Neck Neck: Yes full ROM and Yes no lymphadenopathy Resp Effort & Inspection: normal respiratory effort Auscultation: clear to auscultation bilaterally, no crackles, no rales, no rhonchi and no wheezes Cardio Rate: regular rate Rhythm: regular rhythm Skin General skin exam: no rashes or lesions noted Neuro General: patient oriented x3 Gait exam (Neuro): Normal gait present Extrem General: Yes normal to inspection, Yes full ROM and No edema Psych Affect: normal affect Attitude: cooperative Insight: Good insight present (Psych) Judgement: Good judgement present (Psych) Coding Level of Care Code Est Pt Level 3 (53326) Diagnoses Anxiety and depression F41.9; F32.A Hypertension, unspecified type I10 Hypertension type: unspecified Hyperlipidemia E78.5 Obesity E66.9 GERD (gastroesophageal reflux disease) K21.9 Allergic rhinitis J30.9 Shoulder fracture S42.90XA Assessment & Plan Assessment & Plan (1) Anxiety and depression: Code(s): F41.9 - Anxiety disorder, unspecified; F32.A - Depression, unspecified Category: Medical Plan: Feeling stable at this time with current regimen. (2) Hypertension: Code(s): I10 - Essential (primary) hypertension Category: Medical Qualifiers: Hypertension type: unspecified Qualified Code(s): I10 - Essential (primary) hypertension Plan: Continue on current blood pressure medication. Avoid salt intake and encourage healthy diet and regular exercise. (3) Hyperlipidemia: Code(s): E78.5 - Hyperlipidemia, unspecified Category: Medical Plan: Avoid foods that are high in cholesterol such as red meat, fried foods, eggs and baked goods. Triglyceride goal of less than 150 and LDL goal of less than 130. Cholesterol at goal on last labs. (4) Obesity: Comment: see above Code(s): E66.9 - Obesity, unspecified Category: Medical Plan: Healthy diet and regular exercise is encouraged. (5) GERD (gastroesophageal reflux disease): Code(s): K21.9 - Gastro-esophageal reflux disease without esophagitis Category: Medical Plan: Avoid trigger foods such as citrus, tomato products, soda, caffeine, spicy foods and other foods that may be irritating to your stomach. Avoid laying flat 3-4 hours after eating and elevate the head of the bed 30 degrees to prevent acid from moving into the esophagus. Continue on Omeprazole. (6) Allergic rhinitis: Code(s): J30.9 - Allergic rhinitis, unspecified Category: Medical Plan: The patient complains of persistent postnasal drip and rhinorrhea, which was initially purulent but has since cleared. She has not previously used any treatment. Prescriptions for Flonase and an allergy pill will be sent to the pharmacy to help manage her symptoms. The patient was advised to notify the office if facial pressure or purulent discharge returns, as antibiotics may be warranted for sinusitis. (7) Shoulder fracture: Comment: 06/03/2025 initial fall 07/02/2025 [facility] next appt Code(s): S42.90XA - Fracture of unspecified shoulder girdle, part unspecified, initial encounter for closed fracture Category: Medical Plan: The patient has a known rotator cuff tear and has been advised against surgical repair due to her age. She is currently weaning off physical therapy and will continue with home exercises. She has a follow-up appointment with her manpower development specialist on September 22, and notes from that visit will be obtained. Plan This note was constructed using voice recognition software. While every effort has been made to ensure accuracy and gas plant repairer, still areas may have been included sometimes these areas may affect the content or meeting of the given symptoms. Total time spent caring for the patient today was 20 minutes. This includes time spent before the visit reviewing the chart, time spent during the visit, and time spent after the visit and documentation. Patient was informed and verbally consented to the use of an ambient scribe for clinic note documentation during this visit. Orders: Orders TSH reflex Free T4 6 Months Myesha Holbrook PA-C Z13.29 - Encounter for screening for other suspected endocrine disorder Vitamin B12 and Folate 6 Months Myesha Holbrook PA-C Z13.21 - Encounter for screening for nutritional disorder Complete Blood Count Auto Diff 6 Months Myesha Holbrook PA-C Z13.0 - Encounter for screening for diseases of the blood and blood-forming organs and certain disorders involving the immune mechanism UA CC w/rflx Micro + Cult 6 Months Myesha Holbrook PA-C Z13.9 - Encounter for screening, unspecified Vitamin D 25-OH Total 6 Months Myesha Holbrook PA-C Z13.21 - Encounter for screening for nutritional disorder Lipid Panel 6 Months Myesha Holbrook PA-C E78.00 - Pure hypercholesterolemia, unspecified Comprehensive Met. Panel 6 Months Myesha Holbrook PA-C Z00.00 - Encounter for general adult medical examination without abnormal findings Medications: New fluticasone propionate 50 mcg/actuation (Flonase Allergy Relief) administer into each nostril 1 spray intranasal DAILY 16 grams 0RF Myesha Holbrook PA-C fexofenadine (Jia Allergy) 180 mg PO DAILY 90 tabs 0RF Myesha Holbrook PA-C Changed From furosemide 20 mg PO DAILY 90 tabs 1RF for edema To furosemide 20 mg PO DAILY ELMO Reid MD
--- OUTSIDE RECORDS SUMMARY | 2025-09-08 08:31 | XMS_ITS | Encounter Summary ---
Author Organization [facility] Address [address] [place] [address] [place] [address] Phone Care Team Providers Care Copyist Name Role Phone Myesha Holbrook Primary Care Provide r Encounter Details Date Type Department Care Team (Late st Contact Info) Description 01/30/2025 Procedure Pass [facility], [address] [id number] Social History Tobacco Use Types Packs/Day Years [...] Description 09/15/2025 10:00 AM EST Office Visit [facility] Physical Therapy Clinic [address] [place] [address] Odilia Palacios PA-C [address] [place] [address] Orthopedics & Sports Medicine, [place] [address] Fabi Santos, PT 10 [place] [address] 09/18/2025 10:15 AM EST Office Visit [facility] Physical Therapy Clinic [address] [place] [address] Odilia Palacios PA-C [address] [place] [address] Orthopedics & Sports [facility], [place] [address] Fabi Santos, PT [address] [place] [address] 09/22/2025 10:20 AM EST Office Visit [facility] [address] [place] [address] Odilia Palacios PA-C [address] [place], [place] [address]s Sports [facility], [place] [address] 10/06/2025 10:40 AM EST Office Visit [facility] [address] [place] [address] Gilberto Payne MD [address] [place] [address], [address] [address] documented as of this encounter Visit Diagnoses Not on filedocumented in this encounter Care Teams Copyist Relationship Specialty Start Date End Date Myesha Holbrook PA [address] [place] [address] [address] PCP - General Physician Wrong Address Clerk 12/31/24 documented as of this encounter Additional Source Comments The information contained in this document represents components of the legal health record. It is not the complete legal health record.[facility]
--- OUTSIDE RECORDS SUMMARY | 2025-09-08 08:31 | XMS_ITS | Encounter Summary ---
Author Organization [facility] Address [address] [place] [address] [place] [address] Phone Care Team Providers Care Traffic Attendant Name Role Phone Abad Byrd MD Primary Care Provider Myesha Holbrook Primary Care Provide r Encounter Details Date Type Department Care Team (Late Contact Info) Description 01/17/2024 Procedure Pass [facility], [address] [address] Social History Tobacco Use Types Packs/Day Years [...] Department Care Team (Late Contact Info) Description 09/15/2025 10:00 AM EST Office Visit [facility] Physical Therapy Clinic [address] [place] [address] Odilia Palacios PA-C [address] [place] [address] Orthopedics & Sports [facility], [place] [address] Fabi Santos, PT [address] [place] [address] 09/18/2025 10:15 AM EST Office Visit [facility] [address] [place] [phone] Odilia Palacios PA-C 4 [facility] Orthopedics Sports [facility], [place], [place] [phone] Fabi Santos, PT [address] [place] [address] 09/22/2025 10:20 AM EST Office Visit [facility] [address] [place] [address] Odilia Palacios PA-C 4 [facility] Orthopedics Sports [place], [place] [phone] 10/06/2025 10:40 AM EST Office Visit [facility] Obstetrics and Gynecology Clinic [address] [place] [address] [place] [address] Gilberto Payne MD [address] [place] [address], [address] [phone] documented as of this encounter Visit Diagnoses Not on filedocumented in this encounter Care Teams Traffic Attendant Relationship Specialty Start Date End Date Abad Byrd MD [address] [place] [address] Dr Bailey [address] [place] [address] PCP - General Internal Medicine 03/29/22 12/30/24 Myesha Holbrook PA [address] [place] [address] [place] [address] PCP - General Physician Elevator Attendant 12/31/24 documented as of this encounter Additional Source Comments The information contained in this document represents components of the legal health record. It is not the complete legal health record.[facility]
--- OUTSIDE RECORDS SUMMARY | 2025-09-08 08:31 | XMS_ITS | Encounter Summary ---
Author Organization [facility] Address [address] [place] [address] Phone Care Team Providers Care Horse Rider Name Role Phone Abad Byrd MD Primary Care Provider [phone] Abad Byrd MD Primary Care Provider [phone] Myesha Holbrook Primary Care Provide r Encounter Details Date Type Department Care Team (Late st Contact Info) Description 12/27/2020 Procedure Pass [facility], [address] [address] Social History Tobacco Use Types Packs/Day Years [...] Description 09/15/2025 10:00 AM EST Office Visit [facility] [address] [place] [address] Odilia Palacios PAMaryC 4 [facility] [address] Fabi Santos, PT 10 [place] [address] 09/18/2025 10:15 AM EST Office Visit [facility] [address] [place] [address] Odilia Palacios PA-C [address] [place] [address] Orthopedics Sports [facility], [place] [address] Fabi Santos, PT 10 [place] [address] 09/22/2025 10:20 AM EST Office Visit [facility] Sports [facility] Clinic [address] [place] [address] Odilia Palacios PA-C [address] [place] [address] [place] [address] 10/06/2025 10:40 AM EST Office Visit [facility]stetrics and Gynecology Clinic [address] [place] [address] Gilberto Payne MD [address] [place] [address] documented as of this encounter Visit Diagnoses Not on filedocumented in this encounter Care Teams Horse Rider Relationship Specialty Start Date End Date Abad Byrd MD [address] [place] [address] [place] [address] PCP - General 09/20/17 03/28/22 Abad Byrd MD [address] [place] [address] [place] [address] PCP - General Internal Medicine 03/29/22 12/30/24 Myesha Holbrook PA [address] [place] [address] [place] [address] PCP - General Physician Ethylbenzene Oxidizer 12/31/24 documented as of this encounter Additional Source Comments The information contained in this document represents components of the legal health record. It is not the complete legal health record.[facility]
--- OUTSIDE RECORDS SUMMARY | 2025-09-08 08:31 | XMS_ITS | Encounter Summary ---
Author Organization [facility] Address [address] [place] [address] Phone Care Team Providers Care Development Educator Name Role Phone Abad Byrd MD Primary Care Provider [phone] Abad Byrd MD Primary Care Provider [phone] Myesha Holbrook Primary Care Provide r Encounter Details Date Type Department Care Team (Late Contact Info) Description 12/27/2020 Ancillary Orders Virtual Department [address] [place] [address] Abad Byrd MD [address] [place] [address] [facility] [place] [address] Breast screening Social History Tobacco Use Types [...] 09/15/2025 10:00 AM EST Office Visit [facility] [address] [place] [address] Odilia Palacios PA-C [address] [place] [address] Orthopedics & Sports Medicine, [place] [address] Fabi Santos Joaquina, PT 10 [place] [address] 09/18/2025 10:15 AM EST Office Visit [facility] 12 [place] [address] Odilia Palacios PA-C 4 [facility] Orthopedics & Sports [facility], [place] [address] Fabi Santos Joaquina, PT 10 [place] [address] 09/22/2025 10:20 AM EST Office Visit [facility] [address] [place] [address] Odilia Palacios PA-C [address] [place], [place] [address]s Sports [facility], [place] [address] 10/06/2025 10:40 AM EST Office Visit [facility]ne[facility] [address] [place] [address] Gilberto Payne MD [address] [place] [address], [address] [address] documented as of this encounter Results * [...] screening, unspecified Breast screening Breast screening, unspecified Other closed displaced fracture of proximal end of right humerus with routine healing, subsequent encounter- Primary documented in this encounter Care Teams Development Educator Relationship Specialty Start Date End Date Abad Byrd MD [address] [place] [address] [place] [address] PCP - General 09/20/17 03/28/22 Abad Byrd MD [address] [place] [address] [place] [address] PCP - General Internal Medicine 03/29/22 12/30/24 Myesha Holbrook PA [address] [place] [address] [place] [address] PCP - General Physician Box Hinge And Lock Attacher 12/31/24 documented as of this encounter Additional Source Comments The information contained in this document represents components of the legal health record. It is not the complete legal health record.[facility]
--- OUTSIDE RECORDS SUMMARY | 2025-09-08 08:31 | XMS_ITS | Encounter Summary ---
Author Organization [facility] Address [address] [place] [address] Phone Care Team Providers Care Tar Distributor Operator Name Role Phone Abad Byrd MD Primary Care Provider [phone] Myesha Holbrook Primary Care Provide r Encounter Details Date Type Department Care Team (Late Contact Info) Description 01/17/2024 Transcribe Orders Virtual Department 30 [place] [address] Abad Byrd MD [address] [place] [address] [place] [address] Breast screening (Primary Dx) Social History Tobacco [...] Description 09/15/2025 10:00 AM EST Office Visit [facility] Physical Therapy Clinic [address] [place] [address] Odilia Palacios PA-C [address] [place] [address] Orthopedics Sports [facility], [place] [address] Fabi Santos, PT [address] [place] [address] 09/18/2025 10:15 AM EST Office Visit [facility] Physical Therapy [address] [address] Odilia Palacios PA-C 4 [facility] Orthopedics Sports [facility], [place] [address] Fabi Santos, PT [address] [place] [address] 09/22/2025 10:20 AM EST Office Visit [facility] Clinic [address] [place] [address] Odilia Palacios PA-C [address] [place], [place] [address]s Sports [facility], [place] [address] 10/06/2025 10:40 AM EST Office Visit [facility] Obstetrics and Gynecology Clinic [address] [place] [address] Gilberto Payne MD [address] [place] [address], [address] [address] documented as of this encounter Results * [...] Primary documented in this encounter Care Teams Tar Distributor Operator Relationship Specialty Start Date End Date Abad Byrd MD [address] [place] [address] Dr Bailey [address] [address] PCP - General Internal Medicine 03/29/22 12/30/24 Myesha Holbrook PA [address] [place] [address] [place] [address] PCP - General Physician Cds Sales Advisor 12/31/24 documented as of this encounter Additional Source Comments The information contained in this document represents components of the legal health record. It is not the complete legal health record.[facility]
--- OUTSIDE RECORDS SUMMARY | 2025-09-08 08:31 | XMS_ITS | Patient Health Record ---
Author Organization [facility] Address [address] [place] [address] Care Team Providers Care Metal Molder Name Role Phone Abad Byrd MD Primary Care Provider Modesta Ferrer Eric Unavailable [phone] Allergies Allergen (clinical drug ingredient) Drug/Non Drug Allergy documented on EMR Reaction Allergy Type Onset Date Status sulfamethoxazole / trimethoprim Bactrim Unknown Drug Allergy Active citalopram Celexa Unknown Drug Allergy Active hydroxyzine Vistaril Unknown Drug Allergy Activ e scopolamine Scopolamine Unknown Drug Allergy Act sid Reason For Referral No Information Medications Medication SIG (Take, Route, Frequency, Duration) Notes Start Date End Date Status amLODIPine Besylate 5 MG Tablet 1 tablet Orally Once a day Active hydroCHLOROthiazide 12.5 MG Tablet 1 tablet Orally Once a day Active Atenolol 100 MG Tablet 1 tablet Orally O nce a day Active Potassium Citrate ER 10 MEQ (1080 MG) Tablet Extended Release 1 tablet with meals Orally Three times a day Active Vitamin D (Ergocalciferol) 80071 UNIT Capsule 1 capsule Orally once a month Active Social History Social History Additional Details Category Social Info Options Details Miscellaneous: Marital status: 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: Stopped smoking in 2016; no sig alcohol Problems Problem Type SNOMED Code ICD Code Onset Dates Problem Status W/U Status Risk Notes Problem Screening for malignant neoplasm of colon (440402894) Encounter for screening for malignant neoplasm of colon (Z12.11) Active confirmed Problem Screening for malignant neoplasm of rectum (383199307) Encounter for screening for malignant neoplasm of rectum (Z12.12) Active confirmed Problem Preprocedural examination (653629679728063) Preprocedural examination (Z01.818) Active confirmed Plan Of Treatment Future Test Test Name Order Date COLONOSCOPY 11/17/2016 Insurance Providers Payer Name Payer Address Payer Phone Subscriber Number Group Number Insured Name Patient Relationship to Insured Coverage Start Date Coverage End Date [employer] [place] [address] [address] [place] [address] [id number] Self - patient is the insured Medicare of [facility] [address] [place] [address] [id number] SHILOH MATHIAS Self - patient is the insured Medical (General) History Medical History History ICD Code Kidney stones removed via cystoscopy Hypertension Denies MA,DM,CVA,Lung disease,renal dise ase Gallstone Neg. colonoscopy [place] [address] Miki Feng migraines Surgical History Surgery Date(Month/Year) TAY1993 Laproscopies for endometrosis Tonsillectomy and adenoidectomy
--- OUTSIDE RECORDS SUMMARY | 2025-09-08 08:32 | XMS_ITS ---
Author Name Mahnaz Monique Address Unknown Organization [facility] Care Team Providers Care Land Surveying Party Chief Name Role Phone Unavailable Primary Care Physician Unavailab le History Of Present Illness This is a 75 year old female who is following up for actinic keratosis on the left nasal sidewall. She was seen on June 18, 2025, at which time she was prescribed Efudex 5 % topical cream (Apply toaffected area on nose BID for 2 weeks, then stop. Expect redness/crusting. Stop sooner if painful/bleeding.) and the following treatment recommendations were given: Begin the following treatments: :Efudex 5 % topical cream- Apply to affected area on nose BID for 2 weeks, then stop. Expect redness/crusting. Stop sooner if painful/bleeding. Plan: :Recommend to trial the treatment regimen as directed above, begin in fall 2024. FU in 2-3 months for recheck.Since then, the patient states the actinic keratosis is better.The patient presents for focused visit and further evaluation and management.The patient followed the treatment plan as directed.Interval History: Pt reports some improvement withtreatment regimen. Pt also reports stopping the cream before 2 weeks due to scabbing and bleeding. Allergies, Adverse Reactions, Alerts Substance RxNorm Reaction(s) Severity Status Start Da te Flagyl Other: unspecified active 09/20/19 21 Vistaril Other: unspecified active 09/20/19 21 Celexa Anaphylaxis unspecified active 2020 scopolamine Other: unspecified active 2020 CURT Inhibitors Other: unspecified active 12/2020 Bactrim Rash unspecified active 09/20/19 21 Actonel Other: unspecified active 09/20/19 21 Zoloft Other: Excessive yawning unspecified act sid lisinopril Other: Cough unspecified active Medications Medication Generic Name RxNorm Strength Strength Unit Route Dose Dose Form Frequency Date Started Date Ended Status Indication Sig azelaic acid azelaic acid 6763817 15 % Topica l gel 10/25/19 21 suspend ed Appl y once ivette y to affe cted area . clotrimazol e-betametha sone 403561 1-0.05 % Topica l apply thin layer cream PRN active Efudex fluorour acil 257259 5 % Topica l cream BID 09/20/19 21 suspend ed Appl y two time s a day to affe cted area x 2 week s. Then stop . If pain ful or blee ding stop and call offi ce. Efudex fluorour acil 951462 5 % Topica l cream 06/18/20 25 suspend ed Appl y to affe cted area on nose BID for 2 week s, then stop . Expe ct redn ess/ robles ting . Stop soon er if pain ful/ blee ding . nystatin 604496 100,000 unit/gram Topica l 1 powde r PRN active Aspirin Low Dose aspirin 81 mg Oral 1 table t,del ayed relea se (DR/E C) QD suspend ed atorvastati n 933479 20 mg Oral 1 table t qd active chlorthalid one chlortha lidone 506288 25 mg Oral table t suspend ed ergocalcife rol (vitamin D2) 4334224 1,250 mcg (50,000 unit) Oral 1 capsu le qd active metoprolol succinate 797301 50 mg Oral 1 Table t, Exten ded Relea se 24 hr qd active omeprazole 931439 20 mg Oral capsu le,de layed relea se (ente max gomez d) suspend ed potassium chloride potassiu m chloride 476691 20 mEq Oral table t exten ded relea se suspend ed pyridoxine (vitamin B6) pyridoxi ne (vitamin B6) 100 mg Oral 1 table t QD active spironolact one 881052 50 mg Oral 1 table t QD active valsartan 078740 80 mg Oral 1 table t qd active verapamil verapami l 178965 240 mg Oral 1 table t exten ded relea se QD active verapamil 816041 240 mg Oral table t, exten ded relea se suspend ed Vitamin D3 cholecal ciferol (vitamin D3) 125 mcg (5,000 unit) Oral 1 table t qd suspend ed estradiol estradio l 674982 0.01 % (0.1 mg/gram) Vagina l apply cream semiweekly active Azithromyci n NULL 02/18/20 13 active hydroCHLORO thiazide NULL 0 13 active Nortriptyli ne HCl NULL 02/18/20 13 active Problems Problem Code Type Status Date of Diagnosis Date of Resolution History of hypertension (situation) 572670783( SNOMED) Problem active Actinic keratosis L57.0(ICD- 10) Diagnosis active 09/20/2020 Other rosacea L71.8(ICD- 10) Diagnosis active 09/20/2020 Encounter for follow-up examination after completed treatment for conditions other than malignant neoplasm Z09(ICD-10 ) Diagnosis active 10/25/2020 Other rosacea L71.8(ICD- 10) Diagnosis active 10/25/2020 Follow-up status (finding) 960017946( SNOMED) Diagnosis active 01/17/2021 Inflamed seborrheic keratosis (disorder) 318983881( SNOMED) Diagnosis active 01/17/2021 Rosacea (disorder) 821843100( SNOMED) Diagnosis active 01/17/2021 Neoplasm of uncertain behavior of skin (disorder) 76336196(S NOMED) Diagnosis active 01/18/2022 Seborrheic keratosis (disorder) 430949081( SNOMED) Diagnosis active 01/18/2022 Disorder of pigmentation (disorder) 280322715( SNOMED) Diagnosis active 01/18/2022 Melanocytic nevus (disorder) 697977784( SNOMED) Diagnosis active 01/18/2022 Hemangioma of skin and subcutaneous tissue (disorder) 488800479( SNOMED) Diagnosis active 01/18/2022 Onycholysis (disorder) 46229327(S NOMED) Diagnosis active 01/18/2022 Benign neoplasm of skin of right lower limb (disorder) 1421611493 195713(SNO MED) Diagnosis active 01/18/2022 Varicose veins of lower extremity (disorder) 69653931(S NOMED) Diagnosis active 01/18/2022 Actinic keratosis (disorder) 406923752( SNOMED) Diagnosis active 06/18/2025 Arthritis (disorder) 0661771(SN OMED) Problem active Increased blood pressure (finding) 47784347(S NOMED) Problem active Actinic keratosis (disorder) 254470502( SNOMED) Problem active Neoplasm of uncertain behavior of skin (disorder) 07008474(S NOMED) Diagnosis active 09/03/2025 Hypercholesterolemia (disorder) 39252291(S NOMED) Problem active Results No data Encounters Service provided at [facility], [address] [place] [address], [address], [place], [place] [id number]. Office phonenumber is [phone]. Office fax number is [phone]. 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) [facility] 09/03/2025 14:30:00 UTC NI Reason For Referral No data Procedures Procedure Date Documentation of current medications (pr ocedure) 09/03/2025 12:00 am UTC Shave biopsy (procedure) 09/03/2025 12:0 0 am UTC Documentation of current medications (pr ocedure) 06/18/2025 12:00 am UTC Shave biopsy (procedure) 01/18/2022 12:0 0 am UTC Documentation of past medical history (p rocedure) Documentation of past medical history (p rocedure) Cholecystectomy (procedure) Total hysterectomy (procedure) Total hysterectomy (procedure) Cholecystectomy (procedure) Review Of Systems Provider reviewed on Sep 03, 2025.A focused review of systems was performed including Integumentary.No Problems With Healing And No Problems With Scarring (hypertrophic Or Keloid). Assessment 1.Neoplasm of Uncertain BehaviorBiopsy by Shave Method: left nasal sidewall; Anticipated Plan (based on presumed biopsy results) - Repeat 5FU vs Mohs.Treatment Regimen: Plan - :Biopsy performed in the clinic today. Completed ~10 days of Efudex treatmentResidual lesion remains visibleConcern for actinic keratosis vs superficial squamous cell carcinoma vs invasive SCC vs basal cell carcinomaDiscussed options in depth: repeat 5FU vs. biopsy today to rule out invasive lesion Patient opts for biopsytoday;. Plan of Care Future visit for 09/03/2026 - Follow up in 1 year for: Skin Check - 15 minutes. Other Instructions:cse slot. Other Instructions: cse slot. Code Detail Instructions 985406 Efudex 5 % topical cream Apply t o affected area on nose BID for 2 weeks, then stop. Expect redness/crusting. Stop sooner if painful/bleeding. 5762192 azelaic acid 15 % topical gel Ap ply once daily to affected area. 777770 Efudex 5 % topical cream Apply t wo times a day to affected area x 2 weeks. Then stop. If painful or bleeding stop and call office. Instructions * Plan: :Biopsy performed in the clinic today. Completed ~10 days of Efudex treatmentResidual lesion remains visibleConcern for actinic keratosis vs superficial squamous cell carcinoma vs invasive SCC vs basal cell carcinomaDiscussed options in depth: repeat 5FU vs. biopsy today to rule out invasive lesion Patient opts for biopsy today. Social History Code Activity Start Date End Date [id number] ([employer]) Former smoker Sex Female Sexual orientation Unspecified Gender identity Unspecified Vital Signs No data Insurances Coverage Status Coverage Type Relationship to Subscriber Member Identifier Subscriber Identifier Group Identifier Payer Identifier Inactive 1 Self [id number] Active Self [id number] Inactive Self [id number] Active Self [id number]
--- OUTSIDE RECORDS SUMMARY | 2025-09-08 08:32 | XMS_ITS | Encounter Summary ---
Author Organization [facility] Address [address] [place] [id number] Phone Care Team Providers Care Damage Assessor Name Role Phone Abad Byrd MD Primary Care Provider [phone] Myesha Holbrook Primary Care Provide r Encounter Details Date Type Department Care Team (Late Contact Info) Description 01/04/2023 Procedure Pass [address] [address] Social History Tobacco Use Types Packs/Day Years [...] Upcoming Encounters Date Type Department Care Team ([facility] [address] Contact Info) Description 09/15/2025 10:00 AM EST Office Visit [facility] [address] [place] [address] Odilia Palacios PA-C 4 [facility] Medicine, [place] [address] Fabi Santos, PT [address] [place] [address] 09/18/2025 10:15 AM EST Office Visit [facility] [address] [place] [address] Odilia Palacios PA-C 4 [facility] Orthopedics & Sports [facility], [place] [address] Fabi Santos, PT [address] [place] [address] 09/22/2025 10:20 AM EST Office Visit [facility] [address] [place] [address] Odilia Palacios PA-C 4 [facility] Orthoped[facility], [place] [address] 10/06/2025 10:40 AM EST Office Visit [facility]stetrics and Gynecology Clinic [address] [place] [address] Gilberto Payne MD [address] [place] [address], [address] [address] documented as of this encounter Visit Diagnoses Not on filedocumented in this encounter Care Teams Damage Assessor Relationship Specialty Start Date End Date Abad Byrd MD [address] [place] [address] [address] [place] [address] PCP - General Internal Medicine 03/29/22 12/30/24 Myesha Holbrook PA [address] [place] [address] Dr [address] [facility] [place] [address] PCP - General Physician Equal Opportunity Officer 12/31/24 documented as of this encounter Additional Source Comments The information contained in this document represents components of the legal health record. It is not the complete legal health record.[facility]
--- OUTSIDE RECORDS SUMMARY | 2025-09-08 08:32 | XMS_ITS | Clinical Summary ---
Author Organization [facility] Facility Address [address] [address] Care Team Providers Care Janitor Custodian Name Role Phone Abad Byrd MD Primary Care Provider [phone] Allergies Active Allergy Reactions Criticality Noted Date [...] 0 Active ergocalciferol (VITAMIN D-2) 1.25 MG (40544 UT) capsule Take 1 capsule by mouth [...] patient's age to complete this topic Insurance [facility] Medicare Care Teams Janitor Custodian Relationship Specialty Start Date End Date Abad Byrd MD [address] [place], [place] PCP - General 09/27/20
--- OUTSIDE RECORDS SUMMARY | 2025-09-08 08:32 | XMS_ITS | Encounter Summary ---
Author Organization [facility] Address [address] [place] [address] Phone Care Team Providers Care Miller Head Wet Process Name Role Phone Abad yBrd MD Primary Care Provider [phone] Abad Byrd MD Primary Care Provider [phone] Myesha Holbrook Primary Care Provide r Encounter Details Date Type Department Care Team (Late Contact Info) Description 10/09/2019 Ancillary Orders Virtual Department [address] [place] [address] Abad Byrd MD [address] [place] [address] [facility] [place] [address] Breast screening Social History Tobacco Use Types [...] Description 09/15/2025 10:00 AM EST Office Visit [facility] [address] [place] [address] Odilia Palacios PA-C [address] [place] [address] Orthopedics & Sports Medicine, [place] [address] Fabi Santosa, PT 10 [place] [address] 09/18/2025 10:15 AM EST Office Visit [facility] 12 [place] [address] Odilia Palacios PA-C 4 [facility] Orthopedics & Sports [facility], [place] [address] Fabi Santos Joaquina, PT 10 [place] [address] 09/22/2025 10:20 AM EST Office Visit [facility] [address] [place] [address] Odilia Palacios PA-C [address] [place] [address] Orthopedics Sports [facility], [place] [address] 10/06/2025 10:40 AM EST Office Visit [facility]ne[facility] [address] [place] [address] Gilberto Payne MD [address] [place] [address], [address] [address] documented as of this encounter Results * [...] DENSITY: There are scattered fibroglandular densities. POS [id number] Narrative 03/24/2020 3:05 PM EDT COMPARISON: 11/14/2013 [...] DENSITY: There are scattered fibroglandular densities. POS [id number] Abad Byrd MD IMG MG EXAMS Final Result documented in this encounter Visit Diagnoses Diagnosis Breast screening Breast screening, unspecified Breast screening Breast screening, unspecified Other closed displaced fracture of proximal end of right humerus with routine healing, subsequent encounter- Primary documented in this encounter Care Teams Miller Head Wet Process Relationship Specialty Start Date End Date Abad Byrd MD [address] [place] [address] [place] [address] PCP - General 09/20/17 03/28/22 Abad Byrd MD [address] [place] [address] [place] [address] PCP - General Internal Medicine 03/29/22 12/30/24 Myesha Holbrook PA [address] [place] [address] [place] [address] PCP - General Physician Pastrycook'S Assistant 12/31/24 documented as of this encounter Additional Source Comments The information contained in this document represents components of the legal health record. It is not the complete legal health record.[facility]
--- OUTSIDE RECORDS SUMMARY | 2025-09-08 08:32 | XMS_ITS | Clinical Summary ---
Author Organization [facility] Address [address] [place] [address] Phone Care Team Providers Care Shaper Machine Hand Name Role Phone Myesha Holbrook Primary Care Provide r Allergies Active Allergy Reactions Criticality Noted Date Comments Sohail Inhibitors 12/26/2018 Citalopram 12/26/2018 Hydroxyzine 01/10/2021 Other reaction(s): Other (see comments) Metronidazole 12/26/2018 Other reaction(s): Other (see comments) Risedronate 09/20/2020 Other Reaction(s): Other: Scopolamine Anxiety High 06/16/2020 Other reaction(s): Other (see comments) Sulfa (Sulfonamide Antibiotics) 01/10/2021 Other reaction(s): Other (see comments) Sulfamethoxazole-Trimethopri m Rash Low 12/26/2018 Sertraline 03/10/2020 Jaw tightness Medications verapamil (CALAN-SR) 240 MG CR tablet Take 240 mg by mouth nightly at bedtime. Active ergocalciferol (DRISDOL) 50,000 unit capsule Take 50,000 Units by mouth once a week. Active VITAMIN B-6 100 MG tablet Take 100 mg by mouth daily. 01/18/20 21 Active atorvastatin (LIPITOR) 20 MG tablet Take 20 mg by mouth daily. 07/12/20 22 Active metoprolol succinate (TOPROL-XL) 50 MG 24 hr tablet Take 1 tablet by mouth every morning. 07/12/20 23 Active valsartan (DIOVAN) 80 MG tablet Take 1 tablet by mouth every morning. 11/19/19 25 Active spironolactone (ALDACTONE) 50 MG tablet Take 50 mg by mouth daily. 12/31/19 Active estradioL (ESTRACE) 0.01 % (0.1 mg/gram) vaginal creamIndicatio ns:Vaginal atrophy PLACE 1 GRAM VAGINALLY TWICE A WEEK 42.5 g 3 03/25/20 Active furosemide (LASIX) 20 MG tablet TAKE 1 TABLET BY MOUTH EVERY DAY FOR EDEMA 05/13/20 Active omeprazole (PRILOSEC) 20 MG capsule Take 1 capsule by mouth every morning. 05/11/20 Active antiox #8/om3/dha/epa /lut/zeax (PRESERVISION AREDS 2, OMEGA-3, ORAL) Take by mouth. Active clotrimazole-b etamethasone (LOTRISONE) cream 12/27/19 025 Discontinued fluconazole (DIFLUCAN) 150 MG tabletIndicati ons:Yeast infection Take 1 pill by mouth once. 1 tablet 1 07/07/20 025 Discontinued fluorouraciL (EFUDEX) 5 % cream PLEASE SEE ATTACHED FOR DETAILED DIRECTIONS 06/18/20 025 Discontinued Active Problems Problem Noted Date Diagnosed Date Migraine with aura 06/03/2025 Benign essential hypertension 01/04/2021 Renal stone 01/04/2021 Vaginal atrophy 07/22/2019 Cystocele, midline 01/01/2019 Encounters Date Type Department Care Team Description 09/07/2025 9:00 AM EST Office Visit [facility] [address] [place] [address] Odilia Palacios PA-C Baran, [place] Anna, PT Acute pain of right shoulder (Primary Dx); Other closed displaced fracture of proximal end of right humerus with routine healing, subsequent encounter 09/01/2025 10:00 AM EST Office Visit [facility] [address] [place] [address] Odilia Palacios PA-C Baran, [place] Anna, PT Acute pain of right shoulder (Primary Dx); Other closed displaced fracture of proximal end of right humerus with routine healing, subsequent encounter 08/28/2025 10:34 AM EST - 08/28/2025 11:59 PM EST Hospital Encounter [facility] [address] [place] [address] Myesha Holbrook PA Discharge Disposition: Home or Self Care 08/26/2025 11:15 AM EST Office Visit [facility] [address] [place] [address] Odilia Palacios, Fabi Blanco, PT Acute pain of right shoulder (Primary Dx); Other closed displaced fracture of proximal end of right humerus with routine healing, subsequent encounter 08/24/2025 3:15 PM EST Office Visit [facility] [address] [address] Odilia Palacios, Fabi Blanco, PT Acute pain of right shoulder (Primary Dx); Other closed displaced fracture of proximal end of right humerus with routine healing, subsequent encounter 08/21/2025 12:45 PM EST Office Visit [facility] [address] [place] [address] Odilia Palacios, Fabi Blanco, PT Acute pain of right shoulder (Primary Dx); Other closed displaced fracture of proximal end of right humerus with routine healing, subsequent encounter 08/19/2025 2:30 PM EST Office Visit [facility] [address] [address] Odilia Palacios, Fabi Blanco, PT Acute pain of right shoulder (Primary Dx); Other closed displaced fracture of proximal end of right humerus with routine healing, subsequent encounter 08/11/2025 10:40 AM EST Office Visit [facility] 4 [place] [address] Odilia Palacois PA-C Other closed displaced fracture of proximal end of right humerus with routine healing, subsequent encounter (Primary Dx) 08/11/2025 10:35 AM EST - 08/11/2025 11:59 PM EST Hospital Encounter [facility] 4 [place] [address] Odilia Palacios, LIZA Discharge Disposition: Home or Self Care 08/11/2025 8:30 AM EST Office Visit [facility] [address] [address] Odilia Palacios, Fabi Blanco, PT Acute pain of right shoulder (Primary Dx); Other closed displaced fracture of proximal end of right humerus with routine healing, subsequent encounter 08/05/2025 11:15 AM EST Office Visit [facility] [address] [address] Odilia Palacios, Fabi Blanco, PT Acute pain of right shoulder (Primary Dx); Other closed displaced fracture of proximal end of right humerus with routine healing, subsequent encounter 08/03/2025 1:20 PM EST Office Visit [facility] at [address] [address] Selena Juárez, TRANSITION TEACHER Right leg pain (Primary Dx) 08/03/2025 12:00 PM EST Office Visit [facility] Therapy [address] [address] Odilia Palacios, Fabi Blanco, PT Acute pain of right shoulder (Primary Dx); Other closed displaced fracture of proximal end of right humerus with routine healing, subsequent encounter 07/24/2025 2:15 PM EST Office Visit [facility] [address] [address] Odilia Palacios, Fabi Blanco, PT Acute pain of right shoulder (Primary Dx); Other closed displaced fracture of proximal end of right humerus with routine healing, subsequent encounter 07/16/2025 8:30 AM EDT Office Visit [facility] [address] [address] Odilia Palacios, Fabi Blanco, PT Acute pain of right shoulder (Primary Dx); Other closed displaced fracture of proximal end of right humerus with routine healing, subsequent encounter 07/08/2025 2:30 PM EDT Office Visit [facility] [address] [place] [address] Odilia Palacios PA-C Baran, [place] Anna, PT Acute pain of right shoulder (Primary Dx); Other closed displaced fracture of proximal end of right humerus with routine healing, subsequent encounter 07/08/2025 Plan of Care Documentation [facility] [address] [place] [address] 07/07/[address] [facility] [address] [place] [address] [place] [address] Gilberto Payne MD Test Results 07/03/2025 9:20 AM EDT Office Visit [facility] [address] [place] [address] [place] [address] Gilberto Payne MD Cystocele, midline (Primary Dx); Vaginal atrophy; Vaginal discharge 07/02/2025 11:00 AM EDT Office Visit [facility] 4 [place] [address] Ernie Juarez PA-C Raymundo, Lorelei L, PA-C Other closed displaced fracture of proximal end of right humerus with routine healing, subsequent encounter (Primary Dx) 07/02/2025 10:41 AM EDT - 07/02/2025 11:59 PM EDT Hospital Encounter [facility] 4 [place] [address] Odilia Palacios PA-C Discharge Disposition: Home or Self Care 01/30/2025 Procedure Pass [address] [address] from Last 3 Months Immunizations Immunization Administration [...] Sign Reading Time Taken Comments Blood Pressure 134/81 08/03/2025 1:34 PM EST Pulse 71 08/03/2025 1:34 PM EST Temperature 36.8 C (98.2 F) 08/03/2025 1:34 PM EST Respiratory Rate 18 08/03/2025 1:34 PM EST Oxygen Saturation 98% 08/03/2025 1:34 PM EST Inhaled Oxygen Concentration - - Weight 84.4 kg (186 lb) 07/03/2025 9:14 AM EDT Height 160 cm (5' 3 ) 12/31/2024 9:57 AM EDT Body Mass Index 32.95 12/31/2024 9:57 AM EDT Plan of Treatment Upcoming Encounters Date Type Department Care Team (Late st Contact Info) Description 09/15/2025 10:00 AM EST Office Visit [facility] 12 [place] [address] Odilia Palacios PA-C 4 [facility] [place] [address] Fabi Santos, PT 10 [place] [address] 09/18/2025 10:15 AM EST Office Visit [facility] 12 [place] [address] Odilia Palacios PA-C [address] [place] [address] Orthopedics & Sports [facility], [place] [address] Fabi Santos, PT 10 [place] [address] 09/22/2025 10:20 AM EST Office Visit [facility] [address] [place] [address] Odilia Palacios PA-C [address] [place], [place] [address]s Sports [facility], [place] [address] 10/06/2025 10:40 AM EST Office Visit [facility]s [facility] Gynecology Clinic [address] [place] [address] Gilberto Payne MD [address] [place] [address], [address] [address] [email or web address] Health Maintenance Due Date Last Done Comments [...] 6 season) 2025 12/16/2020, 11/18/2020 BLOOD PRESSURE 01/31/2026 08/03/2025 HEPATITIS A VACCINES Aged Out No long [...] Procedure Name Priority Date/Time Associated Diagnosis Comments BI MAMMOGRAM SCREENING WITH TOMOSYNTHESIS WITH CAD (BILATERAL) Routine 08/28/2025 11:12 AM EST Breast screening XR SHOULDER 2 VIEWS (RIGHT) Routine 08/11/2025 10:42 AM EST Other closed displaced fracture of proximal end of right humerus with routine healing, subsequent encounter HC NFCT DS BCT VAGINOSIS&VAGINITIS MULT AMP PROBE Routine 07/03/2025 9:34 AM EDT Vaginal discharge XR SHOULDER 2 VIEWS (RIGHT) Routine 07/02/2025 10:50 AM EDT Other closed displaced fracture of proximal end of right humerus with routine healing, subsequent encounter from Last 3 Months Results * BI MAMMOGRAM SCREENING WITH TOMOSYNTHESIS WITH CAD (BILATERAL) (08/28/2025 11:12 AM EST) Anatomical Region Laterality Modality Breast Left, Breast Right, Breast Bilateral Bila teral Mammography 08/28/2025 1:09 PM EST Impressions 08/28/2025 1:15 PM EST No mammographic evidence of malignancy in either breast. Annual screening mammography is recommended. BI-RADS 2 BENIGN The patient will be notified of the results and recommendations. Narrative 08/28/2025 1:15 PM EST BI MAMMOGRAM SCREENING WITH TOMOSYNTHESIS WITH CAD (BILATERAL) Additional patient information: Screening. COMPARISON: Comparison is made with relevant prior imaging. Breast composition: The breasts are heterogeneously dense, which may obscure small masses. FINDINGS: Fluctuating masses in both breasts are compatible with benign etiology, likely cysts. No abnormal masses, suspicious calcifications, or other significant findings are identified mammographically in either breast. Procedure Note Tabitha Linedr MD - 08/28/2025 BI MAMMOGRAM SCREENING WITH TOMOSYNTHESIS WITH CAD (BILATERAL) Additional patient information: Screening. COMPARISON: Comparison is made with relevant prior imaging. Breast composition: The breasts are heterogeneously dense, which mayobscure small masses. FINDINGS: Fluctuating masses in both breasts are compatible with benign etiology,likely cysts. No abnormal masses, suspicious calcifications, or other significantfindings are identified mammographically in either breast. IMPRESSION: No mammographic evidence of malignancy in either breast. Annual screening mammography is recommended. BI-RADS 2 BENIGN The patient will be notified of the results and recommendations. Myesha HIGHTOWER IMG MG EXAMS Final Result * XR SHOULDER 2 VIEWS (RIGHT) (08/11/2025 10:42 AM EST) Narrative SYSTEMGENERATED, DOCUMENTATION - 08/11/2025 10:42 AM EST This image report has been auto-finalized and has not been read by a Radiologist. Interpretation has been included in the provider encounter note for this date of service. Odilia Palacios PA-C IMG XR UPPER EXTREMITY F inal Result * (ABNORMAL) Vaginitis Panel (07/03/2025 9:34 AM EDT) Bacterial Vaginosis Negative Negative [facility] Sobia Species Detected(A) Not Detected [facility] Sobia glabrata Not Detected Not Detected [facility] Trichomonas Vaginalis Not Detected Not Detected [facility] Other (Vaginal) 07/03/2025 9 :34 AM EDT 07/03/2025 4:34 PM EDT Gilberto Payne MD LAB GENERAL ORDERABLES Final Result [facility] [address] [place] [address] * XR SHOULDER 2 VIEWS (RIGHT) (07/02/2025 10:50 AM EDT) Narrative SYSTEMGENERATED, DOCUMENTATION - 07/02/2025 10:50 AM EDT This image report has been auto-finalized and has not been read by a Radiologist. Interpretation has been included in the provider encounter note for this date of service. Odilia Palacios PA-C IMG XR UPPER EXTREMITY F inal Result from Last 3 Months Insurance MEDICARE PART A & B [facility] MEDICARE SUPPLEMENT MEDICARE PART A & B [employer] MEDICARE SUPPLEMENT MEDICARE PART A & B [employer] MEDICARE SUPPLEMENT MEDICARE PART A & B [facility] MEDICARE SUPPLEMENT MEDICARE PART A & B [facility] MEDICARE SUPPLEMENT MEDICARE PART A & B [facility] MEDICARE SUPPLEMENT MEDICARE PART A & B Member Subscriber Plan / Payer ( fective 2018-Present) Name:Aruna Leonard Member ID:[id number] Relation to Subscriber:Self Name:Aruna Leonard Subscriber ID:[id number] Payer ID:[id number] Group ID:Not on file Type:Medicare Address: [employer] [address] [place] [id number] [place] [address] MEDICARE SUPPLEMENT MEDICARE PART A & B [facility] MEDICARE SUPPLEMENT MEDICARE PART A & B [facility] MEDICARE SUPPLEMENT Care Teams Shaper Machine Hand Relationship Specialty Start Date End Date Myesha Holbrook PA [address] [place] [address] [place] [address] PCP - General Physician Electrical Systems Engineer 12/31/24 Additional Source Comments The information contained in this document represents components of the legal health record. It is not the complete legal health record.[facility]
--- OUTSIDE RECORDS SUMMARY | 2025-09-08 08:32 | XMS_ITS | Encounter Summary ---
Author Organization [facility] Address [address] [place] [address] Phone Care Team Providers Care Cylinder Die Machine Helper Name Role Phone Abad Byrd MD Primary Care Provider [phone] Abad Byrd MD Primary Care Provider [phone] Myesha Holbrook Primary Care Provide r Encounter Details Date Type Department Care Team (Late Contact Info) Description 10/09/2018 Ancillary Orders Virtual Department [address] [place] [address] Abad Byrd MD [address] [place] [address] [facility] [place] [address] Breast screening Social History Tobacco Use Types [...] Visit [facility] 12 [place] [address] Odilia Palacios PA-C 4 [facility] [place] [address] Fabi Santos, PT 10 [place] [address] 09/18/2025 10:15 AM EST Office Visit [facility] 12 [place] [address] Odilia Palacios PA-C [address] [place] [address] Orthopedics & Sports [facility], [place] [address] Fabi Santos, PT 10 [place] [address] 09/22/2025 10:20 AM EST Office Visit [facility] [address] [place] [address] Odilia Palacios PA-C [address] [place] [address] 10/06/2025 10:40 AM EST Office Visit [facility] Obstetrics and Gynecology Clinic [address] [place] [address] Gilberto Payne MD [address] [place] [address] [email or web address] documented as of this encounter Results * [...] Primary documented in this encounter Care Teams Cylinder Die Machine Helper Relationship Specialty Start Date End Date Abad Byrd MD [address] [place] [address] [place] [address] PCP - General 09/20/17 03/28/22 Abad Byrd MD [address] [place] [address] [place] [address] PCP - General Internal Medicine 03/29/22 12/30/24 Meysha Holbrook PA [address] [place] [address] Dr [place]lin, [place] [address] PCP - General Physician Operator [employer] 12/31/24 documented as of this encounter Additional Source Comments The information contained in this document represents components of the legal health record. It is not the complete legal health record.[facility]
--- OUTSIDE RECORDS SUMMARY | 2025-09-08 08:32 | XMS_ITS | Encounter Summary ---
Author Organization [facility] Address [address] [place] [address] Phone Care Team Providers Care Program Clinician Name Role Phone Abad Byrd MD Primary Care Provider [phone] Myesha Holbrook Primary Care Provide r Encounter Details Date Type Department Care Team (Late Contact Info) Description 04/13/2023 Ancillary Orders [facility], [address] [address] Abad Byrd MD [address] [place] [address] [place] [address] Abnormal finding on mammography Social History Tobacco [...] Description 09/15/2025 10:00 AM EST Office Visit [facility] [address] [place] [address] Odilia Palacios PA-C [address] [place] [address] Orthopedics Sports [facility], [place] [address] Fabi Santos, PT 10 [place] [address] 09/18/2025 10:15 AM EST Office Visit [facility] Physical Therapy [address] [address] Odilia Palacios PA-C [address] [place] [address] Orthopedics Sports [facility], [place] [address] Fabi Santos, PT 10 [place] [address] 09/22/2025 10:20 AM EST Office Visit [facility] [address] [place] [address] Odilia Palacios PA-C [address] [place] [address] Orthopedics Sports [facility], [place] [address] 10/06/2025 10:40 AM EST Office Visit [facility]s and Gynecology Clinic [address] [place] [address] Gilberto Payne MD [address] [place] [address], [address] [address] documented as of this encounter Visit Diagnoses Diagnosis Abnormal finding on mammography Other closed displaced fracture of proximal end of right humerus with routine healing, subsequent encounter- Primary documented in this encounter Care Teams Program Clinician Relationship Specialty Start Date End Date Abad Byrd MD [address] [place] [address] [address] [place] [address] PCP - General Internal Medicine 03/29/22 12/30/24 Myesha Holbrook PA [address] [place] [address] [place] [address] PCP - General Physician Director Of Extension Work 12/31/24 documented as of this encounter Additional Source Comments The information contained in this document represents components of the legal health record. It is not the complete legal health record.[facility]
--- OUTSIDE RECORDS SUMMARY | 2025-09-08 08:32 | XMS_ITS | Encounter Summary ---
Author Organization [facility] Address [address] [place] [phone] Phone Care Team Providers Care Personnel Assistant Name Role Phone Abad Byrd MD Primary Care Provider [phone] Abad Byrd MD Primary Care Provider [phone] Myesha Holbrook Primary Care Provide r Encounter Details Date Type Department Care Team (Late st Contact Info) Description 10/23/2017 Ancillary Orders Virtual Department [address] [place] [address] Abad Byrd MD [address] [place] [address] [facility] [place] [address] Breast screening Social History Tobacco Use Types [...] Visit [facility] [address] [place] [address] Odilia Palacios PA-C 4 [facility] [place] [address] Fabi Santos, PT [address] [place] [address] 09/18/2025 10:15 AM EST Office Visit [facility] 12 [place] [address] Odilia Palacios PA-C [address] [place] [address] [facility], [place] [address] Fabi Santos, PT 10 [place] [address] 09/22/2025 10:20 AM EST Office Visit [facility] [address] [place] [address] Odilia Palacios PA-C [address] [place] [address] 10/06/2025 10:40 AM EST Office Visit [facility] [address] [place] [address] Gilberto Payne MD [address] [place] [phone] [email or web address] documented as of this encounter Results * [...] There are scattered fibroglandular densities. POS - [id number] Narrative 12/25/2017 1:31 PM EDT Full-field digital [...] There are scattered fibroglandular densities. POS - [id number] Abad Byrd MD IMG MG EXAMS Final Result documented in this encounter Visit Diagnoses Diagnosis Breast screening Breast screening, unspecified Breast screening Breast screening, unspecified Other closed displaced fracture of proximal end of right humerus with routine healing, subsequent encounter- Primary documented in this encounter Care Teams Personnel Assistant Relationship Specialty Start Date End Date Abad Byrd MD [address] [place] [address] [place] [id number] PCP - General 09/20/17 03/28/22 Abad Byrd MD [address] [place] [address] [place] [id number] PCP - General Internal Medicine 03/29/22 12/30/24 Myesha Holbrook PA [address] [place] [address] [place] [id number] PCP - General Physician Tape Recorder Repairer 12/31/24 documented as of this encounter Additional Source Comments The information contained in this document represents components of the legal health record. It is not the complete legal health record.[facility]
--- OUTSIDE RECORDS SUMMARY | 2025-09-08 08:32 | XMS_ITS | Encounter Summary ---
Author Organization [facility] Address [address] [place] [address] Phone Care Team Providers Care Truck Hopper Name Role Phone Abad Byrd MD Primary Care Provider [phone] Abad Byrd MD Primary Care Provider [phone] Myesha Holbrook Primary Care Provide r Encounter Details Date Type Department Care Team (Late st Contact Info) Description 12/30/2021 Procedure Pass [facility], [address] [address] Social History Tobacco Use Types Packs/Day Years [...] Description 09/15/2025 10:00 AM EST Office Visit [facility] [address] [place] [address] Odilia Palacios PAMaryC [facility] [place] [address] Fabi Santos, PT 10 [place] [address] 09/18/2025 10:15 AM EST Office Visit [facility] 12 [place] [address] Odilia Palacios PA-C [address] [place] [address] [facility], [place] [address] Faib Santos, PT 10 [place] [address] 09/22/2025 10:20 AM EST Office Visit [facility] [address] [place] [address] Odilia Palacios PA-C [address] [place] [address] [facility] [place] [address] 10/06/2025 10:40 AM EST Office Visit [facility] [address] [place] [address] Gilberto Payne MD [address] [place] [phone] documented as of this encounter Visit Diagnoses Not on filedocumented in this encounter Care Teams Truck Hopper Relationship Specialty Start Date End Date Abad Byrd MD [address] [place] [address] [place] [address] PCP - General 09/20/17 03/28/22 Abad Byrd MD [address] [place] [address] [place] [address] PCP - General Internal Medicine 03/29/22 12/30/24 Myesha Holbrook PA [address] [place] [address] [place] [id number] PCP - General Physician Imposer 12/31/24 documented as of this encounter Additional Source Comments The information contained in this document represents components of the legal health record. It is not the complete legal health record.[facility]
[2025-09-08 08:33] VITALS: BP 138/72; PULSE 65; RESP 18; TEMP 36.5; O2SAT 95; BMI 33.5
== END 2025-09-08 09:50 | disposition home or self-care (01) ==
LOC: HO.HMCH 08:25
PROVIDERS: PCP Internal Medicine
DX: F41.9 Anxiety disorder, unspecified (principal); F32.A Depression, unspecified; I10 Essential (primary) hypertension; E78.5 Hyperlipidemia, unspecified; E66.9 Obesity, unspecified; K21.9 Gastro-esophageal reflux disease without esophagitis; J30.9 Allergic rhinitis, unspecified; S42.90XA Fracture of unspecified shoulder girdle, part unspecified, initial encounter for closed fracture

== ENCOUNTER → 2025-09-08 08:24 | Outpatient (BNVA) | payer MEDICARE, OTHER, SELFPAY | PROVIDERS: PCP Internal Medicine | DX: I10 Essential (primary) hypertension (principal); F41.9 Anxiety disorder, unspecified; F32.A Depression, unspecified; E78.00 Pure hypercholesterolemia, unspecified; E78.5 Hyperlipidemia, unspecified; E66.9 Obesity, unspecified; K21.9 Gastro-esophageal reflux disease without esophagitis; J30.9 Allergic rhinitis, unspecified; M25.519 Pain in unspecified shoulder | CPT/HCPCS: 99212 ==